=== PATIENT | female | born 1960 | race Caucasian/White ===

== ENCOUNTER → 2016-09-17 | Outpatient (CLI) | payer BC | END | disposition home or self-care (01) | LOC: LABWHC1 10:47 | PROVIDERS: ATTEND Internal Medicine Endocrinology, Diabetes & Metabolism | DX: E05.90 Thyrotoxicosis, unspecified without thyrotoxic crisis or storm (principal) | CPT/HCPCS: 36415; 84439; 84443; 84480 ==

== ENCOUNTER → 2016-11-12 | Outpatient (CLI) | payer BC ==
--- NOTE | 2016-11-18 09:24 | MM ---
Reason for exam: screening (asymptomatic). Last mammogram was performed 1 year and 6 months ago. History: Patient is postmenopausal. Benign stereotactic core biopsy of the left breast, January 11, 2003. Core biopsy of the left breast. Took hormonal contraceptives for 2 years. Took estrogen for 1 year. Physical Findings: A clinical breast exam by your physician is recommended on an annual basis and results should be correlated with mammographic findings. MG Screening Mammo w CAD Bilateral CC and MLO view(s) were taken. Prior study comparison: May 02, 2015, mammogram, performed at [facility]. November 14, 2013, mammogram, performed at [facility]. March 15, 2009, bilateral digital screening mammogram. August 01, 2007, bilateral diagnostic digital mammog. There are scattered fibroglandular densities. Finding: There are stable typically benign round, grouped/clustered calcifications in the posterior position of the left breast at biopsy clip. Previous mammotome biopsy in the left breast. There is a chronic nodularity bilaterally. There is no discrete abnormality. ASSESSMENT: Benign, BI-RAD 2 RECOMMENDATION: Routine screening mammogram of both breasts in 1 year.
== END | disposition home or self-care (01) ==
LOC: RADMAMWWP 08:08
PROVIDERS: ATTEND Family Medicine
DX: Z12.31 Encounter for screening mammogram for malignant neoplasm of breast (principal); I10 Essential (primary) hypertension

== ENCOUNTER → 2018-08-30 | Outpatient (CLI) | payer BC, MEDICARE ==
--- NOTE | 2018-08-30 10:28 | XR ---
EXAMINATION TYPE: XR Hip Bilateral Complete DATE OF EXAM: 08/30/2018 COMPARISON: NONE HISTORY: Pain TECHNIQUE: 2 views submitted of each hip FINDINGS: There is no evidence of erosive change or acute fracture. There is concentric narrowing of the hip joint bilaterally. Benign-appearing cystic changes are seen within both proximal femur. Postsurgical change overlying the lower lumbar spine. Findings suggest previous hernia repair surgery . IMPRESSION: 1. No evidence of acute fracture or dislocation. 2. Arthropathy bilaterally with no erosive changes. Benign-appearing cystic changes within both proxi mal femur.
== END | disposition home or self-care (01) ==
LOC: RADXRYALE 09:46
PROVIDERS: ATTEND Family Medicine
DX: M16.0 Bilateral primary osteoarthritis of hip (principal)
CPT/HCPCS: 73521

== ENCOUNTER → 2018-09-12 | Outpatient (CLI) | payer BC, MEDICARE ==
[2018-09-12 13:44] VITALS: BP 125/79; PULSE 90; RESP 16; TEMP 98
--- NOTE | 2018-09-12 16:23 | P.PAINCN ---
History of Present Illness - Reason for Consult Consult date: 09/12/18 - History of Present Illness This is a 58-year-old female patient referred by Dr. Orellana (PCP) for chronic pain in low lumbar region with radiation to bilateral hips, anterior lateral thigh and calves as well as bilateral groins. The pain in her low back has been present for about 4 years. She underwent posterior spinal fusion L3 to L5 levels by Dr. Guaman with no significant change in her pain. She notes numbness and tingling in bilateral feet. She states that her groin pain is relatively new, and has been present for about 2 months. She denies any associated weakness. Patient has been taking medications from primary care physician including gabapentin 300 mg 3 times a day, baclofen 20 mg twice a day with some relief. Patient denies adverse drug effects from medications. She has never had injections done before. She has been to physical therapy, last done 2 weeks ago. She continues to do her home exercises., However her dog ate her exercise sheet. Patient also denies new-onset weakness, bowel/bladder incontinence, or any other signs or symptoms of cauda equina syndrome. There are no signs of acute intoxication, and no indications of medication diversion or overuse. In addition to above, 13-point review of systems is also negative for chest pain, shortness of breath, changes in vision, changes in hearing, new onset weakness, abdominal pain, diarrhea, extreme fatigue, malaise, fever, skin changes, homicidal or suicidal ideation, or bowel or bladder incontinence. She does endorse night sweats and was recently diagnosed with A. fib following her lung resection surgery and is on Elequis for that reason. Physical Exam: Vital Signs: Reviewed in EMR GENERAL: Well appearing, in no acute distress PSYCH: Mood and affect is appropriate. Awake, alert, and oriented SKIN: Skin color, texture, turgor normal, no rashes or lesions HEENT: Normocephalic, atraumatic. EOM intact CV: No pedal edema RESP: Respirations are unlabored, no audible wheezing GI: Abdomen non-distended MUSCULOSKELETAL: Bilateral upper and lower extremity strength is normal and symmetric. No atrophy or tone abnormalities are noted. Lumbar spine: Straight leg raising in the sitting position is positive for radicular pain bilaterally. Tenderness to palpation over the lumbar spine and paraspinous muscles. Well healed surgical scars visible. Positive for pain with facet loading and back extension/rotation bilaterally. Buttocks: No pain to palpation over the PSIS, Rakesh test is negative Bilateral FADIR positive for reproduction of groin pain. Extremities: Peripheral joint ROM is full and pain free without obvious instability or laxity in all four extremities. No edema or skin discolorations noted. Gait: Gait is slow, antalgic NEUR: Bilateral lower extremity coordination and muscle stretch reflexes are physiologic and symmetric. Negative clonus. Loss of sensation to light touch noted in bilateral lower extremities circumferentially. Cranial nerves are grossly intact. Imaging: X-ray lumbar spine done on 04/16/2018 shows intact L3 to L5 hardware from posterior spinal fusion. Bilateral hip x-rays show bilateral mild hip arthropathy. Patient has not had lumbar spine MRI following lumbar spine fusion. Assessment: 1. Lumbar radiculopathy without myelopathy 2. Lumbar spondylosis 3. Bilateral hip arthropathy 4. Use of blood thinner: Elequis Plan: 1. Explanation: Opioid and psychological risk scores were reviewed. Diagnoses, prognoses, and multiple treatment options including but not limited to physical therapy, interventional therapies, adjuvant medical therapies, narcotic medication therapies, and surgery were discussed with the patient and all questions were answered to the patient's satisfaction. 2. Opioid agreement: None 3. Counseling: The patient was counseled extensively on BODY MASS INDEX, EXERCISE. Specifically, the patient was instructed regarding the importance of weight control, and exercise in the context of both chronic pain and overall health. Patient provided printout of exercise sheet for lumbar strengthening and core strengthening exercises. 4. Procedures: will schedule bilateral hip intra-articular steroid injections. Patient does not need to hold blood thinner for this procedure 5. Consultations: none 6. Investigations: Will order lumbar spine MRI 7. Medications: encourage patient to discuss with prescriber increasing dose of Neurontin to 600 mg 3 times a day 8. Disposition: for above-mentioned procedure PQRS measures: Past Medical History Past Medical History: Atrial Fibrillation, Asthma, Cancer, COPD, Fibromyalgia, Hyperlipidemia, Hypertension, Seizure Disorder, Sleep Apnea/CPAP/BIPAP Additional Past Medical History / Comment(s): diverticulitis, hernia, 11/2014 last seizure, lung ca June 2018, History of Any Multi-Drug Resistant Organisms: None Reported Past Surgical History: Appendectomy, Back Surgery, Section, Cholecystectomy, Hernia Repair, Hysterectomy, Orthopedic Surgery Additional Past Surgical History / Comment(s): lumbar fursion, neck fusion, left knee sx X3, bilat ganglion cyst removed, lymph node and gland removed from neck, left elbow sx, eye lid lift, sinus sx, left ovary removed, left upper lobectomy Past Anesthesia/Blood Transfusion Reactions: No Reported Reaction Smoking Status: Former smoker - Past Family History Daughter(s) Family Medical History: Cancer Additional Family Medical History / Comment(s): colon Father Family Medical History: Cancer Additional Family Medical History / Comment(s): COLON CA Sister(s) Family Medical History: Cancer Additional Family Medical History / Comment(s): BLADDER CA Medications and Allergies Home Medications Medication Instructions Recorded Confirmed Type ALPRAZolam [Xanax] 0.5 mg PO BID 08/20/14 09/12/18 History Albuterol Sulfate [Proair Hfa] 1 - 2 puff INHALATION RT-Q6H PRN 08/20/14 09/12/18 History Omeprazole [PriLOSEC] 20 mg PO AC-BID 08/20/14 09/12/18 History levETIRAcetam [Keppra] 500 mg PO Q12HR 08/20/14 09/12/18 History Apixaban [Eliquis] 5 mg PO BID 09/08/18 09/08/18 History Atorvastatin [Lipitor] 40 mg PO DAILY 09/08/18 09/12/18 History Budesonide-Formot 160-4.5 Mcg 2 puff INHALATION BID 09/08/18 09/12/18 History [Symbicort 160-4.5 Mcg Inhaler] Fexofenadine HCl [Anne Allergy] 60 mg PO DAILY 09/08/18 09/12/18 History Flecainide Acetate [Tambocor] 100 mg PO Q12HR 09/08/18 09/12/18 History Fluticasone Nasal [place] [Flonase 1 spray EA NOSTRIL DAILY 09/08/18 09/12/18 History Nasal [place]] Methimazole 2.5 mg PO QAM 09/08/18 09/12/18 History Metoprolol Tartrate [Lopressor] 50 mg PO QAM 09/08/18 09/12/18 History Pramipexole [Mirapex] 0.5 mg PO HS 09/08/18 09/12/18 History Vortioxetine Hydrobromide 10 mg PO QAM 09/08/18 09/12/18 History [Trintellix] cycloSPORINE [Restasis] 1 applicator BOTH EYES BID 09/08/18 09/12/18 History traZODone HCL [Desyrel] 100 mg PO HS 09/08/18 09/12/18 History Baclofen [Lioresal] 20 mg PO BID 09/12/18 09/12/18 History Gabapentin [Neurontin] 300 mg PO TID 09/12/18 09/12/18 History Allergies Allergy/AdvReac Type Severity Reaction Status Date / Time amoxicillin trihydrate Allergy Rash/Hives Verified 09/12/18 13:46 [From Augmentin] potassium clavulanate Allergy Rash/Hives Verified 09/12/18 13:46 [From Augmentin] sulfamethoxazole Allergy Rash/Hives Verified 09/12/18 13:46 [From Bactrim] trimethoprim [From Bactrim] Allergy Rash/Hives Verified 09/12/18 13:46 Physical Exam Vitals: Vital Signs Temp Pulse Resp BP Pulse Ox 09/12/18 13:51 16 09/12/18 13:34 98 F 90 16 125/79 95 PQRS Measure Charge Sheet Measure #130: Documentation of Current Meds in Medical Chart: Patient's medications documented in chart Measure #226: Tobacco Use: Screen & Cessation Intervention: Pt not a tobacco user Measure #111: Pneumonia Vaccination: Pneumococcal vaccine NOT administered or previously given Measure #47: Advance Care Plan: Advance care planning discussed & documented, pt chose/unable to give Measure #412: Opioid Treatment Agreement: No documentation of signed opioid treatment agreement Measure #317: Preventitive Care & Scrn High Bld Press & F/U: Normal blood pressure, f/u not required Measure #128: Body Mass Index (BMI) Screening & Follow-up: BMI documented ABOVE normal parameters - f/u documented Measure #131: Pain Assessment & Follow-up: Pain positive & plan documented, Follow-up scheduled Measure #431: Unhealthy Alcohol Use Preventative Care & Scrn: Patient not identified as an unhealthy alcohol user PQRS Narrative: Smoking Status Former smoker Blood Pressure 125/79 Pain Intensity [Bilateral Foot 7 ] Pain Intensity [Lower Back] 7 Pain Intensity [Bilateral Leg] 7 Pain Intensity [Bilateral 7 Groin] Pain Intensity [Bilateral Hip] 7 Scale Used Numeric (1 - 10) Hx Alcohol Use (MH) No Home Medications: Ambulatory Orders ALPRAZolam [Xanax] 0.5 mg PO BID 08/20/14 Albuterol Sulfate [Proair Hfa] 1 - 2 puff INHALATION RT-Q6H PRN 08/20/14 Omeprazole [PriLOSEC] 20 mg PO AC-BID 08/20/14 levETIRAcetam [Keppra] 500 mg PO Q12HR 08/20/14 Apixaban [Eliquis] 5 mg PO BID 09/08/18 Atorvastatin [Lipitor] 40 mg PO DAILY 09/08/18 Budesonide-Formot 160-4.5 Mcg [Symbicort 160-4.5 Mcg Inhaler] 2 puff INHALATION BID 09/08/18 Fexofenadine HCl [Anne Allergy] 60 mg PO DAILY 09/08/18 Flecainide Acetate [Tambocor] 100 mg PO Q12HR 09/08/18 Fluticasone Nasal [place] [Flonase Nasal [place]] 1 spray EA NOSTRIL DAILY 09/08/18 Methimazole 2.5 mg PO QAM 09/08/18 Metoprolol Tartrate [Lopressor] 50 mg PO QAM 09/08/18 Pramipexole [Mirapex] 0.5 mg PO HS 09/08/18 Vortioxetine Hydrobromide [Trintellix] 10 mg PO QAM 09/08/18 cycloSPORINE [Restasis] 1 applicator BOTH EYES BID 09/08/18 traZODone HCL [Desyrel] 100 mg PO HS 09/08/18 Baclofen [Lioresal] 20 mg PO BID 09/12/18 Gabapentin [Neurontin] 300 mg PO TID 09/12/18
== END | disposition home or self-care (01) ==
LOC: PNWHC3 13:03
PROVIDERS: ATTEND Anesthesiology
DX: G89.29 Other chronic pain (principal); M47.26 Other spondylosis with radiculopathy, lumbar region; M16.0 Bilateral primary osteoarthritis of hip; I48.91 Unspecified atrial fibrillation; J44.9 Chronic obstructive pulmonary disease, unspecified; I10 Essential (primary) hypertension; E78.5 Hyperlipidemia, unspecified; G40.909 Epilepsy, unspecified, not intractable, without status epilepticus; Z87.891 Personal history of nicotine dependence; Z98.1 Arthrodesis status; Z79.01 Long term (current) use of anticoagulants; Z79.51 Long term (current) use of inhaled steroids; Z79.899 Other long term (current) drug therapy
CPT/HCPCS: 99211

== ENCOUNTER 2018-09-20 08:09 | Day surgery (SDC) | payer BC, MEDICARE ==
[2018-09-15 15:08] VITALS: BMI 30.5
[~2018-09-20 08:09] MED LIST: LACTATED RINGERS 1,000 ML IV SCH
[2018-09-20 08:53] VITALS: TEMP 98.1
[2018-09-20] MEDS ORDERED: LIDOCAINE 1% INJ 10MG/ML (20 ML MDV) ONE (08:53)
[2018-09-20] MEDS ORDERED: PROPOFOL 10 MG/ML 20 ML VIAL IV ONE (08:53)
--- NOTE | 2018-09-20 10:12 | P.PCN ---
Date of Procedure: 09/20/18 Description of Procedure: BRIEF HISTORY: 58-year-old female who presents for outpatient colonoscopy. The patient reports polyps removed on his colonoscopies, she believes her last was less than 5 years ago and she was told she would need a repeat colonoscopy in 3 years. She does have a family history of colon cancer in both her father and her daughter who is status post colectomy at the age of 31. Denies any change in bowel habits, blood per rectum, abdominal pain, constipation or diarrhea. PROCEDURE PERFORMED: Colonoscopy with polypectomy. PREOPERATIVE DIAGNOSIS: Personal history of colon polyps, family history of colon cancer (daughter and father), high risk screening for malignant neoplasm of the colon. ESTIMATED BLOOD LOSS: Minimal. IV sedation per Anesthesia. PROCEDURE: After informed consent was obtained, the patient, was brought into the endoscopy unit. IV sedation was administered by Anesthesia under continuous monitoring. Digital rectal examination was normal. Initially the Olympus CF-190 flexible video colonoscope was then inserted in the rectum, gradually advanced into the sigmoid colon, however the patient's colon was very tortuous and fixed likely secondary to multiple intra-abdominal surgeries. At this point the Olympus CF190 colonoscope was removed and exchanged for a pediatric colonoscope which was then inserted into the rectum and gradually advanced to the cecum without any difficulty. Careful examination was performed as the scope was gradually being withdrawn. Ileocecal valve and the appendiceal orifice were visualized and appeared normal. Prep was excellent. Mucosa of the cecum, ascending colon, transverse colon, descending colon, sigmoid colon, and rectum appeared normal. 12 mm sessile ascending colon polyp removed with cold snare polypectomy. Diminutive 2 mm descending colon polyp removed with cold forcep. Mild internal hemorrhoids. Retroflexion was performed in the rectum and no lesions were seen. The patient tolerated the procedure well. IMPRESSION: Tortuous, fixed likely secondary to multiple intra-abdominal surgeries, pediatric scope used. 12 mm ascending colon polyp removed with cold snare. 2 mm descending colon polyp removed with cold forceps. Mild internal hemorrhoids. RECOMMENDATIONS: Findings of this examination were discussed with the patient and her daughter. Okay to resume diet. Would recommend repeat colonoscopy in 3 years for high risk colon cancer screening. With pathology from polypectomy.
[2018-09-20 10:13] VITALS: RESP 16
[2018-09-20 10:34] VITALS: BP 127/87; PULSE 65
== END 2018-09-20 11:02 | disposition home or self-care (01) ==
LOC: ORWHC2ENDO 08:09
PROVIDERS: ATTEND Internal Medicine
DX: Z12.11 Encounter for screening for malignant neoplasm of colon (principal); Z86.010 Personal history of colon polyps; D12.2 Benign neoplasm of ascending colon; K63.5 Polyp of colon; K64.8 Other hemorrhoids; Q43.9 Congenital malformation of intestine, unspecified; Z80.0 Family history of malignant neoplasm of digestive organs; I10 Essential (primary) hypertension; E78.5 Hyperlipidemia, unspecified; I48.91 Unspecified atrial fibrillation; K21.9 Gastro-esophageal reflux disease without esophagitis; J44.9 Chronic obstructive pulmonary disease, unspecified; R56.9 Unspecified convulsions; M79.7 Fibromyalgia; F32.9 Major depressive disorder, single episode, unspecified; G47.33 Obstructive sleep apnea (adult) (pediatric); Z79.01 Long term (current) use of anticoagulants; Z79.899 Other long term (current) drug therapy; Z88.1 Allergy status to other antibiotic agents; Z88.2 Allergy status to sulfonamides; Z87.891 Personal history of nicotine dependence; Z85.118 Personal history of other malignant neoplasm of bronchus and lung; Z90.49 Acquired absence of other specified parts of digestive tract; Z90.710 Acquired absence of both cervix and uterus; Z90.2 Acquired absence of lung [part of]; Z98.1 Arthrodesis status
CPT/HCPCS: 45385; 45380; 88305; J2001; J2704

== ENCOUNTER 2018-09-21 09:51 | Day surgery (SDC) | payer BC, MEDICARE ==
[2018-09-15 14:54] VITALS: BMI 30.5
[2018-09-21 10:44] VITALS: TEMP 97.8
[2018-09-21] MEDS ORDERED: LACTATED RINGERS 1,000 ML IV ONE ×2 (10:44→12:00)
[2018-09-21] MEDS ORDERED: LIDOCAINE 1% 20 ML VIAL (10MG/ML) FOR IV START INTRADERMA ONE (10:44)
--- NOTE | 2018-09-21 11:43 | P.PCN ---
Date of Procedure: 09/21/18 Procedure(s) Performed: Preoperative diagnoses = bilateral hip joint osteoarthritis. Postoperative diagnoses= same Procedure= intra-articular bilateral hip injection with fluoroscopy Anesthesia= local anesthetic with lidocaine 1%, moderate sedation with fentanyl and Versed Fluoroscopy was used for the procedure and fluoroscopic images saved to chart Procedure indication= patient with a history of severe hip pain secondary to osteoarthritis which is not responsive to the conservative treatment. Description of the procedure= patient was seen and identified in the preoperative holding area, risk and benefits , complications ,and alternatives of the procedure were discussed with the patient and patient agreed with the preceding, patient signed the consent and IV was started and vital signs were monitored throughout the procedure and it was stable. The patient was taken to the operating room and placed in supine position the groin area was prepped with chlorhexidine 3 and draped with the standard fashion, AP fluoroscopy was used to identify the junction of the head and neck of the femur. Skin and subcutaneous tissue was infiltrated with 2 mL of 1% lidocaine. a 22-gauge 3.5" Quincke spinal needle was advanced through the skin and subcutaneous tissue into the hip joint. After negative aspiration,.2 MLS of Isovue 200 was injected, revealing intra-articular spread. Then the treatment solution of 4 cc 1% lidocaine with 40 mg of Kenalog injected. The procedure was repeated on the other side. A total of 80 mg of Kenalog was used. The patient tolerated the procedure well without any complications. Complications= there was no acute complication identified. Disposition= patient was placed advanced supine position and transferred to recovery room in stable condition for observation and was discharged home after meeting discharge criteria, and discharge instruction was given and patient will follow up in the pain clinic in a few weeks
[2018-09-21 12:01] VITALS: RESP 16
[2018-09-21 12:19] VITALS: BP 120/77; PULSE 60
--- NOTE | 2018-09-21 13:32 | FL ---
Fluoroscopy HISTORY: Pain 6 seconds fluoroscopy time supplied to the referring clinician. 4 intraoperative C-arm images docume nt the procedure. See dictated report from anesthesia.
== END 2018-09-21 12:31 | disposition home or self-care (01) ==
LOC: ORPAIN 09:51
PROVIDERS: ATTEND Anesthesiology
DX: M16.0 Bilateral primary osteoarthritis of hip (principal); M47.26 Other spondylosis with radiculopathy, lumbar region; Z98.1 Arthrodesis status; G89.29 Other chronic pain; I48.91 Unspecified atrial fibrillation; I10 Essential (primary) hypertension; E78.5 Hyperlipidemia, unspecified; J44.9 Chronic obstructive pulmonary disease, unspecified; M79.7 Fibromyalgia; G40.909 Epilepsy, unspecified, not intractable, without status epilepticus; G47.30 Sleep apnea, unspecified; Z99.89 Dependence on other enabling machines and devices; Z79.01 Long term (current) use of anticoagulants; Z79.899 Other long term (current) drug therapy; Z79.51 Long term (current) use of inhaled steroids; Z85.118 Personal history of other malignant neoplasm of bronchus and lung; Z90.2 Acquired absence of lung [part of]; Z90.49 Acquired absence of other specified parts of digestive tract; Z90.710 Acquired absence of both cervix and uterus; Z90.721 Acquired absence of ovaries, unilateral; Z87.891 Personal history of nicotine dependence; Z88.0 Allergy status to penicillin; Z88.2 Allergy status to sulfonamides; Z80.0 Family history of malignant neoplasm of digestive organs; Z80.52 Family history of malignant neoplasm of bladder
CPT/HCPCS: 20610; J2250; J3301; J3010; Q9966; 99152

== ENCOUNTER → 2018-10-04 | Outpatient (CLI) | payer BC, MEDICARE ==
[2018-10-04 12:07] VITALS: BP 117/79; PULSE 62; RESP 16
--- NOTE | 2018-10-05 10:03 | P.PAINPG ---
Subjective Progress Note Date: 10/04/18 This is a follow-up visit for this 58 years old female, with a chronic history of severe low back pain with radiation to the lateral buttocks and hips and lower extremity, patient diagnosed with artharalgia of both hips , and lumbar radiculopathy and lumbar spondylosis with lumbar facet arthropathy, patient had lumbar spinal fusion surgery that was done in March 2018, and she reported that she had 0 benefit from the surgery, and he weeks ago she had bilateral hip steroid injection and she reported that she has 0 benefit from it , she continues to use Neurontin and baclofen, he denies any side effects from it, previously she had the spinal cord stimulator implanted but she had 0 benefit from it , and she had the generator of the spinal cord stimulator removed but she still have that leads in the thoracic area ,, Objective - Vital Signs Vital signs: Vital Signs Temp Pulse 62 10/04/18 12:01 Resp 16 10/04/18 12:01 BP 117/79 10/04/18 12:01 Pulse Ox 94 L 10/04/18 12:01 Intake & Output 10/04/18 10/05/18 10/05/18 18:59 06:59 18:59 Weight 78.925 kg - Exam Physical Examinations : -Constitutiona : Cooperative , not in acute distress . -HEENT : nech : supple , no Lymphadenopathy , normal thyroid size . eyes : no ptosis , no icterus, no photophobia . - Gastrointestina : abdomen soft no tenderness , bowel sounds , no organomegally . - Genitourinary : Defferred . - neurologic : Cranial nerve II to XII intact , no focal neurological deffecit . -psychatric : alert , oriented X 3 , appropriate affect , intact judgment and insight . -Lymphatic : no Lymphadenopathy . - musculoskeltal : Lumber spine moter stegnth lower extremities ,thigh and legs 3-4/5 Right side , 3- 4/5 Left side deep tendon reflexes : normal Knee Jerk , normal ankle Jerk positive lumber facet Loading Test Range of motion of the lumbar spine Flexion 30 degrees, extension 10 degrees strait leg raising test , positive at 60 degree Fabere test positive RT and positive LT . tenderness over the Sacroiliac joint on the R and L sides Flexion, station and left rotation of the both hips associated with pain . Assessment and Plan Plan: Assessment and plan=1-failed back surgery syndrome lumbar area. 2-lumbar spondylosis with lumbar facet arthropathy. 3-bilateral hip arthralgia. Status post bilateral hip steroid injections patient had 0 benefit from the hip injection , patient could benefit from caudal epidural steroid injection with lysis of epidural adhesions, which will be done under fluoroscopy guidance but before we proceed with the procedure patient has the hold the blood thinner ( ELIQUIS ) before we can proceed with the procedure Time with Patient: Less than 30 PQRS Measure Charge Sheet Measure #130: Documentation of Current Meds in Medical Chart: Patient's medications documented in chart Measure #226: Tobacco Use: Screen & Cessation Intervention: Pt not a tobacco user Measure #111: Pneumonia Vaccination: Pneumococcal vaccine NOT administered or previously given Measure #47: Advance Care Plan: Advance care planning discussed & documented, pt chose/unable to give Measure #412: Opioid Treatment Agreement: No documentation of signed opioid treatment agreement Measure #408: Opioid Therapy Follow-up Evaluation: Patient had NO f/u eval minimum every 3 months during opioid therapy Measure #317: Preventitive Care & Scrn High Bld Press & F/U: Normal blood pressure, f/u not required Measure #128: Body Mass Index (BMI) Screening & Follow-up: BMI documented ABOVE normal parameters - f/u documented Measure #131: Pain Assessment & Follow-up: Pain positive & plan documented, Follow-up scheduled Measure #431: Unhealthy Alcohol Use Preventative Care & Scrn: Patient not identified as an unhealthy alcohol user PQRS Narrative: Smoking Status Former smoker Blood Pressure 117/79 Pain Intensity [Bilateral 8 Lower Back] Scale Used Numeric (1 - 10) Hx Alcohol Use (MH) No Home Medications: Ambulatory Orders ALPRAZolam [Xanax] 0.5 mg PO BID 08/20/14 Albuterol Sulfate [Proair Hfa] 1 - 2 puff INHALATION RT-Q6H PRN 08/20/14 Omeprazole [PriLOSEC] 20 mg PO AC-BID 08/20/14 levETIRAcetam [Keppra] 500 mg PO Q12HR 08/20/14 Apixaban [Eliquis] 5 mg PO BID 09/08/18 Atorvastatin [Lipitor] 40 mg PO DAILY 09/08/18 Budesonide-Formot 160-4.5 Mcg [Symbicort 160-4.5 Mcg Inhaler] 2 puff INHALATION BID 09/08/18 Fexofenadine HCl [Anne Allergy] 60 mg PO DAILY 09/08/18 Flecainide Acetate [Tambocor] 100 mg PO Q12HR 09/08/18 Fluticasone Nasal [place] [Flonase Nasal [place]] 1 spray EA NOSTRIL DAILY 09/08/18 Methimazole 2.5 mg PO QAM 09/08/18 Metoprolol Tartrate [Lopressor] 50 mg PO QAM 09/08/18 Pramipexole [Mirapex] 1 mg PO HS 09/08/18 Vortioxetine Hydrobromide [Trintellix] 10 mg PO QAM 09/08/18 cycloSPORINE [Restasis] 1 applicator BOTH EYES BID 09/08/18 traZODone HCL [Desyrel] 100 mg PO HS 09/08/18 Baclofen [Lioresal] 20 mg PO BID 09/12/18 Gabapentin [Neurontin] 600 mg PO HS 09/12/18 Magnesium 250 mg PO QAM 09/15/18 Multivit-Min/Iron/Folic/Lutein [Centrum Silver Women Tablet] 1 each PO QAM 09/15/18 Controlled Substance Measures - Controlled Substance Measures Is patient prescribed a controlled substance at discharge?: No
== END | disposition home or self-care (01) ==
LOC: PNWHC3 11:43
PROVIDERS: ATTEND Specialist
DX: G89.29 Other chronic pain (principal); M96.1 Postlaminectomy syndrome, not elsewhere classified; M47.816 Spondylosis without myelopathy or radiculopathy, lumbar region; M46.96 Unspecified inflammatory spondylopathy, lumbar region; M25.551 Pain in right hip; M25.552 Pain in left hip; Z87.891 Personal history of nicotine dependence; Z98.1 Arthrodesis status; Z79.51 Long term (current) use of inhaled steroids; Z79.01 Long term (current) use of anticoagulants; Z79.899 Other long term (current) drug therapy
CPT/HCPCS: 99211

== ENCOUNTER 2018-10-11 07:26 | Day surgery (SDC) | payer BC, MEDICARE ==
[2018-10-06 11:50] VITALS: BMI 29.5
[2018-10-11 07:47] VITALS: TEMP 97.2
[2018-10-11] MEDS ORDERED: LIDOCAINE 1% 20 ML VIAL (10MG/ML) FOR IV START INTRADERMA ONE (07:51)
--- NOTE | 2018-10-11 08:57 | P.PCN ---
Date of Procedure: 10/11/18 Procedure(s) Performed: PREOP DIAGNOSIS: 1- Lumbar postlaminectomy syndrome. POSTOP DIAGNOSIS:1- Lumbar postlaminectomy syndrome. PROCEDURE: 1-Caudal epidural steroid injection with epidurolysis and epidurogram under fluoroscopic guidance. (Fluoroscopy images available in the radiology Department ) 2-caudal epidurogram. ANESTHESIA: Local with 1% lidocaine 3 ml ,and moderate sedation, with Versed 2 mg and fentanyl 100 g. EBL: Minimal. PROCEDURE INDICATION: The patient with post-laminectomy syndrome with low back pain and radiculopathy radiating down in both legs, here for a caudal epidural steroid injection with epidurolysis. PROCEDURE DESCRIPTION: The patient was seen and identified in the preoperative area. Risks, benefits, complications, and alternatives were discussed with the patient. The patient agreed to proceed with the procedure and signed the consent. IV was started, and vital signs were stable. Patient was taken to the OR and time out was completed. The patient was placed in the prone position on procedure table and a pillow was placed under the abdomen to reduce lumbar lordosis. The lumbosacral area was prepped and draped in the usual sterile fashion. Vital signs were closely monitored during the procedure. lateral view and the anterior-posterior plates of the sacrum were identified with infiltration of the area overlying the sacral hiatus with 1% lidocaine .A 17 gauge RK epidural needle was used to advance through the sacral hiatus into the caudal epidural space. Omnipaque 180 dye. 2cc was injected and the position of the needle was verified to be in the midline. A Racz catheter was introduced into the epidural space and was advanced towards the L5-S1 interspace under direct fluoroscopic guidance. Multiple passes were made with the catheter for lysis of epidural adhesions. Depo-Medrol 80 mg mixed with 3ml of preservative free Lidocaine 1% and 5 ml of preservative free normal saline was injected slowly. Additional spread was seen to L4 under fluoroscopy. The needle and the catheter were withdrawn intact. EPIDUROGRAM: Omnipaque 180 mg dye 2 ml was injected with spread of the dye into the caudal epidural space and with spread cutoff at L5 prior to epidurolysis. Post epidurolysis dye 2 ml was injected and spread was seen to L3-4.There was further spread of the solution together with the dye above the L3 COMPLICATIONS: None. DISPOSITION / PLANS: The patient was placed in a supine position and transferred to the recovery area in a stable condition for observation and was discharged from the recovery room after meeting discharge criteria. Home discharge instructions given to the patient by the staff. The patient was reexamined prior to discharge. The patient will schedule a follow up in the clinic in 2-4 weeks.
[2018-10-11 09:06] VITALS: RESP 17
--- NOTE | 2018-10-11 09:06 | FL ---
Fluoroscopy HISTORY: Pain 9 seconds fluoroscopy time supplied to the referring clinician. 2 intraoperative C-arm images docume nt the procedure. See dictated report from anesthesia.
[2018-10-11 09:19] VITALS: BP 123/67; PULSE 73
== END 2018-10-11 09:32 | disposition home or self-care (01) ==
LOC: ORPAIN 07:26
PROVIDERS: ATTEND Specialist
DX: M96.1 Postlaminectomy syndrome, not elsewhere classified (principal); M54.10 Radiculopathy, site unspecified; I48.91 Unspecified atrial fibrillation; I10 Essential (primary) hypertension; Z88.2 Allergy status to sulfonamides; Z88.8 Allergy status to other drugs, medicaments and biological substances; Z79.84 Long term (current) use of oral hypoglycemic drugs
CPT/HCPCS: 62264; J2250; J1030; J3010; Q9966; 99152

== ENCOUNTER 2018-10-27 07:24 | Day surgery (SDC) | payer BC, MEDICARE ==
[2018-10-20 10:14] VITALS: BMI 29.5
[2018-10-27 08:05] VITALS: TEMP 98.5
[2018-10-27] MEDS ORDERED: LIDOCAINE 1% 20 ML VIAL (10MG/ML) FOR IV START INTRADERMA ONE (08:19)
--- NOTE | 2018-10-27 09:32 | P.PCN ---
Date of Procedure: 10/27/18 Procedure(s) Performed: Procedure= caudal epidural steroid injection with lysis of epidural adhesions under fluoroscopy guidance. Preoperative diagnosis=1-failed back surgery syndrome lumbar area. 2 lumbar degenerative disc disease 3-lumbar radiculopathy Postoperative diagnosis= same Fluoroscopy was used for the procedure and fluoroscopic images were saved to the patient's chart Anesthesia= IV sedation with Versed and fentanyl , and local infiltration with lidocaine 1% 3 mL for skin and subcutaneous tissue infiltrations. Description of the procedure= procedure risk and benefits discussed with the patient, including but not limited to risk of infection and bleeding and ALLERGIC reaction to the medication and no complete pain relief, paralysis discussed with the patient and the patient agreed with proceeding. The patient was taken to the operating room, placed in prone position, standard monitors applied, then after induction of anesthesia the lumbar and the caudal Area prepped with chlorhexidine , then under fluoroscopy guidance, local infiltration of the skin and subcutaneous tissue at the caudal hiatus area, then a 17-gauge Touhy needle advanced slowly under fluoroscopy and passed through the cauda hiatus and advanced to the epidural space upto the S3 level. Aspiration revealed no heme, no paresthesia, no cerebrospinal fluid, then Isovue 200 2mls was injected under live fluoroscopy that showed good spread in the epidural space, no intrathecal spread, then a 22 xochilt Racz catheter was advanced slowly through the needle up to the L2 level and I was able to break the scar tissue by advancing and withdrawing the catheter multiple times. Once lysis of adhesion was completed, a mixture of lidocaine 1% 1 mL +5 mL of preservative-free normal saline +80 mg of depomedrol was mixed together , and injected epidurally through the Racz catheter after negative aspiration. Patient tolerated the procedure well without any complication and will follow up with up in the pain clinic in 4 weeks.
[2018-10-27] MEDS ORDERED: IV FLUID CONTINUATION 550 ML IV ONE (09:35)
[2018-10-27 09:41] VITALS: RESP 16
[2018-10-27 09:56] VITALS: BP 113/70; PULSE 72
--- NOTE | 2018-10-27 11:21 | FL ---
EXAMINATION TYPE: FL guided pain mgmt statistic DATE OF EXAM: 10/27/2018 HISTORY: Flouroscopy time 10 seconds of fluoroscopy provided. IMPRESSION: 1. Fluoroscopy time.
== END 2018-10-27 10:15 | disposition home or self-care (01) ==
LOC: ORPAIN 07:24
PROVIDERS: ATTEND Anesthesiology
DX: G89.29 Other chronic pain (principal); M96.1 Postlaminectomy syndrome, not elsewhere classified; M47.896 Other spondylosis, lumbar region; M25.552 Pain in left hip; M25.551 Pain in right hip; Z79.01 Long term (current) use of anticoagulants; I48.91 Unspecified atrial fibrillation; Z87.891 Personal history of nicotine dependence; Z79.51 Long term (current) use of inhaled steroids; Z79.899 Other long term (current) drug therapy
CPT/HCPCS: 62264; J2250; J1030; J3010; Q9966; C1894; 99152

== ENCOUNTER 2018-10-29 19:25 | Emergency (ER) | payer BC, MEDICARE ==
[2018-10-29 19:43] VITALS: RESP 20; TEMP 98
[2018-10-29] MEDS ORDERED: KETOROLAC 30 MG/ML 1 ML VIAL IVP STA (20:58)
[2018-10-29] MEDS ORDERED: SODIUM CHLORIDE 0.9% 500 ML 500 ML IV STA (20:58)
[2018-10-29] MEDS ORDERED: HYDROmorphone 0.5 MG/0.5 ML SYRINGE IVP STA ×2 (20:58→23:34)
[2018-10-29] MEDS ORDERED: ONDANSETRON 4 MG/2 ML VIAL IVP STA (20:58)
[2018-10-29] MEDS ORDERED: DIAZEPAM 5 MG/ML 2 ML INJ IVP STA (20:59)
[2018-10-29 21:35] LABS: Basophils # (A) 0.1 k/uL (0-0.2); Basophils % (A) 1 %; Eosinophils # (A) 0.2 k/uL (0-0.7); Eosinophils % (A) 2 %; Lymphocytes # (A) 1.1 k/uL (1.0-4.8); Lymphocytes % (A) 12 %; MCH 33.2 pg (25.0-35.0); MCHC 35.9 g/dL (31.0-37.0); MCV 92.5 fL (80.0-100.0); Mean Platelet Volume 6.2; Monocytes # (A) 0.6 k/uL (0-1.0); Monocytes % (A) 7 %; Neutrophils # (A) 7.1 k/uL (1.3-7.7); Neutrophils % (A) 76 %; Platelet Count 263 k/uL (150-450); RBC 4.22 m/uL (3.80-5.40); RDW 12.6 % (11.5-15.5); WBC 9.3 k/uL (3.8-10.6)
[2018-10-29 21:43] LABS: ALT 110 U/L (9-52); AST 37 U/L (14-36); African American GFR (CKD) >90 (>60 ml/min/1.73 sqM); Alkaline Phosphatase 155 U/L (38-126); Amylase 51 U/L (30-110); Anion Gap 11 mmol/L; Blood Urea Nitrogen 24 mg/dL (7-17); Calcium 9.9 mg/dL (8.4-10.2); Carbon Dioxide 28 mmol/L (22-30); Chloride 96 mmol/L (98-107); Glucose 103 mg/dL (74-99); Potassium 4.2 mmol/L (3.5-5.1); Sodium 135 mmol/L (137-145); Total Bilirubin 0.4 mg/dL (0.2-1.3)
[2018-10-29 23:24] VITALS: BP 109/79; PULSE 58
[2018-10-29 23:29] LABS: Appearance,Urine Clear (Clear); Bilirubin,Urine Negative (Negative); Blood,Urine Negative (Negative); Color,Urine Light Yellow; Glucose,Urine (UA) Negative (Negative); Ketones,Urine Negative (Negative); Leukocyte Esterase,Urine Negative (Negative); Nitrite,Urine Negative (Negative); Protein,Urine Negative (Negative); Specific Gravity,Urine 1.009 (1.001-1.035); Urobilinogen,Urine <2.0 mg/dL (<2.0)
[2018-10-29] MEDS ORDERED: HYDROcodone/APAP 5-325MG 1 EACH TAB PO STA (23:30)
--- NOTE | 2018-10-29 23:47 | ED ---
General Adult HPI - General Chief complaint: Back Pain/Injury Stated complaint: 1999 reservation: low back pain Time Seen by Provider: 10/29/18 20:11 Source: patient Mode of arrival: wheelchair Limitations: no limitations - History of Present Illness Initial comments: 58-year-old female patient presents to the emergency department today for evaluation of diffuse low back pain with radiation down the left leg. Patient is reporting left leg cramping. States this started a couple days after receiving a spinal injection. Patient believes is an injection of steroids. Patient states she has had this in the past and has never had this reaction before. She denies any fever or chills. Denies any loss of bowel or bladder control. Denies any saddle anesthesia. States she is taking baclofen and gabapentin at home without relief. She is also reporting intermittent cramping abdominal pain. States this has been going on since before the injections. Denies nausea or vomiting. Denies diarrhea or constipation. Patient denies any recent rash, shortness breath, chest pain, back pain, numbness, tingling, dizziness, weakness, hematuria, dysuria, urinary urgency, urinary frequency, headache, visual changes, or any other complaints. - Related Data Home Medications Medication Instructions Recorded Confirmed ALPRAZolam [Xanax] 0.5 mg PO BID 08/20/14 10/27/18 Albuterol Sulfate [Proair Hfa] 1 - 2 puff INHALATION RT-Q6H PRN 08/20/14 10/27/18 Omeprazole [PriLOSEC] 20 mg PO AC-BID 08/20/14 10/27/18 levETIRAcetam [Keppra] 500 mg PO Q12HR 08/20/14 10/27/18 Apixaban [Eliquis] 5 mg PO BID 09/08/18 10/27/18 Atorvastatin [Lipitor] 40 mg PO DAILY 09/08/18 10/27/18 Budesonide-Formot 160-4.5 Mcg 2 puff INHALATION BID 09/08/18 10/27/18 [Symbicort 160-4.5 Mcg Inhaler] Fexofenadine HCl [Anne Allergy] 60 mg PO DAILY 09/08/18 10/27/18 Flecainide Acetate [Tambocor] 100 mg PO Q12HR 09/08/18 10/27/18 Fluticasone Nasal [place] [Flonase 1 spray EA NOSTRIL BID 09/08/18 10/27/18 Nasal [place]] Methimazole 2.5 mg PO QAM 09/08/18 10/27/18 Metoprolol Tartrate [Lopressor] 50 mg PO QAM 09/08/18 10/27/18 Pramipexole [Mirapex] 1 mg PO 09/08/18 10/27/18 Vortioxetine Hydrobromide 10 mg PO QAM 09/08/18 10/27/18 [Trintellix] cycloSPORINE [Restasis] 1 applicator BOTH EYES BID 09/08/18 10/27/18 traZODone HCL [Desyrel] 100 mg PO HS 09/08/18 10/27/18 Gabapentin [Neurontin] 600 mg PO 09/12/18 10/27/18 Magnesium 250 mg PO QAM 09/15/18 10/27/18 Multivit-Min/Iron/Folic/Lutein 1 each PO [facility] 09/15/18 10/27/18 [Centrum Silver Women Tablet] Previous Rx's Medication Instructions Recorded Diazepam [Valium] 5 mg PO TID PRN 3 Days #9 tab 10/29/18 Hydrocodone/Acetaminophen [[place] 1 tab PO Q6HR PRN #12 tab 10/29/18 5-325] Allergies Allergy/AdvReac Type Severity Reaction Status Date / Time amoxicillin trihydrate Allergy Rash/Hives Verified 10/27/18 08:22 [From Augmentin] potassium clavulanate Allergy Rash/Hives Verified 10/27/18 08:22 [From Augmentin] sulfamethoxazole Allergy Rash/Hives Verified 10/27/18 08:22 [From Bactrim] trimethoprim [From Bactrim] Allergy Rash/Hives Verified 10/27/18 08:22 Review of Systems ROS Statement: Those systems with pertinent positive or pertinent negative responses have been documented in the HPI. ROS Other: All systems not noted in ROS Statement are negative. Past Medical History Past Medical History: Atrial Fibrillation, Asthma, Cancer, COPD, Fibromyalgia, Hyperlipidemia, Hypertension, Seizure Disorder, Sleep Apnea/CPAP/BIPAP Additional Past Medical History / Comment(s): diverticulitis, hernia, 11/2014 last seizure, lung ca June 2018, History of Any Multi-Drug Resistant Organisms: None Reported Past Surgical History: Appendectomy, Back Surgery, Section, Cholecystectomy, Hernia Repair, Hysterectomy, Orthopedic Surgery Additional Past Surgical History / Comment(s): lumbar fusion, neck fusion, left knee sx X3, bilat ganglion cyst removed, lymph node and gland removed from neck, left elbow sx, eye lid lift, sinus sx, left ovary removed, left upper lobectomy, Pain Clinic Procedures. Past Anesthesia/Blood Transfusion Reactions: No Reported Reaction Past Psychological History: Anxiety, Depression Smoking Status: Former smoker Past Alcohol Use History: Rare Past Drug Use History: Marijuana - Past Family History Daughter(s) Family Medical History: Cancer Additional Family Medical History / Comment(s): colon Father Family Medical History: Cancer Additional Family Medical History / Comment(s): COLON CA Sister(s) Family Medical History: Cancer Additional Family Medical History / Comment(s): BLADDER CA General Exam Limitations: no limitations General appearance: alert, in no apparent distress, other (This is a well-developed, well-nourished adult female patient in no acute distress. Vital signs upon presentation are temperature 98.0F, pulse 73, respirations 20, blood pressure 117/81, pulse ox 98% on room air.) Eye exam: Present: normal appearance, PERRL, EOMI. Absent: scleral icterus, conjunctival injection, periorbital swelling ENT exam: Present: normal exam, normal oropharynx, mucous membranes moist Respiratory exam: Present: normal lung sounds bilaterally. Absent: respiratory distress, wheezes, rales, rhonchi, stridor Cardiovascular Exam: Present: regular rate, normal rhythm, normal heart sounds. Absent: systolic murmur, diastolic murmur, rubs, gallop, clicks GI/Abdominal exam: Present: soft, normal bowel sounds. Absent: distended, tenderness, guarding, rebound, rigid Neurological exam: Present: alert, oriented X3, CN II-XII intact, other (Strengt h in lower extremities is 5/5. Skin to the lower extremities is pink, warm, dry. Cap refill is less than 3 seconds. Pedal and posttibial pulses are 2+ and equal bilaterally.) Psychiatric exam: Present: normal affect, normal mood Skin exam: Present: warm, dry, intact, normal color. Absent: rash Course Vital Signs 09/07/19 09/07/19 19:39 23:22 Temperature 98.0 F Pulse Rate 73 58 L Respiratory 20 20 Rate Blood Pressure 117/81 109/79 O2 Sat by Pulse 98 93 L Oximetry Medical Decision Making - Medical Decision Making 58-year-old female patient presented to the emergency department today for evaluation of lower back pain with radiation down the left leg. Patient is also reporting some intermittent cramping abdominal pain for the last week or 2. Patient states is mostly on the left side. Physical examination did reveal some left lower quadrant tenderness. She is afebrile, vital signs. Labs reviewed and did reveal mildly elevated liver enzymes. She denies any concerning symptoms for cauda equina. She does have improvement of symptoms after receiving medications here. She'll be discharged home with pain medication and muscle relaxers. She is instructed to follow-up with her physician on Wednesday. Return parameters were discussed in detail. She verbalizes understanding and agrees with this plan. - Lab Data Result diagrams: 10/29/18 21:15 10/29/18 21:15 Lab Results 10/29/18 10/29/18 10/29/18 Range/Units 21:15 21:15 21:15 WBC 9.3 (3.8-10.6) k/uL RBC 4.22 (3.80-5.40) m/uL Hgb 14.0 (11.4-16.0) gm/dL Hct 39.0 (34.0-46.0) % MCV 92.5 (80.0-100.0) fL MCH 33.2 (25.0-35.0) pg MCHC 35.9 (31.0-37.0) g/dL RDW 12.6 (11.5-15.5) % Plt Count 263 (150-450) k/uL Neutrophils % 76 % Lymphocytes % 12 % Monocytes % 7 % Eosinophils % 2 % Basophils % 1 % Neutrophils # 7.1 (1.3-7.7) k/uL Lymphocytes # 1.1 (1.0-4.8) k/uL Monocytes # 0.6 (0-1.0) k/uL Eosinophils # 0.2 (0-0.7) k/uL Basophils # 0.1 (0-0.2) k/uL Sodium 135 L (137-145) mmol/L Potassium 4.2 (3.5-5.1) mmol/L Chloride 96 L (98-107) mmol/L Carbon Dioxide 28 (22-30) mmol/L Anion Gap 11 mmol/L BUN 24 H (7-17) mg/dL Creatinine 0.56 (0.52-1.04) mg/dL Est GFR (CKD-EPI)AfAm >90 (>60 ml/min/1.73 sqM) Est GFR (CKD-EPI)NonAf >90 (>60 ml/min/1.73 sqM) Glucose 103 H (74-99) mg/dL Plasma Lactic Acid Evan 1.3 (0.7-2.0) mmol/L Calcium 9.9 (8.4-10.2) mg/dL Total Bilirubin 0.4 (0.2-1.3) mg/dL AST 37 H (14-36) U/L ALT 110 H (9-52) U/L Alkaline Phosphatase 155 H (38-126) U/L Total Protein 7.0 (6.3-8.2) g/dL Albumin 4.0 (3.5-5.0) g/dL Amylase 51 (30-110) U/L Lipase 55 (23-300) U/L Urine Color Urine Appearance (Clear) Urine pH (5.0-8.0) Ur Specific [place] (1.001-1.035) Urine Protein (Negative) Urine Glucose (UA) (Negative) Urine Ketones (Negative) Urine Blood (Negative) Urine Nitrite (Negative) Urine Bilirubin (Negative) Urine Urobilinogen (<2.0) mg/dL Ur Leukocyte Esterase (Negative) 10/29/18 Range/Units 22:30 WBC (3.8-10.6) k/uL RBC (3.80-5.40) m/uL Hgb (11.4-16.0) gm/dL Hct (34.0-46.0) % MCV (80.0-100.0) fL MCH (25.0-35.0) pg MCHC (31.0-37.0) g/dL RDW (11.5-15.5) % Plt Count (150-450) k/uL Neutrophils % % Lymphocytes % % Monocytes % % Eosinophils % % Basophils % % Neutrophils # (1.3-7.7) k/uL Lymphocytes # (1.0-4.8) k/uL Monocytes # (0-1.0) k/uL Eosinophils # (0-0.7) k/uL Basophils # (0-0.2) k/uL Sodium (137-145) mmol/L Potassium (3.5-5.1) mmol/L Chloride (98-107) mmol/L Carbon Dioxide (22-30) mmol/L Anion Gap mmol/L BUN (7-17) mg/dL Creatinine (0.52-1.04) mg/dL Est GFR (CKD-EPI)AfAm (>60 ml/min/1.73 sqM) Est GFR (CKD-EPI)NonAf (>60 ml/min/1.73 sqM) Glucose (74-99) mg/dL Plasma Lactic Acid Evan (0.7-2.0) mmol/L Calcium (8.4-10.2) mg/dL Total Bilirubin (0.2-1.3) mg/dL AST (14-36) U/L ALT (9-52) U/L Alkaline Phosphatase (38-126) U/L Total Protein (6.3-8.2) g/dL Albumin (3.5-5.0) g/dL Amylase (30-110) U/L Lipase (23-300) U/L Urine Color Light Yellow Urine Appearance Clear (Clear) Urine pH 6.0 (5.0-8.0) Ur Specific [place] 1.009 (1.001-1.035) Urine Protein Negative (Negative) Urine Glucose (UA) Negative (Negative) Urine Ketones Negative (Negative) Urine Blood Negative (Negative) Urine Nitrite Negative (Negative) Urine Bilirubin Negative (Negative) Urine Urobilinogen <2.0 (<2.0) mg/dL Ur Leukocyte Esterase Negative (Negative) Disposition Clinical Impression: Back pain Disposition: HOME SELF-CARE Condition: Good Instructions (If sedation given, give patient instructions): Muscle Spasm (ED), Back Pain (ED) Additional Instructions: Follow up with your bottom painter Wednesday. Follow-up with the primary care physician for recheck in 1-2 days Return to the emergency department for any new, worsening, or concerning symptoms. Prescriptions: Hydrocodone/Acetaminophen [[place] 5-325] 1 tab PO Q6HR PRN #12 tab PRN Reason: Pain Diazepam [Valium] 5 mg PO TID PRN 3 Days #9 tab PRN Reason: Muscle Spasm Is patient prescribed a controlled substance at d/c from ED?: No Referrals: Skip Orellana DO [Primary Care Provider] - 1-2 days Time of Disposition: 23:46
== END 2018-10-30 00:04 | disposition home or self-care (01) ==
LOC: EC 19:25
DX: M54.5 Low back pain (principal); R10.9 Unspecified abdominal pain; R74.8 Abnormal levels of other serum enzymes; I48.91 Unspecified atrial fibrillation; J44.9 Chronic obstructive pulmonary disease, unspecified; I10 Essential (primary) hypertension; E78.5 Hyperlipidemia, unspecified; G40.909 Epilepsy, unspecified, not intractable, without status epilepticus; G47.30 Sleep apnea, unspecified; F41.9 Anxiety disorder, unspecified; F32.9 Major depressive disorder, single episode, unspecified; Z79.51 Long term (current) use of inhaled steroids; Z79.01 Long term (current) use of anticoagulants; Z79.899 Other long term (current) drug therapy; Z88.1 Allergy status to other antibiotic agents; Z88.2 Allergy status to sulfonamides; Z88.0 Allergy status to penicillin; Z87.891 Personal history of nicotine dependence; Z85.118 Personal history of other malignant neoplasm of bronchus and lung; Z98.1 Arthrodesis status
CPT/HCPCS: 36415; 80053; 82150; 83605; 83690; 85025; 81003; 99283; 96374; 96375 ×3; 96376; 96361; J3360; J2405; J1885; J1170

== ENCOUNTER → 2018-11-01 | Outpatient (CLI) | payer BC, MEDICARE ==
--- NOTE | 2018-11-01 14:52 | MM ---
Reason for exam: additional evaluation requested from prior study. Last mammogram was performed 2 years ago. History: Patient is postmenopausal and has history of other cancer at age 58. Benign stereotactic core biopsy of the left breast, January 11, 2003. Core biopsy of the left breast. Took hormonal contraceptives for 2 years. Took estrogen for 1 year. Physical Findings: Nurse did not find any significant physical abnormalities on exam. MG 3D Diag Mammo W/Cad MARGRET Bilateral CC and MLO view(s) were taken. ML, CC with magnification, and ML with magnification view(s) were taken of the left breast. Prior study comparison: November 12, 2016, bilateral MG screening mammo w CAD. May 02, 2015, mammogram, performed at [facility]. The breast tissue is heterogeneously dense. This may lower the sensitivity of mammography. Serpiginous density in the upper outer quadrant at posterior depth contains a biopsy marker and increasing 3.0cm group of calcifications on magnification views appear pleomorphic. Biopsy recommended as these are increased in number. These results were verbally communicated with the patient and result sheet given to the patient on 11/01/18. ASSESSMENT: Incomplete: need additional imaging evaluation, BI-RAD 0 RECOMMENDATION: Ultrasound of the left breast. (pain)
--- NOTE | 2018-11-01 14:55 | USB ---
Reason for exam: additional evaluation requested from abnormal screening. History: Patient is postmenopausal and has history of other cancer at age 58. Benign stereotactic core biopsy of the left breast, January 11, 2003. Core biopsy of the left breast. Took hormonal contraceptives for 2 years. Took estrogen for 1 year. US Breast LT Left complete breast ultrasound includes all four quadrants, the retroareolar region and axilla. Finding demonstrates a 0.5 x 0.5 x 0.3cm possible lymph node. Stereotactic biopsy recommended of increasing left calcifications in the upper outer quadrant. These results were verbally communicated with the patient and result sheet given to the patient on 11/01/18. ASSESSMENT: Suspicious, BI-RAD 4 RECOMMENDATION: Stereotactic core biopsy of the left breast. (left calcifications) Called Dr. Orellana with mammographic findings and has scheduled an appointment for the patient with Dr. Scott. Nurse spoke with Mae at office, she will set up [facility] and Dr. Scott appointment. PRELIMINARY REPORT CALLED AND FAXED TO DR. SCOTT ON 11/01/18.
== END | disposition home or self-care (01) ==
LOC: RADMAMWWP 11:20
PROVIDERS: ATTEND Family Medicine
DX: N64.4 Mastodynia (principal); R07.89 Other chest pain; R92.8 Other abnormal and inconclusive findings on diagnostic imaging of breast
CPT/HCPCS: 77062; 77066

== ENCOUNTER → 2018-11-02 | Outpatient (CLI) | payer BC, MEDICARE ==
[2018-11-02 14:14] VITALS: BP 94/61; PULSE 68; RESP 16
--- NOTE | 2018-11-02 14:57 | P.PAINPG ---
Subjective Progress Note Date: 11/02/18 Principal diagnosis: Post laminotomy syndrome, status post caudal epidural steroid injection with lysis and increased pain. This is a pleasant 58-year-old woman with a history of previous back surgery who recently underwent a caudal epidural steroid injection with lysis of adhesions to help with her intractable back pain and leg pain. She reports that initially after the procedure on Wednesday her pain was much better however when she woke up Wednesday morning it was substantially worse. She has been dealing with worse pain since then. Today is Wednesday and she presents today for follow-up in our clinic. She denies any bowel or bladder dysfunction. She reports soreness to palpation in her hips and legs. She denies any new onset muscle weakness. Objective - Vital Signs Vital signs: Vital Signs Temp Pulse 68 11/02/18 14:03 Resp 16 11/02/18 14:03 BP 94/61 11/02/18 14:03 Pulse Ox 88 L 11/02/18 14:03 Intake & Output 11/01/18 11/02/18 11/02/18 18:59 06:59 18:59 Weight 78.925 kg - Exam General: The patient is alert and oriented. Patient answers all question appropriately. She does seem mildly sedated Cardiac: Heart is regular in rate and rhythm Respiratory: Clear to auscultation. No audible wheezes. Abdomen: Soft nontender nondistended. Musculoskeletal: Strength is normal bilaterally. Sensation is normal bilateral ly. Straight leg raise is negative bilaterally. She is tender to palpation over her buttocks and hips bilaterally. She also has tenderness to palpation in her thighs. Neurological: Reflexes are preserved and symmetric bilaterally. Assessment and Plan (1) Postlaminectomy syndrome of lumbosacral region Current Visit: Yes Status: Acute Code(s): M96.1 - POSTLAMINECTOMY SYNDROME, NOT ELSEWHERE CLASSIFIED SNOMED Code(s): 920524816 (2) Lumbar radicular pain Current Visit: Yes Status: Acute Code(s): M54.16 - RADICULOPATHY, LUMBAR REGION SNOMED Code(s): 387316849 (3) Back pain Current Visit: No Status: Acute Code(s): M54.9 - DORSALGIA, UNSPECIFIED SNOMED Code(s): 448792144 Plan: Plan of Care 1. Medications: I will give the patient prescription for a Medrol Dosepak to help with presumed inflammation. I have reviewed the patient's MAPS report and it reveals expected results. Patient has signed an opiate agreement as well as opiate consent for treatment in our clinic. They understand the risks and benefits of opiate medications. They are aware of the potential for addiction. 2. Interventions: None indicated 3. Referrals: None 4. Testing: I have ordered a CAT scan with contrast to evaluate the patient's lumbar spine for a hematoma. She is not a candidate for an MRI due to her spinal cord stimulator leads. She will contact us as soon as she has had this done and we will pursue the results and instruct her on further management as needed 5. Follow-up: To be determined PQRS Measure Charge Sheet Measure #130: Documentation of Current Meds in Medical Chart: Patient not eligible for medications to be documented Measure #226: Tobacco Use: Screen & Cessation Intervention: Pt screened for tobacco use AND intervention given Measure #111: Pneumonia Vaccination: Pneumococcal vaccine NOT administered or previously given Measure #47: Advance Care Plan: Advance care planning discussed & documented, plan or surrogate given Measure #412: Opioid Treatment Agreement: No documentation of signed opioid treatment agreement Measure #408: Opioid Therapy Follow-up Evaluation: Patient had NO f/u eval minimum every 3 months during opioid therapy Measure #317: Preventitive Care & Scrn High Bld Press & F/U: Normal blood pressure, f/u not required Measure #128: Body Mass Index (BMI) Screening & Follow-up: BMI documented ABOVE normal parameters - f/u documented Measure #131: Pain Assessment & Follow-up: Pain positive & plan documented Measure #431: Unhealthy Alcohol Use Preventative Care & Scrn: Patient not identified as an unhealthy alcohol user PQRS Narrative: Smoking Status Former smoker Blood Pressure 94/61 Pain Intensity [Bilateral 9 Lower Back] Scale Used Numeric (1 - 10) Hx Alcohol Use (MH) No Home Medications: Ambulatory Orders ALPRAZolam [Xanax] 0.5 mg PO BID 08/20/14 Albuterol Sulfate [Proair Hfa] 1 - 2 puff INHALATION RT-Q6H PRN 08/20/14 Omeprazole [PriLOSEC] 20 mg PO AC-BID 08/20/14 levETIRAcetam [Keppra] 500 mg PO Q12HR 08/20/14 Apixaban [Eliquis] 5 mg PO BID 07/18/19 Atorvastatin [Lipitor] 40 mg PO DAILY 09/08/18 Budesonide-Formot 160-4.5 Mcg [Symbicort 160-4.5 Mcg Inhaler] 2 puff INHALATION BID 09/08/18 Fexofenadine HCl [Anne Allergy] 60 mg PO DAILY 09/08/18 Flecainide Acetate [Tambocor] 100 mg PO Q12HR 09/08/18 Fluticasone Nasal [place] [Flonase Nasal [place]] 1 spray EA NOSTRIL BID 09/08/18 Methimazole 2.5 mg PO QAM 09/08/18 Metoprolol Tartrate [Lopressor] 50 mg PO QAM 09/08/18 Pramipexole [Mirapex] 1 mg PO HS 09/08/18 Vortioxetine Hydrobromide [Trintellix] 10 mg PO QAM 09/08/18 cycloSPORINE [Restasis] 1 applicator BOTH EYES BID 09/08/18 traZODone HCL [Desyrel] 100 mg PO HS 09/08/18 Gabapentin [Neurontin] 600 mg PO HS 09/12/18 Magnesium 250 mg PO QAM 09/15/18 Multivit-Min/Iron/Folic/Lutein [Centrum Silver Women Tablet] 1 each PO QAM 09/15/18 Diazepam [Valium] 5 mg PO TID PRN 3 Days #9 tab 10/29/18 Hydrocodone/Acetaminophen [[place] 5-325] 1 tab PO Q6HR PRN #12 tab 10/29/18 Controlled Substance Measures - Controlled Substance Measures Is patient prescribed a controlled substance at discharge?: No
== END | disposition home or self-care (01) ==
LOC: PNWHC3 13:19
PROVIDERS: ATTEND Pain Medicine Pain Medicine
DX: M54.16 Radiculopathy, lumbar region (principal); M96.1 Postlaminectomy syndrome, not elsewhere classified; Z87.891 Personal history of nicotine dependence; Z79.01 Long term (current) use of anticoagulants; Z79.51 Long term (current) use of inhaled steroids; Z79.891 Long term (current) use of opiate analgesic; Z79.899 Other long term (current) drug therapy
CPT/HCPCS: 99211

== ENCOUNTER → 2018-11-07 | Outpatient (CLI) | payer BC, MEDICARE ==
--- NOTE | 2018-11-07 10:30 | CT ---
EXAMINATION TYPE: CT lumbar spine w con DATE OF EXAM: 11/07/2018 COMPARISON: None. HISTORY: Low back pain CT DLP: 1062.3 mGycm Automated exposure control for dose reduction was used. CONTRAST: CT scan of the lumbar is performed with IV Contrast, patient injected with 100 mL of Isovue 300. Enhanced CT of the lumbar spine was performed. Bone and soft tissue window settings are submitted as well as coronal and sagittal reconstructions. There are 5 lumbar-type vertebrae identified. Posterior interpedicular rods and screws transfix L3-L5 levels bilaterally. Metallic disc material L3-L4 and L4-L5 levels is seen. Slight grade 1 anterolist hesis L4 on L5. Vertebral body heights and disc space heights of multiple surgical levels are satisfa ctory. Review of axial images shows the T12-L1, L1-L2, and L2-L3 level to appear within normal limits. Axial images at the L3-L4 level from right-sided laminectomy defect, metallic disc material. Spinal c anal is grossly preserved. Bilateral neural foramina are patent. Axial images at L4-L5 level show persistent right-sided laminectomy defect. Spinal canal is grossly p reserved. Bilateral neural foramina are patent seen well on axial image 65. Axial images at L5-S1 level show mild to moderate facet degenerative changes bilaterally. Spinal velia l is preserved. Bilateral neural foramina are patent on axial image 76. There is mild calcified plaque of the aorta extending into branch vessels. Paraspinal muscle bulk is maintained. No suspicious enhancement is seen. IMPRESSION: Postsurgical changes L3-L5 level. Facet arthropathy lower lumbar spine. Spinal canal is p reserved.
== END | disposition home or self-care (01) ==
LOC: RADCTMAIN 08:22
PROVIDERS: ATTEND Pain Medicine Pain Medicine
DX: M46.96 Unspecified inflammatory spondylopathy, lumbar region (principal); Z98.890 Other specified postprocedural states
CPT/HCPCS: 72132; Q9967

== ENCOUNTER → 2019-01-06 | Outpatient (CLI) | payer BC, MEDICARE ==
--- NOTE | 2019-01-10 04:20 | BD ---
EXAMINATION TYPE: Axial Bone Density DATE OF EXAM: 01/06/2019 COMPARISON: NONE CLINICAL HISTORY: 58-year-old female postmenopausal screening Height: 63 Weight: 174.7 FRAX RISK QUESTIONS: Alcohol (3 or more units per day): no Family History (Parent hip fracture): no Glucocorticoids (More than 3mos): no (Ex: prednisone, prednisolone, methylprednisolone, dexamethasone, and hydrocortisone). History of Fracture in Adulthood: no Secondary Osteoporosis: 1. Type 1 Diabetes: no 2. Hyperthyroidism: no 3. Menopause before 45: yes 4. Malnutrition: no 5. Chronic liver disease: no Rheumatoid Arthritis: no Current Tobacco Use: no RISK FACTORS HISTORY OF: Surgery to Spine/Hip(right/left)/Wrist (right/left): lumbar spine/ 2019 Family History of Osteoporosis: no Active: no Diet low in dairy products/other sources of calcium: no Postmenopausal woman: age 31 Lost more than 2 inches in height since high school: no MEDICATIONS: thyroid-2 years many meds Additional History: EXAM MEASUREMENTS: Bone mineral densitometry was performed using the [employer] System. Bone mineral density about the R hip (g/cm2): 0.904 Bone mineral density about the L hip (g/cm2): 0.812 T Score values are as follows: -----R Neck: -1.0 -----L Neck: -1.6 -----R Total: -1.3 -----L Total: -1.8 Bone mineral density : baseline Bone mineral density about the L Wrist (g/cm2): 0.331 T Score values are as follows: -----Dist. R+U: -2.9 -----Prox. R+U: -1.6 -----Radius total: -2.8 Bone mineral density: baseline IMPRESSION: Osteopenia (T Score between -2.5 and -1). There is slightly increased risk of fracture and the patient may be considered for treatment. Re-Screen 2-5 years. NOTE: T-SCORE=SD OF THE YOUNG ADULT MEAN.
== END | disposition home or self-care (01) ==
LOC: RADBDWWP 16:05
PROVIDERS: ATTEND Family Medicine
DX: M85.80 Other specified disorders of bone density and structure, unspecified site (principal)
CPT/HCPCS: 77080

== ENCOUNTER 2019-01-09 09:04 | Day surgery (SDC) | payer BC, MEDICARE ==
[2019-01-05 09:49] VITALS: BMI 29.5
[~2019-01-09 09:04] MED LIST changes: +DEXAMETHASONE SOD PHOSPHATE 10 MG/ML 1 ML VIAL IV ONE; +HEPARIN SODIUM,PORCINE 5,000 UNIT/ML 1 ML VIAL SQ ONE; +HYDROmorphone 0.5 MG/0.5 ML SYRINGE IVP PRN; +LIDOCAINE 1% 20 ML VIAL (10MG/ML) FOR IV START INTRADERMA PRN; +MIDAZOLAM 2 MG/2 ML VIAL IV PRN; +ONDANSETRON 4 MG/2 ML VIAL IVP ONE; +Pre Op ABX Message 1 EACH MISC MISCELLANE ONE; +fentaNYL (PF) 50 MCG/ML 2 ML AMP IV PRN
[2019-01-09] MEDS ORDERED: LIDOCAINE 1% INJ 10MG/ML (20 ML MDV) SQ ONE (11:13)
[2019-01-09] MEDS ORDERED: PROPOFOL 10 MG/ML 20 ML VIAL IV ONE (12:14)
[2019-01-09] MEDS ORDERED: ePHEDrine SULFATE/0.9% NACL/PF 50 MG/5 ML SYRINGE IV ONE (12:14)
[2019-01-09] MEDS ORDERED: SUCCINYLCHOLINE CHLORIDE 100 MG/5 ML SYR IV ONE (12:14)
[2019-01-09] MEDS ORDERED: FLUMAZENIL 0.1 MG/ML 5 ML VIAL IVP ONE (12:14)
[2019-01-09] MEDS ORDERED: LIDOCAINE 1% INJ 10MG/ML (20 ML MDV) ONE (12:14)
[2019-01-09] MEDS ORDERED: MIDAZOLAM 2 MG/2 ML VIAL ONE (12:14)
[2019-01-09] MEDS ORDERED: fentaNYL (PF) 50 MCG/ML 2 ML AMP ONE (12:14)
[2019-01-09] MEDS ORDERED: NALOXONE 0.4 MG/ML 1 ML VIAL ONE (12:14)
[2019-01-09] MEDS ORDERED: CLINDAMYCIN 600 MG in DEXTROSE 5% IN WATER 50 ML IVPB STA ×2 (12:17)
[2019-01-09] MEDS ORDERED: BUPIVACAINE (PF) 0.25% 30 ML VIAL SQ ONE ×2 (12:51→13:14)
[2019-01-09] MEDS ORDERED: LACTATED RINGERS 1,000 ML IV ONE (13:13)
[2019-01-09] MEDS ORDERED: HYDROcodone/APAP 5-325MG 1 EACH TAB PO PRN (13:33)
[2019-01-09] MEDS ORDERED: NALOXONE 0.4 MG/ML 1 ML VIAL IV PRN (13:33)
--- NOTE | 2019-01-09 13:50 | P.OP ---
Date of Procedure: 01/09/19 Procedure(s) Performed: PREOPERATIVE DIAGNOSIS: Abnormal left mammogram POSTOPERATIVE DIAGNOSIS: Same PROCEDURE: Left Breast wire localization biopsy SURGEON: Tyler EBL: Minimal ANESTHESIA: Sedation plus local COMPLICATIONS: None OPERATIVE PROCEDURE: Patient was placed on the operating room table in the sup ine position. The patient's breast was prepped and draped in usual sterile fashion. A curvilinear incision was made adjacent to the wire entrance site. I followed the wire down into the breast tissue. The breast tissue around the tip of the wire was fully excised using electrocautery. The specimen was sent for specimen radiogram. The clip and calcifications were present within the specimen. The subcutaneous tissues were inspected. No bleeding was seen. The subcutaneous tissues were closed using 3-0 Vicryl sutures. The skin was closed using a running 4-0 Monocryl stitch. Skin glue was then applied. DISPOSITION: Stable to recovery room
[2019-01-09 13:52] VITALS: TEMP 97.3
[2019-01-09 14:22] VITALS: RESP 18
[2019-01-09] MEDS ORDERED: HYDROcodone/APAP 5-325MG 1 EACH TAB PO ONE (14:31)
[2019-01-09 15:01] VITALS: BP 122/77; PULSE 68
--- NOTE | 2019-01-10 04:35 | MM ---
EXAMINATION TYPE: MG pre op needle loc LT, MG surgical specimen LT DATE OF EXAM: 01/09/2019 COMPARISON: 11/17/2018, 11/01/2018, 11/12/2016 CLINICAL HISTORY: 58-year-old female with high risk lesion, papilloma, referred for excision of the l eft breast. TECHNIQUE: Needle localization with wire placement and surgical excision of area of concern in the ce ntral lateral left breast. FINDINGS: The procedure of needle localization with wire placement and than surgical excision was exp lained to the patient. Benefits, alternatives, and risks were discussed. An informed consent was th en obtained. We note superior clip migration during the patient's recent 3-D mammogram guided biopsy. The area of microcalcifications is targeted, initially with an attempt at bracketing technique with two 9 cm Kopa ns wires. However, there was excessive patient movement and 2 episodes of needle malpositioning as a result. A single 9 cm Kopans wire was successfully placed from a lateral approach along the midportio n of the elongated area of microcalcification. The shortest pathway for procedure was chosen. Shortest pathway was a lateral approach. The overlyin g skin was prepped and draped in usual sterile fashion. Lidocaine was used as anesthetic into the sk in and subcutaneous tissue up to the level of area of concern. A 9 cm needle was used. It was place d via a lateral approach under mammographic guidance. Subsequent 90 degrees mammogram show the needl e to be in satisfactory position relative to the targeted area. At this point, wire was placed and t he needle was withdrawn. The wire was fixed to patient's skin. Images were marked for surgeon. The patient tolerated the procedure well without any immediate complication. The patient was kept in the radiology department for short stay after the procedure and then taken to surgery for surgical e xcision. Targeted calcifications and wire are identified in specimen mammogram. Both the recently pl aced microclip which had migrated superiorly and the old microclip are present within the specimen. S ome additional calcifications distal to the wire and are noted. The location of these calcifications on the initial mammogram images is not clear. The calcifications are marked for pathology. The patient was kept in hospital for short stay after the procedure and then discharged home in stabl e condition. IMPRESSION: Successful, uncomplicated needle localization with wire placement and surgical excision of centrally located, elongated left breast microcalcifications at the site of biopsy-proven high risk lesion, pap illoma , in the left breast, full pathology results to follow.
== END 2019-01-09 15:15 | disposition home or self-care (01) ==
LOC: OR 09:04
PROVIDERS: ATTEND Surgery
DX: D24.2 Benign neoplasm of left breast (principal); N60.12 Diffuse cystic mastopathy of left breast; I48.91 Unspecified atrial fibrillation; I10 Essential (primary) hypertension; E78.5 Hyperlipidemia, unspecified; J44.9 Chronic obstructive pulmonary disease, unspecified; G47.33 Obstructive sleep apnea (adult) (pediatric); G40.909 Epilepsy, unspecified, not intractable, without status epilepticus; M79.7 Fibromyalgia; Z88.2 Allergy status to sulfonamides; Z88.0 Allergy status to penicillin; Z85.118 Personal history of other malignant neoplasm of bronchus and lung; Z87.891 Personal history of nicotine dependence; Z79.01 Long term (current) use of anticoagulants; Z79.51 Long term (current) use of inhaled steroids; Z79.899 Other long term (current) drug therapy; Z98.1 Arthrodesis status; Z90.2 Acquired absence of lung [part of]; Z87.19 Personal history of other diseases of the digestive system; Z90.710 Acquired absence of both cervix and uterus; Z90.49 Acquired absence of other specified parts of digestive tract; Z98.890 Other specified postprocedural states
CPT/HCPCS: 88307; 76098; 19281; 19125; J2250; J1644; J1100; J2310; J2405; J2001; J3010; J0330; J2704

== ENCOUNTER 2019-02-16 07:53 | Day surgery (SDC) | payer BC, MEDICARE ==
[~2019-02-16 07:53] MED LIST changes: -DEXAMETHASONE SOD PHOSPHATE 10 MG/ML 1 ML VIAL IV ONE; -HEPARIN SODIUM,PORCINE 5,000 UNIT/ML 1 ML VIAL SQ ONE; -HYDROmorphone 0.5 MG/0.5 ML SYRINGE IVP PRN; -LACTATED RINGERS 1,000 ML IV SCH; -LIDOCAINE 1% 20 ML VIAL (10MG/ML) FOR IV START INTRADERMA PRN; -MIDAZOLAM 2 MG/2 ML VIAL IV PRN; -ONDANSETRON 4 MG/2 ML VIAL IVP ONE; +PREMYELOGRAM MEDICATION REVIEW 1 EACH MISC PO NR; -Pre Op ABX Message 1 EACH MISC MISCELLANE ONE; -fentaNYL (PF) 50 MCG/ML 2 ML AMP IV PRN
[2019-02-16 08:27] VITALS: TEMP 97.9
[2019-02-16] MEDS ORDERED: DIAZEPAM 5 MG TAB PO STA (08:36)
[2019-02-16 11:04] VITALS: RESP 16
--- NOTE | 2019-02-16 11:36 | FL ---
PROCEDURE: Lumbar myelogram. DATE: 02/16/2019 CLINICAL HISTORY: 59-year-old female lumbar region spondylosis. COMPLICATIONS: None. SEDATION: 5 mg oral Valium. The patient and the patient's vital signs were monitored by qualified independent radiology personnel. Fluoroscopy time: 1 minute 15 seconds. Total images: 9. TECHNIQUE: The procedure and potential risks were explained to patient and an informed consent was obtained with teach back. Site and side was verified. A time out was performed. There are postsurgical changes of L3-L5 posterior and interbody fusion. Patient's CT from 11/07/2018 s uggests right-sided laminotomy change. The patient was placed prone on the fluoroscopy table and the L4-L5 level was localized and the skin was marked and was prepped and draped in the usual sterile fashion. Lidocaine was used for local anesthesia. Utilizing fluoroscopic guidance a 22-gauge spinal needle was placed through the skin and into the subarachnoid space. Once clear CSF was visualized, 10 mL of Isovue-M370 was injected into the subarachnoid space. The table was manipulated to get adequate contrast along the length of the lumbar spinal canal. The patient tolerated the procedure well. Instructions were given to scan the patient after a 30 magdi te wait. The estimated blood loss was minimal. The patient's condition was unchanged following the procedure. IMPRESSION: Successful lumbar myelogram for CT. Patient status post L3-L5 posterior and interbody fusion.
--- NOTE | 2019-02-16 11:46 | CT ---
EXAMINATION TYPE: CT lumbar myelogram DATE OF EXAM: 02/16/2019 COMPARISON: 11/07/2018 HISTORY: 59-year-old female lumbar region Spondylosis. Pain. TECHNIQUE: Contiguous axial scanning of the lumbar spine performed after intrathecal contrast adminis tration. Please refer to myelogram and injection report of the same day for further details coronal/s agittal reconstructions performed. CT DLP: 528.2 mGycm Automated exposure control for dose reduction was used. FINDINGS: Redemonstrated are postsurgical changes of L3-L5 posterior and interbody fusion with a fixed grade 1 anterolisthesis at the fused L4-L5 level. The spinal canal appears patent. Conus medullaris at the L1-L2 level, within normal limits. On the left, there may be some residual minimal disc at L4-L5 minimally narrowing the inferior neurof oramen. On the right, clearly, there seems to be mild narrowing of the L3-L4 and L4-L5 neuroforamen. No recurrent large focal disc herniation is identified. Vertebral body heights are preserved. IMPRESSION: 1. POSTSURGICAL CHANGES OF L3-L5 POSTERIOR AND INTERBODY FUSION WITH UNCHANGED FIXED GRADE 1 ANTEROLI STHESIS AT THE FUSED L4-L5 LEVEL. 2. NO EVIDENT CANAL COMPROMISE. 2. THERE MAY BE SOME RESIDUAL MILD NEUROFORAMINAL NARROWING ON THE RIGHT AT L3-L4 AND L4-L5 AND MINIM AL INFERIOR NARROWING ON THE LEFT AT L4-L5.
[2019-02-16 13:27] VITALS: PULSE 61
[2019-02-16 13:47] VITALS: BP 139/74
== END 2019-02-16 14:03 | disposition home or self-care (01) ==
LOC: RADPROMAIN 07:53
PROVIDERS: ATTEND Neurological Surgery
DX: M47.816 Spondylosis without myelopathy or radiculopathy, lumbar region (principal); M43.16 Spondylolisthesis, lumbar region; M48.061 Spinal stenosis, lumbar region without neurogenic claudication
CPT/HCPCS: 62304; 72132; Q9967

== ENCOUNTER 2019-03-13 07:55 | Outpatient (CLI) | payer BC, MEDICARE ==
[2019-03-13 08:25] VITALS: TEMP 97.7
[2019-03-13] MEDS ORDERED: DIAZEPAM 5 MG TAB PO STA (08:26)
--- NOTE | 2019-03-13 08:40 | CT ---
EXAMINATION TYPE: CT brain wo con DATE OF EXAM: 03/13/2019 HISTORY: Ataxia and dysarthria. CT DLP: 1012 mGycm. Automated Exposure Control for Dose Reduction was Utilized. TECHNIQUE: CT scan of the head is performed without contrast. COMPARISON: MRI brain June 08, 2014. FINDINGS: There is no acute intracranial hemorrhage or midline shift identified. There is diffuse v entricular and sulcal prominence consistent with diffuse age-related cerebral atrophy. Reyes-white mat ter differentiation is maintained. Few small mucous retention cysts or polyps in the bilateral spheno id sinuses and medial aspect left frontal sinus otherwise paranasal sinuses are clear. Globes are int act bilaterally. IMPRESSION: No acute intracranial hemorrhage or midline shift. There is mild diffuse age-related ce rebral atrophy and chronic paranasal sinus disease noted.
[2019-03-13 11:28] VITALS: RESP 16
--- NOTE | 2019-03-13 12:00 | CT ---
EXAMINATION TYPE: CT CervThoracic spine w con DATE OF EXAM: 03/13/2019 COMPARISON: None. HISTORY: myelopathy, urinary incontinence CT DLP: 1894.1 mGycm Automated exposure control for dose reduction was used. CONTRAST: CT performed following intrathecal injection of contrast. Patient injected with 15 cc of Isovue-200. FINDINGS: Note is made of satisfactory or successful spinal canal myelogram. Undesired extension into the posterior fossa and suprasellar region noted. Cervical spine shows anterior fusion plate and bone grafting material C5-C7 levels. Vertebral body he ights and disc space heights above and below this level are satisfactory. Alignment is satisfactory. No suspicious disc herniation seen on the myelogram images. Axial images inferior C5 level show posterior bony formation mildly efface the anterior thecal sac al yaneth with causing mild left-sided neural foraminal narrowing C5-C6 level. Axial images at C6 level jane ws effacement anterior thecal sac due to right paracentral bony formation image 70. Bilateral neural foramina are patent at C6-C7 level. Thyroid gland shows subcentimeter calcified nodule axial image 74 . Osseous structures are demineralized. Vertebral body heights and disc space heights are maintained. N o suspicious herniations in the thoracic spine. Retained stimulator leads run from inferior T6 level to superior T8 level in the posterior spinal canal. Mild multilevel anterior spurring. Spinal cord sh ows normal course and caliber as it courses the cervical thoracic spine. Axial images are unremarkable. Visualized lungs are clear. IMPRESSION: Postsurgical change C5-C7 level with satisfactory alignment. No suspicious large disc her niations in the cervical or thoracic spine are noted.
[2019-03-13 12:48] VITALS: BP 118/73; PULSE 59
--- NOTE | 2019-03-13 14:25 | FL ---
EXAMINATION TYPE: FL myelogram cervical DATE OF EXAM: 03/13/2019 CLINICAL HISTORY: Myelopathy and urinary incontinence. TECHNIQUE: Fluoroscopic assisted myelogram. A total of 3 minutes 12 seconds fluoroscopic time. 2 spot images saved. COMPARISON: CT lumbar spine February 16, 2019. FINDINGS: Procedure explained to patient. Benefits, alternatives, and risks were discussed. Informed consent was then obtained. Patient placed in prone positioning. Overlying skin is cleansed with Betadine. Lidocaine was used as anesthetic into the skin and subcutaneous tissue. L4 level is targeted with spinal needle. First atte mpt was unsuccessful. Patient placed in more oblique position and the second attempt was successful i n accessing spinal canal. Patient injected with 15 cc of Isovue-200 under fluoroscopic guidance. Imag es saved to document successful intrathecal insertion of contrast. At this point needle is withdrawn. Patient tolerated procedure well without any immediate complication. Postsurgical hardware L3-L5 leve l with artificial disc material is present. Patient taken to CT for subsequent CT which is dictated s eparately. Patient kept in the hospital for short stay after the procedure and then discharged home i n stable condition. Vital signs monitored before during and after procedure. IMPRESSION: As Above. Successful uncomplicated fluoroscopic assisted myelogram for subsequent CT.
== END 2019-03-13 13:10 | disposition home or self-care (01) ==
LOC: RADPROMAIN 07:55
PROVIDERS: ATTEND Neurological Surgery
DX: G31.1 Senile degeneration of brain, not elsewhere classified (principal); G95.9 Disease of spinal cord, unspecified; R32 Unspecified urinary incontinence; Z98.890 Other specified postprocedural states
CPT/HCPCS: 62302; 72129; 72126; 70450; Q9966

== ENCOUNTER → 2019-03-22 | Outpatient (CLI) | payer BC, MEDICARE ==
[2019-03-22 12:58] VITALS: PULSE 61; RESP 18
--- NOTE | 2019-03-23 06:18 | P.PAINPG ---
Subjective Progress Note Date: 03/22/19 This is a follow-up visit for this 58 years old female, with a chronic history of severe low back pain with radiation to the lateral buttocks and hips and lower extremity, patient diagnosed with artharalgia of both hips , and failed back surgery syndrome lumbar area ,and lumbar spondylosis with lumbar facet arthropathy, , we have done, and epidural steroid injection with lysis of epidural adhesions,and bilateral hip steroid injection and she reported that she has 0 benefit from interventional pain management , she continues to use Neurontin and baclofen, he denies any side effects from it, previously she had the spinal cord stimulator implanted but she had 0 benefit from it , and she had the generator of the spinal cord stimulator removed but she still have that leads in the thoracic area , She is currently complaining of severe low back pain with radiation to the upper back area and generalized in the whole back, the pain starts in the buttock area radiated superiorly to worsening, she feels some weakness in her lower extremity as she reports that she had some numbness in the lower extremity Objective - Vital Signs Vital signs: Vital Signs Temp Pulse 61 03/22/19 12:43 Resp 18 03/22/19 12:43 BP Pulse Ox 93 L 03/22/19 12:43 - Exam Physical Examinations : -Constitutiona : Cooperative , not in acute distress . -HEENT : nech : supple , no Lymphadenopathy , normal thyroid size . : eyes : no ptosis , no icterus, no photophobia . : ENT : normal of hearing , normal oropharynx , no Thrush . - Respiratory : Chest clear to auscultations Bilaterally , no wheezing , no Rhonchi . - Cardiovascula : regular rate and rhythem , S1 , S2 , no S3 , no S4. - Gastrointestina : abdomen soft no tenderness , bowel sounds , no organomegally . - Genitourinary : Defferred . - neurologic : Cranial nerve II to XII intact , no focal neurological deffecit . -psychatric : alert , oriented X 3 , appropriate affect , intact judgment and insight . -Lymphatic : no Lymphadenopathy . - musculoskeltal : Cervical Spine motor stregnth in the deltoid and biceps, normal right side , normal Left side motor stregnth biceps and the wrist extensors normal right side ,normal left side . motor stregnth in the triceps muscle . normal Right side , normal Left side deep tendon reflexes normal at the biceps , normal at Brachioradialis , normal at triceps Lumber spine moter stegnth lower extremities ,thigh and legs 4/5 Right side , 4/5 Left side deep tendon reflexes : normal Knee Jerk , normal ankle Jerk lumber facet Loading Test =positive Right , positive Left Range of motion of the lumbar spine Flexion 30 degrees, extension 10 degrees strait leg raising test = positive at 30 degree Fabere test= positive Right , and positive LT . Sever tenderness over the Sacroiliac joint on the Right , and Left sides Gaenslen test= positive right ,and positive left . Seated flexion test= positive right ,and positive Left . Assessment and Plan Plan: Assessment and plan=1-failed back surgery syndrome and lumbar area. 2-lumbar spondylosis with lumbar facet arthropathy. 3-sacroiliitis. 4-myofascial pain syndrome thoracic and lumbar area. 5-bilateral hip arthralgia. patient continue to have severe low back pain after interventional pain management, caudal epidural and bilateral hip injection. Patient could benefit from massage therapy, and she is currently on Neurontin 600 mg 3 times a day, and she feels no benefit from I will start patient on Lyrica 25 mg twice a day , and patient will follow up in the pain clinic in 1 month's will titrate Lyrica to a higher dose and if she hadn't good relief from Lyrica and then we will discontinue Neurontin Time with Patient: Less than 30 PQRS Measure Charge Sheet Measure #130: Documentation of Current Meds in Medical Chart: Patient's medications documented in chart Measure #226: Tobacco Use: Screen & Cessation Intervention: Pt not a tobacco user Measure #111: Pneumonia Vaccination: Pneumococcal vaccine NOT administered or previously given Measure #47: Advance Care Plan: Advance care planning discussed & documented, pt chose/unable to give Measure #412: Opioid Treatment Agreement: No documentation of signed opioid treatment agreement Measure #408: Opioid Therapy Follow-up Evaluation: Patient had NO f/u eval minimum every 3 months during opioid therapy Measure #317: Preventitive Care & Scrn High Bld Press & F/U: Normal blood pressure, f/u not required Measure #128: Body Mass Index (BMI) Screening & Follow-up: BMI documented ABOVE normal parameters - f/u documented Measure #131: Pain Assessment & Follow-up: Pain positive & plan documented, Follow-up scheduled Measure #431: Unhealthy Alcohol Use Preventative Care & Scrn: Patient not identified as an unhealthy alcohol user PQRS Narrative: Smoking Status Former smoker Pain Intensity [Lower Back] 7 Scale Used Numeric (1 - 10) Hx Alcohol Use (MH) No Home Medications: Ambulatory Orders ALPRAZolam [Xanax] 0.5 mg PO BID 08/20/14 Albuterol Sulfate [Proair Hfa] 1 - 2 puff INHALATION RT-Q6H PRN 08/20/14 Omeprazole [PriLOSEC] 20 mg PO AC-BID 08/20/14 levETIRAcetam [Keppra] 500 mg PO Q12HR 08/20/14 Apixaban [Eliquis] 5 mg PO BID 09/08/18 Atorvastatin [Lipitor] 40 mg PO DAILY 09/08/18 Fluticasone Nasal [place] [Flonase Nasal [place]] 1 spray EA NOSTRIL DAILY 09/08/18 Pramipexole [Mirapex] 1 mg PO HS 09/08/18 Vortioxetine Hydrobromide [Trintellix] 10 mg PO QAM 09/08/18 cycloSPORINE [Restasis] 1 applicator BOTH EYES BID 09/08/18 traZODone HCL [Desyrel] 100 mg PO HS 09/08/18 Gabapentin [Neurontin] 600 mg PO TID 09/12/18 Baclofen [Lioresal] 20 mg PO TID 01/05/19 Oxybutynin Chloride [Ditropan] 5 mg PO DAILY 01/05/19 Sotalol [Betapace] 120 mg PO BID 01/05/19 Calcium Carbonate/Vitamin D3 [Calcium 600-Vit D3 800 [place]] 1 tab PO DAILY 02/06/19 Magnesium 250 mg PO DAILY 02/06/19 Multivit-Min/Iron/Folic/Lutein [Centrum Silver Women Tablet] 1 each PO DAILY 02/06/19 Budesonide-Formot 160-4.5 Mcg [Symbicort 160-4.5 Mcg Inhaler] 2 puff INHALATION BID 03/08/19 Fexofenadine/Pseudoephedrine [Anne-D 12 Hour Tablet] 1 each PO DAILY 03/08/19 Controlled Substance Measures - Controlled Substance Measures Is patient prescribed a controlled substance at discharge?: No
== END | disposition home or self-care (01) ==
LOC: PNWHC3 12:42
PROVIDERS: ATTEND Specialist
DX: M96.1 Postlaminectomy syndrome, not elsewhere classified (principal); M47.816 Spondylosis without myelopathy or radiculopathy, lumbar region; M46.96 Unspecified inflammatory spondylopathy, lumbar region; M46.1 Sacroiliitis, not elsewhere classified; M79.18 Myalgia, other site; M25.552 Pain in left hip; M25.551 Pain in right hip; Z87.891 Personal history of nicotine dependence; Z79.891 Long term (current) use of opiate analgesic; Z79.01 Long term (current) use of anticoagulants; Z79.899 Other long term (current) drug therapy
CPT/HCPCS: 99211

== ENCOUNTER → 2019-04-19 | Outpatient (CLI) | payer BC, MEDICARE ==
--- NOTE | 2019-04-20 06:52 | P.PAINPG ---
Subjective Progress Note Date: 04/19/19 This is a follow-up visit for this 59 years old female, with a chronic history of severe low back pain with radiation to the lateral buttocks and hips and lower extremity, patient diagnosed with osteoarthritis of both hips , and failed back surgery syndrome lumbar area ,and lumbar spondylosis with lumbar facet arthropathy, , we have done, and epidural steroid injection with lysis of epidural adhesions,and bilateral hip steroid injection and she reported that she has 0 benefit from interventional pain management , she continues to use Lyrica 25 mg 3 times a day and baclofen, he denies any side effects from it, previously she had the spinal cord stimulator implanted but she had 0 benefit from it , and she had the generator of the spinal cord stimulator removed but she still have that leads in the thoracic area , She is currently complaining of severe low back pain with radiation to the upper back area and generalized in the whole back, the pain starts in the buttock area radiated superiorly to worsening, she feels some weakness in her lower extremity as she reports that she had some numbness in the lower extremity Objective - Exam Physical Examinations : -Constitutiona : Cooperative , not in acute distress . -HEENT : nech : supple , no Lymphadenopathy , normal thyroid size . : eyes : no ptosis , no icterus, no photophobia . : ENT : normal of hearing , normal oropharynx , no Thrush . - Respiratory : Chest clear to auscultations Bilaterally , no wheezing , no Rhonchi . - Cardiovascula : regular rate and rhythem , S1 , S2 , no S3 , no S4. - Gastrointestina : abdomen soft no tenderness , bowel sounds , no organomegally . - Genitourinary : Defferred . - neurologic : Cranial nerve II to XII intact , no focal neurological deffecit . -psychatric : alert , oriented X 3 , appropriate affect , intact judgment and insight . -Lymphatic : no Lymphadenopathy . - musculoskeltal : Cervical Spine motor stregnth in the deltoid and biceps, normal right side , normal Left side motor stregnth biceps and the wrist extensors normal right side ,normal left side . motor stregnth in the triceps muscle . normal Right side , normal Left side deep tendon reflexes normal at the biceps , normal at Brachioradialis , normal at triceps Lumber spine moter stegnth lower extremities ,thigh and legs 4/5 Right side , 4/5 Left side deep tendon reflexes : normal Knee Jerk , normal ankle Jerk lumber facet Loading Test =positive Right , positive Left Range of motion of the lumbar spine Flexion 30 degrees, extension 10 degrees strait leg raising test = positive at 30 degree Fabere test= positive Right , and positive LT . Sever tenderness over the Sacroiliac joint on the Right , and Left sides Gaenslen test= positive right ,and positive left . Seated flexion test= positive right ,and positive Left . Assessment and Plan Plan: Assessment and plan=1-failed back surgery syndrome and lumbar area. 2-lumbar spondylosis with lumbar facet arthropathy. 3-bilateral sacroiliitis. 4-myofascial pain syndrome thoracic and lumbar area. 5-bilateral hip arthralgia. patient continue to have severe low back pain after interventional pain management, caudal epidural and bilateral hip injection. Patient could benefit from massage therapy , I will increase Lyrica to 50 mg 3 times a day, patient could benefit from bilateral sacroiliac instability injection. Time with Patient: Less than 30 PQRS Measure Charge Sheet Measure #130: Documentation of Current Meds in Medical Chart: Patient's medications documented in chart Measure #226: Tobacco Use: Screen & Cessation Intervention: Pt not a tobacco user Measure #111: Pneumonia Vaccination: Pneumococcal vaccine NOT administered or previously given Measure #47: Advance Care Plan: Advance care planning discussed & documented, pt chose/unable to give Measure #412: Opioid Treatment Agreement: No documentation of signed opioid treatment agreement Measure #408: Opioid Therapy Follow-up Evaluation: Patient had NO f/u eval minimum every 3 months during opioid therapy Measure #317: Preventitive Care & Scrn High Bld Press & F/U: Normal blood pressure, f/u not required Measure #128: Body Mass Index (BMI) Screening & Follow-up: BMI documented ABOVE normal parameters - f/u documented Measure #131: Pain Assessment & Follow-up: Pain positive & plan documented, Follow-up scheduled Measure #431: Unhealthy Alcohol Use Preventative Care & Scrn: Patient not identified as an unhealthy alcohol user PQRS Narrative: Smoking Status Former smoker Pain Intensity [Lower Back] 8 Hx Alcohol Use (MH) No Home Medications: Ambulatory Orders ALPRAZolam [Xanax] 0.5 mg PO BID 08/20/14 Albuterol Sulfate [Proair Hfa] 1 - 2 puff INHALATION RT-Q6H PRN 08/20/14 Omeprazole [PriLOSEC] 20 mg PO AC-BID 08/20/14 levETIRAcetam [Keppra] 500 mg PO Q12HR 08/20/14 Apixaban [Eliquis] 5 mg PO BID 09/08/18 Atorvastatin [Lipitor] 40 mg PO DAILY 09/08/18 Fluticasone Nasal [place] [Flonase Nasal [place]] 1 spray EA NOSTRIL DAILY 09/08/18 Pramipexole [Mirapex] 1 mg PO HS 09/08/18 Vortioxetine Hydrobromide [Trintellix] 10 mg PO QAM 09/08/18 cycloSPORINE [Restasis] 1 applicator BOTH EYES BID 09/08/18 traZODone HCL [Desyrel] 100 mg PO HS 09/08/18 Baclofen [Lioresal] 20 mg PO TID 01/05/19 Oxybutynin Chloride [Ditropan] 5 mg PO DAILY 01/05/19 Sotalol [Betapace] 120 mg PO BID 01/05/19 Calcium Carbonate/Vitamin D3 [Calcium 600-Vit D3 800 Caplet] 1 tab PO DAILY 02/06/19 Magnesium 250 mg PO DAILY 02/06/19 Multivit-Min/Iron/Folic/Lutein [Centrum Silver Women Tablet] 1 each PO DAILY 02/06/19 Budesonide-Formot 160-4.5 Mcg [Symbicort 160-4.5 Mcg Inhaler] 2 puff INHALATION BID 03/08/19 Fexofenadine/Pseudoephedrine [Anne-D 12 Hour Tablet] 1 each PO DAILY 03/08/19 Albuterol Nebulized [Ventolin Nebulized] 2.5 mg INHALATION BID 04/17/19 Gummies Thc 10 mg PO TID 04/17/19 Pregabalin [Lyrica] 25 mg PO BID 04/17/19 busPIRone HCl [Buspar] 5 mg PO BID 04/17/19 diphenhydrAMINE [Benadryl] 25 - 50 mg PO BID PRN 04/17/19 Controlled Substance Measures - Controlled Substance Measures Is patient prescribed a controlled substance at discharge?: No
== END | disposition home or self-care (01) ==
LOC: PNWHC3 13:29
PROVIDERS: ATTEND Specialist
DX: G89.29 Other chronic pain (principal); M47.816 Spondylosis without myelopathy or radiculopathy, lumbar region; M46.1 Sacroiliitis, not elsewhere classified; M79.18 Myalgia, other site; M96.1 Postlaminectomy syndrome, not elsewhere classified; M25.552 Pain in left hip; M25.551 Pain in right hip; Z87.891 Personal history of nicotine dependence; Z79.899 Other long term (current) drug therapy
CPT/HCPCS: 99211

== ENCOUNTER → 2019-05-04 | Day surgery (SDC) | payer BC, MEDICARE ==
[2019-05-03 11:01] VITALS: BMI 30.5
[~2019-05-04] MED LIST changes: +IV FLUID CONTINUATION 1,000 ML IV ONE; +LACTATED RINGERS 1,000 ML IV SCH; +LIDOCAINE 1% (10MG/ML) FOR IV START INTRADERMA ONE; +MIDAZOLAM 2 MG/2 ML VIAL ONE; -PREMYELOGRAM MEDICATION REVIEW 1 EACH MISC PO NR; +ROPIVACAINE 5MG/ML 20ML VIAL ONE; +fentaNYL (PF) 50 MCG/ML 2 ML AMP ONE; +methylPREDNISolone ACETATE 40 MG/ML 1 ML VIAL ONE
[2019-05-04 07:01] VITALS: RESP 16; TEMP 97.8
--- NOTE | 2019-05-04 08:02 | P.PCN ---
Date of Procedure: 05/04/19 Procedure(s) Performed: Procedure= bilateral sacroiliac joints steroid injection under fluoroscopy guidance (fluoroscopy image stored on file in the radiology Department ) Preoperative diagnosis= 1-sacroiliitis 2-lumbar failed back surgery syndrome 3-lumbar spondylosis with facet arthropathy Postoperative diagnosis=Same as preop Diagnosis . Complication = none Condition= stable Anesthesia= moderate sedation with intravenous Versed 2 mg , and fentanyl 50 micrograms . Indication for the procedure= patient complaining of low back pain , examination was positive for severe tenderness over the sacroiliac joints bilaterally and patient diagnosed with sacroiliitis, for this reason ,she was good candidate for sacroiliac joint steroid injection. Description of the procedure= procedure risk and benefits discussed with the patient, including but not limited, risk of infection and bleeding, and ALLERGIC reaction to the medication and not complete pain relief and patient agreed with the preceding patient taken to the operating room, placed in prone position or standard monitors applied to the patient then after induction of anesthesia back prepped with chlorhexidine 3 times , Then under strict sterile technique, first I did the right sacroiliac joint the which was identified under fluoroscopy guidance been local infiltration of the skin and subcu interstitial with lidocaine 1% then 25-gauge Quincke Needle advanced slowly under fluoroscopy and placed in the right sacroiliac joint needle placement confirmed with AP and oblique and lateral view and after appropriate needle placement confirmed and after negative aspiration, or heme , then Ropivacaine 0.5% 3 mL, and 40 mg of Depo-Medrol mixed together and injected in the right sacroiliac joint after negative aspiration patient tolerated the procedure well without any complication. Then the left sacroiliac joint steroid injection done under strict sterile technique local infiltration of the skin and subcu interstitial at the location of the left sacroiliac joint then a 25-gauge Quincke Needle advanced slowly under fluoroscopy time placed in the left sacroiliac joint, needle placement confirmed with AP and oblique and lateral view then after appropriate needle placement confirmed and after negative aspiration 0.5% ropivacaine 3 mL ,and 40 mg of Depo-Medrol injected in the left sacroiliac joint after negative aspiration patient tolerated the procedure well that any complications and she will follow up in clinic 3 weeks
[2019-05-04 09:00] VITALS: BP 122/74; PULSE 44
--- NOTE | 2019-05-04 10:00 | FL ---
EXAMINATION TYPE: FL guided pain mgmt statistic DATE OF EXAM: 05/04/2019 HISTORY: Fluoroscopy time 7 seconds of fluoroscopy provided. IMPRESSION: 1. Fluoroscopy time.
== END ==
LOC: ORPAIN 06:24
PROVIDERS: ATTEND Specialist
DX: G89.29 Other chronic pain (principal); M46.1 Sacroiliitis, not elsewhere classified; M96.1 Postlaminectomy syndrome, not elsewhere classified; M47.26 Other spondylosis with radiculopathy, lumbar region; M79.18 Myalgia, other site; M25.552 Pain in left hip; M25.551 Pain in right hip; Z79.01 Long term (current) use of anticoagulants; Z79.51 Long term (current) use of inhaled steroids; Z79.899 Other long term (current) drug therapy; Z87.891 Personal history of nicotine dependence
CPT/HCPCS: 27096; J2250; J1030; J3010; J2795; 99152

== ENCOUNTER → 2019-06-30 | Outpatient (CLI) | payer BC, MEDICARE ==
--- NOTE | 2019-06-30 11:07 | P.PAINPG ---
Subjective Progress Note Date: 06/30/19 THIS ENCOUNTER WAS PERFORMED A TELEMEDICINE VISIT VIA SECURE TWO-WAY VIDEO AND AUDIO TO MINIMIZE RISK AND TRANSMISSION OF COVID-19. This is a follow-up visit for this 59 year old female, with a chronic history of severe low back pain with radiation to the lateral buttocks and hips and lower extremity, patient diagnosed with osteoarthritis of both hips , and failed back surgery syndrome lumbar area ,and lumbar spondylosis with lumbar facet arthropathy, as well as bilateral sacroiliitis, she has been managed with a combination of interventional pain management and medication management, she most recently underwent bilateral SI joint injections on 05/04/2019. she reports approximately 75% relief from this procedure, lasting more than 2 weeks, pain gradually returned to baseline over one month. she reports that she has discontinued Lyrica, she was experiencing side effects from it in the form of fatigue, skin rash and itching, migraines. This was also not providing her any relief. She has taken gabapentin in the past, 600 mg 3 times a day, with excellent benefit, and would like to restart this. previously she had the spinal cord stimulator implanted but she had 0 benefit from it , and she had the generator of the spinal cord stimulator removed but she still have that leads in the thoracic area , She is currently complaining of low back pain Review of systems is negative for chest pain, shortness of breath, new onset weakness, numbness/tingling, abdominal pain, malaise, fever, night sweats, chills, homicidal or suicidal ideation. she does endorse occasional diarrhea, and chronic latter incontinence. He does occasionally have bowel incontinence, but believes this is associated with the diarrhea. Objective Physical exam : Constitutional: Healthy appearing, well developed, alert, in no acute distress Psychiatric: Judgement and insight intact, alert and oriented Mood and Affect: mood normal, affect appropriate Head and Face: Inspection: normocephalic atraumatic, extraocular movement intact Respiratory: Breathing non-labored nondyspneic Cardiovascular: no cyanosis, clubbing, patient reports mild pitting pedal edema Skin: Head and Neck: skin with no lesions of rash Gait: slow gait, walks with a cane Assessment and Plan Plan: Assessment and plan=1-failed back surgery syndrome and lumbar area. 2-lumbar spondylosis with lumbar facet a rthropathy. 3-bilateral sacroiliitis. 4-myofascial pain syndrome thoracic and lumbar area. 5-bilateral hip arthralgia. Patient Underwent bilateral SI joint injection, with excellent relief , she will likely benefit from repeat procedure, we will s chedule this once the clinic is open Lyrica was discontinued as this was not working, prescription given for gabapentin tablets, 600 mg 3 times a day, with 2 refills. patient was provided with titration schedule. Maps reviewed and was congruent. patient was counseled on the importance of continued exercising. PQRS Measure Charge Sheet PQRS Narrative: Smoking Status Former smoker Hx Alcohol Use (MH) No Home Medications: Ambulatory Orders ALPRAZolam [Xanax] 0.5 mg PO BID 08/20/14 Albuterol Sulfate [Proair Hfa] 1 - 2 puff INHALATION RT-Q6H PRN 08/20/14 Omeprazole [PriLOSEC] 20 mg PO AC-BID 08/20/14 levETIRAcetam [Keppra] 500 mg PO Q12HR 08/20/14 Apixaban [Eliquis] 5 mg PO BID 09/08/18 Atorvastatin [Lipitor] 40 mg PO DAILY 09/08/18 Fluticasone Nasal [place] [Flonase Nasal [place]] 1 spray EA NOSTRIL DAILY 09/08/18 Pramipexole [Mirapex] 1 mg PO HS 09/08/18 Vortioxetine Hydrobromide [Trintellix] 10 mg PO QAM 09/08/18 cycloSPORINE [Restasis] 1 applicator BOTH EYES BID 09/08/18 traZODone HCL [Desyrel] 100 mg PO HS 09/08/18 Baclofen [Lioresal] 20 mg PO TID 01/05/19 Oxybutynin Chloride [Ditropan] 5 mg PO DAILY 01/05/19 Sotalol [Betapace] 120 mg PO BID 01/05/19 Calcium Carbonate/Vitamin D3 [Calcium 600-Vit D3 800 Caplet] 1 tab PO DAILY 02/06/19 Magnesium 250 mg PO DAILY 02/06/19 Multivit-Min/Iron/Folic/Lutein [Centrum Silver Women Tablet] 1 each PO DAILY 02/06/19 Budesonide-Formot 160-4.5 Mcg [Symbicort 160-4.5 Mcg Inhaler] 2 puff INHALATION BID 03/08/19 Fexofenadine/Pseudoephedrine [Anne-D 12 Hour Tablet] 1 each PO DAILY 03/08/19 Albuterol Nebulized [Ventolin Nebulized] 2.5 mg INHALATION BID 04/17/19 Gummies Thc 10 mg PO TID 04/17/19 busPIRone HCl [Buspar] 5 mg PO BID 04/17/19 diphenhydrAMINE [Benadryl] 25 - 50 mg PO BID PRN 04/17/19 Gabapentin 600 mg PO TID #90 tab 06/30/19 Controlled Substance Measures - Controlled Substance Measures Is patient prescribed a controlled substance at discharge?: Yes When asked, does pt state using other controlled substances?: No If prescribed controlled substance>3 days was MAPS reviewed?: Yes If Rx opioid, was Start Talking consent form obtained?: Yes If opioid is for acute pain is fill amount 7 days or less?: No Was information provided regarding opioid addiction?: Yes
== END | disposition home or self-care (01) ==
LOC: PNWHC3 07:21
PROVIDERS: ATTEND Anesthesiology
DX: Z53.9 Procedure and treatment not carried out, unspecified reason (principal)

== ENCOUNTER → 2019-07-14 | Outpatient (CLI) | payer BC, MEDICARE | END | disposition home or self-care (01) | LOC: LABWHC1 11:51 | PROVIDERS: ATTEND Family Medicine | DX: Z11.59 Encounter for screening for other viral diseases (principal) | CPT/HCPCS: 87635 ==

== ENCOUNTER → 2019-07-18 | Day surgery (SDC) | payer BC, MEDICARE ==
[2019-07-13 14:19] VITALS: BMI 32.5
[~2019-07-18] MED LIST changes: +BUPIVACAINE (PF) 0.5% 30 ML VIAL ONE; +IOPAMIDOL M200 10 ML VIAL ONE; -IV FLUID CONTINUATION 1,000 ML IV ONE; -ROPIVACAINE 5MG/ML 20ML VIAL ONE; +TRIAMCINOLONE ACETONIDE 40 MG/ML 1 ML VIAL ONE; -methylPREDNISolone ACETATE 40 MG/ML 1 ML VIAL ONE
[2019-07-18 11:33] VITALS: TEMP 98.9
--- NOTE | 2019-07-18 12:55 | P.PCN ---
Date of Procedure: 07/18/19 Procedure(s) Performed: Preoperative diagnoses: bilateral sacroilitis Postoperative diagnoses: bilateral sacroilitis. Procedure: bilateral sacroiliac joint steroid injection under fluoroscopic guidance. Surgeon: Jayden Fried MD Anesthesia: [2 mL of 1% lidocaine and moderate sedation with Versed and fentanyl, sedation time 12 mins Fluoroscopy was used for the procedure and fluoroscopic images were saved to the radiology portion of the patient's chart. EBL: None Procedure indication: The patient had a history of severe chronic low back pain, diagnosed with sacroiliitis unresponsive to conservative treatment. Procedure description: The patient was seen and identified in the preoperative holding area, risks and benefits and alternative of the procedure and possible complications discussed with the patient, and patient agreed with the preceding, patient signed the consent, an IV was started, and vital signs were monitored and were stable throughout the procedure, patient was placed in the prone position on table and the lumbosacral area was prepped and draped with a sterile fashion, vital signs were closely monitored during the procedure, the fluoroscopy camera was placed in the contralateral oblique view on the bilateral sacroiliac joint and the lower part of the joint was identified . Then the skin and subcutaneous tissue was anesthetized using 2 mL of 1% lidocaine then a 22- gauge Quincke-type spinal needle advanced slowly under fluoroscopy and placed in the posterior and inferior border of the right sacroiliac joint, placement confirmed with AP and lateral view, and after appropriate needle placement confirmed and after negative aspiration for heme, 1 mL of Isovue 200 was injected revealing intra-articular spread. Then a solution consisting of 2 ml of ropivacaine 0.5% and 20 mg of Kenalog injected after negative aspiration, no paresthesia during the injection, no resistance to injection, and the needle was removed. The procedure was then repeated on the left side. Total of 40 mg of Kenalog was used for the procedure. Patient tolerated the procedure well without any complication. The patient was returned to supine position after the back was cleaned and a Band-Aid applied, the patient was transported to recovery room in stable condition and monitored for 30 minutes before being discharged home. The patient will follow up with the pain clinic in a few weeks
[2019-07-18 13:01] VITALS: RESP 17
--- NOTE | 2019-07-18 13:15 | FL ---
EXAMINATION TYPE: FL guided pain mgmt statistic DATE OF EXAM: 07/18/2019 HISTORY: Fluoroscopy time 7 seconds of fluoroscopy provided. IMPRESSION: 1. Fluoroscopy time.
[2019-07-18 13:26] VITALS: BP 122/62; PULSE 72
== END ==
LOC: ORPAIN 10:19
PROVIDERS: ATTEND Anesthesiology
DX: G89.29 Other chronic pain (principal); M46.1 Sacroiliitis, not elsewhere classified; M54.16 Radiculopathy, lumbar region; M16.0 Bilateral primary osteoarthritis of hip; M96.1 Postlaminectomy syndrome, not elsewhere classified; M47.816 Spondylosis without myelopathy or radiculopathy, lumbar region; Z87.891 Personal history of nicotine dependence; Z90.710 Acquired absence of both cervix and uterus; Z79.01 Long term (current) use of anticoagulants; Z79.899 Other long term (current) drug therapy
CPT/HCPCS: 27096; J2250; J3301; J3010; Q9966; 99152

== ENCOUNTER → 2019-09-13 | Outpatient (CLI) | payer BC, MEDICARE ==
[2019-09-13 12:13] VITALS: BP 137/86; PULSE 78; RESP 18
--- NOTE | 2019-09-13 12:48 | P.PAINPG ---
Subjective Progress Note Date: 09/13/19 This is a follow-up visit for this 59 year old female, with a chronic history of severe low back pain with radiation to the lateral buttocks and hips and lower extremity, patient diagnosed with osteoarthritis of both hips , and failed back surgery syndrome lumbar area ,and lumbar spondylosis with lumbar facet arthropathy, as well as bilateral sacroiliitis, she has been managed with a combination of interventional pain management and medication management, she most recently underwent bilateral SI joint injections on 07/18/2019. she reports no significant benefit from this. Today, her pain is rated as 8/10 located in the low back radiating to bilateral lower extremities up to bilateral feet. She also has right lateral hip pain. Pain is described as shooting, numb sensation in her bilateral feet that she attributes to neuropathy. Pain is worse with position changes, bending, walking and better with medications, ice, heat. She ambulates with a cane. She continues to do some low back exercises and walk with her dog. At last visit, we started her on gabapentin as She had taken gabapentin in the past, 600 mg 3 times a day,she reports that this has been working somewhat, she may benefit from an increase in dosage. previously she had a spinal cord stimulator implanted but she had 0 benefit from it , and she had the generator of the spinal cord stimulator removed but she still have that leads in the thoracic area Review of systems is negative for chest pain, shortness of breath, new onset weakness, numbness/tingling, abdominal pain, malaise, fever, night sweats, chills, homicidal or suicidal ideation. she does endorse chronic bladder incontinence, she is scheduled to undergo Botox injections to her bladder next week Objective Physical exam: Vitals: Reviewed in EMR GENERAL: Well appearing, in no acute distress PSYCH: Mood and affect is appropriate. Awake, alert, and oriented SKIN: Skin color, texture, turgor normal, no rashes or lesions HEENT: Normocephalic, atraumatic. EOM intact CV: No pedal edema RESP: Respirations are unlabored, no audible wheezing GI: Abdomen non-distended MUSCULOSKELETAL: Bilateral lower extremity strength is 4/5 throughout and symmetric. No atrophy or tone abnormalities are noted. Lumbar spine: Straight leg raising in the sitting position is positive bilaterally for radicular pain. Tenderness to palpation over the lumbar spine and paraspinous muscles bilaterally. Positive for pain with facet loading and back extension/rotation. Lumbar scar visible, well-healed Extremities: Tenderness to palpation over right greater trochanter Gait: Gait is slow, antalgic, walks with a cane NEUR: Bilateral lower extremity coordination and muscle stretch reflexes are physiologic and symmetric. Reduced sensation to light touch noted in lateral aspect of right leg and bilateral feet Assessment and Plan Plan: Assessment and plan=1-failed back surgery syndrome and lumbar area. 2-lumbar spondylosis with lumbar facet arthropathy. 3-bilateral sacroiliitis. 4-myofascial pain syndrome thoracic and lumbar area. 5-bilateral hip arthralgia, right greater trochan ter bursitis Patient Underwent bilateral SI joint injection, with no significant benefit In the past, she has undergone caudal epidural steroid injections with lysis of adhesions, last done in October 2018, with good relief. She will likely benefit from repeat procedure, we will schedule this. In the future, she will likely benefit from right greater trochanter bursa injections. prescription given for gabapentin 800 mg 3 times a day, with 1 refill. This was increased from 600 mg 3 times a day. Titration schedule provided. Start talking form initiated, urine drug screen sent today Maps reviewed and was congruent. . Objective - Vital Signs Vital signs: Intake & Output 09/12/19 09/13/19 09/13/19 18:59 06:59 18:59 Weight 84.368 kg PQRS Measure Charge Sheet Measure #130: Documentation of Current Meds in Medical Chart: Patient's medications documented in chart Measure #226: Tobacco Use: Screen & Cessation Intervention: Pt screened for tobacco use AND intervention given Measure #111: Pneumonia Vaccination: Pneumococcal vaccine NOT administered or previously given Measure #47: Advance Care Plan: Advance care planning discussed & documented, pt chose/unable to give Measure #412: Opioid Treatment Agreement: Documented signed opioid trtmnt agreemnt min once during opioid trtmnt Measure #408: Opioid Therapy Follow-up Evaluation: Patient had f/u eval minimum every 3 months during opioid therapy Measure #317: Preventitive Care & Scrn High Bld Press & F/U: Normal blood pressure, f/u not required Measure #128: Body Mass Index (BMI) Screening & Follow-up: BMI documented ABOVE normal parameters - f/u documented Measure #131: Pain Assessment & Follow-up: Pain positive & plan documented, Follow-up scheduled Measure #431: Unhealthy Alcohol Use Preventative Care & Scrn: Patient not identified as an unhealthy alcohol user PQRS Narrative: Smoking Status Former smoker Scale Used Numeric (1 - 10) Hx Alcohol Use (MH) No Home Medications: Ambulatory Orders ALPRAZolam [Xanax] 0.5 mg PO BID 08/20/14 Albuterol Sulfate [Proair Hfa] 1 - 2 puff INHALATION RT-Q6H PRN 08/20/14 Omeprazole [PriLOSEC] 20 mg PO AC-BID 08/20/14 levETIRAcetam [Keppra] 500 mg PO Q12HR 08/20/14 Apixaban [Eliquis] 5 mg PO BID 09/08/18 Atorvastatin [Lipitor] 40 mg PO DAILY 09/08/18 Fluticasone Nasal [place] [Flonase Nasal [place]] 1 spray EA NOSTRIL DAILY 09/08/18 Pramipexole [Mirapex] 0.5 mg PO HS 09/08/18 Vortioxetine Hydrobromide [Trintellix] 10 mg PO QAM 09/08/18 cycloSPORINE [Restasis] 1 applicator BOTH EYES BID 09/08/18 traZODone HCL [Desyrel] 100 mg PO HS 09/08/18 Baclofen [Lioresal] 20 mg PO TID 01/05/19 Sotalol [Betapace] 120 mg PO BID 01/05/19 Calcium Carbonate/Vitamin D3 [Calcium 600-Vit D3 800 Caplet] 1 tab PO DAILY 02/06/19 Magnesium 250 mg PO DAILY 02/06/19 Multivit-Min/Iron/Folic/Lutein [Centrum Silver Women Tablet] 1 each PO DAILY 02/06/19 Budesonide-Formot 160-4.5 Mcg [Symbicort 160-4.5 Mcg Inhaler] 2 puff INHALATION QID PRN 03/08/19 Fexofenadine/Pseudoephedrine [Anne-D 12 Hour Tablet] 1 each PO DAILY 03/08/19 Albuterol Nebulized [Ventolin Nebulized] 2.5 mg INHALATION BID 04/17/19 Gummies Thc 10 mg PO TID 04/17/19 diphenhydrAMINE [Benadryl] 25 - 50 mg PO BID PRN 02/24/20 Trospium Chloride [Sanctura XR] 20 mg PO BID 07/13/19 busPIRone HCl [Buspar] 10 mg PO BID 07/13/19 Gabapentin 800 mg PO TID 30 Days #90 tab 09/13/19 Controlled Substance Measures - Controlled Substance Measures Is patient prescribed a controlled substance at discharge?: Yes When asked, does pt state using other controlled substances?: No If prescribed controlled substance>3 days was MAPS reviewed?: Yes If Rx opioid, was Start Talking consent form obtained?: Yes If opioid is for acute pain is fill amount 7 days or less?: No Was information provided regarding opioid addiction?: Yes
== END | disposition home or self-care (01) ==
LOC: PNWHC3 12:00
PROVIDERS: ATTEND Anesthesiology
DX: G89.29 Other chronic pain (principal); M47.816 Spondylosis without myelopathy or radiculopathy, lumbar region; M46.1 Sacroiliitis, not elsewhere classified; M16.0 Bilateral primary osteoarthritis of hip; M96.1 Postlaminectomy syndrome, not elsewhere classified; M79.18 Myalgia, other site; M70.61 Trochanteric bursitis, right hip; Z87.891 Personal history of nicotine dependence; Z79.01 Long term (current) use of anticoagulants; Z79.899 Other long term (current) drug therapy
CPT/HCPCS: 80307; 99211; G0482

== ENCOUNTER 2019-10-09 10:00 | Emergency (ER) | payer BC, MEDICARE ==
[2019-10-09 10:10] VITALS: TEMP 99.1
--- NOTE | 2019-10-09 10:39 | ED ---
Back Pain HPI - General Chief Complaint: Back Pain/Injury Stated Complaint: back/leg pain Time Seen by Provider: 10/09/19 10:12 Source: patient Limitations: no limitations - History of Present Illness Initial Comments: 59-year-old female past history of fibromyalgia and previous lumbar fusion with chronic back pain presents today for chief complaint of low back pain. Patient states that she did not have any recent trauma or falls but states that she occasionally has episodes where she is increased low back pain. Patient states this has been ongoing ever since she had her lumbar fusion in 2019. Patient denies fevers she denies loss of bowel bladder control urinary retention she denies loss of sensation of the lower extremities or inability to ambulate. Patient denies any IV drug use. Patient denies chest pain, SOB, abdominal pain, nausea, vomiting. Patient states that sometimes when the pain is uncontrolled she comes emergency R for pain management. Patient states that she has no additional complaints or concerns she appears nontoxic on arrival. Uncomfortable. - Related Data Home Medications Medication Instructions Recorded Confirmed ALPRAZolam [Xanax] 0.5 mg PO BID 08/20/14 09/13/19 Albuterol Sulfate [Proair Hfa] 1 - 2 puff INHALATION RT-Q6H PRN 08/20/14 09/13/19 Omeprazole [PriLOSEC] 20 mg PO AC-BID 08/20/14 09/13/19 levETIRAcetam [Keppra] 500 mg PO Q12HR 08/20/14 09/13/19 Apixaban [Eliquis] 5 mg PO BID 09/08/18 09/13/19 Atorvastatin [Lipitor] 40 mg PO DAILY 09/08/18 09/13/19 Fluticasone Nasal [place] [Flonase 1 spray EA NOSTRIL DAILY 09/08/18 09/13/19 Nasal [place]] Pramipexole [Mirapex] 0.5 mg PO HS 09/08/18 09/13/19 Vortioxetine Hydrobromide 10 mg PO QAM 09/08/18 09/13/19 [Trintellix] cycloSPORINE [Restasis] 1 applicator BOTH EYES BID 09/08/18 09/13/19 traZODone HCL [Desyrel] 100 mg PO HS 09/08/18 09/13/19 Baclofen [Lioresal] 20 mg PO TID 01/05/19 09/13/19 Sotalol [Betapace] 120 mg PO BID 01/05/19 09/13/19 Calcium Carbonate/Vitamin D3 1 tab PO DAILY 02/06/19 09/13/19 [Calcium 600-Vit D3 800 Caplet] Magnesium 250 mg PO DAILY 02/06/19 09/13/19 Multivit-Min/Iron/Folic/Lutein 1 each PO DAILY 02/06/19 09/13/19 [Centrum Silver Women Tablet] Budesonide-Formot 160-4.5 Mcg 2 puff INHALATION QID PRN 03/08/19 09/13/19 [Symbicort 160-4.5 Mcg Inhaler] Fexofenadine/Pseudoephedrine 1 each PO DAILY 03/08/19 09/13/19 [Anne-D 12 Hour Tablet] Albuterol Nebulized [Ventolin 2.5 mg INHALATION BID 04/17/19 09/13/19 Nebulized] Gummies Thc 10 mg PO TID 04/17/19 09/13/19 diphenhydrAMINE [Benadryl] 25 - 50 mg PO BID PRN 04/17/19 09/13/19 Trospium Chloride [Sanctura XR] 20 mg PO BID 07/13/19 09/13/19 busPIRone HCl [Buspar] 10 mg PO BID 07/13/19 09/13/19 Previous Rx's Medication Instructions Recorded Gabapentin 800 mg PO TID 30 Days #90 tab 09/13/19 Allergies Allergy/AdvReac Type Severity Reaction Status Date / Time amoxicillin trihydrate Allergy Rash/Hives Verified 10/09/19 10:08 [From Augmentin] potassium clavulanate Allergy Rash/Hives Verified 10/09/19 10:08 [From Augmentin] sulfamethoxazole Allergy Rash/Hives Verified 10/09/19 10:08 [From Bactrim] trimethoprim [From Bactrim] Allergy Rash/Hives Verified 10/09/19 10:08 Review of Systems ROS Statement: Those systems with pertinent positive or pertinent negative responses have been documented in the HPI. ROS Other: All systems not noted in ROS Statement are negative. Past Medical History Past Medical History: Atrial Fibrillation, Asthma, Cancer, COPD, Fibromyalgia, GERD/Reflux, Hyperlipidemia, Hypertension, Seizure Disorder, Sleep Apnea/CPAP/BIPAP, Thyroid Disorder Additional Past Medical History / Comment(s): diverticulitis, hernia, 11/2014 last seizure, lung ca June 2018, History of Any Multi-Drug Resistant Organisms: None Reported Past Surgical History: Appendectomy, Back Surgery, Breast Surgery, Section, Cholecystectomy, Hernia Repair, Hysterectomy, Orthopedic Surgery Additional Past Surgical History / Comment(s): lumbar fusion, neck fusion, left knee sx X3(ACLx 2 and arthroscopy x1), ganglion cyst removed bilateral wrist, lymph node and gland removed from neck, left elbow sx for ulnar nerve entrapment, eye lid lift, left ovary removed, left upper lobectomy, Pain Clinic Procedures. BREAST BX, sinus surgery, deviated septum repair, spinal stimulator inserted and removed - leads remain in Past Anesthesia/Blood Transfusion Reactions: Motion Sickness Past Psychological History: Anxiety, Depression, Panic Disorder Smoking Status: Current every day smoker Past Alcohol Use History: Rare Past Drug Use History: Marijuana - Past Family History Daughter(s) Family Medical History: Cancer Additional Family Medical History / Comment(s): colon Brother(s) Family Medical History: Cancer Additional Family Medical History / Comment(s): prostate Father Family Medical History: Cancer Additional Family Medical History / Comment(s): COLON CA Sister(s) Family Medical History: Cancer Additional Family Medical History / Comment(s): BLADDER CA General Exam - General Exam Comments Initial Comments: General: The patient is awake and alert, appears uncomfortable, frequently changing positions Eye: +3 mm pupils are equal, round and reactive to light, extra-ocular movements are intact. No nystagmus. There is normal conjunctiva bilaterally. No signs of icterus. Ears, nose, mouth and throat: There are moist mucous membranes and no oral lesions. Neck: The neck is supple, there is no tenderness or JVD. Cardiovascular: There is a regular rate and rhythm. No murmur, rub or gallop is appreciated. Respiratory: Lungs are clear to auscultation, respirations are non-labored, donis ath sounds are equal. No wheezes, stridor, rales, or rhonchi. Gastrointestinal: Soft, non-distended, non-tender abdomen without masses or organomegaly noted. There is no rebound or guarding present. Musculoskeletal: Upon inspection of the cervicothoracic and lumbar spine there is some scarring paravertebral spinal of the thoracic spine approximately 4 inches on each side as well as smaller 2 inch para spinal scarring on the lumbar. Mild midline but mostly paraspinal tendenress. nO redness/swelling. Normal ROM, no tenderness. Strength 5/5 of the LE b/l. + SLR b/l. Sensation intact of the LE including the saddle region. Radial and DP pulses equal bilaterally 2+. Neurological: A&O x 3. CN II-XII intact grossly, There are no obvious motor or sensory deficits. Coordination appears grossly intact. Speech is normal. Skin: Skin is warm and dry and no rashes or lesions are noted. No LE edema Psychiatric: Cooperative, appropriate mood & affect, normal judgment. Limitations: no limitations Course Vital Signs 10/09/19 10:08 Temperature 99.1 F Pulse Rate 86 Respiratory 16 Rate Blood Pressure 131/89 O2 Sat by Pulse 95 Oximetry Medical Decision Making - Medical Decision Making 59-year-old male presenting with acute on chronic back pain patient states she recently has flares. She is neurovascularly intact. Denies any loss of bowel bladder control or urinary retention. Denies loss of sensation of the lower extremities or weakness. Ambulatory. Patient is on no narcotics at home per patient. Patient takes gabapentin and baclofen. Patient pain decreased with dilaudid, patient states she is ready for discharge.Given tylenol #3 starter pack. Discussed return parameters and importance of outpatient f/u. Patient verbalized understanding as did and are agreeable/prefer discharge at this time. Disposition Clinical Impression: Acute exacerbation of chronic low back pain Disposition: HOME SELF-CARE Condition: Good Instructions (If sedation given, give patient instructions): Acute Low Back Pain (ED) Additional Instructions: Please use medication as discussed. Please follow-up with family doctor in the next 2 days of symptoms have not improved. Please return to emergency room if the symptoms increase or worsen or for any other concerns or develop fver . Is patient prescribed a controlled substance at d/c from ED?: No Referrals: Skip Orellana DO [Primary Care Provider] - 1-2 days Time of Disposition: 12:12
[2019-10-09] MEDS ORDERED: HYDROmorphone 0.5 MG/0.5 ML SYRINGE IVP STA (10:41)
--- NOTE | 2019-10-09 11:47 | XR ---
EXAMINATION TYPE: XR lumbar spine 2 or 3V DATE OF EXAM: 10/09/2019 Comparison: None Clinical History: 59-year-old female with back pain Findings: Coils from prior abdominal wall mesh repair. Post surgical changes of L3-L5 posterior and interbody f usion. Fixed grade 1 anterolisthesis at the fused L4-L5 level. Facet arthropathy above the fusion at L2-L3. Remaining alignment is maintained and vertebral body heights are preserved. Impression: Postsurgical changes of L3-L5 posterior and interbody fusion. Fixed grade 1 anterolisthesis of the fu sed L4-L5 level. No vertebral compression collapse.
[2019-10-09] MEDS ORDERED: ACET/COD 300 MG/30 MG STARTER PACK 6 TAB BTL PO STA (12:12)
[2019-10-09 12:30] VITALS: BP 135/95; PULSE 81; RESP 18
== END 2019-10-09 12:35 | disposition home or self-care (01) ==
LOC: EC 10:00
DX: M54.5 Low back pain (principal); G89.29 Other chronic pain; I48.91 Unspecified atrial fibrillation; J44.9 Chronic obstructive pulmonary disease, unspecified; I10 Essential (primary) hypertension; K21.9 Gastro-esophageal reflux disease without esophagitis; G40.909 Epilepsy, unspecified, not intractable, without status epilepticus; G47.30 Sleep apnea, unspecified; F41.0 Panic disorder [episodic paroxysmal anxiety]; F32.9 Major depressive disorder, single episode, unspecified; F17.200 Nicotine dependence, unspecified, uncomplicated; Z99.89 Dependence on other enabling machines and devices; Z98.1 Arthrodesis status; Z85.118 Personal history of other malignant neoplasm of bronchus and lung; Z79.01 Long term (current) use of anticoagulants; Z79.51 Long term (current) use of inhaled steroids; Z79.899 Other long term (current) drug therapy; Z88.0 Allergy status to penicillin; Z88.1 Allergy status to other antibiotic agents; Z88.2 Allergy status to sulfonamides
CPT/HCPCS: 72100; 99283; 96374; J1170

== ENCOUNTER 2019-10-17 11:06 | Day surgery (SDC) | payer BC, MEDICARE ==
[2019-10-10 15:50] VITALS: BMI 31.6
[~2019-10-17 11:06] MED LIST changes: -BUPIVACAINE (PF) 0.5% 30 ML VIAL ONE; -IOPAMIDOL M200 10 ML VIAL ONE; -LIDOCAINE 1% (10MG/ML) FOR IV START INTRADERMA ONE; -MIDAZOLAM 2 MG/2 ML VIAL ONE; -TRIAMCINOLONE ACETONIDE 40 MG/ML 1 ML VIAL ONE; -fentaNYL (PF) 50 MCG/ML 2 ML AMP ONE
[2019-10-17] MEDS ORDERED: LIDOCAINE 1% (10MG/ML) FOR IV START INTRADERMA ONE (11:40)
[2019-10-17 11:53] VITALS: TEMP 97
--- NOTE | 2019-10-17 12:03 | P.PCN ---
Date of Procedure: 10/17/19 Procedure(s) Performed: PREOP DIAGNOSIS: 1- Lumbar postlaminectomy syndrome. POSTOP DIAGNOSIS:1- Lumbar postlaminectomy syndrome. PROCEDURE: 1-Caudal epidural steroid injection with epidurolysis and epidurogram under fluoroscopic guidance. (Fluoroscopy images available in the radiology Department ) 2-caudal epidurogram. ANESTHESIA: Local with 1% lidocaine 3 ml ,and moderate sedation, with Versed 2 mg and fentanyl 100 g. EBL: Minimal. PROCEDURE INDICATION: The patient with post-laminectomy syndrome with low back pain and radiculopathy radiating down in both legs, here for a caudal epidural steroid injection with epidurolysis. PROCEDURE DESCRIPTION: The patient was seen and identified in the preoperative area. Risks, benefits, complications, and alternatives were discussed with the patient. The patient agreed to proceed with the procedure and signed the consent. IV was started, and vital signs were stable. Patient was taken to the OR and time out was completed. The patient was placed in the prone position on procedure table and a pillow was placed under the abdomen to reduce lumbar lordosis. The lumbosacral area was prepped and draped in the usual sterile fashion. Vital signs were closely monitored during the procedure. lateral view and the anterior-posterior plates of the sacrum were identified with infiltration of the area overlying the sacral hiatus with 1% lidocaine .A 17 gauge RK epidural needle was used to advance through the sacral hiatus into the caudal epidural space. Omnipaque 180 dye. 2cc was injected and the position of the needle was verified to be in the midline. A Racz catheter was introduced into the epidural space and was advanced towards the L5-S1 interspace under direct fluoroscopic guidance. Multiple passes were made with the catheter for lysis of epidural adhesions. Depo-Medrol 80 mg with 3ml of preservative free Lidocaine 1% and 5 ml of preservative free normal saline was injected slowly. Additional spread was seen to L4 under fluoroscopy. The needle and the catheter were withdrawn intact. EPIDUROGRAM: Omnipaque 180 mg dye 2 ml was injected with spread of the dye into the caudal epidural space and with spread cutoff at L5 prior to epidurolysis. Post epidurolysis dye 2 ml was injected and spread was seen to L3-4.There was further spread of the solution together with the dye above the L3 COMPLICATIONS: None. DISPOSITION / PLANS: The patient was placed in a supine position and transferred to the recovery area in a stable condition for observation and was discharged from the recovery room after meeting discharge criteria. Home discharge instructions given to the patient by the staff. The patient was reexamined prior to discharge. The patient will schedule a follow up in the clinic in 2-4 weeks.
[2019-10-17] MEDS ORDERED: IV FLUID CONTINUATION 1,000 ML IV ONE (12:08)
[2019-10-17] MEDS ORDERED: fentaNYL (PF) 50 MCG/ML 2 ML AMP ONE (12:10)
[2019-10-17] MEDS ORDERED: methylPREDNISolone ACETATE 40 MG/ML 1 ML VIAL ONE (12:10)
[2019-10-17] MEDS ORDERED: IOPAMIDOL M200 10 ML VIAL ONE (12:10)
[2019-10-17] MEDS ORDERED: MIDAZOLAM 2 MG/2 ML VIAL ONE (12:10)
[2019-10-17] MEDS ORDERED: SODIUM CHLORIDE 0.9% (PF) 10 ML VIAL ONE (12:10)
[2019-10-17 12:12] VITALS: RESP 16
[2019-10-17 12:30] VITALS: BP 105/66; PULSE 60
--- NOTE | 2019-10-17 12:31 | FL ---
EXAMINATION TYPE: FL guided pain mgmt statistic DATE OF EXAM: 10/17/2019 CLINICAL HISTORY: Low back and sacral pain. TECHNIQUE: Fluoroscopy. COMPARISON: None. FINDINGS: Fluoroscopic guidance was provided during pain relief procedure performed by Dr. Howe . A total of 3 seconds of fluoroscopic time was utilized during the procedure and 3 spot images are acquired. Images acquired shows needle localization at the level of low back and lumbar spine with s urgical change in the lumbar spine identified. IMPRESSION: As Above.
== END 2019-10-17 13:11 | disposition home or self-care (01) ==
LOC: ORPAIN 11:06
PROVIDERS: ATTEND Specialist
DX: M96.1 Postlaminectomy syndrome, not elsewhere classified (principal); M54.16 Radiculopathy, lumbar region; G96.12 Meningeal adhesions (cerebral) (spinal); Z88.0 Allergy status to penicillin; Z88.8 Allergy status to other drugs, medicaments and biological substances; Z88.2 Allergy status to sulfonamides; Z79.01 Long term (current) use of anticoagulants; Z88.1 Allergy status to other antibiotic agents
CPT/HCPCS: 62264; J2250; J1030; J3010; Q9966; C1894; 99152

== ENCOUNTER 2019-11-02 08:27 | Day surgery (SDC) | payer BC, MEDICARE ==
[2019-10-31 11:53] VITALS: BMI 30.9
[2019-11-02 09:01] VITALS: TEMP 97.8
[2019-11-02] MEDS ORDERED: IOPAMIDOL M200 10 ML VIAL ONE (09:17)
[2019-11-02] MEDS ORDERED: fentaNYL (PF) 50 MCG/ML 2 ML AMP ONE (09:17)
[2019-11-02] MEDS ORDERED: MIDAZOLAM 2 MG/2 ML VIAL ONE (09:17)
[2019-11-02] MEDS ORDERED: methylPREDNISolone ACETATE 80 MG/ML 1 ML VIAL ONE (09:17)
--- NOTE | 2019-11-02 09:41 | P.PCN ---
Date of Procedure: 11/02/19 Procedure(s) Performed: PREOP DIAGNOSIS: 1- Lumbar postlaminectomy syndrome. POSTOP DIAGNOSIS:1- Lumbar postlaminectomy syndrome. PROCEDURE: 1-Caudal epidural steroid injection with epidurolysis and epidurogram under fluoroscopic guidance. (Fluoroscopy images available in the radiology Department ) 2-caudal epidurogram. ANESTHESIA: Local with 1% lidocaine 3 ml ,and moderate sedation, with Versed 2 mg and fentanyl 100 g. EBL: Minimal. PROCEDURE INDICATION: The patient with post-laminectomy syndrome with low back pain and radiculopathy radiating down in both legs, here for a caudal epidural steroid injection with epidurolysis. PROCEDURE DESCRIPTION: The patient was seen and identified in the preoperative area. Risks, benefits, complications, and alternatives were discussed with the patient. The patient agreed to proceed with the procedure and signed the consent. IV was started, and vital signs were stable. Patient was taken to the OR and time out was completed. The patient was placed in the prone position on procedure table and a pillow was placed under the abdomen to reduce lumbar lordosis. The lumbosacral area was prepped and draped in the usual sterile fashion. Vital signs were closely monitored during the procedure. lateral view and the anterior-posterior plates of the sacrum were identified with infiltration of the area overlying the sacral hiatus with 1% lidocaine .A 17 gauge RK epidural needle was used to advance through the sacral hiatus into the caudal epidural space. Omnipaque 180 dye. 2cc was injected and the position of the needle was verified to be in the midline. A Racz catheter was introduced into the epidural space and was advanced towards the L5-S1 interspace under direct fluoroscopic guidance. Multiple passes were made with the catheter for lysis of epidural adhesions. Depo-Medrol 80 mg with 3ml of preservative free Lidocaine 1% and 5 ml of preservative free normal saline was injected slowly. Additional spread was seen to L4 under fluoroscopy. The needle and the catheter were withdrawn intact. EPIDUROGRAM: Isovue 200 dye , 2 ml was injected with spread of the dye into the caudal epidural space and with spread cutoff at L5 prior to epidurolysis. Post epidurolysis dye 2 ml was injected and spread was seen to L3-4.There was further spread of the solution together with the dye above the L3 COMPLICATIONS: None. DISPOSITION / PLANS: The patient was placed in a supine position and transferred to the recovery area in a stable condition for observation and was discharged from the recovery room after meeting discharge criteria. Home discharge instructions given to the patient by the staff. The patient was reexamined prior to discharge. The patient will schedule a follow up in the clinic in 2-4 weeks.
[2019-11-02 09:50] VITALS: RESP 18
[2019-11-02 10:28] VITALS: BP 104/79; PULSE 58
[2019-11-02] MEDS ORDERED: IV FLUID CONTINUATION 1,000 ML IV ONE (10:34)
--- NOTE | 2019-11-02 10:39 | FL ---
EXAMINATION TYPE: FL guided pain mgmt statistic DATE OF EXAM: 11/02/2019 HISTORY: Fluoroscopy time 5 seconds of fluoroscopy provided. IMPRESSION: 1. Fluoroscopy time.
== END 2019-11-02 10:48 | disposition home or self-care (01) ==
LOC: ORPAIN 08:27
PROVIDERS: ATTEND Specialist
DX: M96.1 Postlaminectomy syndrome, not elsewhere classified (principal); M54.16 Radiculopathy, lumbar region; I25.10 Atherosclerotic heart disease of native coronary artery without angina pectoris; Z88.2 Allergy status to sulfonamides; Z88.0 Allergy status to penicillin; Z79.01 Long term (current) use of anticoagulants; Z90.710 Acquired absence of both cervix and uterus
CPT/HCPCS: 62264; J2250; J1040; J3010; Q9966; C1894

== ENCOUNTER → 2019-11-08 | Outpatient (CLI) | payer BC, MEDICARE ==
[2019-11-08 12:35] VITALS: BP 146/85; PULSE 79; RESP 18; TEMP 98.6
--- NOTE | 2019-11-08 12:37 | P.PN ---
Subjective Progress Note Date: 11/08/19 This is a 59-year-old lady with history of failed back surgery syndrome and pain which extends from her lower back to her toes bilaterally. She also has weakness in both legs and she is wheelchair bound most of the time over she can walk for a few steps on her own as she states. She did have urinary inco ntinence for which she had Botox injection in the bladder neck which helped this problem. She also has stimulator leads in her back from previous spinal cord stimulator placement which did not help her with the pain. The spike worse with the generator was taken out however the leads were left in place. The patient takes [place] once a day and Neurontin 800 mg 3 times a day which has not helped her pain. She was started on Lyrica 50 mg twice a day by her primary care physician. The patient feels increasing sensation of cold in both legs. The patient's back pain is more intense than her lower extremities pain. She did have caudal epidural steroid injection which gave her limited pain relief. Patient denies new-onset weakness, bowel/bladder incontinence, or any other signs or symptoms of cauda equina syndrome. There are no signs of acute intoxication, and no indications of medication diversion or overuse. In addition to above, 13-point review of systems is also negative for chest pain, shortness of breath, changes in vision, changes in hearing, new onset weakness, abdominal pain, diarrhea, extreme fatigue, malaise, fever, skin changes, homicidal or suicidal ideation, or bowel or bladder incontinence. Vital Signs: Reviewed in EMR Gen: AAOx3, NAD HEENT: PERRLA,hearing grossly normal Pulm: resp unlabored Heart: Regular Neck: supple, trachea midline Neuro exam of the lower extremities: Decreased muscle strength to 3 out of 5 for knee flexion and extension but normal ankle flexion and extension and decreased hip flexion to 4 out of 5 bilaterally. Absent deep tenderness bilaterally in the lower extremities. Straight leg raising test: Cristiano's test: Range of motion of the lumbar spine: Facet loading test: Tenderness in the paravertebral musculature: Normal dorsalis pedis pulse in both feet Neuro: CN II-XII grossly intact, Imaging: Reviewed in EMR/chart Assessment: Failed back surgery syndrome Bilateral paresthesia and weakness in the lower extremities Lumbar spondylosis without myelopathy due to facet arthropathy Plan: 1. Explanation: Opioid and psychological risk scores were reviewed. Diagnoses, prognoses, and multiple treatment options including but not limited to physical therapy, interventional therapies, adjuvant medical therapies, narcotic medication therapies, and surgery were discussed with the patient and all questions were answered to the patient's satisfaction. 2. Opioid agreement: Signed with the patient and the patient is warned not to use opioids while driving or before driving and not to combine opioids with benzodiazepines or alcohol. 3. Counseling: The patient was counseled extensively on SMOKING CESSATION, BODY MASS INDEX, EXERCISE. Specifically, the patient was instructed regarding the importance of smoking cessation, obesity, and exercise in the context of both chronic pain and overall health. 4. Procedures: The patient may benefit from getting lumbar diagnostic medial branch block in the future 5. Consultations: None 6. Investigations: None 7. Medications: Wean Neurontin off by going down on the dose by 1 pill every week. The patient can follow-up with her primary care physician to increase the Lyrica dose gradually up to 300 mg and maximally to 600 mg a day. The patient gets her [place] from her primary care physician. 8. Disposition: Return to clinic as needed 9. Maps were reviewed and were appropriate.
== END | disposition home or self-care (01) ==
LOC: PNWHC3 12:01
PROVIDERS: ATTEND Anesthesiology
DX: M47.816 Spondylosis without myelopathy or radiculopathy, lumbar region (principal); M96.1 Postlaminectomy syndrome, not elsewhere classified; M62.81 Muscle weakness (generalized); R20.2 Paresthesia of skin; Z79.891 Long term (current) use of opiate analgesic; Z79.899 Other long term (current) drug therapy
CPT/HCPCS: 99211

== ENCOUNTER → 2019-12-13 | Day surgery (SDC) | payer BC, MEDICARE ==
[~2019-12-13] MED LIST changes: +HYDROcodone/APAP 5-325MG 1 EACH TAB PO STA; -LACTATED RINGERS 1,000 ML IV SCH; +PREMYELOGRAM MEDICATION REVIEW 1 EACH MISC PO ONE; +diazePAM 5 MG TAB PO STA
[2019-12-13 08:36] VITALS: RESP 18; TEMP 98.1
--- NOTE | 2019-12-13 10:31 | FL ---
PROCEDURE: Lumbar myelogram. DATE: December 13, 2019 CLINICAL HISTORY: Low back pain. Spinal stenosis. Spondylosis. Postlaminectomy syndrome. COMPLICATIONS: None. SEDATION: 5 mg oral Valium. The patient and the patient's vital signs were monitored by qualified independent radiology personnel. Fluoroscopy time: 3 minutes 17 seconds. Total images: 2. TECHNIQUE: The procedure and potential risks were explained to patient and an informed consent was obtained . A time out was performed. There are postsurgical changes of L3-L5 posterior and interbody fusion redemonstrated. Patient's CT f rom February 16, 2019 shows right-sided laminectomy defect L3 and L4 levels. The patient was placed prone on the fluoroscopy table and the right L4 level was localized after charlie ral attempts and the skin was marked and was prepped and draped in the usual sterile fashion. Lidocaine was used for local anesthesia. Utilizing fluoroscopic guidance a 22-gauge spinal needle was placed through the skin and into the subarachnoid space. Once clear CSF was visualized, 13 mL of Isovue-M 200 was injected into the subarachnoid space. 17 cc were discarded. The table was manipulated to get adequate contrast along the length of the lumbar spinal canal. The patient tolerated the procedure well. The estimated blood loss was minimal. The patient's condition was stable and unchanged following the procedure. Images saved documenting successful opacification of lumbar spinal canal. IMPRESSION: Successful lumbar myelogram for CT. This report will be dictated separately.
--- NOTE | 2019-12-13 11:31 | CT ---
EXAMINATION TYPE: CT lumbar spine w con DATE OF EXAM: 12/13/2019 COMPARISON: CT lumbar spine February 16, 2019. HISTORY: Spinal Stenosis, Post Laminectomy, Spondylolysis. Recurrent severe pain and weakness despite prior surgery per patient. CT DLP: 1093.5 mGycm Automated exposure control for dose reduction was used. CONTRAST: CT scan of the lumbar is performed after intrathecal injection of 12 cc of Isovue-[address] of the lumbar spine was performed. Bone and soft tissue window settings are submitted as well as coronal and sagittal reconstructions. There are 5 lumbar type vertebra are redemonstrated. Alignment stable and satisfactory with stable sl ight grade 1 anterolisthesis L4 on L5. Posterior interpedicular rods and screws with artificial disc material redemonstrated at L3-L5 levels. Successful spinal canal enhancement or injection noted. Conu s medullaris stable in position ending mid L1 level. Persistent right-sided laminectomy defects L3 an d L4 levels redemonstrated. Spinal canal remains grossly preserved. Neural foramina felt grossly patent at all lumbar levels with out significant interval change. Persistent moderate to severe left-sided facet arthropathy L4-L5 lev el and mild facet arthropathy bilaterally at L5-S1 level. Mild calcified plaque abdominal aorta exten ds into branch vessels. Some diverticula in the visualized portion sigmoid colon are noted. IMPRESSION: As above. No significant interval change from prior CT. Stable alignment. No new signific ant disc herniation or spinal canal effacement or neural foraminal narrowing noted.
[2019-12-13 12:54] VITALS: BP 122/74; PULSE 54
== END ==
LOC: RADPROMAIN 07:42
PROVIDERS: ATTEND Neurological Surgery
DX: M96.1 Postlaminectomy syndrome, not elsewhere classified (principal); M48.061 Spinal stenosis, lumbar region without neurogenic claudication; M47.819 Spondylosis without myelopathy or radiculopathy, site unspecified; G56.03 Carpal tunnel syndrome, bilateral upper limbs; M25.551 Pain in right hip; M76.31 Iliotibial band syndrome, right leg; Z79.891 Long term (current) use of opiate analgesic; Z79.51 Long term (current) use of inhaled steroids; Z79.899 Other long term (current) drug therapy; Z88.0 Allergy status to penicillin; Z88.2 Allergy status to sulfonamides
CPT/HCPCS: 62304; 72132; J2001; Q9966

== ENCOUNTER → 2020-01-11 | Outpatient (CLI) | payer BC, MEDICARE ==
--- NOTE | 2020-01-12 09:04 | MM ---
Reason for exam: follow-up at short interval from prior study. Last mammogram was performed 1 year and 2 months ago. History: Patient is postmenopausal and has history of other cancer at age 58. Benign MG pre op needle loc LT of the left breast, January 09, 2019. Benign stereotactic core biopsy of the left breast, January 11, 2003. Core biopsy of the left breast. Took hormonal contraceptives for 2 years. Took estrogen for 1 year. Physical Findings: Nurse did not find any significant physical abnormalities on exam. MG 3D Diag Mammo W/Cad MARGRET Bilateral CC and MLO view(s) were taken. Prior study comparison: November 01, 2018, bilateral MG 3d diag mammo w/cad MARGRET. November 12, 2016, bilateral MG screening mammo w CAD. There are scattered fibroglandular densities. No significant new findings when compared with previous films. These results were verbally communicated with the patient and result sheet given to the patient on 01/11/20. ASSESSMENT: Benign, BI-RAD 2 RECOMMENDATION: Routine screening mammogram of both breasts in 1 year.
== END | disposition home or self-care (01) ==
LOC: RADMAMWWP 14:15
PROVIDERS: ATTEND Physician Assistant Medical
DX: N63.20 Unspecified lump in the left breast, unspecified quadrant (principal); N64.4 Mastodynia
CPT/HCPCS: 77062; 77066

== ENCOUNTER → 2020-01-29 | Outpatient (CLI) | payer BC, MEDICARE ==
[2020-01-29 11:27] VITALS: BP 107/71; PULSE 73; RESP 18; TEMP 98.3
--- NOTE | 2020-01-29 21:15 | P.PAINPG ---
Subjective Progress Note Date: 01/29/20 This is a 59-year-old lady with history of failed back surgery syndrome and pain which extends from her lower back to her toes bilaterally. She also has weakness in both legs and she is wheelchair bound most of the time over she can walk for a few steps on her own as she states. She did have urinary inc ontinence for which she had Botox injection in the bladder neck which helped this problem. She also has stimulator leads in her back from previous spinal cord stimulator placement which did not help her with the pain, the generator was taken out however the leads were left in place. The patient takes [place] 7.5/325 every 6 hours when necessary and she is currently on ELEQUIS Objective - Vital Signs Vital signs: Vital Signs Temp 98.3 F 01/29/20 11:20 Pulse 73 01/29/20 11:20 Resp 18 01/29/20 11:20 BP 107/71 01/29/20 11:20 Pulse Ox 93 L 01/29/20 11:20 - Exam Physical Examinations : -Constitutiona : Cooperative , not in acute distress . -HEENT : nech : supple , no Lymphadenopathy , normal thyroid size . : eyes : no ptosis , no icterus, no photophobia . - neurologic : Cranial nerve II to XII intact , no focal neurological deffecit . -psychatric : alert , oriented X 3 , appropriate affect , intact judgment and insight . -Lymphatic : no Lymphadenopathy . - musculoskeltal : Lumber spine moter stegnth lower extremities ,thigh and legs 5/5 Right side , 5/5 Left side deep tendon reflexes : normal Knee Jerk , normal ankle Jerk lumber facet Loading Test =positive Right , positive Left Range of motion of the lumbar spine Flexion 30 degrees, extension 10 degrees strait leg raising test = positive at 30 degree Fabere test= positive Right , and positive LT . Sever tenderness over the Sacroiliac joint on the Right , and Left sides Antalgic gait, walk assisted with cane MRI of the MRI showed multilevel lumbar facet arthropathy from L2-3 and L3 4 L4 5 and L5-S1 Hip x-ray bilaterally showed moderate hip arthropathy Assessment and Plan Plan: Assessment and plan=1-postlaminectomy pain syndrome lumbar area. 2-lumbar spondylosis with lumbar facet arthropathy without myelopathy. Patient continued to have severe low back pain after caudal epidural steroid injection with lysis of epidural adhesions Patient would be great candidate to have diagnostic medial branch block lumbar area at L3 , L4, L 5 And if she has possibly resultant Reynolds proceed with the RFA Time with Patient: Less than 30 PQRS Measure Charge Sheet Measure #130: Documentation of Current Meds in Medical Chart: Patient's medications documented in chart Measure #226: Tobacco Use: Screen & Cessation Intervention: Pt screened for tobacco use AND intervention given Measure #111: Pneumonia Vaccination: Pneumococcal vaccine NOT administered or previously given Measure #47: Advance Care Plan: Advance care planning discussed & documented, pt chose/unable to give Measure #412: Opioid Treatment Agreement: No documentation of signed opioid treatment agreement Measure #408: Opioid Therapy Follow-up Evaluation: Patient had NO f/u eval minimum every 3 months during opioid therapy Measure #317: Preventitive Care & Scrn High Bld Press & F/U: Normal blood pressure, f/u not required Measure #128: Body Mass Index (BMI) Screening & Follow-up: BMI documented ABOVE normal parameters - f/u documented Measure #131: Pain Assessment & Follow-up: Pain positive & plan documented, Follow-up scheduled Measure #431: Unhealthy Alcohol Use Preventative Care & Scrn: Patient not identified as an unhealthy alcohol user PQRS Narrative: Smoking Status Former smoker Blood Pressure 107/71 Pain Intensity [Lower Back] 6 Scale Used Numeric (1 - 10) Hx Alcohol Use (MH) No Home Medications: Ambulatory Orders ALPRAZolam [Xanax] 0.5 mg PO BID 08/20/14 Albuterol Sulfate [Proair Hfa] 1 - 2 puff INHALATION RT-Q6H PRN 08/20/14 levETIRAcetam [Keppra] 500 mg PO Q12HR 08/20/14 Apixaban [Eliquis] 5 mg PO BID 09/08/18 Atorvastatin [Lipitor] 40 mg PO DAILY 09/08/18 Fluticasone Nasal [place] [Flonase Nasal [place]] 1 spray EA NOSTRIL DAILY 09/08/18 Pramipexole [Mirapex] 1 mg PO HS 09/08/18 Vortioxetine Hydrobromide [Trintellix] 5 mg PO HS 09/08/18 cycloSPORINE [Restasis] 1 applicator BOTH EYES BID 09/08/18 traZODone HCL [Desyrel] 100 mg PO HS 09/08/18 Sotalol [Betapace] 120 mg PO BID 01/05/19 Magnesium 250 mg PO DAILY 02/06/19 Multivit-Min/Iron/Folic/Lutein [Centrum Silver Women Tablet] 1 each PO DAILY 02/06/19 Budesonide-Formot 160-4.5 Mcg [Symbicort 160-4.5 Mcg Inhaler] 2 puff INHALATION QID PRN 03/08/19 Albuterol Nebulized [Ventolin Nebulized] 2.5 mg INHALATION BID 04/17/19 Trospium Chloride [Sanctura XR] 20 mg PO BID 07/13/19 busPIRone HCl [Buspar] 10 mg PO BID 07/13/19 HYDROcodone/APAP 7.5-325MG [[place] 7.5-325] 1 tab PO Q6HR PRN 10/17/19 methIMAzole [Tapazole] 5 mg PO DAILY 12/05/19 Omeprazole 20 mg PO DAILY 01/25/20 Vitamin C/Biotin [Hair, Skin and Nails] 1 tab PO DAILY 01/25/20 Controlled Substance Measures - Controlled Substance Measures Is patient prescribed a controlled substance at discharge?: No
== END | disposition home or self-care (01) ==
LOC: PNWHC3 11:03
PROVIDERS: ATTEND Specialist
DX: M96.1 Postlaminectomy syndrome, not elsewhere classified (principal); M47.816 Spondylosis without myelopathy or radiculopathy, lumbar region; Z79.891 Long term (current) use of opiate analgesic; Z79.899 Other long term (current) drug therapy; Z79.01 Long term (current) use of anticoagulants
CPT/HCPCS: 99211

== ENCOUNTER 2020-02-20 09:58 | Day surgery (SDC) | payer BC, MEDICARE ==
[2020-02-14 14:51] VITALS: BMI 27.9
[2020-02-20] MEDS ORDERED: LACTATED RINGERS 1,000 ML IV SCH (10:12)
[2020-02-20 10:26] VITALS: TEMP 97.7
[2020-02-20] MEDS ORDERED: MIDAZOLAM 2 MG/2 ML VIAL ONE (11:19)
[2020-02-20] MEDS ORDERED: fentaNYL (PF) 50 MCG/ML 2 ML AMP ONE (11:19)
[2020-02-20] MEDS ORDERED: ROPIVACAINE 5MG/ML 20ML VIAL ONE (11:19)
[2020-02-20] MEDS ORDERED: methylPREDNISolone ACETATE 40 MG/ML 1 ML VIAL ONE (11:19)
--- NOTE | 2020-02-20 11:44 | P.PCN ---
Date of Procedure: 02/20/20 Procedure(s) Performed: PREOPERATIVE DIAGNOSIS : 1- Lumbar spondylosis with Facet Arthropathy without myelopathy . 2- Lumber degenerative disc disease 3-failed back surgery syndrome lumbar area POSTOPERATIVE DIAGNOSIS: 1- Lumbar spondylosis with Facet Arthropathy without myelopathy . 2- Lumber degenerative disc disease. 3-failed back surgery syndrome lumbar area PROCEDURE: Diagnostic bilateral L1 , L2 , and L5 medial branch block under fluoroscopy guidance(fluoroscopy images available in the radiology Department ) ( Patient had fusion at L3- 4 ,L4- 5 the hardware was covering the facet joint at these leveles, and I did block the facet joint above ,and below the fusion) ANESTHESIA:, moderate sedation with intravenous Versed 2 mg and Fentanyl 50 mcg. EBL: Minimal COMPLICATION: None PROCEDURE INDICATION: Chronic low back pain secondary to Facet arthropathy unresponsive to conservative treatment. PROCEDURE DESCRIPTION: the patient was seen and identified in the preop holding area , risks and benefits and possible complications of the procedure and alternative were discussed with the patient, and the patient agreed to proceed with the procedure and signed the consent and vital signs monitored during the procedure and fluoroscopy was used to maximize the benefit and accuracy of the needle placement, and sedation was given to decrease patient anxiety, patient was taken to the procedure room and placed in prone position vital signs monitored in the back prepped with chlorhexidine X3 then under strict sterile technique using a right oblique fluoroscopy ,the junction of the transverse process and the superior articulating process of the right L1 , L2 , and L5 vertebra which corresponding to the fluoroscopy image of the eye of the Justen dog on the block side for the medial branches and subsequently , after local infiltration of skin and subcu tissuies with Ropivacaine 0.5 % , one mL at each level ,then 22-gauge Quincke-type needles , 3 needle was used , each one of them placed at the junction of the base of the transverse process and the superior articular process at the appropriate level, and the needle was advanced until the periosteum contacted, needle placement confirmed with AP oblique and lateral view and after appropriate needle placement confirmed, and after negative aspiration for heme and CSF and there was no paresthesia 1-1/2 mL of Ropivacaine 0.5% mixed with 20 mg Depo-Medrol , then half mL injected at each level after negative aspiration the needle subsequently removed and the same procedure repeated for the left side at left side at L1 , L2 ,and L5 levels. At the end of the procedure and the needles removed and a bandage applied after the skin was cleaned the cleaning solution patient taken to recovery room in stable condition and monitors in the recovery room for 20-30 minutes and discharged home in stable condition after discharge criteria met and patient will follow up with the pain clinic in 2-4 weeks
[2020-02-20] MEDS ORDERED: IV FLUID CONTINUATION 1,000 ML IV ONE (11:46)
[2020-02-20 12:03] VITALS: BP 113/60; PULSE 66; RESP 16
--- NOTE | 2020-02-20 14:01 | FL ---
Fluoroscopy HISTORY: Pain 14 seconds fluoroscopy time supplied to the referring clinician. 4 intraoperative C-arm images docum ent the procedure. See dictated report from anesthesia.
== END 2020-02-20 12:27 | disposition home or self-care (01) ==
LOC: ORPAIN 09:58
PROVIDERS: ATTEND Specialist
DX: M96.1 Postlaminectomy syndrome, not elsewhere classified (principal); M47.816 Spondylosis without myelopathy or radiculopathy, lumbar region; M51.16 Intervertebral disc disorders with radiculopathy, lumbar region; Z88.0 Allergy status to penicillin; Z88.2 Allergy status to sulfonamides; I48.91 Unspecified atrial fibrillation; J44.9 Chronic obstructive pulmonary disease, unspecified
CPT/HCPCS: 64493; 64494; J2250; J1030; J3010; J2795; 99152

== ENCOUNTER → 2020-03-04 | Outpatient (CLI) | payer BC, MEDICARE ==
[2020-03-04 11:40] VITALS: BP 131/79; PULSE 80; RESP 18; TEMP 98.2
--- NOTE | 2020-03-04 12:00 | P.PN ---
Subjective Progress Note Date: 03/04/20 This is 60 -year-old lady with history of failed back surgery syndrome , complaining of severe low back pain, which extends from her lower back to her toes bilaterally. She also has weakness in both legs and she is wheelchair bound most of the time over she can walk for a few steps on her own as she stat es. She did have urinary incontinence for which she had Botox injection in the bladder neck which helped this problem. She also has stimulator leads in her back from previous spinal cord stimulator placement which did not help her with the pain, the generator was taken out however the leads were left in place. The patient takes [place] 7.5/325 every 6 hours when necessary and she is currently on ELEQUIS, recently we did diagnostic medial branch block lumbar area at L1 , L2 ,L5 (He had fusion at L3-4 ,L4 -5 ) had significant improvement of her low back pain after the block, and the pain relief was for short-term only Objective - Vital Signs Vital signs: Vital Signs Temp 98.2 F 03/04/20 11:34 Pulse 80 03/04/20 11:34 Resp 18 03/04/20 11:34 BP 131/79 03/04/20 11:34 Pulse Ox 94 L 03/04/20 11:34 - Exam -Constitutiona : Cooperative , not in acute distress . -HEENT : nech : supple , no Lymphadenopathy , normal thyroid size . : eyes : no ptosis , no icterus, no photophobia . - neurologic : Cranial nerve II to XII intact , no focal neurological deffecit . -psychatric : alert , oriented X 3 , appropriate affect , intact judgment and insight . -Lymphatic : no Lymphadenopathy . - musculoskeltal : Lumber spine moter stegnth lower extremities ,thigh and legs 5/5 Right side , 5/5 Left side deep tendon reflexes : normal Knee Jerk , normal ankle Jerk lumber facet Loading Test =positive Right , positive Left Range of motion of the lumbar spine Flexion 30 degrees, extension 10 degrees strait leg raising test = positive at 30 degree Fabere test= positive Right , and positive LT . Sever tenderness over the Sacroiliac joint on the Right , and Left sides Antalgic gait, walk assisted with cane MRI of the MRI showed multilevel lumbar facet arthropathy from L2-3 and L3 4 L4 5 and L5-S1 Hip x-ray bilaterally showed moderate hip arthropathy Assessment and Plan Plan: Assessment and plan=1-postlaminectomy pain syndrome lumbar area. 2-lumbar spondylosis with lumbar facet arthropathy without myelopathy. Patient continued to have severe low back pain after caudal epidural steroid injection with lysis of epidural adhesions Patient would be candidate to have a repeat diagnostic medial branch block lumbar area at L1, L2 ,L5 Time with Patient: Less than 30 PQRS Measure Charge Sheet Measure #130: Documentation of Current Meds in Medical Chart: Patient's medications documented in chart Measure #226: Tobacco Use: Screen & Cessation Intervention: Pt screened for tobacco use AND intervention given Measure #111: Pneumonia Vaccination: Pneumococcal vaccine NOT administered or previously given Measure #47: Advance Care Plan: Advance care planning discussed & documented, pt chose/unable to give Measure #412: Opioid Treatment Agreement: No documentation of signed opioid treatment agreement Measure #408: Opioid Therapy Follow-up Evaluation: Patient had NO f/u eval minimum every 3 months during opioid therapy Measure #317: Preventitive Care & Scrn High Bld Press & F/U: Normal blood pressure, f/u not required Measure #128: Body Mass Index (BMI) Screening & Follow-up: BMI documented ABOVE normal parameters - f/u documented Measure #131: Pain Assessment & Follow-up: Pain positive & plan documented, Follow-up scheduled Measure #431: Unhealthy Alcohol Use Preventative Care & Scrn: Patient not identified as an unhealthy alcohol user PQRS Narrative: Time with Patient: Less than 30
== END | disposition home or self-care (01) ==
LOC: PNWHC3 11:26
PROVIDERS: ATTEND Specialist
DX: M47.816 Spondylosis without myelopathy or radiculopathy, lumbar region (principal); M96.1 Postlaminectomy syndrome, not elsewhere classified; Z98.890 Other specified postprocedural states
CPT/HCPCS: 99211

== ENCOUNTER 2020-03-21 12:04 | Day surgery (SDC) | payer BC, MEDICARE ==
[2020-03-19 14:52] VITALS: BMI 28.3
[2020-03-21 12:33] VITALS: TEMP 97.8
[2020-03-21] MEDS ORDERED: LACTATED RINGERS 1,000 ML IV ONE (12:41)
[2020-03-21] MEDS ORDERED: TRIAMCINOLONE ACETONIDE 40 MG/ML 1 ML VIAL ONE (12:46)
[2020-03-21] MEDS ORDERED: MIDAZOLAM 2 MG/2 ML VIAL ONE (12:46)
[2020-03-21] MEDS ORDERED: ROPIVACAINE 5MG/ML 20ML VIAL ONE (12:46)
[2020-03-21] MEDS ORDERED: fentaNYL (PF) 50 MCG/ML 2 ML AMP ONE (12:46)
--- NOTE | 2020-03-21 13:03 | P.PCN ---
Date of Procedure: 03/21/20 Surgeon: Mitchell Coon Pathology: none sent Condition: stable Disposition: PACU Description of Procedure: PREOPERATIVE DIAGNOSIS : 1- Lumbar spondylosis with Facet Arthropathy without myelopathy . 2- Lumber degenerative disc disease 3-failed back surgery syndrome lumbar area POSTOPERATIVE DIAGNOSIS: 1- Lumbar spondylosis with Facet Arthropathy without myelopathy . 2- Lumber degenerative disc disease. 3-failed back surgery syndrome lumbar area PROCEDURE: Diagnostic bilateral L1 , L2 , and L5 medial branch block under fluoroscopy guidance(fluoroscopy images available in the radiology Department ) ( Patient had fusion at L3- 4 ,L4- 5 the hardware was covering the facet joint at these leveles, and I did block the facet joint above ,and below the fusion) ANESTHESIA:, moderate sedation with intravenous Versed and Fentanyl . EBL: Minimal COMPLICATION: None PROCEDURE INDICATION: Chronic low back pain secondary to Facet arthropathy unresponsive to conservative treatment. PROCEDURE DESCRIPTION: the patient was seen and identified in the preop holding area , risks and benefits and possible complications of the procedure and alternative were discussed with the patient, and the patient agreed to proceed with the procedure and signed the consent and vital signs monitored during the procedure and fluoroscopy was used to maximize the benefit and accuracy of the needle placement, and sedation was given to decrease patient anxiety, patient was taken to the procedure room and placed in prone position vital signs monitored in the back prepped with chlorhexidine X3 then under strict sterile technique using a right oblique fluoroscopy ,the junction of the transverse process and the superior articulating process of the right L1 , L2 , and L5 vertebra which corresponding to the fluoroscopy image of the eye of the Justen dog on the block side for the medial branches and subsequently , after local infiltration of skin and subcu tissuies with lidocaine 1% ,a 22-gauge Quincke-type needles was used , and placed at the junction of the base of the transverse process and the superior articular process at the appropriate level, and the needle was advanced until the periosteum contacted, needle placement confirmed with AP oblique and lateral view and after appropriate needle placement confirmed, and after negative aspiration for heme or CSF ,a mixture of ropivacaine 0.5% plus Kenalog 40 mg was prepared to a total of 6 and mils , then 1 mL injected at each level after negative aspiration the needle subsequently removed and the same procedure repeated for the left side at left side at L1 , L2 ,and L5 levels. No paresthesia was observed during the procedure. At the end of the procedure and the needles removed and a bandage applied after the skin was cleaned the cleaning solution patient taken to recovery room in stable condition and monitors in the recovery room for 20-30 minutes and discharged home in stable condition after discharge criteria met and patient w ill follow up with the pain clinic in 2-4 weeks
[2020-03-21] MEDS ORDERED: IV FLUID CONTINUATION 1,000 ML IV ONE (13:09)
[2020-03-21 13:11] VITALS: RESP 16
[2020-03-21 13:27] VITALS: BP 108/67; PULSE 67
--- NOTE | 2020-03-21 13:27 | FL ---
Fluoroscopy HISTORY: Pain 8 seconds fluoroscopy time supplied to the referring clinician. 3 intraoperative C-arm images docume nt the procedure. See dictated report from anesthesia.
== END 2020-03-21 13:40 | disposition home or self-care (01) ==
LOC: ORPAIN 12:04
PROVIDERS: ATTEND Anesthesiology
DX: G89.29 Other chronic pain (principal); M47.816 Spondylosis without myelopathy or radiculopathy, lumbar region; M51.36 Other intervertebral disc degeneration, lumbar region; M96.1 Postlaminectomy syndrome, not elsewhere classified; I10 Essential (primary) hypertension; I48.91 Unspecified atrial fibrillation; Z98.1 Arthrodesis status; Z88.0 Allergy status to penicillin; Z88.2 Allergy status to sulfonamides; Z79.01 Long term (current) use of anticoagulants
CPT/HCPCS: 64493; 64494; J2250; J3301; J3010; J2795; 99152

== ENCOUNTER → 2020-04-15 | Outpatient (CLI) | payer BC, MEDICARE ==
[2020-04-15 12:25] VITALS: BP 142/78; PULSE 83; RESP 16; TEMP 98.9
--- NOTE | 2020-04-15 12:32 | P.PN ---
Subjective Progress Note Date: 04/15/20 This is a 60-year-old lady with history of failed back surgery syndrome and pain across her lower back with radiation to the lower extremities down to both feet with numbness and tingling in both legs. The patient also feels weakness in both legs. She failed to respond to multiple procedures previously including spinal cord stimulation. Recently we did a diagnostic lumbar medial branch block which did not help her pain at all. The patient takes [place] 7.5 mg twice a day by her family physician and she states that this is not controlling her pain well. She also takes baclofen. She had side effects to Neurontin previously. The patient became emotional during the interview because of her poorly controlled pain. Patient denies new-onset weakness, bowel/bladder incontinence, or any other signs or symptoms of cauda equina syndrome. There are no signs of acute intoxication, and no indications of medication diversion or overuse. In addition to above, 13-point review of systems is also negative for chest pain, shortness of breath, changes in vision, changes in hearing, new onset weakness, abdominal pain, diarrhea, extreme fatigue, malaise, fever, skin changes, homicidal or suicidal ideation, or bowel or bladder incontinence. Vital Signs: Reviewed in EMR Gen: AAOx3, NAD HEENT: PERRLA,hearing grossly normal Pulm: resp unlabored Neck: supple, trachea midline Neuro exam of the lower extremities: Decreased muscle strength to 4 out of 5 bilaterally and to 3 out of 5 in the left ankle flexion and extension. Straight leg raising test: Cristiano's test: Range of motion of the lumbar spine: Facet loading test: Tenderness in the paravertebral musculature: Positive on the lumbar paravertebral musculature bilaterally Neuro: CN II-XII grossly intact, Imaging: Reviewed in EMR/chart Assessment: Failed back surgery syndrome For your to respond to interventional pain procedures including caudal epidural steroid injection, diagnostic medial branch block around the fusion level, and even spinal cord stimulation. The patient still has spinal cord stim ablation leads in her back but the cad cam programmer was taken out. Plan: 1. Explanation: Opioid and psychological risk scores were reviewed. Diagnoses, prognoses, and multiple treatment options including but not limited to physical therapy, interventional therapies, adjuvant medical therapies, narcotic medication therapies, and surgery were discussed with the patient and all q uestions were answered to the patient's satisfaction. 2. Opioid agreement: Signed with the patient and the patient is warned not to use opioids while driving or before driving and not to combine opioids with benzodiazepines or alcohol. 3. Counseling: The patient was counseled extensively on SMOKING CESSATION, BODY MASS INDEX, EXERCISE. Specifically, the patient was instructed regarding the importance of smoking cessation, obesity, and exercise in the context of both chronic pain and overall health. 4. Procedures: None 5. Consultations: None 6. Investigations: None 7. Medications: The patient will discuss with her family physician the option of going down the [place] dose to 5 mg but instead of taking it twice a day she will then take it 3 times a day. I will add Lyrica 50 mg twice a day for her. 8. Disposition: Return to clinic in 4 weeks 9. Maps were reviewed and were appropriate. Objective - Vital Signs Vital signs: Vital Signs Temp 98.9 F 04/15/20 12:22 Pulse 83 04/15/20 12:22 Resp 16 04/15/20 12:22 BP 142/78 04/15/20 12:22 Pulse Ox 92 L 04/15/20 12:22
== END | disposition home or self-care (01) ==
LOC: PNWHC3 11:53
PROVIDERS: ATTEND Anesthesiology
DX: M96.1 Postlaminectomy syndrome, not elsewhere classified (principal); Z79.891 Long term (current) use of opiate analgesic; Z79.899 Other long term (current) drug therapy
CPT/HCPCS: 99211

== ENCOUNTER → 2020-05-15 | Outpatient (CLI) | payer BC, MEDICARE ==
[2020-05-15 11:48] VITALS: BP 123/88; PULSE 80; RESP 18; TEMP 98
--- NOTE | 2020-05-15 13:07 | P.PN ---
Subjective Progress Note Date: 05/15/20 This is a 60-year-old lady with history of failed back surgery syndrome ,and pain across her lower back with radiation to the lower extremities down to both feet with numbness and tingling in both legs. The patient also feels weakness in both legs. She failed to respond to multiple procedures previously including spinal cord stimulation. Recently we did a diagnostic lumbar medial branch block which did not help her pain at all. The patient takes [place] 5 mg twice a day by her family physician ,and she states that this is not controlling her pain well. She also takes baclofen. She had side effects to Neurontin previously. And she had side effects from Lyrica and she stopped using both of them Objective - Vital Signs Vital signs: Vital Signs Temp 98.0 F 05/15/20 11:37 Pulse 80 05/15/20 11:37 Resp 18 05/15/20 11:37 BP 123/88 05/15/20 11:37 Pulse Ox 90 L 05/15/20 11:37 - Exam -Constitutiona : Cooperative , not in acute distress . -HEENT : nech : supple , no Lymphadenopathy , normal thyroid size . : eyes : no ptosis , no icterus, no photophobia . - neurologic : Cranial nerve II to XII intact , no focal neurological deffecit . -psychatric : alert , oriented X 3 , appropriate affect , intact judgment and insight . -Lymphatic : no Lymphadenopathy . - musculoskeltal : Lumber spine moter stegnth lower extremities ,thigh and legs 5/5 Right side , 5/5 Left side deep tendon reflexes : normal Knee Jerk , normal ankle Jerk lumber facet Loading Test =positive Right , positive Left Range of motion of the lumbar spine Flexion 30 degrees, extension 10 degrees strait leg raising test = positive at 30 degree Fabere test= positive Right , and positive LT . Sever tenderness over the Sacroiliac joint on the Right , and Left sides Antalgic gait, walk assisted with cane MRI of the MRI showed multilevel lumbar facet arthropathy from L2-3 and L3 4 L4 5 and L5-S1 Hip x-ray bilaterally showed moderate hip arthropathy Assessment and Plan Plan: Assessment and plan=1-postlaminectomy pain syndrome lumbar area. 2-lumbar spondylosis with lumbar facet arthropathy without myelopathy. Patient continued to have severe low back pain after caudal epidural steroid injection with lysis of epidural adhesions Patient had negative results from the diagnostic medial branch block, for this reason she is not a candidate RFA Would be referred for evaluation by spine surgeon Time with Patient: Less than 30 PQRS Measure Charge Sheet Measure #130: Documentation of Current Meds in Medical Chart: Patient's medications documented in chart Measure #226: Tobacco Use: Screen & Cessation Intervention: Pt screened for tobacco use AND intervention given Measure #111: Pneumonia Vaccination: Pneumococcal vaccine NOT administered or previously given Measure #47: Advance Care Plan: Advance care planning discussed & documented, pt chose/unable to give Measure #412: Opioid Treatment Agreement: No documentation of signed opioid treatment agreement Measure #408: Opioid Therapy Follow-up Evaluation: Patient had NO f/u eval minimum every 3 months during opioid therapy Measure #317: Preventitive Care & Scrn High Bld Press & F/U: Normal blood pressure, f/u not required Measure #128: Body Mass Index (BMI) Screening & Follow-up: BMI documented ABOVE normal parameters - f/u documented Measure #131: Pain Assessment & Follow-up: Pain positive & plan documented, Follow-up scheduled Measure #431: Unhealthy Alcohol Use Preventative Care & Scrn: Patient not identified as an unhealthy alcohol user PQRS Narrative: Time with Patient: Less than 30 Time with Patient: Less than 30
== END ==
LOC: PNWHC3 11:11
PROVIDERS: ATTEND Specialist
DX: M47.816 Spondylosis without myelopathy or radiculopathy, lumbar region (principal); M96.1 Postlaminectomy syndrome, not elsewhere classified
CPT/HCPCS: 99211

== ENCOUNTER → 2020-06-18 | Outpatient (CLI) | payer BC, MEDICARE ==
[2020-06-18 20:46] LABS: Protein, Total 6.6 g/dL (6.2-8.2)
[2020-06-18 21:31] LABS: C Reactive Protein <0.4 mg/dL (0.0-0.8); Creatine Kinase 41 U/L (26-186); Rheumatoid Factor, Qnt 7 IU/mL (0-15)
[2020-06-18 22:20] LABS: Hemoglobin A1C 5.4 % (4.0-6.0)
[2020-06-19 14:08] LABS: Albumin 3.88 g/dL (3.80-4.90); Gamma Globulin 0.73 g/dL (0.70-1.50)
[2020-06-20 06:56] LABS: Strep DNASE B Antibody <86 U/mL (0-260)
== END | disposition home or self-care (01) ==
LOC: LABWHC1 10:49
PROVIDERS: ATTEND Psychiatry & Neurology Neurology
DX: M79.10 Myalgia, unspecified site (principal); M25.50 Pain in unspecified joint; E53.9 Vitamin B deficiency, unspecified; R53.1 Weakness; R73.9 Hyperglycemia, unspecified; R53.83 Other fatigue
CPT/HCPCS: 36415; 82306; 82550; 82607; 82747; 83036; 84165; 84439; 84443; 85652; 86038; 86140; 86215; 86235; 86431; 86618

== ENCOUNTER 2020-07-05 08:03 | Day surgery (SDC) | payer BC, MEDICARE ==
[~2020-07-05 08:03] MED LIST changes: -HYDROcodone/APAP 5-325MG 1 EACH TAB PO STA; +PREMYELOGRAM MEDICATION REVIEW 1 EACH MISC PO PRN; -diazePAM 5 MG TAB PO STA
[2020-07-05 08:25] VITALS: TEMP 97.8
[2020-07-05] MEDS ORDERED: diazePAM 5 MG TAB PO STA (08:47)
[2020-07-05 09:27] VITALS: RESP 16
--- NOTE | 2020-07-05 10:08 | FL ---
EXAMINATION TYPE: FL myelogram 2 or more regions DATE OF EXAM: 07/05/2020 HISTORY: Back pain Maximal barrier technique was utilized. The skin overlying the laminectomy site at L4-5 was localize d under fluoroscopy and the overlying skin prepped and draped. Lidocaine used for local anesthesia. 22-gauge needle was advanced into the thecal sac under fluoroscopic guidance and cerebrospinal fluid was noted to return in the hub of the needle. Approximately 10 cc of Isovue 300M was injected intra thecally under intermittent fluoroscopic observation. A spot image verified needle placement. 4 intraoperative images were obtained, fluoroscopy time 2 minutes 27 seconds. The patient remained in stable condition, the needle was removed. Hemostasis achieved. No immediate complication. FINDINGS: Postop changes are noted status post posterior fusion at L3-L5. Intervertebral spacing cages are note d. Focal collection of contrast material is noted overlying L3-4 disc space. There are surgical clips present. Thoracic cord stimulator leads and probe are noted incidentally over the midthoracic spine. IMPRESSION: Postop changes, postprocedural changes. See dictated report CT thoracic and lumbar spine same date
[2020-07-05] MEDS ORDERED: HYDROcodone/APAP 5-325MG 1 EACH TAB PO PRN (10:40)
--- NOTE | 2020-07-05 15:14 | CT ---
CT thoracic and lumbar spine with contrast HISTORY: Back pain Helical acquisition obtained through the thoracic and lumbar spine following intrathecal contrast adm inistration, patient received 10 cc Isovue-300M, automated exposure control for dose reduction. Sagit jasen and coronal reconstructions. DLP 2811 mGycentimeters Correlation to prior CT post myelogram of lumbar spine 12/13/2019, post myelographic CT cervical and thoracic spine 03/13/2019 Patient had difficulty cooperating with exam due to high pain level. Thoracic spine CT: There is no evident spinal stenosis. Thoracic cord stimulator is present with meta llic artifact present at T7. There are postop changes at T8, entry point of the leads, stimulator is present posterior to the thecal sac at T7 level. Thoracic vertebral bodies show preserved height and alignment. There is mild multilevel spondylosis. There is normal caliber to the thoracic cord. At the distal thoracic spinal cord level there is lack of contrast collection. Contrast is pooled distally within the thecal sac at the lumbosacral junction level. Postop change noted to the lower cervical sp ine status post anterior cervical fusion and discectomy at C5-C7. Lumbar spine: Posterior fusion is present at L3-L5, intervertebral spacing blocks are present at L3-4 , L4-5. Laminectomy changes are present at L4 to the right of midline as well as probably the inferio r margin of L3. Slight anterolisthesis grade 1 L4-5 is again noted. There is metallic artifact presen t. There is no evident disc herniation or significant spinal stenosis. Nerve sheaths at L3-4 though s omewhat with contrast as on prior. IMPRESSION: There are some limitations the exam. No significant interval change compared to prior pos t mammographic CT's dated March 13, 2019, 12/13/2019 is evident.
[2020-07-05 15:20] VITALS: BP 112/63; PULSE 56
== END 2020-07-05 13:36 | disposition home or self-care (01) ==
LOC: RADPROMAIN 08:03
PROVIDERS: ATTEND Orthopaedic Surgery
DX: M54.9 Dorsalgia, unspecified (principal); Z98.890 Other specified postprocedural states
CPT/HCPCS: 62305; 72129; 72132; Q9967

== ENCOUNTER 2020-09-25 16:57 | Emergency (ER) | payer BC, MEDICARE ==
--- NOTE | 2020-09-25 17:23 | ED ---
General Adult HPI - General Chief complaint: Shortness of Breath Stated complaint: TEODORO/Tightness in Chest Time Seen by Provider: 09/25/20 17:09 Source: patient Mode of arrival: wheelchair Limitations: no limitations - History of Present Illness Initial comments: Dictation was produced using [employer] dictation software. please excuse any grammatical, word or spelling errors. Chief Complaint: 60-year-old female presents emergency department for shortness breath and cough History of Present Illness: 60-year-old female past medical history of A. fib, COPD presents to the emergency department for shortness of breath and cough. Patient has been having symptoms for proximal Y 10 days patient went to her guest attendant a couple days ago was told to seek medical attention if she has persistent symptoms. Patient completed a course of antibiotics. She states that the antibiotics not approve her symptoms. She has history of lung res ection from lung cancer. She was told that she should come to the emergency department if her symptoms aren't getting any better and that should be candidate for CT of the chest. She states that she is coughing with production of green sputum. Denies any constitutional symptoms. The ROS documented in this emergency department record has been reviewed and confirmed by me. Those systems with pertinent positive or negative responses have been documented in the HPI. All other systems are other negative and/or noncontributory. PHYSICAL EXAM: General Impression: Alert and oriented x3, not in acute distress HEENT: Normocephalic atraumatic, extra-ocular movements intact, pupils equal and reactive to light bilaterally, mucous membranes moist. Cardiovascular: Heart regular rate and rhythm Chest: Able to complete full sentences, no retractions, no tachypnea, lungs clear to auscultation bilaterally Abdomen: abdomen soft, non-tender, non-distended, no organomegaly Musculoskeletal: Pulses present and equal in all extremities, no peripheral edema Motor: no focal deficits noted Neurological: CN II-XII grossly intact, no focal motor or sensory deficits noted Skin: Intact with no visualized rashes Psych: Normal affect and mood ED course: 60-year-old female presents to the emergency department for shortness of breath and cough. She completed a course of antibiotics with no improvement of her symptoms. She reports she hasn't been tested for Covid. Vital signs upon arrival are within acceptable limits. Laboratory evaluation obtained. Mild leukocytosis at 13.7, hemoglobin 16.9. C oag panel is negative. Metabolic panel is negative. 4 panel viral PCR is negative for cold, influenza and RSV. CT angios the chest shows pulmonary emphysema. No PE. No acute lung disease. Patient reevaluated bedside is not hypoxic. She is not dyspneic.She states she sprained her ankle earlier today. X-ray shows no fractures to the left ankle. Patient be discharged. Patient likely having residual symptoms from recent upper respiratory infection. Patient likely had a nonspecified viral URI. - Related Data Home Medications Medication Instructions Recorded Confirmed ALPRAZolam [Xanax] 0.5 mg PO TID PRN 08/20/14 07/05/20 Albuterol Sulfate [Proair Hfa] 1 - 2 puff INHALATION RT-Q6H PRN 08/20/14 07/05/20 levETIRAcetam [Keppra] 500 mg PO Q12HR 08/20/14 07/05/20 Apixaban [Eliquis] 5 mg PO BID 09/08/18 07/05/20 Atorvastatin [Lipitor] 40 mg PO DAILY 09/08/18 07/05/20 Pramipexole [Mirapex] 1 mg PO HS 09/08/18 07/05/20 Vortioxetine Hydrobromide 10 mg PO DAILY 09/08/18 07/05/20 [Trintellix] Sotalol [Betapace] 120 mg PO BID 01/05/19 07/05/20 Magnesium 250 mg PO DAILY 02/06/19 07/05/20 Multivit-Min/Iron/Folic/Lutein 1 each PO DAILY 02/06/19 07/05/20 [Centrum Silver Women Tablet] Budesonide-Formot 160-4.5 Mcg 2 puff INHALATION BID 03/08/19 07/05/20 [Symbicort 160-4.5 Mcg Inhaler] Albuterol Nebulized [Ventolin 2.5 mg INHALATION BID 04/17/19 07/05/20 Nebulized] Trospium Chloride [Sanctura XR] 20 mg PO BID 07/13/19 07/05/20 methIMAzole [Tapazole] 5 mg PO DAILY 12/05/19 07/05/20 Omeprazole 20 mg PO DAILY PRN 01/25/20 07/05/20 Vitamin C/Biotin [Hair, Skin and 1 tab PO DAILY 01/25/20 07/05/20 Nails] Cyanocobalamin (Vitamin B-12) 1,000 mcg PO WEEKLY 02/14/20 07/05/20 [Vitamin B-12] Baclofen [Lioresal] 20 mg PO TID 03/19/20 07/05/20 Cholecalciferol (Vitamin D3) 125 mcg PO DAILY 03/19/20 07/05/20 [Vitamin D3 (5000 Iu)] Mirtazapine [Remeron] 15 mg PO HS 03/19/20 07/05/20 busPIRone HCL 15 mg PO BID 03/19/20 07/05/20 Ascorbic Acid [Vitamin C] 1,000 mg PO DAILY 05/13/20 07/05/20 HYDROcodone/APAP 5-325MG [[place] 1 tab PO TID 05/13/20 07/05/20 5-325] Turmeric Root Extract [Turmeric] 2,000 mg PO DAILY 05/13/20 07/05/20 cycloSPORINE [Restasis] 1 applicator BOTH EYES BID 05/13/20 07/05/20 Cetirizine HCl [Zyrtec] 10 mg PO DAILY 06/27/20 07/05/20 Allergies Allergy/AdvReac Type Severity Reaction Status Date / Time amoxicillin trihydrate Allergy Rash/Hives Verified 09/25/20 19:09 [From Augmentin] potassium clavulanate Allergy Rash/Hives Verified 09/25/20 19:09 [From Augmentin] pregabalin [From Lyrica] Allergy Swelling Verified 09/25/20 19:09 tongue, disoriented sulfamethoxazole Allergy Rash/Hives Verified 09/25/20 19:09 [From Bactrim] trimethoprim [From Bactrim] Allergy Rash/Hives Verified 09/25/20 19:09 Review of Systems ROS Statement: Those systems with pertinent positive or pertinent negative responses have been documented in the HPI. ROS Other: All systems not noted in ROS Statement are negative. Past Medical History Past Medical History: Atrial Fibrillation, Asthma, Cancer, COPD, Fibromyalgia, GERD/Reflux, Hyperlipidemia, Hypertension, Musculoskeletal Disorder, Seizure Disorder, Sleep Apnea/CPAP/BIPAP, Thyroid Disorder Additional Past Medical History / Comment(s): diverticulitis, past hernia, 11/2014 last seizure, lung ca June 2018. Hyperthyroid. No tx for sleep apnea. Gets bladder injection for incontinance 05/14/20. On po AB Rx for sinus infection. Chronic back pain. Neuropathy hands, feet. History of Any Multi-Drug Resistant Organisms: None Reported Past Surgical History: Appendectomy, Back Surgery, Breast Surgery, Section, Cholecystectomy, Hernia Repair, Hysterectomy, Orthopedic Surgery Additional Past Surgical History / Comment(s): lumbar fusion, neck fusion, left knee sx X3(ACLx 2 and arthroscopy x1), ganglion cyst exc bilateral wrist, lymph node/gland removed from neck, left elbow sx - ulnar nerve entrapment, eye lid lift, left ovary removed, left upper lobectomy, Pain Clinic Procedures. Breast Bx, sinus surgery/deviated septum repair, spinal stimulator inserted and removed - leads remain in Past Anesthesia/Blood Transfusion Reactions: Motion Sickness Past Psychological History: Anxiety, Depression, Panic Disorder Smoking Status: Current every day smoker Past Alcohol Use History: None Reported Past Drug Use History: Marijuana - Past Family History Daughter(s) Family Medical History: Cancer Additional Family Medical History / Comment(s): colon Brother(s) Family Medical History: Cancer Additional Family Medical History / Comment(s): prostate Father Family Medical History: Cancer Additional Family Medical History / Comment(s): COLON CA Sister(s) Family Medical History: Cancer Additional Family Medical History / Comment(s): BLADDER CA General Exam Limitations: no limitations Course Vital Signs 09/25/20 09/25/20 17:02 19:00 Temperature 97.9 F 98.6 F Pulse Rate 71 96 Respiratory 20 18 Rate Blood Pressure 116/74 115/72 O2 Sat by Pulse 95 98 Oximetry Medical Decision Making - Lab Data Result diagrams: 09/25/20 17:30 09/25/20 17:30 Lab Results 09/25/20 09/25/20 09/25/20 Range/Units 17:30 17:30 17:30 WBC 13.7 H (3.8-10.6) k/uL RBC 4.73 (3.80-5.40) m/uL Hgb 16.9 H (11.4-16.0) gm/dL Hct 50.0 H (34.0-46.0) % MCV 105.7 H (80.0-100.0) fL MCH 35.8 H (25.0-35.0) pg MCHC 33.8 (31.0-37.0) g/dL RDW 13.7 (11.5-15.5) % Plt Count 199 (150-450) k/uL MPV 6.6 Neutrophils % 76 % Lymphocytes % 15 % Monocytes % 4 % Eosinophils % 1 % Basophils % 1 % Neutrophils # 10.4 H (1.3-7.7) k/uL Lymphocytes # 2.0 (1.0-4.8) k/uL Monocytes # 0.6 (0-1.0) k/uL Eosinophils # 0.2 (0-0.7) k/uL Basophils # 0.1 (0-0.2) k/uL Macrocytosis Moderate PT 9.6 (9.0-12.0) sec INR 0.9 (<1.2) APTT 22.9 (22.0-30.0) sec Sodium (137-145) mmol/L Potassium (3.5-5.1) mmol/L Chloride (98-107) mmol/L Carbon Dioxide (22-30) mmol/L Anion Gap mmol/L BUN (7-17) mg/dL Creatinine (0.52-1.04) mg/dL Est GFR (CKD-EPI)AfAm (>60 ml/min/1.73 sqM) Est GFR (CKD-EPI)NonAf (>60 ml/min/1.73 sqM) Glucose (74-99) mg/dL Calcium (8.4-10.2) mg/dL Influenza Type A (PCR) Not Detected (Not Detectd) Influenza Type B (PCR) Not Detected (Not Detectd) RSV (PCR) Not Detected (Not Detectd) SARS-CoV-2 (PCR) Not Detected (Not Detectd) 09/25/20 Range/Units 17:30 WBC (3.8-10.6) k/uL RBC (3.80-5.40) m/uL Hgb (11.4-16.0) gm/dL Hct (34.0-46.0) % MCV (80.0-100.0) fL MCH (25.0-35.0) pg MCHC (31.0-37.0) g/dL RDW (11.5-15.5) % Plt Count (150-450) k/uL MPV Neutrophils % % Lymphocytes % % Monocytes % % Eosinophils % % Basophils % % Neutrophils # (1.3-7.7) k/uL Lymphocytes # (1.0-4.8) k/uL Monocytes # (0-1.0) k/uL Eosinophils # (0-0.7) k/uL Basophils # (0-0.2) k/uL Macrocytosis PT (9.0-12.0) sec INR (<1.2) APTT (22.0-30.0) sec Sodium 137 (137-145) mmol/L Potassium 4.9 (3.5-5.1) mmol/L Chloride 102 (98-107) mmol/L Carbon Dioxide 30 (22-30) mmol/L Anion Gap 5 mmol/L BUN 24 H (7-17) mg/dL Creatinine 0.54 (0.52-1.04) mg/dL Est GFR (CKD-EPI)AfAm >90 (>60 ml/min/1.73 sqM) Est GFR (CKD-EPI)NonAf >90 (>60 ml/min/1.73 sqM) Glucose 98 (74-99) mg/dL Calcium 9.9 (8.4-10.2) mg/dL Influenza Type A (PCR) (Not Detectd) Influenza Type B (PCR) (Not Detectd) RSV (PCR) (Not Detectd) SARS-CoV-2 (PCR) (Not Detectd) Disposition Clinical Impression: URI (upper respiratory infection) Disposition: HOME SELF-CARE Condition: Fair Instructions (If sedation given, give patient instructions): Dyspnea (ED), Ankle Sprain (ED) Is patient prescribed a controlled substance at d/c from ED?: No When asked, does pt state using other controlled substances?: No Referrals: Skip Orellana DO [Primary Care Provider] - 1-2 days
[2020-09-25 17:39] LABS: Basophils # (A) 0.1 k/uL (0-0.2); Basophils % (A) 1 %; Eosinophils # (A) 0.2 k/uL (0-0.7); Eosinophils % (A) 1 %; HGB 16.9 gm/dL (11.4-16.0); Lymphocytes % (A) 15 %; MCH 35.8 pg (25.0-35.0); MCHC 33.8 g/dL (31.0-37.0); MCV 105.7 fL (80.0-100.0); Macrocytosis Moderate; Mean Platelet Volume 6.6; Monocytes # (A) 0.6 k/uL (0-1.0); Monocytes % (A) 4 %; Neutrophils # (A) 10.4 k/uL (1.3-7.7); Neutrophils % (A) 76 %; Platelet Count 199 k/uL (150-450); RBC 4.73 m/uL (3.80-5.40); RDW 13.7 % (11.5-15.5); WBC 13.7 k/uL (3.8-10.6)
[2020-09-25 17:48] LABS: INR 0.9 (<1.2); Partial Thromboplastin Time 22.9 sec (22.0-30.0); Prothrombin Time 9.6 sec (9.0-12.0)
[2020-09-25 17:53] LABS: African American GFR (CKD) >90 (>60 ml/min/1.73 sqM); Anion Gap 5 mmol/L; Blood Urea Nitrogen 24 mg/dL (7-17); Calcium 9.9 mg/dL (8.4-10.2); Carbon Dioxide 30 mmol/L (22-30); Chloride 102 mmol/L (98-107); Glucose 98 mg/dL (74-99); Non-African American GFR(CKD) >90 (>60 ml/min/1.73 sqM); Potassium 4.9 mmol/L (3.5-5.1); Sodium 137 mmol/L (137-145)
--- NOTE | 2020-09-25 18:36 | CT ---
EXAMINATION TYPE: CT angio chest DATE OF EXAM: 09/25/2020 COMPARISON: None HISTORY: Difficulty breathing. CT DLP: 333 mGycm Automated exposure control for dose reduction was used. CONTRAST: Performed with IV Contrast, patient injected with 66ml mL of Isovue 370. There are 3-D post processed images. There is some pulmonary emphysema. The lungs are clear of infiltrate. There is no pleural effusion. T here is no pericardial effusion. Heart size is normal. There are no hilar masses. There is no mediast inal adenopathy. There is normal contrast opacification of the pulmonary arteries. There are no filling defects. Thora cic aorta is intact. There is no aneurysm or dissection. The bony thorax is intact. Sternum is intact. There is neural stimulator in the mid thoracic spine. IMPRESSION: No evidence of pulmonary embolism. Pulmonary emphysema. No acute lung disease.
[2020-09-25 19:01] VITALS: BP 115/72; PULSE 96; RESP 18; TEMP 98.6
--- NOTE | 2020-09-25 19:08 | XR ---
EXAMINATION TYPE: XR ankle complete RT DATE OF EXAM: 09/25/2020 COMPARISON: NONE HISTORY: Pain TECHNIQUE: 3 views FINDINGS: There is soft tissue swelling over the lateral malleolus. Ankle mortise is anatomic. I see no fracture nor dislocation. There is small plantar calcaneal spur. IMPRESSION: Soft tissue swelling. No fracture seen. Calcaneal spurring.
== END 2020-09-25 19:35 | disposition home or self-care (01) ==
LOC: EC 16:57
DX: J06.9 Acute upper respiratory infection, unspecified (principal); E78.5 Hyperlipidemia, unspecified; F32.9 Major depressive disorder, single episode, unspecified; G40.909 Epilepsy, unspecified, not intractable, without status epilepticus; F41.9 Anxiety disorder, unspecified; I10 Essential (primary) hypertension; I48.91 Unspecified atrial fibrillation; J44.9 Chronic obstructive pulmonary disease, unspecified; K21.9 Gastro-esophageal reflux disease without esophagitis; M79.7 Fibromyalgia; F17.200 Nicotine dependence, unspecified, uncomplicated; F12.90 Cannabis use, unspecified, uncomplicated; Z85.118 Personal history of other malignant neoplasm of bronchus and lung; Z79.51 Long term (current) use of inhaled steroids; Z79.01 Long term (current) use of anticoagulants; Z20.822 Contact with and (suspected) exposure to COVID-19; Z88.0 Allergy status to penicillin; Z88.1 Allergy status to other antibiotic agents; Z88.2 Allergy status to sulfonamides; Z90.2 Acquired absence of lung [part of]; Z90.49 Acquired absence of other specified parts of digestive tract; Z90.721 Acquired absence of ovaries, unilateral
CPT/HCPCS: 36415; 71275; 80048; 85025; 85610; 85730; 87636; 99285

== ENCOUNTER → 2021-01-15 | Outpatient (CLI) | payer BC, MEDICARE ==
--- NOTE | 2021-01-15 11:41 | XR ---
Right leg and right hip HISTORY: Pain in right leg 2 views of the right hip, 2 views of the right leg Soft tissue swelling is noted along the right leg. Bone mineralization is reduced. Right hip shows co ncentric joint space loss. Alignment is maintained. No fracture or dislocation. Sclerotic focus prese nt in the right femoral neck is noted which is likely represent bone island. Postop changes are noted to the lumbar spine. Mild prominence along the femoral neck on the right could be indicative of femo ral acetabular impingement. Multiple metal coils seen over the pelvis. IMPRESSION: Osteopenia, osteoarthritis, postop changes as described, soft tissue swelling. Additional findings above.
== END | disposition home or self-care (01) ==
LOC: RADXRYALE 10:05
PROVIDERS: ATTEND Physician Assistant
DX: M16.11 Unilateral primary osteoarthritis, right hip (principal)
CPT/HCPCS: 73502

== ENCOUNTER → 2021-01-20 | Outpatient (CLI) | payer BC, MEDICARE ==
[2021-01-20 13:54] VITALS: BP 112/80; PULSE 75; RESP 18; TEMP 97.5
--- NOTE | 2021-01-20 14:08 | P.PN ---
Subjective Progress Note Date: 01/20/21 This is a 60-year-old lady with history of failed back surgery syndrome ,and pain across her lower back with radiation to the lower extremities down to both feet with numbness and tingling in both legs. The patient also feels weakness in both legs. She failed to respond to multiple procedures previously including spinal cord stimulation. Recently we did bilateral sacroiliac joint steroid injection she gets excellent pain relief. Clinical examination -Constitutiona : Cooperative , not in acute distress . -HEENT : nech : supple , no Lymphadenopathy , normal thyroid size . : eyes : no ptosis , no icterus, no photophobia . - neurologic : Cranial nerve II to XII intact , no focal neurological deffecit . -psychatric : alert , oriented X 3 , appropriate affect , intact judgment and insight . -Lymphatic : no Lymphadenopathy . - musculoskeltal : Lumber spine moter stegnth lower extremities ,thigh and legs 5/5 Right side , 5/5 Left side deep tendon reflexes : normal Knee Jerk , normal ankle Jerk lumber facet Loading Test =positive Right , positive Left Range of motion of the lumbar spine Flexion 30 degrees, extension 10 degrees strait leg raising test = positive at 30 degree Fabere test= positive Right , and positive LT . Antalgic gait, walk assisted with can . Sever tenderness over the Sacroiliac joint on the Right , and Left sides Gaenslen test= positive right ,and positive left . Seated flexion test= positive right ,and positive Left . Distraction test= positive bilaterally Sacroiliac compression test= positive bilaterally MRI of the MRI showed multilevel lumbar facet arthropathy from L2-3 and L3 4 L4 5 and L5-S1 Hip x-ray bilaterally showed moderate hip arthropathy Assessment and plan= 1-bilateral sacroiliitis,Bilateral sacroiliac joint dysfunction 2-lumbar spondylosis with lumbar facet arthropathy without myelopathy. 3-history of lumbar laminectomy and fusion. Patient gets excellent pain relief after bilateral sacroiliac joint steroid injection She could benefit from repeat bilateral sacroiliac joint steroid injection Time with Patient: Less than 30 PQRS Measure Charge Sheet Measure #130: Documentation of Current Meds in Medical Chart: Patient's medications documented in chart Measure #226: Tobacco Use: Screen & Cessation Intervention: Pt screened for tobacco use AND intervention given Measure #111: Pneumonia Vaccination: Pneumococcal vaccine NOT administered or p reviously given Measure #47: Advance Care Plan: Advance care planning discussed & documented, pt chose/unable to give Measure #412: Opioid Treatment Agreement: No documentation of signed opioid treatment agreement Measure #408: Opioid Therapy Follow-up Evaluation: Patient had NO f/u eval minimum every 3 months during opioid therapy Measure #317: Preventitive Care & Scrn High Bld Press & F/U: Normal blood pressure, f/u not required Measure #128: Body Mass Index (BMI) Screening & Follow-up: BMI documented ABOVE normal parameters - f/u documented Measure #131: Pain Assessment & Follow-up: Pain positive & plan documented, Follow-up scheduled Measure #431: Unhealthy Alcohol Use Preventative Care & Scrn: Patient not identified as an unhealthy alcohol user PQRS Narrative: Objective - Vital Signs Vital signs: Vital Signs Temp 97.5 F L 01/20/21 13:37 Pulse 75 01/20/21 13:37 Resp 18 01/20/21 13:37 BP 112/80 01/20/21 13:37 Pulse Ox 93 L 01/20/21 13:37 Intake & Output 01/19/21 01/20/21 01/20/21 18:59 06:59 18:59 Weight 77.111 kg
== END ==
LOC: PNWHC3 13:17
PROVIDERS: ATTEND Specialist
DX: M46.1 Sacroiliitis, not elsewhere classified (principal); M53.3 Sacrococcygeal disorders, not elsewhere classified; Z96.1 Presence of intraocular lens
CPT/HCPCS: 99211

== ENCOUNTER → 2021-02-26 | Outpatient (CLI) | payer BC, MEDICARE ==
--- NOTE | 2021-02-26 15:48 | CT ---
EXAMINATION TYPE: CT hip RT wo con DATE OF EXAM: 02/26/2021 COMPARISON: None HISTORY: pain CT DLP: 696.5 mGycm Automated exposure control for dose reduction was used. Contrast: None Technique: Axial images 3 mm thick sections. Reconstructed images in the coronal and sagittal plane. FINDINGS: No acute fractures are evident. The femoral head articulates with the acetabulum. Joint space is diff use narrowing. Acetabular spur is present. Small fragment along the anterior superior margin has smooth cortical mar gins. A proximal femoral neck osseous cyst appears to be present. IMPRESSION: 1. ACETABULAR SPURRING. ACUTE FRACTURE IS NOT IDENTIFIED. THERE MAY BE A OLD FRACTURE FRAGMENT OF AN OSSEOUS SPUR FROM THE SUPERIOR ANTERIOR ACETABULUM.
== END | disposition home or self-care (01) ==
LOC: RADCTMAIN 15:11
PROVIDERS: ATTEND Family Medicine
DX: M25.751 Osteophyte, right hip (principal)

== ENCOUNTER 2021-03-20 08:58 | Day surgery (SDC) | payer BC, MEDICARE ==
[2021-03-17 14:13] VITALS: BMI 29.2
[~2021-03-20 08:58] MED LIST changes: +LACTATED RINGERS 1,000 ML IV SCH; -PREMYELOGRAM MEDICATION REVIEW 1 EACH MISC PO ONE; -PREMYELOGRAM MEDICATION REVIEW 1 EACH MISC PO PRN
[2021-03-20 09:33] VITALS: TEMP 97.9
[2021-03-20] MEDS ORDERED: fentaNYL (PF) 50 MCG/ML 2 ML AMP ONE (09:55)
[2021-03-20] MEDS ORDERED: methylPREDNISolone ACETATE 40 MG/ML 1 ML VIAL ONE (09:55)
[2021-03-20] MEDS ORDERED: ROPIVACAINE 5MG/ML 20ML VIAL ONE (09:55)
[2021-03-20] MEDS ORDERED: MIDAZOLAM 2 MG/2 ML VIAL ONE (09:55)
--- NOTE | 2021-03-20 10:11 | P.PCN ---
Date of Procedure: 03/20/21 Procedure(s) Performed: Procedure= bilateral sacroiliac joints steroid injection under fluoroscopy guidance (fluoroscopy image stored on file in the radiology Department ) Preoperative diagnosis= 1-bilateral sacroiliitis 2- bilateral sacroiliac joint dysfunction 3-lumbar lumbar lordosis with facet arthropathy Postoperative diagnosis=Same as preop Diagnosis . Complication = none Condition= stable Anesthesia= moderate sedation with intravenous Versed 1 mg , and fentanyl 50 micrograms . Indication for the procedure= patient complaining of low back pain , examination was positive for severe tenderness over the sacroiliac joints bilaterally and patient diagnosed with sacroiliitis, for this reason she was good candidate for sacroiliac joint steroid injection. Description of the procedure= procedure risk and benefits discussed with the patient, including but not limited, risk of infection and bleeding, and ALLERGIC reaction to the medication and not complete pain relief and patient agreed with the preceding patient taken to the operating room, placed in prone position or standard monitors applied to the patient then after induction of anesthesia back prepped with chlorhexidine 3 times , Then under strict sterile technique, first I did the right sacroiliac joint the which was identified under fluoroscopy guidance been local infiltration of the skin and subcu interstitial with lidocaine 1% then 22-gauge Quincke Needle advanced slowly under fluoroscopy and placed in the right sacroiliac joint needle placement confirmed with AP and oblique and lateral view and after appropriate needle placement confirmed and after negative aspiration, or heme , then Ropivacaine 0.5% 5 mL, and 40 mg of Depo-Medrol mixed together and injected in the right sacroiliac joint after negative aspiration patient tolerated the procedure well without any complication. Then the left sacroiliac joint steroid injection done under strict sterile technique local infiltration of the skin and subcu interstitial at the location of the left sacroiliac joint then a 22-gauge Quincke Needle advanced slowly under fluoroscopy time placed in the left sacroiliac joint, needle placement confirmed with AP and oblique and lateral view then after appropriate needle placement confirmed and after negative aspiration 0.5% Ropivacaine 5 mL and 40 mg of Depo-Medrol injected in the left sacroiliac joint after negative aspiration patient tolerated the procedure well that any complications .
[2021-03-20] MEDS ORDERED: IV FLUID CONTINUATION 1,000 ML IV ONE (10:17)
[2021-03-20 10:19] VITALS: PULSE 66; RESP 16
[2021-03-20 10:43] VITALS: BP 106/67
--- NOTE | 2021-03-20 11:51 | FL ---
Fluoroscopy HISTORY: Pain 4 seconds fluoroscopy time supplied to the referring clinician. 2 intraoperative C-arm images docume nt the procedure. See dictated report from anesthesia.
== END 2021-03-20 10:47 | disposition home or self-care (01) ==
LOC: ORPAIN 08:58
PROVIDERS: ATTEND Specialist
DX: M46.1 Sacroiliitis, not elsewhere classified (principal); M53.3 Sacrococcygeal disorders, not elsewhere classified; M47.816 Spondylosis without myelopathy or radiculopathy, lumbar region; I25.10 Atherosclerotic heart disease of native coronary artery without angina pectoris; Z79.01 Long term (current) use of anticoagulants
CPT/HCPCS: 27096; J2250; J1030; J3010; J2795; 99152

== ENCOUNTER 2021-05-09 12:21 | Day surgery (SDC) | payer BC, MEDICARE ==
[~2021-05-09 12:21] MED LIST changes: +LIDOCAINE 1% (10MG/ML) FOR IV START INTRADERMA PRN
[2021-05-09 13:11] VITALS: TEMP 98.8
[2021-05-09] MEDS ORDERED: fentaNYL (PF) 50 MCG/ML 2 ML AMP ONE (13:21)
[2021-05-09] MEDS ORDERED: methylPREDNISolone ACETATE 40 MG/ML 1 ML VIAL ONE (13:21)
[2021-05-09] MEDS ORDERED: IOPAMIDOL M200 10 ML VIAL ONE (13:21)
[2021-05-09] MEDS ORDERED: MIDAZOLAM 2 MG/2 ML VIAL ONE (13:21)
[2021-05-09] MEDS ORDERED: ROPIVACAINE 5MG/ML 20ML VIAL ONE (13:21)
--- NOTE | 2021-05-09 13:38 | P.PCN ---
Date of Procedure: 05/09/21 Procedure(s) Performed: PREOPERATIVE DIAGNOSIS : 1- Lumbar spondylosis with Facet Arthropathy without myelopathy . POSTOPERATIVE DIAGNOSIS: 1- Lumbar spondylosis with Facet Arthropathy without myelopathy . PROCEDURE: Diagnostic bilateral L4 , and L5 medial branch block under fluoroscopy guidance(fluoroscopy images available in the radiology Department ) ( To target the facet joint betwen Bilateral L5-S1 ) ANESTHESIA:, Monitored anesthesia care as per anesthesia department EBL: Minimal COMPLICATION: None PROCEDURE INDICATION: Chronic low back pain secondary to Facet arthropathy unresponsive to conservative treatment. PROCEDURE DESCRIPTION: the patient was seen and identified in the preop holding area , risks and benefits and possible complications of the procedure and alternative were discussed with the patient, and the patient agreed to proceed with the procedure and signed the consent and vital signs monitored during the procedure and fluoroscopy was used to maximize the benefit and accuracy of the needle placement, and sedation was given to decrease patient anxiety, patient was taken to the procedure room and placed in prone position vital signs monitored in the back prepped with chlorhexidine X3 then under strict sterile technique using a right oblique fluoroscopy ,the junction of the transverse process and the superior articulating process of the right L4 , and L5 vertebra which corresponding to the fluoroscopy image of the eye of the Justen dog on the block side for the medial branches and subsequently , after local infiltration of skin and subcu tissuies with Ropivacaine 0.5 % , one mL at each level ,then 22-gauge Quincke-type needles , 2 needle was used , each one of them placed at the junction of the base of the transverse process and the superior articular process at the appropriate level, and the needle was advanced until the periosteum contacted, needle placement confirmed with AP oblique and lateral view and after appropriate needle placement confirmed, and after negative aspiration for heme and CSF and there was no paresthesia 1 mL of Ropivacaine 0.5% mixed with 20 mg Depo-Medrol , then half mL injected at each level after negative aspiration the needle subsequently removed and the same procedure repeated for the left side at left side at L4 and L5 levels. At the end of the procedure and the needles removed and a bandage applied after the skin was cleaned the cleaning solution patient taken to recovery room in stable condition and monitors in the recovery room for 20-30 minutes and discharged home in stable condition after discharge criteria met and patient will follow up with the pain clinic in 2-4 weeks note= patient was referred to have diagnostic medial branch block on the right side but that in the preop holding area patient reported that she had significant amount of pain on the left side, even though her pain more on the right side, for this reason I discussed with the patient the option of doing Mylaxen medial branch block lumbar area at L5-S1, Patient had lumbar fusion surgery before at L3 toL5
[2021-05-09] MEDS ORDERED: IV FLUID CONTINUATION 800 ML IV ONE (13:45)
[2021-05-09] MEDS ORDERED: LACTATED RINGERS 1,000 ML IV ONE (13:45)
[2021-05-09 13:48] VITALS: RESP 16
--- NOTE | 2021-05-09 14:00 | FL ---
EXAMINATION TYPE: FL guided pain mgmt statistic DATE OF EXAM: 05/09/2021 HISTORY: Fluoroscopy time 6 seconds of fluoroscopy provided. IMPRESSION: 1. Fluoroscopy time.
[2021-05-09 14:08] VITALS: BP 110/75; PULSE 59
== END 2021-05-09 14:23 | disposition home or self-care (01) ==
LOC: ORPAIN 12:21
PROVIDERS: ATTEND Specialist
DX: M47.816 Spondylosis without myelopathy or radiculopathy, lumbar region (principal); G89.29 Other chronic pain; Z79.01 Long term (current) use of anticoagulants; I10 Essential (primary) hypertension; I48.91 Unspecified atrial fibrillation; E78.5 Hyperlipidemia, unspecified; G47.33 Obstructive sleep apnea (adult) (pediatric); J44.9 Chronic obstructive pulmonary disease, unspecified; F17.210 Nicotine dependence, cigarettes, uncomplicated; F41.9 Anxiety disorder, unspecified; F32.A Depression, unspecified; G62.9 Polyneuropathy, unspecified; M79.7 Fibromyalgia; K21.9 Gastro-esophageal reflux disease without esophagitis; Z79.891 Long term (current) use of opiate analgesic; Z79.899 Other long term (current) drug therapy; Z88.0 Allergy status to penicillin; Z88.2 Allergy status to sulfonamides; Z88.8 Allergy status to other drugs, medicaments and biological substances; Z90.49 Acquired absence of other specified parts of digestive tract; Z98.891 History of uterine scar from previous surgery; Z90.710 Acquired absence of both cervix and uterus; Z90.2 Acquired absence of lung [part of]; Z98.890 Other specified postprocedural states
CPT/HCPCS: 64493; J2250; J1030; J3010; J2795; 64494

== ENCOUNTER → 2021-05-26 | Outpatient (CLI) | payer BC, MEDICARE ==
--- NOTE | 2021-05-26 11:46 | P.PN ---
Subjective Progress Note Date: 05/26/21 Principal diagnosis: A 61 yr old female with a history of severe and chronic low back pain secondary to lumbar degenerative disc diseases and lumbar spondylosis with facet arthropathy presents today for evaluation status post bilateral facet blocks of the medial branches L4-L5, L5-S1 #2. Patient states she expressed 50% pain relief for 3 days status post procedure. Pain in the lower back is constant, sharp in character 8 out of 10 in intensity, has been suffering from it for several years, and radiates to the right hip and right lower extremity when she is active or laying supine. Pain is provoked by bending, lifting or twisting. Pain is alleviated with medications, topicals, injections, alternating ice and heat, physical therapy, chiropractic treatments every 2 weeks, massage is on a monthly basis, home-based stretching regimen, sitting upright and rest. Interventional pain procedures completed include BL facet block of the medial branches L4-L5, L5-S1 #2 Patient is currently on [place], Neurontin, Baclofen. Patient denies any side effects of the medication(s), denies excessive drowsiness or sleepiness, denies suicidal ideation and reports that the current pain medication is helping to control the pain and improve activities of daily living. Patient denies any motor or sensory deficits. Patient denies any fever or night sweats, denies any change in the bowel movements or urination. Physical Examination: -Constitutional: Cooperative. Not in acute distress . -HEENT: Neck is supple. No lymphadenopathy. No thyromegaly. Normal thyroid size. Eyes: No ptosis , no icterus, no photophobia. ENT: No auditory deficits. Normal oropharynx. No Thrush. - Respiratory: Chest clear to auscultations bilaterally. No wheezing. No rhonchi. - Cardiovascular: Regular rate and rhythm. S1 / S2 , no S3 , no S4. - Gastrointestinal: Abdomen soft no tenderness. Bowel sounds positive in all four quadrants. No organomegaly. - Genitourinary: Deferred. - Neurologic: Cranial nerve II to XII intact. No focal neurological deficits. - Psychatric: Alert & oriented x 3. Matching mood & appropriate affect. Judgment and insight intact. - Lymphatic: No Lymphadenopathy. - Musculoskeletal: Cervical spine: Muscle bulk/ tone/ strength in the bilateral upper extremities normal. Facet loading test cervical area positive. Lumbar spine: Motor bulk/ tone/ strength lower extremities , thigh and legs : 5/5 Deep tendon reflexes : Normal Knee Jerk. Normal Ankle Jerk . Vertebral body tenderness to palpation over Lumbar Facet Loading Test positive over L4-L5 L5-S1 with jump reflex and paraspinal spasms Straight Leg Raise: positive at 30 degrees right side/ left side Gaenslen's Test positive Sacral spine : Severe tenderness over the Sacroiliac joint: right side / left side Range of motion: Flexion of the lumbar spine <60 degrees Range of motion: Extension of the lumbar spine <20 degrees Gaenslen's Test positive Rakesh test: positive right side / left side Assessment and plan: Chronic low back pain secondary to lumbar degenerative disc disease , lumbar spondylosis with facet arthropathy without myelopathy Recommendation of bilateral RFA of the L4-L5, L5-S1. Risks, benefits of procedure discussed and patient verbalized understanding. Patient admits to a Eliquis use and has a medical clearance on file. Protocol for discontinuation/continuation of medications selin procedure discussed. Denies medical history of diabetes. All patient questions answered MAPS reviewed and it was appropriate. I have spent 31 minutes on patient care today. Dr Howe was available by phone for the evaluation of this patient. The time was used to review the medical records including relevant urine studies and Prescription history (MAPs), review of the available imaging, evaluation and examination of the patient, coordination of care with the medical staff and if applicable referring physicians, as well as creation of the medical record PQRS Measure Charge Sheet PQRS Narrative: Smoking Status Former smoker Hx Alcohol Use (MH) No Home Medications: Ambulatory Orders ALPRAZolam [Xanax] 0.5 mg PO TID PRN 08/20/14 Albuterol Sulfate [Proair Hfa] 1 - 2 puff INHALATION RT-Q6H PRN 08/20/14 levETIRAcetam [Keppra] 500 mg PO Q12HR 08/20/14 Apixaban [Eliquis] 5 mg PO BID 09/08/18 Atorvastatin [Lipitor] 40 mg PO DAILY 09/08/18 Vortioxetine Hydrobromide [Trintellix] 10 mg PO DAILY 09/08/18 Sotalol [Betapace] 120 mg PO BID 01/05/19 Budesonide-Formot 160-4.5 Mcg [Symbicort 160-4.5 Mcg Inhaler] 2 puff INHALATION RT-BID 03/08/19 Albuterol Nebulized [Ventolin Nebulized] 2.5 mg INHALATION RT-Q4H PRN 04/17/19 methIMAzole [Tapazole] 5 mg PO DAILY 12/05/19 Omeprazole 20 mg PO DAILY PRN 01/25/20 busPIRone HCL 15 mg PO BID 03/19/20 HYDROcodone/APAP 5-325MG [[place] 5-325] 1 tab PO TID 05/13/20 cycloSPORINE [Restasis] 1 applicator BOTH EYES BID 05/13/20 Cetirizine HCl [Zyrtec] 10 mg PO DAILY 06/27/20 Baclofen [Lioresal] 20 mg PO TID 09/25/20 Gabapentin 300 mg PO TID 09/25/20 Lidocaine 5% Patch [Lidoderm] 1 patch TOPICAL DAILY PRN 09/25/20 Mirtazapine [Remeron] 45 mg PO HS 09/25/20 Pramipexole [Mirapex] 1 mg PO HS 09/25/20 Rimegepant Sulfate [Nurtec Odt] 75 mg PO BID PRN 09/25/20 Trospium Chloride 20 mg PO BID 09/25/20 Zolpidem Tartrate [Ambien Cr] 12.5 mg PO HS PRN 09/25/20 Furosemide [Lasix] 20 mg PO DAILY 11/25/20 Montelukast Sodium [Singulair] 10 mg PO HS 12/19/20 Fluticasone Nasal [place] [Flonase Nasal [place]] 2 spray EA NOSTRIL DAILY 03/17/21
[2021-05-26 11:59] VITALS: BP 127/88; PULSE 79; RESP 18; TEMP 98.6
== END ==
LOC: PNWHC3 11:08
PROVIDERS: ATTEND Specialist
DX: M51.36 Other intervertebral disc degeneration, lumbar region (principal); M47.816 Spondylosis without myelopathy or radiculopathy, lumbar region; G89.29 Other chronic pain; Z87.891 Personal history of nicotine dependence; Z88.1 Allergy status to other antibiotic agents; Z88.2 Allergy status to sulfonamides; Z88.6 Allergy status to analgesic agent
CPT/HCPCS: 99211

== ENCOUNTER → 2021-09-04 | Outpatient (CLI) | payer BC, MEDICARE ==
[2021-09-04 13:57] VITALS: BP 107/74; PULSE 69; RESP 18; TEMP 98.3
--- NOTE | 2021-09-04 14:23 | P.PAINPG ---
PQRS Measure Charge Sheet Comment: A 61 yr old female with a history of severe and chronic low back pain sec/ondary to lumbar degenerative disc diseases and lumbar spondylosis with facet in intensity arthropathy presents today for evaluation of LBP. Pain level is currently at 9/10 in intensity, constant, sharp/achy in the lower aspect of her lumbar spine/tailbone with radiation of pain towards the BLEs, R>L. Pain is provoked by weight bearing activity. Pain is alleviated with medications ([place], Neurontin, Baclofen), Lidoderm patches, ice, heat, PT years ago but was ineffective when her therapist changed, chiropractic treatments weekly, massage monthly, learning forward and rest. Interventional pain procedures completed include BL SI injections Patient is currently on [place], Neurontin, Baclofen Patient denies any side effects of the medication(s), denies excessive drowsiness or sleepiness, denies suicidal ideation and reports that the current pain medication is helping to control the pain and improve activities of daily living. Patient denies any motor or sensory deficits. Patient denies any fever or night sweats, denies any change in the bowel movements or urination. Physical Examination: -Constitutional: Cooperative. Not in acute distress . - Neurologic: Cranial nerve II to XII intact. No focal neurological deficits. - Psychatric: Alert & oriented x 3. Matching mood & appropriate affect. Judgment and insight intact. - Musculoskeletal: Cervical spine: Muscle bulk/ tone/ strength in the bilateral upper extremities normal Vertebral body tenderness to palpation over Spurling test positive Distraction test positive Facet loading test positive Thoracic spine Muscle bulk / tone/ strength in the bilateral paraspinal muscles normal Vertebral body tender to palpation over Facet loading test positive Lumbar spine: Motor bulk/ tone/ strength lower extremities , thigh and legs : 5/5 Deep tendon reflexes : Normal Knee Jerk. Normal Ankle Jerk . Vertebral body tenderness to palpation over Lumbar Facet Loading Test positive BL L5-S1 Straight Leg Raise: positive at 30 degrees right side/ left side Gaenslen's Test positive Sacral spine : Severe tenderness over the Sacroiliac joint: right side / left side Range of motion: Flexion of the lumbar spine <60 degrees Range of motion: Extension of the lumbar spine <20 degrees Gaenslen's Test positive Cristiano's Test positive Rakesh test: positive right side / left side Thigh Thrust Test Sacral Thrust Test Assessment and plan: Chronic low back pain secondary to lumbar degenerative disc disease , lumbar spondylosis with facet arthropathy without myelopathy Recommendation of BL MBB L5-S1. May need a series of injections, up until RFA, for optimal pain relief. Risks, benefits of procedure discussed and pt verbalized understanding. Denies anticoagulant use or medical history of diabetes. All patient questions answered MAPS reviewed and it was appropriate. I have spent less than 30 minutes on patient care today. Dr Howe was available by phone for the evaluation of this patient. The time was used to review the medical records including relevant urine studies and Prescription history (MAPs), review of the available imaging, evaluation and examination of the patient, coordination of care with the medical staff and if applicable referring physicians, as well as creation of the medical record PQRS Narrative: Smoking Status Former smoker Hx Alcohol Use (MH) No Home Medications: Ambulatory Orders ALPRAZolam [Xanax] 0.5 mg PO TID PRN 08/20/14 Albuterol Sulfate [Proair Hfa] 1 - 2 puff INHALATION RT-Q6H PRN 08/20/14 levETIRAcetam [Keppra] 500 mg PO Q12HR 08/20/14 Apixaban [Eliquis] 5 mg PO BID 09/08/18 Atorvastatin [Lipitor] 40 mg PO DAILY 09/08/18 Vortioxetine Hydrobromide [Trintellix] 10 mg PO DAILY 09/08/18 Sotalol [Betapace] 120 mg PO BID 01/05/19 Budesonide-Formot 160-4.5 Mcg [Symbicort 160-4.5 Mcg Inhaler] 2 puff INHALATION RT-BID 03/08/19 Albuterol Nebulized [Ventolin Nebulized] 2.5 mg INHALATION RT-Q4H PRN 04/17/19 methIMAzole [Tapazole] 5 mg PO DAILY 12/05/19 Omeprazole 20 mg PO DAILY PRN 01/25/20 busPIRone HCL 15 mg PO BID 03/19/20 HYDROcodone/APAP 5-325MG [[place] 5-325] 1 tab PO TID 05/13/20 cycloSPORINE [Restasis] 1 applicator BOTH EYES BID 05/13/20 Cetirizine HCl [Zyrtec] 10 mg PO DAILY 06/27/20 Baclofen [Lioresal] 20 mg PO TID 09/25/20 Gabapentin 300 mg PO TID 09/25/20 Lidocaine 5% Patch [Lidoderm] 1 patch TOPICAL DAILY PRN 09/25/20 Mirtazapine [Remeron] 45 mg PO HS 09/25/20 Pramipexole [Mirapex] 1 mg PO HS 09/25/20 Rimegepant Sulfate [Nurtec Odt] 75 mg PO BID PRN 09/25/20 Trospium Chloride 20 mg PO BID 09/25/20 Zolpidem Tartrate [Ambien Cr] 12.5 mg PO HS PRN 09/25/20 Furosemide [Lasix] 20 mg PO DAILY 11/25/20 Montelukast Sodium [Singulair] 10 mg PO HS 12/19/20 Fluticasone Nasal [place] [Flonase Nasal [place]] 2 spray EA NOSTRIL DAILY 03/17/21 Controlled Substance Measures - Controlled Substance Measures Is patient prescribed a controlled substance at discharge?: No
== END ==
LOC: PNWHC3 12:51
PROVIDERS: ATTEND Specialist
DX: M51.36 Other intervertebral disc degeneration, lumbar region (principal); M47.816 Spondylosis without myelopathy or radiculopathy, lumbar region; G89.29 Other chronic pain; Z87.891 Personal history of nicotine dependence; Z88.1 Allergy status to other antibiotic agents; Z88.2 Allergy status to sulfonamides; Z88.8 Allergy status to other drugs, medicaments and biological substances
CPT/HCPCS: 99211

== ENCOUNTER 2021-10-31 09:04 | Day surgery (SDC) | payer BC, MEDICARE ==
[2021-10-31 09:29] VITALS: RESP 16; TEMP 97.3
[2021-10-31] MEDS ORDERED: methylPREDNISolone ACETATE 40 MG/ML 1 ML VIAL ONE (09:41)
[2021-10-31] MEDS ORDERED: fentaNYL (PF) 50 MCG/ML 2 ML AMP ONE (09:41)
[2021-10-31] MEDS ORDERED: MIDAZOLAM 2 MG/2 ML VIAL ONE (09:41)
[2021-10-31] MEDS ORDERED: ROPIVACAINE 5MG/ML 20ML VIAL ONE (09:41)
--- NOTE | 2021-10-31 10:03 | P.PCN ---
Date of Procedure: 10/31/21 Procedure(s) Performed: PREOPERATIVE DIAGNOSIS : 1- Lumbar spondylosis with Facet Arthropathy without myelopathy . POSTOPERATIVE DIAGNOSIS: 1- Lumbar spondylosis with Facet Arthropathy without myelopathy . PROCEDURE: Diagnostic bilateral L4 , and L5 medial branch block under fluoroscopy guidance(fluoroscopy images available in the radiology Department ) ( To target the facet joint betwen Bilateral L5-S1 )# 2nd ANESTHESIA:, Monitored anesthesia care as per anesthesia department EBL: Minimal COMPLICATION: None PROCEDURE INDICATION: Chronic low back pain secondary to Facet arthropathy unresponsive to conservative treatment. PROCEDURE DESCRIPTION: the patient was seen and identified in the preop holding area , risks and benefits and possible complications of the procedure and alternative were discussed with the patient, and the patient agreed to proceed with the procedure and signed the consent and vital signs monitored during the procedure and fluoroscopy was used to maximize the benefit and accuracy of the needle placement, and sedation was given to decrease patient anxiety, patient was taken to the procedure room and placed in prone position vital signs monitored in the back prepped with chlorhexidine X3 then under strict sterile technique using a right oblique fluoroscopy ,the junction of the transverse process and the superior articulating process of the right L4 , and L5 vertebra which corresponding to the fluoroscopy image of the eye of the Justen dog on the block side for the medial branches and subsequently , after local infiltration of skin and subcu tissuies with Ropivacaine 0.5 % , one mL at each level ,then 22-gauge Quincke-type needles , 2 needle was used , each one of them placed at the junction of the base of the transverse process and the superior articular process at the appropriate level, and the needle was advanced until the periosteum contacted, needle placement confirmed with AP oblique and lateral view and after appropriate needle placement confirmed, and after negative aspiration for heme and CSF and there was no paresthesia 1 mL of Ropivacaine 0.5% mixed with 20 mg Depo-Medrol , then half mL injected at each level after negative aspiration the needle subsequently removed and the same procedure repeated for the left side at left side at L4 and L5 levels. At the end of the procedure and the needles removed and a bandage applied after the skin was cleaned the cleaning solution patient taken to recovery room in stable condition and monitors in the recovery room for 20-30 minutes and discharged home in stable condition after discharge criteria met and patient will follow up with the pain clinic in 2-4 weeks Patient had lumbar fusion surgery at L3 toL5
[2021-10-31] MEDS ORDERED: IV FLUID CONTINUATION 1,000 ML IV ONE (10:05)
--- NOTE | 2021-10-31 10:35 | FL ---
EXAMINATION TYPE: FL guided pain mgmt statistic DATE OF EXAM: 10/31/2021 HISTORY: Fluoroscopy time 16 seconds of fluoroscopy provided. IMPRESSION: 1. Fluoroscopy time.
[2021-10-31 10:53] VITALS: BP 99/64; PULSE 64
== END 2021-10-31 11:05 | disposition home or self-care (01) ==
LOC: ORPAIN 09:04
PROVIDERS: ATTEND Specialist
DX: M47.816 Spondylosis without myelopathy or radiculopathy, lumbar region (principal); G89.29 Other chronic pain; I48.91 Unspecified atrial fibrillation; I10 Essential (primary) hypertension; E78.5 Hyperlipidemia, unspecified; J44.9 Chronic obstructive pulmonary disease, unspecified; G47.33 Obstructive sleep apnea (adult) (pediatric); E07.9 Disorder of thyroid, unspecified; F41.9 Anxiety disorder, unspecified; F32.A Depression, unspecified; K21.9 Gastro-esophageal reflux disease without esophagitis; M79.7 Fibromyalgia; R56.9 Unspecified convulsions; Z85.118 Personal history of other malignant neoplasm of bronchus and lung; Z88.0 Allergy status to penicillin; Z88.8 Allergy status to other drugs, medicaments and biological substances; Z88.2 Allergy status to sulfonamides; Z88.3 Allergy status to other anti-infective agents; Z79.01 Long term (current) use of anticoagulants; Z79.51 Long term (current) use of inhaled steroids; Z79.899 Other long term (current) drug therapy; Z87.891 Personal history of nicotine dependence; Z80.0 Family history of malignant neoplasm of digestive organs; Z80.42 Family history of malignant neoplasm of prostate; Z80.52 Family history of malignant neoplasm of bladder
CPT/HCPCS: 64493; J2250; J1030; J3010; J2795

== ENCOUNTER → 2021-11-13 | Outpatient (CLI) | payer BC, MEDICARE ==
[2021-11-13 12:04] VITALS: BP 124/81; PULSE 79; RESP 16; TEMP 98.6
--- NOTE | 2021-11-13 14:52 | P.PAINPG ---
PQRS Measure Charge Sheet Comment: A 61 yr old female with a history of severe and chronic low back pain secondary to lumbar degenerative disc diseases and lumbar spondylosis with facet arthropathy without myelopathy presents today for evaluation s/p BL MBB L5-S1 #2. Pt states she experienced 85% pain relief x 3 days s/p procedure. Pain le kim is currently at 8 /10 in intensity, constant, localized in lower lumbar spine, dull/ achy/ sharp/ shooting towards BLEs. Pain is provoked by laying supine, walking/standing for periods of 15 min or more. Pain is alleviated with sitting upright, heat, ice, PT 5 visits in May 2021 but stopped due to minimal improvement, massage therapy in May 2021, chiropractic treatments monthly currently, use of a wheelchair and cane for ambulation, repositioning and rest. Interventional pain procedures completed include BL MBB L5-S1 #2. Patient is currently on [place], Baclofen, Neurontin, Voltaren gel Patient denies any side effects of the medication(s), denies excessive drowsiness or sleepiness, denies suicidal ideation and reports that the current pain medication is helping to control the pain and improve activities of daily living. Patient denies any motor or sensory deficits. Patient denies any fever or night sweats, denies any change in the bowel movements or urination. Physical Examination: -Constitutional: Cooperative. Not in acute distress . - Neurologic: Cranial nerve II to XII intact. No focal neurological deficits. - Psychatric: Alert & oriented x 3. Matching mood & appropriate affect. Judgment and insight intact. - Musculoskeletal: Cervical spine: Muscle bulk/ tone/ strength in the bilateral upper extremities normal Vertebral body tenderness to palpation over Spurling test positive Distraction test positive Facet loading test positive Thoracic spine Muscle bulk / tone/ strength in the bilateral paraspinal muscles normal Vertebral body tender to palpation over Facet loading test positive Lumbar spine: Motor bulk/ tone/ strength lower extremities , thigh and legs : 5/5 Deep tendon reflexes : Normal Knee Jerk. Normal Ankle Jerk . Vertebral body tenderness to palpation over Lumbar Facet Loading Test positive w TTP over BL L4-L5, L5-S1 facets Straight Leg Raise: positive at 30 degrees right side/ left side Gaenslen's Test positive Sacral spine : Severe tenderness over the Sacroiliac joint: right side / left side Range of motion: Flexion of the lumbar spine <60 degrees Range of motion: Extension of the lumbar spine <20 degrees Gaenslen's Test positive Cristiano's Test positive Rakesh test: positive right side / left side Thigh Thrust Test Sacral Thrust Test Assessment and plan: Chronic low back pain secondary to lumbar degenerative disc disease , lumbar spondylosis with facet arthropathy without myelopathy Recommendation of BL RFA L4-L5, L5-S1. Pt exhibited sufficient and substantial pain relief w prior MBB procedures. Risks, benefits of procedure discussed and pt verbalized understanding. Admits to Eliquis use or medical history of diabetes. Protocol for discontinuation/ continuation of meds selin procedure discussed. All patient questions answered MAPS reviewed and it was appropriate. I have spent less than 30 minutes on patient care today. Dr Howe was available by phone for the evaluation of this patient. The time was used to review the medical records including relevant urine studies and Prescription history (MAPs), review of the available imaging, evaluation and examination of the patient, coordination of care with the medical staff and if applicable referring physicians, as well as creation of the medical record PQRS Narrative: Smoking Status Former smoker Hx Alcohol Use (MH) No Home Medications: Ambulatory Orders ALPRAZolam [Xanax] 0.5 mg PO BID 08/20/14 Albuterol Sulfate [Proair Hfa] 1 - 2 puff INHALATION RT-Q6H PRN 08/20/14 levETIRAcetam [Keppra] 500 mg PO Q12HR 08/20/14 Apixaban [Eliquis] 5 mg PO BID 09/08/18 Atorvastatin [Lipitor] 40 mg PO DAILY 09/08/18 Vortioxetine Hydrobromide [Trintellix] 10 mg PO DAILY 09/08/18 Sotalol [Betapace] 120 mg PO BID 01/05/19 Budesonide-Formot 160-4.5 Mcg [Symbicort 160-4.5 Mcg Inhaler] 2 puff INHALATION RT-BID 03/08/19 Albuterol Nebulized [Ventolin Nebulized] 2.5 mg INHALATION RT-Q4H PRN 04/17/19 methIMAzole [Tapazole] 5 mg PO DAILY 12/05/19 Omeprazole 20 mg PO DAILY PRN 01/25/20 busPIRone HCL 20 mg PO BID 03/19/20 HYDROcodone/APAP 5-325MG [[place] 5-325] 1 tab PO TID 05/13/20 Cetirizine HCl [Zyrtec] 10 mg PO DAILY 06/27/20 Baclofen [Lioresal] 20 mg PO TID 09/25/20 Gabapentin 300 mg PO TID 09/25/20 Lidocaine 5% Patch [Lidoderm] 1 patch TOPICAL DAILY PRN 09/25/20 Mirtazapine [Remeron] 45 mg PO HS 09/25/20 Pramipexole [Mirapex] 1 mg PO HS 09/25/20 Rimegepant Sulfate [Nurtec Odt] 75 mg PO BID PRN 09/25/20 Trospium Chloride 20 mg PO BID 09/25/20 Furosemide [Lasix] 20 mg PO DAILY 11/25/20 Montelukast Sodium [Singulair] 10 mg PO HS 12/19/20 Fluticasone Nasal [place] [Flonase Nasal [place]] 2 spray EA NOSTRIL DAILY 03/17/21 Prednisolone/Moxiflox/Bromfen [Pred LT-Ddkg-Qavs 1-0.5-0.075%] 1 drop BOTH EYES Q2D 10/30/21 Ipratropium Nebulized [Atrovent Nebulized 0.2 MG/ML] 0.5 mg INHALATION Q6HR 11/11/21 L.acidoph,Paracasei, B.lactis [Probiotic] 1 each PO DAILY 11/11/21 Magnesium Oxide [Magnesium] 1 tab PO DAILY 11/11/21 Multivit-Min/Iron/Folic/Lutein [Centrum Silver Women Tablet] 1 each PO DAILY 11/11/21 Turmeric Root Extract [Turmeric] 500 mg PO DAILY 11/11/21 Vitamin C/Biotin [Hair, Skin and Nails Chew] 1 tab PO DAILY 11/11/21 Controlled Substance Measures - Controlled Substance Measures Is patient prescribed a controlled substance at discharge?: No
== END ==
LOC: PNWHC3 11:04
PROVIDERS: ATTEND Specialist
DX: M47.26 Other spondylosis with radiculopathy, lumbar region (principal); M51.16 Intervertebral disc disorders with radiculopathy, lumbar region; M53.3 Sacrococcygeal disorders, not elsewhere classified; G89.29 Other chronic pain; E11.9 Type 2 diabetes mellitus without complications; Z87.891 Personal history of nicotine dependence; Z88.1 Allergy status to other antibiotic agents
CPT/HCPCS: 99211

== ENCOUNTER → 2021-12-04 | Day surgery (SDC) | payer BC, MEDICARE ==
[~2021-12-04] MED LIST changes: -LACTATED RINGERS 1,000 ML IV SCH; -LIDOCAINE 1% (10MG/ML) FOR IV START INTRADERMA PRN; +diazePAM 5 MG TAB PO PRN
[2021-12-04 08:48] VITALS: TEMP 97.6
--- NOTE | 2021-12-04 11:24 | FL ---
EXAMINATION TYPE: FL myelogram lumbosacral DATE OF EXAM: 12/04/2021 10:06 AM COMPARISON: Fluoroscopic myelogram 07/05/2020. CLINICAL INDICATION:Female, 61 years old with history of M54.10 Radiculopathy M54.50 LOW BACK PAIN; FINDINGS: Informed consent was obtained including discussion of the risks and benefits. Timeout was taken per p isabellaocol. Real-time fluoroscopy was performed to localize the L4-L5 intervertebral space. The patient was prepped and draped. Under sterile technique with local anesthesia a 22-gauge spinal needle was in troduced into the arachnoid space with return of clear CSF. Approximately 12 cc of Isovue 200M was in jected intrathecally under intermittent fluoroscopic observation. Spot image verify needle placement. The patient tolerated the procedure. The patient remained in stable condition, the needle was removed . Hemostasis was achieved. No immediate complication. Postoperative changes are noted status post posterior fusion of L3-L5 with intervertebral disc space cages noted. Mesh anchors are noted. Total fluoroscopy time was 28 seconds Total fluoroscopic images 4. IMPRESSION: Successful lumbar myelogram for CT. This report will be dictated separately.
[2021-12-04 11:49] VITALS: PULSE 54
--- NOTE | 2021-12-04 12:38 | CT ---
EXAMINATION TYPE: CT lumbar spine w con CT DLP: 1160.80 mGycm, Automated exposure control for dose reduction was used. DATE OF EXAM: 12/04/2021 10:15 AM COMPARISON: Fluoroscopic myelogram 12/04/2021, CT thoracolumbar spine 07/05/2020. CLINICAL INDICATION:Female, 61 years old with history of M54.10 Radiculopathy M54.50 LOW BACK PAIN; P HH, Radiculopathy, Low back pain TECHNIQUE: Multiple axial images were obtained from the midportion of T11 through the sacroiliac yeny nts after fluoroscopic myelogram was performed. No intravenous contrast demonstrate. Soft tissue and bone windows in coronal and sagittal planes were obtained and reviewed. FINDINGS: Alignment/bones: There are 5 lumbar type vertebral bodies. Posterior fusion at L3-L5 with bilateral p edicular screws and rods. Hardware appears intact. There are interdisc fusion cages demonstrated. Gra de 1 anterolisthesis of L4 on L5, stable. Conus medullaris is in stable position ending at the mid L1 level. Laminectomy changes are present on the right at L3-L4 again. Metallic artifact from orthopedi c hardware, limiting evaluation. No evident disc herniation or significant spinal stenosis. Neural fo ramina. Grossly patent at all lumbar levels without significant interval change. Persistent moderate to severe left-sided facet arthropathy at L4-L5 level and mild facet arthropathy bilaterally at L5-S1 level. Other: Prominent right extrarenal pelvis. Atherosclerotic calcification of the aorta. No abdominal ao rtic aneurysm. Partial visualization of left paraspinal spinal stimulator lead. IMPRESSION: Redemonstration of postoperative changes with no significant interval change from prior CT. Stable al ignment. No new significant disc herniation or spinal canal effacement or neural foraminal narrowing noted.
[2021-12-04 12:57] VITALS: BP 121/68; RESP 16
== END ==
LOC: RADPROMAIN 07:59
PROVIDERS: ATTEND Orthopaedic Surgery
DX: M47.27 Other spondylosis with radiculopathy, lumbosacral region (principal)
CPT/HCPCS: 22612; 22853; 22614; 62304; 72132; J2001; Q9966

== ENCOUNTER 2021-12-12 12:00 | Day surgery (SDC) | payer BC, MEDICARE ==
[~2021-12-12 12:00] MED LIST changes: +LACTATED RINGERS 1,000 ML IV SCH; -diazePAM 5 MG TAB PO PRN
[2021-12-12 12:33] VITALS: TEMP 98
[2021-12-12] MEDS ORDERED: MIDAZOLAM 2 MG/2 ML VIAL IV ONE (13:03)
[2021-12-12] MEDS ORDERED: ROPIVACAINE 5 MG/ML 20 ML AMPULE ONE (13:30)
[2021-12-12] MEDS ORDERED: TRIAMCINOLONE ACETONIDE 40 MG/ML 1 ML VIAL ONE (13:30)
[2021-12-12] MEDS ORDERED: fentaNYL (PF) 50 MCG/ML 2 ML AMP ONE (13:31)
[2021-12-12] MEDS ORDERED: MIDAZOLAM 2 MG/2 ML VIAL ONE (13:31)
[2021-12-12] MEDS ORDERED: IV FLUID CONTINUATION 1,000 ML IV ONE (14:09)
--- NOTE | 2021-12-12 14:16 | FL ---
Intraoperative/procedural fluoroscopic services were provided. Total fluoroscopy time is 11.4 seconds with a total of 8 submitted images to PACS. Please see the operative/procedural note for further det ails.
[2021-12-12 14:33] VITALS: BP 97/62; PULSE 63; RESP 18
--- NOTE | 2021-12-12 15:00 | P.PCN ---
Date of Procedure: 12/12/21 Description of Procedure: Pre- and Post-operative Diagnosis: Lumbar facet arthropathy, and lumbar spon dylosis without myelopathy. Procedure: Bilateral L5-S1 dorsal ramus radiofrequency thermocoagulation under fluoroscopic guidance Surgeon: Su Veliz Anesthesia: Local: 1% Lidocaine, IV sedation : Midazolam 2 mg, and fentanyl 100 micrograms. Complications: None Estimated blood loss: None. Specimen removed: None Fluoroscopic image: Saved to patient electronic medical records. Indications for Procedure: The patient is well known to pain clinic for his chronic low back pain management. The lumbar facet loading test was positive with a clinical diagnosis of lumbar facet arthropathy. Patient had marked decrease in pain after the diagnostic medial branch procedure. Came here for radiofrequency ablation for longer pain relief. PROCEDURE DESCRIPTION: The patient was seen and identified in the preoperative area. Risks, benefits, complications, and alternatives were discussed with the patient. The patient agreed to proceed with the procedure and signed the consent. IV was started. Vital signs were stable. Patient was taken to the procedure room and timeout was completed. The patient was placed in the prone position on procedure table and a pillow was placed under the abdomen to reduce lumbar lordosis. The lumbosacral area was prepped and draped in the usual sterile fashion. Critical pause was taken. Vital signs were closely monitored during the procedure. The fluoroscopic camera was placed in the anteroposterior position to identify the junction of superior articular process and its corresponding injection with its transverse process of Right side L5, S1, which were anesthetized with 1% lidocaine. We used 18-gauge 100-mm curved, sharp radiofrequency cannula with 10- mm active tip for the procedure. The first cannula was guided by fluoroscopy to the S1 superior articular process and its corresponding junction with its ala. The second cannula was guided by fluoroscopy into the L5 superior articular process and its corresponding junction with its transverse process and pedicle. After confirmation of needle tip position on oblique view, each site underwent motor testing at 2 Hz and 0 to 2.5 volts, and there was good motor stimulation in the back and no radicular symptoms or paresthesias. After confirmation of motor testing, 0.5 mL of block solution injected at each site . Block solution contained 2 mL of 0.5% ropivacaine preservative free mixed with 40 MG of Kenalog. At this time, each site was ablated using continuous radiofrequency mode at 80 degrees Celsius for 90 seconds at each level. At the end of the procedure, each needle was retracted approximately 1 cm and the skin was infiltrated with 0.5% ropivacaine preservative free 1 ml at each site. Skin was cleansed and bandages were applied. Entire procedure repeated on the left side. Skin was cleansed and bandages were applied. Disposition : The patient tolerated the procedure very well. The patient was transferred to the recovery room and remained stable until discharged home. The patient was given detailed discharge instructions for infection, bleeding, and increased pain at the injection site, and was advised to seek immediate medical attention should significant side effects develop. The patient will be scheduled with Pain Clinic within 4 weeks.
== END 2021-12-12 14:46 | disposition home or self-care (01) ==
LOC: ORPAIN 12:00
DX: M47.816 Spondylosis without myelopathy or radiculopathy, lumbar region (principal); I10 Essential (primary) hypertension; E78.00 Pure hypercholesterolemia, unspecified; J44.9 Chronic obstructive pulmonary disease, unspecified; G40.909 Epilepsy, unspecified, not intractable, without status epilepticus; G47.33 Obstructive sleep apnea (adult) (pediatric); I48.91 Unspecified atrial fibrillation; M79.7 Fibromyalgia; K21.9 Gastro-esophageal reflux disease without esophagitis; F17.210 Nicotine dependence, cigarettes, uncomplicated; Z98.890 Other specified postprocedural states; Z90.49 Acquired absence of other specified parts of digestive tract; Z88.1 Allergy status to other antibiotic agents; Z88.2 Allergy status to sulfonamides
CPT/HCPCS: 64635; J2250; J3301; J3010; J2795

== ENCOUNTER → 2021-12-29 | Outpatient (CLI) | payer BC, MEDICARE ==
[2021-12-29 15:21] VITALS: BP 115/77; PULSE 74; RESP 18; TEMP 98.1
--- NOTE | 2021-12-29 15:30 | P.PAINPG ---
PQRS Measure Charge Sheet Comment: A 61 yr old female with a history of severe and chronic low back pain secondary to lumbar degenerative disc diseases and lumbar spondylosis with facet arthropathy without myelopathy presents today for evaluation s/p BL RFA L5-S1. Pt states she experienced 50% pain relief s/p procedure. Pain level is at 5/10 in intensity, constant, localized in the R lower lumbar spine, sharp/ throbbing/ burning shooting towards the RLE. Pain is alleviated with PT years ago, massage as needed (once or twice monthly but unaffordable), chiropractic treatments semi monthly, use of a wheelchair and cane for ambulation, heat, medications ([place], Baclofen, Neurontin), topicals, reclining, repositioning and rest. Interventional pain procedures completed include BL RFA L5-S1, BL SI injections, Caudal [place] w Lysis x 2. Patient is currently on [place], Baclofen, Neurontin Patient denies any side effects of the medication(s), denies excessive drowsiness or sleepiness, denies suicidal ideation and reports that the current pain medication is helping to control the pain and improve activities of daily living. Patient denies any motor or sensory deficits. Patient denies any fever or night sweats, denies any change in the bowel movements or urination. Physical Examination: -Constitutional: Cooperative. Not in acute distress . - Neurologic: Cranial nerve II to XII intact. No focal neurological deficits. - Psychatric: Alert & oriented x 3. Matching mood & appropriate affect. Judgment and insight intact. - Musculoskeletal: Cervical spine: Muscle bulk/ tone/ strength in the bilateral upper extremities normal Vertebral body tenderness to palpation over Spurling test positive Distraction test positive Facet loading test positive Thoracic spine Muscle bulk / tone/ strength in the bilateral paraspinal muscles normal Vertebral body tender to palpation over Facet loading test positive Lumbar spine: Motor bulk/ tone/ strength lower extremities , thigh and legs : 5/5 Deep tendon reflexes : Normal Knee Jerk. Normal Ankle Jerk . Vertebral body tenderness to palpation over Lumbar Facet Loading Test positive Straight Leg Raise: positive at 30 degrees right side/ left side Gaenslen's Test positive Sacral spine : Severe tenderness over the Sacroiliac joint: right side / left side Range of motion: Flexion of the lumbar spine <60 degrees Range of motion: Extension of the lumbar spine <20 degrees Gaenslen's Test positive R Rakesh test: positive right side / left side Thigh Thrust Test R Sacral Thrust Test Assessment and plan: Chronic low back pain secondary to lumbar DDD, spondylosis with facet arthropathy without myelopathy, R Sacroiliitis Pt exhibited sufficient and substantial pain relief w prior procedure. Recommendation of R SI injection. May need a series, up to 4 within a 12 mo period, for optimal pain relief. Risks, benefits of procedure discussed and pt verbalized understanding. Admits to anticoagulant use or medical history of diabetes. Protocol for discontinuation / continuation of medications selin procedure discussed. Medical Clearance for Eliquis on file. All patient questions answered I have spent less than 30 minutes on patient care today. Dr Howe was available by phone for the evaluation of this patient. The time was used to revi ew the medical records including relevant urine studies and Prescription history (MAPs), review of the available imaging, evaluation and examination of the patient, coordination of care with the medical staff and if applicable referring physicians, as well as creation of the medical record - Pain Location Right Lower Back Non-Pharmacological Interventions: Chiropractic Treatment, Heat, Ice, Massage, Position/Reposition Pharmacological Interventions: PRN Medication, Scheduled Medication PQRS Narrative: Smoking Status Former smoker Hx Alcohol Use (MH) No Home Medications: Ambulatory Orders ALPRAZolam [Xanax] 0.5 mg PO BID 08/20/14 Albuterol Sulfate [Proair Hfa] 1 - 2 puff INHALATION RT-Q6H PRN 08/20/14 levETIRAcetam [Keppra] 500 mg PO Q12HR 08/20/14 Apixaban [Eliquis] 5 mg PO BID 09/08/18 Atorvastatin [Lipitor] 40 mg PO DAILY 09/08/18 Vortioxetine Hydrobromide [Trintellix] 20 mg PO DAILY 09/08/18 Sotalol [Betapace] 120 mg PO BID 01/05/19 Budesonide-Formot 160-4.5 Mcg [Symbicort 160-4.5 Mcg Inhaler] 2 puff INHALATION RT-BID 03/08/19 Albuterol Nebulized [Ventolin Nebulized] 2.5 mg INHALATION RT-Q4H PRN 04/17/19 methIMAzole [Tapazole] 5 mg PO DAILY 12/05/19 busPIRone HCL 30 mg PO BID 03/19/20 HYDROcodone/APAP 5-325MG [[place] 5-325] 1 tab PO TID 05/13/20 Baclofen [Lioresal] 20 mg PO TID 09/25/20 Gabapentin 300 mg PO BID 09/25/20 Lidocaine 5% Patch [Lidoderm] 1 patch TOPICAL DAILY PRN 09/25/20 Mirtazapine [Remeron] 45 mg PO HS 09/25/20 Pramipexole [Mirapex] 1 mg PO HS 09/25/20 Rimegepant Sulfate [Nurtec Odt] 75 mg PO BID PRN 09/25/20 Trospium Chloride 20 mg PO BID 09/25/20 Furosemide [Lasix] 40 mg PO DAILY 11/25/20 Fluticasone Nasal [place] [Flonase Nasal [place]] 2 spray EA NOSTRIL DAILY 03/17/21 Prednisolone/Moxiflox/Bromfen [Pred VY-Gcmd-Bwmm 1-0.5-0.075%] 1 drop BOTH EYES Q2D 10/30/21 Ipratropium Nebulized [Atrovent Nebulized 0.2 MG/ML] 0.5 mg INHALATION Q6HR 11/11/21 L.acidoph,Paracasei, B.lactis [Probiotic] 1 each PO DAILY 11/11/21 Magnesium Oxide [Magnesium] 1 tab PO DAILY 11/11/21 Multivit-Min/Iron/Folic/Lutein [Centrum Silver Women Tablet] 1 each PO DAILY 11/11/21 Turmeric Root Extract [Turmeric] 500 mg PO DAILY 11/11/21 Vitamin C/Biotin [Hair, Skin and Nails Chew] 1 tab PO DAILY 11/11/21 Ascorbic Acid [Vitamin C] 1,000 mg PO DAILY 12/04/21 Diclofenac Sodium Gel [Voltaren Gel] 4 gm TOPICAL QID PRN 12/04/21 Montelukast [Singulair] 10 mg PO HS 12/04/21 Nystatin 100,000Unit/gm Cream [Mycostatin Cream] 1 applic TOPICAL BID PRN 12/04/21 Pantoprazole Sodium 40 mg PO DAILY 12/04/21 Sucralfate [Carafate] 1 gm PO ACHS 12/04/21 Vitamin A 2,400 mcg PO DAILY 12/04/21 predniSONE 10 mg PO DAILY 12/04/21 Gabapentin 600 mg PO HS 12/11/21 Controlled Substance Measures - Controlled Substance Measures Is patient prescribed a controlled substance at discharge?: No
== END ==
LOC: PNWHC3 13:57
PROVIDERS: ATTEND Specialist
DX: M47.816 Spondylosis without myelopathy or radiculopathy, lumbar region (principal); M51.36 Other intervertebral disc degeneration, lumbar region; M46.1 Sacroiliitis, not elsewhere classified; G89.29 Other chronic pain; Z87.891 Personal history of nicotine dependence
CPT/HCPCS: 99211

== ENCOUNTER 2022-02-26 09:57 | Day surgery (SDC) | payer BC, MEDICARE ==
[2022-02-24 08:29] VITALS: BMI 28.8
[2022-02-26 10:20] VITALS: TEMP 98.1
[2022-02-26] MEDS ORDERED: LACTATED RINGERS 1,000 ML IV ONE (10:20)
[2022-02-26] MEDS ORDERED: TRIAMCINOLONE ACETONIDE 40 MG/ML 1 ML VIAL ONE (10:24)
[2022-02-26] MEDS ORDERED: IOPAMIDOL M200 10 ML VIAL ONE (10:24)
[2022-02-26] MEDS ORDERED: fentaNYL (PF) 50 MCG/ML 2 ML AMP ONE (10:24)
[2022-02-26] MEDS ORDERED: MIDAZOLAM 2 MG/2 ML VIAL ONE (10:24)
--- NOTE | 2022-02-26 10:39 | P.PCN ---
Date of Procedure: 02/26/22 Description of Procedure: PREOPERATIVE DIAGNOSIS: Sacroiliac joint dysfunction POSTOPERATIVE DIAGNOSIS: Sacroiliac joint dysfunction. PROCEDURES: 1. Right-sided Sacroiliac joint steroid injection 2. Sacroiliac joint arthrogram. SURGEON: Su Go ANESTHESIA: Local and IV sedation : Versed 0.5 mg, and fentanyl 25 g. Sedation supervision start time : 12 22 sedation Supervision end time: EBL: None. Specimen removed: None Fluoroscopic image: saved to electronic medical records. PROCEDURE INDICATIONS: This patient with a history of chronic low back pain, and sacroiliac joint dysfunction. Patient tried conservative therapy. Came here for intervention management. PROCEDURE DESCRIPTION: The patient was seen and identified in the preoperative area. Risks, benefits, complications, and alternatives were discussed with the patient. The patient agreed to proceed with the procedure and signed the consent. IV was started, and vital signs were stable. Patient was taken to the OR and time out was completed. The patient was placed in the prone position on procedure table and a pillow was placed under the abdomen to reduce lumbar lordosis. The lumbosacral area was prepped and draped in the usual sterile fashion. Critical pause was taken. Vital signs were closely monitored during the procedure. For the right side, the fluoroscopic camera was placed in left oblique view and right SI joint lower pole was identified. Skin entry point was infiltrated with 1% lidocaine and 22-gauge 3.5 inch spinal needle was introduced into the inferior one-third of SI joint and after penetrating into the joint arthrogram was done. 0.5 ml of [id number] contrast was injected after negative aspiration for blood, and air and negative for paresthesia. Good spread of the contrast into the SI joint has been seen. Then again after negative aspiration of spinal fluid and blood and negative for neurological symptoms, 3 mL of a solution containing total 2 mL of 1% preservative-free lidocaine mixed with 40 mg of Kenalog was injected. Needle was withdrawn intact. Skin was cleansed, and bandag es were applied. COMPLICATIONS: None. DISPOSITION / PLANS: The patient was placed in a supine position and transferred to the recovery area in a stable condition for observation and was discharged from the recovery room after meeting discharge criteria. Home discharge instructions given to the patient by the staff. The patient was reexamined prior to discharge. The patient will schedule for follow-up visit with the pain clinic in 4 weeks duration.
[2022-02-26] MEDS ORDERED: IV FLUID CONTINUATION 1,000 ML IV ONE (10:42)
[2022-02-26 10:46] VITALS: RESP 16
--- NOTE | 2022-02-26 10:46 | FL ---
Intraoperative/procedural fluoroscopic services were provided for right SI joint injection. Total flu oroscopy time is 3.2 seconds with a total of 2 submitted images to PACS. Please see the operative not e for further details.
[2022-02-26 12:16] VITALS: BP 95/61
[2022-02-26 12:23] VITALS: PULSE 63
== END 2022-02-26 12:33 ==
LOC: ORPAIN 09:57
DX: M53.3 Sacrococcygeal disorders, not elsewhere classified (principal); G89.29 Other chronic pain; E78.00 Pure hypercholesterolemia, unspecified; K21.9 Gastro-esophageal reflux disease without esophagitis; Z88.0 Allergy status to penicillin; Z88.5 Allergy status to narcotic agent; Z79.51 Long term (current) use of inhaled steroids; Z79.899 Other long term (current) drug therapy; Z79.52 Long term (current) use of systemic steroids; Z79.1 Long term (current) use of non-steroidal anti-inflammatories (NSAID); Z79.891 Long term (current) use of opiate analgesic; Z79.01 Long term (current) use of anticoagulants; Z85.118 Personal history of other malignant neoplasm of bronchus and lung; Z86.69 Personal history of other diseases of the nervous system and sense organs; Z90.2 Acquired absence of lung [part of]; Z90.49 Acquired absence of other specified parts of digestive tract; Z98.890 Other specified postprocedural states
CPT/HCPCS: 27096; J2250; J3301; J3010; Q9966

== ENCOUNTER → 2022-03-16 | Outpatient (CLI) | payer BC, MEDICARE ==
[2022-03-16 12:57] VITALS: BP 108/73; PULSE 69; RESP 18; TEMP 98.1
--- NOTE | 2022-03-16 15:47 | P.PAINPG ---
PQRS Measure Charge Sheet Comment: A 62 yr old female with a history of severe and chronic low back pain secondary to lumbar DDD and spondylosis with facet arthropathy without myelopathy presents today for evaluation s/p R SI injection. Pt states she experienced 10 % pain relief x 2-3 wks s/p procedure. Pain level is provoked at 7 /10 in intensity, constant, localized in the R lumbar spine, achy/ sore in character w shooting towards the BL hip and R groin. Pain is provoked by bending, walking for periods of 15 min or more. Pain is alleviated with injections, massages but are too expensive, heat, chiropractor treatments weekly/ semi monthly, meds ([place], Baclofen, Neurontin, Lidoderm), repositioning and rest. Interventional pain procedures completed include R SI injection, Caudal [place] w lysis x2. Patient is currently on [place], Baclofen, Neurontin, Lidoderm patches from her PCP Patient denies any side effects of the medication(s), denies excessive drowsiness or sleepiness, denies suicidal ideation and reports that the current pain medication is helping to control the pain and improve activities of daily living. Patient denies any motor or sensory deficits. Patient denies any fever or night sweats, denies any change in the bowel movements or urination. Physical Examination: -Constitutional: Cooperative. Not in acute distress . - Neurologic: Cranial nerve II to XII intact. No focal neurological deficits. - Psychatric: Alert & oriented x 3. Matching mood & appropriate affect. Judgment and insight intact. - Musculoskeletal: Cervical spine: Muscle bulk/ tone/ strength in the bilateral upper extremities normal Vertebral body tenderness to palpation over Spurling test positive Distraction test positive Facet loading test positive Thoracic spine Muscle bulk / tone/ strength in the bilateral paraspinal muscles normal Vertebral body tender to palpation over Facet loading test positive Lumbar spine: Motor bulk/ tone/ strength lower extremities , thigh and legs : 5/5 Deep tendon reflexes : Normal Knee Jerk. Normal Ankle Jerk . Vertebral body tenderness to palpation over L5 Lumbar Facet Loading Test positive Straight Leg Raise: positive at 30 degrees right side/ left side Gaenslen's Test positive Sacral spine : Severe tenderness over the Sacroiliac joint: right side / left side Range of motion: Flexion of the lumbar spine <60 degrees Range of motion: Extension of the lumbar spine <20 degrees Gaenslen's Test positive Rakesh test: positive right side / left side Thigh Thrust Test Sacral Thrust Test Assessment and plan: Chronic low back pain secondary to lumbar degenerative disc disease, spondylosis with facet arthropathy without myelopathy Recommendation of Caudal [place] w Lysis. May need a series of injections for optimal pain relief. Risks, benefits of procedure discussed and pt verbalized understanding. Admits to anticoagulant use or medical history of diabetes. Protocol for discontinuation/ continuation of medications selin procedure discussed. All patient questions answered I have spent less than 30 minutes on patient care today. Dr Howe was available by phone for the evaluation of this patient. The time was used to review the medical records including relevant urine studies and Prescription history (MAPs), review of the available imaging, evaluation and examination of the patient, coordination of care with the medical staff and if applicable referring physicians, as well as creation of the medical record - Pain Location Right Lower Back Non-Pharmacological Interventions: Chiropractic Treatment, Heat, Inactivity, Position/Reposition, Sitting Pharmacological Interventions: PRN Medication, Scheduled Medication, Topical Medication PQRS Narrative: Smoking Status Former smoker Hx Alcohol Use (MH) No Home Medications: Ambulatory Orders ALPRAZolam [Xanax] 0.5 mg PO BID 08/20/14 Albuterol Sulfate [Proair Hfa] 1 - 2 puff INHALATION RT-Q6H PRN 08/20/14 levETIRAcetam [Keppra] 500 mg PO Q12HR 08/20/14 Apixaban [Eliquis] 5 mg PO BID 09/08/18 Atorvastatin [Lipitor] 40 mg PO DAILY 09/08/18 Vortioxetine Hydrobromide [Trintellix] 20 mg PO DAILY 09/08/18 Sotalol [Betapace] 120 mg PO BID 01/05/19 Budesonide-Formot 160-4.5 Mcg [Symbicort 160-4.5 Mcg Inhaler] 2 puff INHALATION RT-BID 03/08/19 Albuterol Nebulized [Ventolin Nebulized] 2.5 mg INHALATION RT-Q4H PRN 04/17/19 methIMAzole [Tapazole] 5 mg PO DAILY 12/05/19 busPIRone HCL 30 mg PO BID 03/19/20 HYDROcodone/APAP 5-325MG [[place] 5-325] 1 tab PO TID 05/13/20 Baclofen [Lioresal] 20 mg PO TID 09/25/20 Gabapentin 300 mg PO BID 09/25/20 Lidocaine 5% Patch [Lidoderm] 1 patch TOPICAL DAILY PRN 09/25/20 Mirtazapine [Remeron] 45 mg PO HS 09/25/20 Pramipexole [Mirapex] 1 mg PO HS 09/25/20 Rimegepant Sulfate [Nurtec Odt] 75 mg PO BID PRN 09/25/20 Trospium Chloride 20 mg PO BID 09/25/20 Furosemide [Lasix] 40 mg PO DAILY 11/25/20 Fluticasone Nasal [place] [Flonase Nasal [place]] 2 spray EA NOSTRIL DAILY 03/17/21 Prednisolone/Moxiflox/Bromfen [Pred CV-Kpsu-Tndq 1-0.5-0.075%] 1 drop BOTH EYES Q2D 10/30/21 Ipratropium Nebulized [Atrovent Nebulized 0.2 MG/ML] 0.5 mg INHALATION Q6HR 11/11/21 L.acidoph,Paracasei, B.lactis [Probiotic] 1 each PO DAILY 11/11/21 Magnesium Oxide [Magnesium] 1 tab PO DAILY 11/11/21 Multivit-Min/Iron/Folic/Lutein [Centrum Silver Women Tablet] 1 each PO DAILY 11/11/21 Turmeric Root Extract [Turmeric] 1,000 mg PO DAILY 11/11/21 Vitamin C/Biotin [Hair, Skin and Nails Chew] 1 tab PO DAILY 11/11/21 Ascorbic Acid [Vitamin C] 1,000 mg PO DAILY 12/04/21 Diclofenac Sodium Gel [Voltaren Gel] 4 gm TOPICAL QID PRN 12/04/21 Montelukast [Singulair] 10 mg PO HS 12/04/21 Nystatin 100,000Unit/gm Cream [Mycostatin Cream] 1 applic TOPICAL BID PRN 12/04/21 Pantoprazole Sodium 40 mg PO DAILY 12/04/21 Sucralfate [Carafate] 1 gm PO ACHS 12/04/21 Vitamin A 2,400 mcg PO DAILY 12/04/21 predniSONE 10 mg PO DAILY 12/04/21 Gabapentin 600 mg PO HS 12/11/21 Controlled Substance Measures - Controlled Substance Measures Is patient prescribed a controlled substance at discharge?: No
== END ==
LOC: PNWHC3 12:26
PROVIDERS: ATTEND Specialist
DX: M47.816 Spondylosis without myelopathy or radiculopathy, lumbar region (principal); M51.36 Other intervertebral disc degeneration, lumbar region; G89.29 Other chronic pain; Z88.0 Allergy status to penicillin; Z88.2 Allergy status to sulfonamides; Z87.891 Personal history of nicotine dependence; Z88.1 Allergy status to other antibiotic agents; Z88.8 Allergy status to other drugs, medicaments and biological substances
CPT/HCPCS: 99211

== ENCOUNTER → 2022-06-11 | Day surgery (SDC) | payer BC, MEDICARE ==
[2022-06-08 15:36] VITALS: BMI 30.5
[~2022-06-11] MED LIST changes: +LIDOCAINE 1% (10MG/ML) FOR IV START INTRADERMA PRN
[2022-06-11 10:38] VITALS: BP 100/64; PULSE 65; RESP 18; TEMP 97.6
--- NOTE | 2022-06-11 10:59 | P.PN ---
Progress Note - Text Progress Note Date: 06/11/22 This is 62 years old female with a history of severe and chronic low back pain she is diagnosed with postlaminectomy pain syndrome, lumbar spondylosis, and sacroiliitis, patient scheduled to have caudal epidural steroid injection with lysis of epidural adhesions, and the preop holding area we found under the patient had O2 saturation is 86% , patient had history of COPD and she is in the process to get O2 at home, and because of the procedure need sedation , it will not be safe to do the procedure, the patient had no oxygen at home because that is a risk of respiratory depression secondary to the sedation and post seizure apnea, procedure will be is canceled for today and patient will be rescheduled after she gets oxygen available at home
== END ==
LOC: ORPAIN 09:50
PROVIDERS: ATTEND Specialist
DX: M47.816 Spondylosis without myelopathy or radiculopathy, lumbar region (principal); M96.1 Postlaminectomy syndrome, not elsewhere classified; M46.1 Sacroiliitis, not elsewhere classified; Z53.9 Procedure and treatment not carried out, unspecified reason

== ENCOUNTER 2022-06-18 08:41 | Day surgery (SDC) | payer BC, MEDICARE ==
[2022-06-16 14:07] VITALS: BMI 30.5
[2022-06-18] MEDS ORDERED: LIDOCAINE 1% (10MG/ML) FOR IV START INTRADERMA PRN (08:54)
[2022-06-18] MEDS ORDERED: LACTATED RINGERS 1,000 ML IV SCH (08:54)
[2022-06-18 09:25] VITALS: TEMP 98
[2022-06-18] MEDS ORDERED: methylPREDNISolone ACETATE 80 MG/ML 1 ML VIAL ONE (09:25)
[2022-06-18] MEDS ORDERED: IOPAMIDOL M200 10 ML VIAL ONE (09:25)
[2022-06-18] MEDS ORDERED: MIDAZOLAM 2 MG/2 ML VIAL ONE (09:25)
[2022-06-18] MEDS ORDERED: fentaNYL (PF) 50 MCG/ML 2 ML AMP ONE (09:25)
--- NOTE | 2022-06-18 09:42 | P.PCN ---
Date of Procedure: 06/18/22 Procedure(s) Performed: PREOP DIAGNOSIS: 1- Lumbar postlaminectomy syndrome. POSTOP DIAGNOSIS:1- Lumbar postlaminectomy syndrome. PROCEDURE: 1-Caudal epidural steroid injection with epidurolysis and epidurogram under fluoroscopic guidance. (Fluoroscopy images available in the radiology Department ) 2-caudal epidurogram. ANESTHESIA: moderate sedation, with Versed 1 mg and fentanyl 50 g. Sedation start time :928 . Sedation stop time :938 EBL: Minimal. PROCEDURE INDICATION: The patient with post-laminectomy syndrome with low back pain and radiculopathy radiating down in both legs, here for a caudal epidural steroid injection with epidurolysis. PROCEDURE DESCRIPTION: The patient was seen and identified in the preoperative area. Risks, benefits, complications, and alternatives were discussed with the patient. The patient agreed to proceed with the procedure and signed the consent. IV was started, and vital signs were stable. Patient was taken to the OR and time out was completed. The patient was placed in the prone position on procedure table and a pillow was placed under the abdomen to reduce lumbar lordosis. The lumbosacral area was prepped and draped in the usual sterile fashion. Vital signs were closely monitored during the procedure. lateral view and the anterior-posterior plates of the sacrum were identified with infiltration of the area overlying the sacral hiatus with 1% lidocaine .A 17 gauge RK epidural needle was used to advance through the sacral hiatus into the caudal epidural space. Omnipaque 180 dye. 2cc was injected and the position of the needle was verified to be in the midline. A Racz catheter was introduced into the epidural space and was advanced towards the L5-S1 interspace under direct fluoroscopic guidance. Multiple passes were made with the catheter for lysis of epidural adhesions. Depo-Medrol 80 mg ( preservative-free ) with 3ml of preservative free Lidocaine 1% and 5 ml of preservative free normal saline was injected slowly. Additional spread was seen to L4 under fluoroscopy. The needle and the catheter were withdrawn intact. EPIDUROGRAM: Omnipaque 180 mg dye 2 ml was injected with spread of the dye into the caudal epidural space and with spread cutoff at L5 prior to epidurolysis. Post epidurolysis dye 2 ml was injected and spread was seen to L3-4.There was further spread of the solution together with the dye above the L3 COMPLICATIONS: None. DISPOSITION / PLANS: The patient was placed in a supine position and transferred to the recovery area in a stable condition for observation and was discharged from the recovery room after meeting discharge criteria. Home discharge instructions given to the patient by the staff. The patient was reexamined prior to discharge. The patient will schedule a follow up in the clinic in 2-4 weeks. note= last dose of and Eliquis was more than 72 hours ago
[2022-06-18] MEDS ORDERED: IV FLUID CONTINUATION 1,000 ML IV ONE (09:47)
[2022-06-18 10:05] VITALS: BP 101/64; PULSE 58; RESP 20
--- NOTE | 2022-06-18 11:04 | FL ---
EXAMINATION TYPE: FL guided pain mgmt statistic DATE OF EXAM: 06/18/2022 HISTORY: Fluoroscopy time Total dose area product (DAP) in mGy*cm? DAP .[id number] IMPRESSION: 1. Fluoroscopy time.
== END 2022-06-18 10:17 ==
LOC: ORPAIN 08:41
PROVIDERS: ATTEND Specialist
DX: M96.1 Postlaminectomy syndrome, not elsewhere classified (principal); M54.16 Radiculopathy, lumbar region; Z88.8 Allergy status to other drugs, medicaments and biological substances
CPT/HCPCS: 62264; 99152; J2250; J1040; J3010; Q9966; C1894

== ENCOUNTER → 2022-07-09 | Outpatient (CLI) | payer BC, MEDICARE ==
[2022-07-09 13:19] VITALS: BP 83/53; PULSE 66; RESP 18; TEMP 98
--- NOTE | 2022-07-09 15:21 | P.PAINPG ---
PQRS Measure Charge Sheet Comment: A 62 yr old wheelchair bound female with a history of severe and chronic LBP secondary to lumbar DDD and spondylosis with facet arthropathy without myelopathy presents today for evaluation s/p Caudal [place] w Lysis. Pt states she experienced 50 % pain relief x 3 wks s/p procedure. Pain level is provoked at 5 /10 in intensity, constant, localized in the R lumbar spine, sore in character w shooting towards the R hip and RLE. Pain is provoked by laying supine, walking/ standing for periods of 20 min or more. Pain is alleviated with PT in 2019 which was ineffective, chiropractic treatments semi monthly as needed, heat, reclining, repositioning and rest. Interventional pain procedures completed include Caudal [place] w Lysis, R SI, BL SI x2, BL RFA L5-S1 Patient is currently on [place], Neurontin, Baclofen Patient denies any side effects of the medication(s), denies excessive drowsiness or sleepiness, denies suicidal ideation and reports that the current pain medication is helping to control the pain and improve activities of daily living. Patient denies any motor or sensory deficits. Patient denies any fever or night sweats, denies any change in the bowel movements or urination. Physical Examination: -Constitutional: Cooperative. Not in acute distress . - Neurologic: Cranial nerve II to XII intact. No focal neurological deficits. - Psychatric: Alert & oriented x 3. Matching mood & appropriate affect. Judgment and insight intact. - Musculoskeletal: Cervical spine: Muscle bulk/ tone/ strength in the bilateral upper extremities normal Vertebral body tenderness to palpation over [place] test positive Distraction test positive Facet loading test positive TTP Thoracic spine Muscle bulk / tone/ strength in the bilateral paraspinal muscles normal Vertebral body tender to palpation over Facet loading test positive TTP Lumbar spine: Motor bulk/ tone/ strength lower extremities , thigh and legs : 5/5 Deep tendon reflexes : Normal Knee Jerk. Normal Ankle Jerk . Vertebral body tenderness to palpation over [place] Test positive Lumbar Facet Loading Test positive Straight Leg Raise: positive at 30 degrees right side/ left side Gaenslen's Test positive Sacral spine : Severe tenderness over the Sacroiliac joint: right side / left side Range of motion: Flexion of the lumbar spine <60 degrees Range of motion: Extension of the lumbar spine <20 degrees Gaenslen's Test positive right side / left side Rakesh test: positive right side / left side Thigh Thrust Test positive right side / left side Sacral Thrust Test positive right side / left side Assessment and plan: Chronic LBP secondary to lumbar DDD, spondylosis with facet arthropathy without myelopathy Pt found significant pain relief and will manage residual pain at home. She may return to this clinic on an as needed basis. All questions answered. I have spent less than 30 minutes on patient care today. Dr Howe was available by phone for the evaluation of this patient. The time was used to review the medical records including relevant urine studies and Prescription history (MAPs), review of the available imaging, evaluation and examination of the patient, coordination of care with the medical staff and if applicable referring physicians, as well as creation of the medical record PQRS Narrative: Smoking Status Former smoker Hx Alcohol Use (MH) No Home Medications: Ambulatory Orders ALPRAZolam [Xanax] 0.5 mg PO TID 08/20/14 levETIRAcetam [Keppra] 500 mg PO Q12HR 08/20/14 Apixaban [Eliquis] 5 mg PO BID 09/08/18 Atorvastatin [Lipitor] 40 mg PO DAILY 09/08/18 Vortioxetine Hydrobromide [Trintellix] 10 mg PO BID 09/08/18 Sotalol [Betapace] 120 mg PO BID 01/05/19 Budesonide-Formot 160-4.5 Mcg [Symbicort 160-4.5 Mcg Inhaler] 2 puff INHALATION RT-BID 03/08/19 methIMAzole [Tapazole] 5 mg PO DAILY 12/05/19 busPIRone HCL 30 mg PO BID 03/19/20 HYDROcodone/APAP 5-325MG [[place] 5-325] 1 tab PO TID PRN 05/13/20 Baclofen [Lioresal] 20 mg PO TID 09/25/20 Gabapentin 300 mg PO 0900,1500 09/25/20 Lidocaine 5% Patch [Lidoderm] 1 patch TOPICAL DAILY PRN 09/25/20 Mirtazapine [Remeron] 45 mg PO HS 09/25/20 Rimegepant Sulfate [Nurtec Odt] 75 mg PO BID PRN 09/25/20 Trospium Chloride 20 mg PO BID 09/25/20 Furosemide [Lasix] 40 mg PO DAILY 11/25/20 Fluticasone Nasal [place] [Flonase Nasal [place]] 2 spray EA NOSTRIL BID 03/17/21 Multivit-Min/Iron/Folic/Lutein [Centrum Silver Women Tablet] 1 each PO DAILY 11/11/21 Turmeric Root Extract [Turmeric] 1,000 mg PO DAILY 11/11/21 Ascorbic Acid [Vitamin C] 1,000 mg PO DAILY 12/04/21 Montelukast [Singulair] 10 mg PO HS 12/04/21 Pantoprazole Sodium 40 mg PO BID 12/04/21 Vitamin A 2,400 mcg PO DAILY 12/04/21 Gabapentin 600 mg PO HS 12/11/21 Aspirin [Adult Low Dose Aspirin EC] 81 mg PO DAILY 06/08/22 [id number] [Excedrin] 1 each PO DIRECTED PRN 06/08/22 Budesonide/Glycopyr/Formoterol [Breztri Aerosphere Inhaler] 1 puff INHALATION BID 06/08/22 Cholecalciferol (Vitamin D3) [Vitamin D3 (125 MCG = 5,000 IU)] 250 mcg PO DAILY 06/08/22 Collagen Supplement 1 dose PO DAILY 06/08/22 Fexofenadine HCl [Anne Allergy] 180 mg PO DAILY 06/08/22 Ipratropium [place] Updraft 1 dose INHALATION Q6HR 06/08/22 Magnesium Oxide [Magnesium] 500 mg PO DAILY 06/08/22 prednisoLONE ACETATE 1% OPHTH [Pred Forte 1%] 1 drops BOTH EYES Q2D 06/08/22 Controlled Substance Measures - Controlled Substance Measures Is patient prescribed a controlled substance at discharge?: No
== END ==
LOC: PNWHC3 12:44
PROVIDERS: ATTEND Specialist
DX: M51.36 Other intervertebral disc degeneration, lumbar region (principal); M47.816 Spondylosis without myelopathy or radiculopathy, lumbar region; G89.29 Other chronic pain; Z87.891 Personal history of nicotine dependence; Z79.82 Long term (current) use of aspirin; Z88.0 Allergy status to penicillin; Z88.2 Allergy status to sulfonamides; Z88.8 Allergy status to other drugs, medicaments and biological substances
CPT/HCPCS: 99211

== ENCOUNTER 2022-09-20 12:27 | Inpatient (IN) | payer BC, MEDICARE ==
[2022-09-20] MEDS ORDERED: methylPREDNISolone SOD SUCCI 125 MG/2 ML VIAL IV STA (13:08)
[2022-09-20] MEDS ORDERED: IPRATROPIUM-ALBUTEROL 3 ML NEB INHALATION STA (13:08)
[2022-09-20] MEDS ORDERED: SODIUM CHLORIDE 0.9% 1,000 ML IV STA (13:08)
--- NOTE | 2022-09-20 13:22 | ED ---
SOB HPI - General Chief Complaint: Shortness of Breath Stated Complaint: Low oxygen level; couple of falls today Time Seen by Provider: 09/20/22 12:39 Source: patient, RN notes reviewed Mode of arrival: wheelchair - History of Present Illness Initial Comments: 63-year-old female history of COPD and emphysema who presented by private vehicle today with complaints of shortness of breath hypoxemia generalized weakness she also fell and hit her head today she is not on blood thinners but she does complain some head neck pain. She states she struck the left occipital area on concrete. No focal weakness but generalized weakness but she's had this for some period of time. She has had chills and has had sweats cough. Yellow- green phlegm. No overt chest pain she has also apparently been noncompliant with using her home oxygen per her family. She still smokes. The pulse oximetry was noted to be in the high 70s at home 83 upon arrival here. Patient is supposed be on 2 L of oxygen but has been again noncompliant. MD Complaint: shortness of breath, cough - Related Data Home Medications Medication Instructions Recorded Confirmed ALPRAZolam [Xanax] 0.5 mg PO TID 08/20/14 06/18/22 levETIRAcetam [Keppra] 500 mg PO Q12HR 08/20/14 06/18/22 Apixaban [Eliquis] 5 mg PO BID 09/08/18 06/18/22 Atorvastatin [Lipitor] 40 mg PO DAILY 09/08/18 06/18/22 Vortioxetine Hydrobromide 10 mg PO BID 09/08/18 06/18/22 [Trintellix] Sotalol [Betapace] 120 mg PO BID 01/05/19 06/18/22 Budesonide-Formot 160-4.5 Mcg 2 puff INHALATION RT-BID 03/08/19 06/18/22 [Symbicort 160-4.5 Mcg Inhaler] methIMAzole [Tapazole] 5 mg PO DAILY 12/05/19 06/18/22 busPIRone HCL 30 mg PO BID 03/19/20 06/18/22 HYDROcodone/APAP 5-325MG [[place] 1 tab PO TID PRN 05/13/20 06/18/22 5-325] Baclofen [Lioresal] 20 mg PO TID 09/25/20 06/18/22 Gabapentin 300 mg PO 0900,1500 09/25/20 06/18/22 Lidocaine 5% Patch [Lidoderm] 1 patch TOPICAL DAILY PRN 09/25/20 06/18/22 Mirtazapine [Remeron] 45 mg PO HS 09/25/20 06/18/22 Rimegepant Sulfate [Nurtec Odt] 75 mg PO BID PRN 09/25/20 06/18/22 Trospium Chloride 20 mg PO BID 09/25/20 06/18/22 Furosemide [Lasix] 40 mg PO DAILY 11/25/20 06/18/22 Fluticasone Nasal [place] [Flonase 2 spray EA NOSTRIL BID 03/17/21 06/18/22 Nasal [place]] Multivit-Min/Iron/Folic/Lutein 1 each PO DAILY 11/11/21 06/18/22 [Centrum Silver Women Tablet] Turmeric Root Extract [Turmeric] 1,000 mg PO DAILY 11/11/21 06/18/22 Ascorbic Acid [Vitamin C] 1,000 mg PO DAILY 12/04/21 06/18/22 Montelukast [Singulair] 10 mg PO HS 12/04/21 06/18/22 Pantoprazole Sodium 40 mg PO BID 12/04/21 06/18/22 Vitamin A 2,400 mcg PO DAILY 12/04/21 06/18/22 Gabapentin 600 mg PO HS 12/11/21 06/18/22 Aspirin [Adult Low Dose Aspirin EC] 81 mg PO DAILY 06/08/22 06/18/22 [id number] 1 each PO DIRECTED PRN 06/08/22 06/18/22 [Excedrin] Budesonide/Glycopyr/Formoterol 1 puff INHALATION BID 06/08/22 06/18/22 [Breztri Aerosphere Inhaler] Cholecalciferol (Vitamin D3) 250 mcg PO DAILY 06/08/22 06/18/22 [Vitamin D3 (125 MCG = 5,000 IU)] Collagen Supplement 1 dose PO DAILY 06/08/22 06/18/22 Fexofenadine HCl [Anne Allergy] 180 mg PO DAILY 06/08/22 06/18/22 Ipratropium [place] Updraft 1 dose INHALATION Q6HR 06/08/22 06/18/22 Magnesium Oxide [Magnesium] 500 mg PO DAILY 06/08/22 06/18/22 prednisoLONE ACETATE 1% OPHTH 1 drops BOTH EYES Q2D 06/08/22 06/18/22 [Pred Forte 1%] Allergies Allergy/AdvReac Type Severity Reaction Status Date / Time amoxicillin trihydrate Allergy Rash/Hives Verified 09/20/22 12:37 [From Augmentin] potassium clavulanate Allergy Rash/Hives Verified 09/20/22 12:37 [From Augmentin] pregabalin [From Lyrica] Allergy Swelling Verified 09/20/22 12:37 tongue, disoriented sulfamethoxazole Allergy Rash/Hives Verified 09/20/22 12:37 [From Bactrim] trimethoprim [From Bactrim] Allergy Rash/Hives Verified 09/20/22 12:37 Review of Systems ROS Statement: Those systems with pertinent positive or pertinent negative responses have been documented in the HPI. ROS Other: All systems not noted in ROS Statement are negative. Past Medical History Past Medical History: Atrial Fibrillation, Asthma, Cancer, Heart Failure, COPD, Fibromyalgia, GERD/Reflux, Hearing Disorder / Deafness, Hyperlipidemia, Hypertension, Musculoskeletal Disorder, Respiratory Disorder, Seizure Disorder, Sleep Apnea/CPAP/BIPAP, Thyroid Disorder Additional Past Medical History / Comment(s): Diverticulitis., last seizure 2014., lung cancer June 2018 with left upper lobectomy., Hyperthyroid. No tx for Sleep Apnea. receives bladder injections for incontinence., Chronic back pain., Neuropathy in hands and feet. , states venous insufficiencey -varicose veins., rash left elbow, constipation, igiugig -does not wear her hearing aids., states CHF ., oxygen at 2 liters. History of Any Multi-Drug Resistant Organisms: None Reported Past Surgical History: Appendectomy, Back Surgery, Breast Surgery, Section, Cholecystectomy, Hernia Repair, Hysterectomy, Orthopedic Surgery Additional Past Surgical History / Comment(s): Lumbar fusion, neck fusion, left knee surgery X3(ACL X2 and arthroscopy X1), ganglion cyst excision bilateral wrists, lymph node/gland removed from neck, left elbow surgery - ulnar nerve entrapment, eye lid lift, left ovary removed, left upper lobectomy, Pain Clinic Procedures, breast biopsy, sinus surgery/deviated septum repair, spinal stimulator inserted and removed - leads remain in place., colonoscopy (06/04/22), ablation of varicose veins. Past Anesthesia/Blood Transfusion Reactions: No Reported Reaction, Motion Sickness Past Psychological History: Anxiety, Depression, Panic Disorder Smoking Status: Current every day smoker Past Alcohol Use History: None Reported Past Drug Use History: Marijuana - Past Family History Daughter(s) Family Medical History: Cancer Additional Family Medical History / Comment(s): Colon cancer. Brother(s) Family Medical History: Cancer Additional Family Medical History / Comment(s): Prostate cancer. Father Family Medical History: Cancer Additional Family Medical History / Comment(s): Colon cancer. Sister(s) Family Medical History: Cancer Additional Family Medical History / Comment(s): Bladder cancer. General Exam - General Exam Comments Initial Comments: This is a well-developed well-nourished awake alert oriented 4 female General appearance: alert, anxious Head exam: Present: atraumatic, normocephalic, normal inspection Eye exam: Present: normal appearance, PERRL, EOMI. Absent: scleral icterus, conjunctival injection, periorbital swelling ENT exam: Present: mucous membranes dry Neck exam: Present: normal inspection. Absent: tenderness, meningismus, lymphadenopathy Respiratory exam: Present: decreased breath sounds, other (Patient does demonstrate evidence of kyphosis). Absent: respiratory distress, wheezes, rales, rhonchi, stridor, chest wall tenderness Cardiovascular Exam: Present: regular rate, normal rhythm, normal heart sounds. Absent: systolic murmur, diastolic murmur, rubs, gallop, clicks GI/Abdominal exam: Present: soft, normal bowel sounds. Absent: distended, tenderness, guarding, rebound, rigid Extremities exam: Present: full ROM, normal capillary refill, pedal edema, other (Trace edema more so on the right the left). Absent: tenderness, joint swelling, calf tenderness Back exam: Present: full ROM, other (Kyphosis as stated above) Neurological exam: Present: alert, oriented X3, CN II-XII intact Psychiatric exam: Present: normal affect, normal mood Skin exam: Present: warm, dry, intact, normal color. Absent: rash Course Vital Signs 09/20/22 09/20/22 09/20/22 12:31 13:22 13:32 Temperature 98.1 F Pulse Rate 77 73 76 Respiratory 18 Rate Blood Pressure 108/72 O2 Sat by Pulse 83 L Oximetry 09/20/22 14:46 Temperature Pulse Rate 64 Respiratory 18 Rate Blood Pressure 93/63 O2 Sat by Pulse 96 Oximetry Medical Decision Making - Medical Decision Making I did discuss findings with patient family members patient does demonstrate evidence of COPD exacerbation and bronchitis she is also noncompliant with oxygen therapy. He will be admitted I did discuss the case with Dr. Scherer.Was pt. sent in by a medical professional or institution (, LISA, FOOD AND BEVERAGE SERVICE MANAGER, urgent care, hospital, or fpc...) When possible be specific @ -No Did you speak to anyone other than the patient for history (EMS, parent, family, police, friend...)? What history was obtained from this source @ -Family members Did you review nursing and triage notes (agree or disagree)? Why? @ -I reviewed and agree with nursing and triage notes Were old charts reviewed (outside hosp., previous admission, EMS record, old EKG, old radiological studies, urgent care reports/EKG's, fpc records)? Report findings @ - old charts were reviewed Differential Diagnosis (chest pain, altered mental status, abdominal pain women, abdominal pain men, vaginal bleeding, weakness, fever, dyspnea, syncope, headache, dizziness, GI bleed, back pain, seizure, CVA, palpatations, mental health, musculoskeletal)? @ -COPD exacerbation, pneumonia EKG interpreted by me (3pts min.). @ -EKG interpreted by me sinus rhythm with first-degree AV block rate 73. Interval 04/13/1969 QRS duration 82 QT/QTC 470/443 X-rays interpreted by me (1pt min.). @ -Interpreted by me no acute process seen evidence of COPD no definitive infiltrates CT interpreted by me (1pt min.). @ -None done U/S interpreted by me (1pt. min.). @ -None done What testing was considered but not performed or refused? (CT, X-rays, U/S, labs)? Why? @ -None What meds were considered but not given or refused? Why? @ -None Did you discuss the management of the patient with other professionals (professionals i.e. , LISA, FOOD AND BEVERAGE SERVICE MANAGER, lab, RT, psych nurse, pediatric social worker, superintendent menagerie, teacher, chief operating officer, foster care case manager)? Give summary @ -No Was smoking cessation discussed for >3mins.? @ -No Was critical care preformed (if so, how long)? @ -31 minutes Were there social determinants of health that impacted care today? How? (Homelessness, low income, unemployed, alcoholism, drug addiction, transportation, low edu. Level, literacy, decrease access to med. care, halfway, rehab)? @ -No Was there de-escalation of care discussed even if they declined (Discuss DNR or withdrawal of care, Hospice)? DNR status @ -No What co-morbidities impacted this encounter? (DM, HTN, Smoking, COPD, CAD, Cancer, CVA, ARF, Chemo, Hep., AIDS, mental health diagnosis, sleep apnea, morbid obesity)? @ -COPD, lung cancer, hypertension, oxygen dependence, history of A. fib] Was patient admitted / discharged? Hospital course, mention meds given and route, prescriptions, significant lab abnormalities, going to OR and other pertinent info. @ -hospital course patient was admitted to this facility for inpatient treatment Undiagnosed new problem with uncertain prognosis? @ -No Drug Therapy requiring intensive monitoring for toxicity (Heparin, Nitro, Insulin, Cardizem)? @ -No Were any procedures done? @ -No Diagnosis/symptom? @ -COPD exacerbation and acute bronchitis, hypoxemia Acute, or Chronic, or Acute on Chronic? @ -Acute on chronic] Uncomplicated (without systemic symptoms) or Complicated (systemic symptoms)? @ -default Side effects of treatment? @ -No Exacerbation, Progression, or Severe Exacerbation? @ -Exacerbation Poses a threat to life or bodily function? How? (Chest pain, [place], NM, pneumonia, PE, COPD, DKA, ARF, appy, cholecystitis, CVA, Diverticulitis, Homicidal, Suicidal, threat to staff... and all critical care pts) @ -COPD - Lab Data Result diagrams: 09/20/22 13:19 09/20/22 13:18 Lab Results 09/20/22 09/20/22 09/20/22 Range/Units 13:18 13:19 13:19 WBC 8.5 (3.8-10.6) k/uL RBC 4.45 (3.80-5.40) m/uL Hgb 16.4 H (11.4-16.0) gm/dL Hct 47.5 H (34.0-46.0) % MCV 106.8 H (80.0-100.0) fL MCH 36.8 H (25.0-35.0) pg MCHC 34.5 (31.0-37.0) g/dL RDW 14.5 (11.5-15.5) % Plt Count 133 L (150-450) k/uL MPV 7.7 Neutrophils % 73 % Lymphocytes % 18 % Monocytes % 7 % Eosinophils % 0 % Basophils % 1 % Neutrophils # 6.1 (1.3-7.7) k/uL Lymphocytes # 1.5 (1.0-4.8) k/uL Monocytes # 0.6 (0-1.0) k/uL Eosinophils # 0.0 (0-0.7) k/uL Basophils # 0.1 (0-0.2) k/uL Macrocytosis Moderate PT 10.1 (9.0-12.0) sec INR 1.0 (<1.2) APTT 25.6 (22.0-30.0) sec Sodium 141 (137-145) mmol/L Potassium 3.8 (3.5-5.1) mmol/L Chloride 103 (98-107) mmol/L Carbon Dioxide 34 H (22-30) mmol/L Anion Gap 4 mmol/L BUN 13 (7-17) mg/dL Creatinine 0.67 (0.52-1.04) mg/dL Est GFR (CKD-EPI)AfAm >90 (>60 ml/min/1.73 sqM) Est GFR (CKD-EPI)NonAf >90 (>60 ml/min/1.73 sqM) Glucose 102 H (74-99) mg/dL Plasma Lactic Acid Evan (0.7-2.0) mmol/L Calcium 9.8 (8.4-10.2) mg/dL Magnesium 2.1 (1.6-2.3) mg/dL Total Bilirubin 0.6 (0.2-1.3) mg/dL AST 55 H (14-36) U/L ALT 33 (4-34) U/L Alkaline Phosphatase 96 (38-126) U/L Troponin I (0.000-0.034) ng/mL NT-Pro-B Natriuret Pep 639 pg/mL Total Protein 6.9 (6.3-8.2) g/dL Albumin 4.1 (3.5-5.0) g/dL Influenza Type A (PCR) (Not Detectd) Influenza Type B (PCR) (Not Detectd) RSV (PCR) (Not Detectd) SARS-CoV-2 (PCR) (Not Detectd) 09/20/22 09/20/22 09/20/22 Range/Units 13:19 13:19 13:19 WBC (3.8-10.6) k/uL RBC (3.80-5.40) m/uL Hgb (11.4-16.0) gm/dL Hct (34.0-46.0) % MCV (80.0-100.0) fL MCH (25.0-35.0) pg MCHC (31.0-37.0) g/dL RDW (11.5-15.5) % Plt Count (150-450) k/uL MPV Neutrophils % % Lymphocytes % % Monocytes % % Eosinophils % % Basophils % % Neutrophils # (1.3-7.7) k/uL Lymphocytes # (1.0-4.8) k/uL Monocytes # (0-1.0) k/uL Eosinophils # (0-0.7) k/uL Basophils # (0-0.2) k/uL Macrocytosis PT (9.0-12.0) sec INR (<1.2) APTT (22.0-30.0) sec Sodium (137-145) mmol/L Potassium (3.5-5.1) mmol/L Chloride (98-107) mmol/L Carbon Dioxide (22-30) mmol/L Anion Gap mmol/L BUN (7-17) mg/dL Creatinine (0.52-1.04) mg/dL Est GFR (CKD-EPI)AfAm (>60 ml/min/1.73 sqM) Est GFR (CKD-EPI)NonAf (>60 ml/min/1.73 sqM) Glucose (74-99) mg/dL Plasma Lactic Acid Evan 1.2 (0.7-2.0) mmol/L Calcium (8.4-10.2) mg/dL Magnesium (1.6-2.3) mg/dL Total Bilirubin (0.2-1.3) mg/dL AST (14-36) U/L ALT (4-34) U/L Alkaline Phosphatase (38-126) U/L Troponin I <0.012 (0.000-0.034) ng/mL NT-Pro-B Natriuret Pep pg/mL Total Protein (6.3-8.2) g/dL Albumin (3.5-5.0) g/dL Influenza Type A (PCR) Not Detected (Not Detectd) Influenza Type B (PCR) Not Detected (Not Detectd) RSV (PCR) Not Detected (Not Detectd) SARS-CoV-2 (PCR) Not Detected (Not Detectd) - EKG Data -: EKG Interpreted by Me EKG shows normal: sinus rhythm EKG Comments: EKG interpreted by me sinus rhythm first-degree AV block rate 73. Interval 04/13/1969 QRS duration 82 daily since QTC 470/[address]-T wave changes - Radiology Data Interpreted by me: Imaging interpreted by me no evidence of acute processes evidence of COPD Critical Care Time Critical Care Time: Yes Total Critical Care Time: 31 Disposition Clinical Impression: Acute exacerbation of chronic obstructive pulmonary disease, Acute respiratory distress syndrome in adult, Acute bronchitis, Hypoxemia Disposition: ADMITTED IP TO THIS HOSP Condition: Fair Referrals: Skip Orellana DO [Primary Care Provider] - 1-2 days Decision Date: 09/20/22 Decision Time: 15:54
--- NOTE | 2022-09-20 13:47 | XR ---
EXAMINATION TYPE: XR chest 2V DATE OF EXAM: 09/20/2022 1:41 PM COMPARISON: Chest radiographs from 06/10/2022 TECHNIQUE: XR chest 2V 2. CLINICAL INDICATION:Female, 62 years old with history of difficulty breathing; FINDINGS: Lungs/Pleura: There is flattening of the diaphragm with increased lucency of the lungs. No evidence o f pneumothorax or pleural effusion. Bibasilar patchy airspace opacities. Pulmonary vascularity: Unremarkable. Heart/mediastinum: Cardiomediastinal silhouette is unremarkable. Musculoskeletal: No acute osseous pathology. Degenerative changes of the thoracic spine. Neurostimula tor lead identified. Cervical fusion hardware. IMPRESSION: Bibasilar patchy airspace opacities which may represent atelectasis versus infiltrates in the appropr iate clinical setting.
[2022-09-20 13:55] LABS: Potassium 3.8 mmol/L (3.5-5.1)
[2022-09-20 13:56] LABS: Basophils # (A) 0.1 k/uL (0-0.2); Basophils % (A) 1 %; Eosinophils % (A) 0 %; HCT 47.5 % (34.0-46.0); HGB 16.4 gm/dL (11.4-16.0); Lymphocytes # (A) 1.5 k/uL (1.0-4.8); Lymphocytes % (A) 18 %; MCH 36.8 pg (25.0-35.0); MCHC 34.5 g/dL (31.0-37.0); MCV 106.8 fL (80.0-100.0); Macrocytosis Moderate; Mean Platelet Volume 7.7; Monocytes # (A) 0.6 k/uL (0-1.0); Monocytes % (A) 7 %; Neutrophils # (A) 6.1 k/uL (1.3-7.7); Neutrophils % (A) 73 %; Platelet Count 133 k/uL (150-450); RBC 4.45 m/uL (3.80-5.40); RDW 14.5 % (11.5-15.5); WBC 8.5 k/uL (3.8-10.6)
[2022-09-20 13:56] LABS: ALT 33 U/L (4-34); AST 55 U/L (14-36); African American GFR (CKD) >90 (>60 ml/min/1.73 sqM); Albumin 4.1 g/dL (3.5-5.0); Alkaline Phosphatase 96 U/L (38-126); Anion Gap 4 mmol/L; Blood Urea Nitrogen 13 mg/dL (7-17); Calcium 9.8 mg/dL (8.4-10.2); Carbon Dioxide 34 mmol/L (22-30); Chloride 103 mmol/L (98-107); Glucose 102 mg/dL (74-99); Magnesium 2.1 mg/dL (1.6-2.3); Non-African American GFR(CKD) >90 (>60 ml/min/1.73 sqM); Sodium 141 mmol/L (137-145); Total Bilirubin 0.6 mg/dL (0.2-1.3); Total Protein 6.9 g/dL (6.3-8.2)
[2022-09-20 14:00] LABS: NT-Pro-B-Type Natriuretic Pept 639 pg/mL
[2022-09-20 14:05] LABS: Partial Thromboplastin Time 25.6 sec (22.0-30.0); Prothrombin Time 10.1 sec (9.0-12.0)
--- NOTE | 2022-09-20 14:09 | CT ---
EXAMINATION TYPE: CT brain cspine wo con CT DLP: 1427.9 mGycm, Automated exposure control for dose reduction was used. DATE OF EXAM: 09/20/2022 2:00 PM COMPARISON: CT brain 03/13/2019. CLINICAL INDICATION:Female, 62 years old with history of Trauma; recent falls TECHNIQUE: Brain: Multiple axial CT images of the brain were obtained without IV contrast. Cspine: Axial CT images from the skull base to the inferior aspect of T2 we obtained without intraven ous contrast. Coronal and sagittal reformatted images were also reviewed. FINDINGS: Brain: Extra-axial spaces: No abnormal extra-axial fluid collections. Ventricular system: Within normal limits Cerebral parenchyma: No acute intraparenchymal hemorrhage or mass effect. The jacobs-white junction is well differentiated. Cerebellum: Unremarkable. Mass effect: No evidence of midline shift. Intracranial vasculature: unremarkable Soft tissues: Normal. Calvarium/osseous structures: No depressed skull fracture. Benign hyperostosis frontalis noted. Paranasal sinuses and mastoid air cells: Mild scattered mucosal thickening and or secretions. Visualized orbits: Orbital contents are intact. Cervical spine: Fracture: None. Osseous structures: Anterior cervical fusion involving C5-C7. Hardware appears intact. Vertebral alignment: Within normal limits. Spinal canal/Neural Foramina: Disc osteophyte complexes at C4-C5 with at least mild spinal canal sten osis. No evidence for significant neural foraminal stenosis. Neck soft tissues: Prevertebral soft tissues are within normal limits. Macrocalcification within the right thyroid lobe. Other: The airway is patent. Centrilobular emphysematous changes. IMPRESSION: 1. No acute intracranial process. 2. No evidence of cervical spine fracture. 3. Postsurgical changes from ACDF C5-C7. Hardware appears intact. 4. Mild multilevel degenerative disc disease. 5. COPD changes.
[2022-09-20] MEDS ORDERED: ACETAMINOPHEN TAB 325 MG TAB PO PRN (15:54)
[2022-09-20] MEDS ORDERED: NALOXONE 0.4 MG/ML 1 ML VIAL IVP PRN (15:54)
[2022-09-20] MEDS ORDERED: HYDROcodone/APAP 5-325MG 1 EACH TAB PO PRN (15:56)
[2022-09-20] MEDS ORDERED: NON FORMULARY DRUG (Rimegepant Sulfate [Nurtec Odt] 75 MG Tab.Rapdis) PO PRN (15:56)
[2022-09-20] MEDS ORDERED: ASPIRIN-ACET-CAFF 250-250-65MG 1 EACH TAB PO PRN (15:56)
[2022-09-20] MEDS ORDERED: ALPRAZolam 0.5 MG TAB PO SCH (16:00)
[2022-09-20] MEDS: IPRATROPIUM-ALBUTEROL 3 ML NEB INHALATION SCH ×2 (16:35→21:16)
[2022-09-20] MEDS ORDERED: IPRATROPIUM-ALBUTEROL 3 ML NEB INHALATION PRN (17:05)
--- NOTE | 2022-09-20 17:05 | P.HPIM ---
History of Present Illness H&P Date: 09/20/22 History of Presenting Illness: Patient is a very particular 63-year-old female with a past medical history of atrial fibrillation on anticoagulation with Eliquis, hypertension, hyperlipidemia, fibromyalgia, lung cancer with left upper lobectomy, obstructive sleep apnea CPAP dependent nightly, and COPD with continued nicotine dependence and cannabinoid use. She presented to the emergency department with a chief complaint of shortness of breath, lethargy, and weakness. Patient and patient's at bedside reports these symptoms began yesterday. Patient has been reports she has been dozing off and falling over even hitting her head. Patient is on blood thinners with Eliquis. Patient's reports that she is supposed to be on home oxygen 2 L at all times along with CPAP nightly, however she has been noncompliant with this and has not used either in nearly a month and continues to smoke approximately one pack of cigarettes daily. Patient's reports that he first noticed that she was nodding off and having a difficult time staying awake yesterday. He reports he even asked her if she took more medication than she was supposed too but she denied. He states it wasn't long after this he noticed her having more labored breathing and complaining more about increasing shortness of breath and increasing frequency of her cough. Pt reports that her cough has been productive with yellowish colored phlegm. Her reports today she continued to worsen so he checked her oxygen levels and she was high 70s to low 80s so he brought her straight to the emergency department for evaluation. Patient denies any recent illnesses or being around any known ill contacts and denies having any fevers, chills, diaphoresis, headache, lightheadedness, dizziness, sore throat or dysphasia, chest pain or palpitations, nausea, vomiting, or experiencing any noted weakness/swelling/numbness in her extremities. patient denies having any known injuries from falls/falling over at home. Upon arrival to the emergency department she underwent full evaluation. Patient was found to be hypoxic at 83% on room air requiring immediate oxygen supplementation to maintain SpO2 of 90% or higher. CT head completed negative for acute intercranial process. CT cervical spine completed negative for evidence of fracture of cervical spine showing postsurgical changes C5 through C7 with hardware reporting to be intact and mild multilevel degenerative changes. Chest x-ray completed revealing bibasilar patchy airspace opacities with flattening of the diaphragm consistent with COPD and atelectasis. EKG completed showing normal sinus rhythm at 73 bpm with a first-degree AV block with IL interval of 227 ms T-wave inversion in septal leads V2 otherwise no noted T-wave or ST abnormalities upon personal review and interpretation. labs completed and reviewed. CBC showing polycythemia with elevated hemoglobin of 16.4 consistent with long-standing COPD and thrombocytopenia with platelet count of 133. BMP unremarkable with the exception of hypercarbia with carbon dioxide of 34. Liver profile showing slightly elevated AST of 55. Troponin negative at less than 0.012. ProBNP 639. Influenza A, influenza B, RSV, and Covid PCR were all negative. Discussed patient history along with presenting complaints and physical exam findings, la boratory analysis, and imaging results in detail with the ED physician. Patient to be admitted under our services for COPD exacerbation with consultation to burnisher and bumper. Review of systems: Pertinent positives and negatives as discussed in HPI, a complete review of systems was performed and all other systems are negative. Physical exam: Vital signs reviewed and stable. General: Nontoxic, no distress and appears stated age. Derm: Skin warm and dry, normal coloration for ethnicity. Head: Atraumatic, normocephalic and symmetric. Eyes: EOMs intact, no lid lag, and anicteric sclera Mouth: no lip lesions, mucus membranes moist Cardiovascular: regular rate and rhythm with normal S1S2, distant heart sounds, positive posterior tibial pulses bilaterally, and cap refill < 2 seconds. Lungs: Respirations regular rate with increased effort on 3 L O2 via nasal cannula. Lungs tight with little air movement and diffuse wheezing. No rales, crackles, or stridor noted. Patient had positive accessory muscle use usage. Abdominal: soft, nontender to palpation, no guarding, no appreciable organomegaly Ext: ROM intact. No gross muscle atrophy, no edema, no contractures Neuro: Speech clear, face symmetrical and CN II-XII grossly intact with no noted focal neuro deficits. Patient very somnolent/lethargic and nodding off repeatedly throughout assessment. Psych: Alert and oriented to person, place, time, and situation but very somnolent and repeatedly nodding off throughout assessment. Assessment and Plan of Care: Patient is a very pleasant 63-year-old female with a history of advanced COPD and previous lung cancer with left upper lobectomy along with obstructive sleep apnea on CPAP dependent nightly. Patient has been noncompliant with oxygen and CPAP usage and has not used either in nearly a month. She also reports continued nicotine dependence smoking approximately one pack of cigarettes daily. She presented to the emergency department today secondary to lethargy and shortness of breath. She was found to be hypoxic at 83% on room air requiring immediate oxygen supplementation to maintain SpO2 of 90% or higher. Acute on chronic respiratory failure with hypoxia and hypercarbia secondary to COPD exacerbation History of lung cancer with left upper lobectomy Obstructive sleep apnea CPAP dependent nightly Nicotine dependence Polycythemia secondary to COPD -Orders place for stat ABG along with continuous BiPAP with IPAP of 10, EPAP 5, FiO2 30% and to be titrated accordingly to keep SpO2 equal to or greater than 90%. -Order also placed for stat urine drug screen. -Consult placed to Pulmonology -Oxygenation to be administered and titrated as needed to maintain SPO2 equal to or greater than 92% -Chest x-ray completed revealing bibasilar patchy airspace opacities with flat tening of the diaphragm consistent with COPD and atelectasis. -EKG completed showing normal sinus rhythm at 73 bpm with a first-degree AV block with IL interval of 227 ms T-wave inversion in septal leads V2 otherwise no noted T-wave or ST abnormalities upon personal review and interpretation. -Labs completed and reviewed. CBC showing polycythemia with elevated hemoglobin of 16.4 consistent with long-standing COPD and thrombocytopenia with platelet count of 133. BMP unremarkable with the exception of hypercarbia with carbon dioxide of 34. Liver profile showing slightly elevated AST of 55. Troponin negative at less than 0.012. ProBNP 639. -Influenza A, influenza B, RSV, and Covid PCR were all negative. -Telemetry monitoring. -Monitor Pulse-oximetry -Duonebs scheduled for times daily and every 2 hours as needed for SOB and/or wheezing -Incentive Spirometry -Steroids: Patient received a Medrol 125 mg IVP 1 dose and placed on Solu- Medrol 60 mg IV every 6 hours. In addition patient to continue with daily Singulair 10 mg nightly and Symbicort 160/4.5 g 2 puffs twice daily. -Antibiotics: Empirically treat with doxycycline 100 mg twice daily 5 days. -Consult placed to COPD Navigator. Paroxysmal atrial fibrillation, currently maintaining sinus mechanism Hypertension Hyperlipidemia -Home medications reviewed and reordered. Patient to continue cardiac medication regimen with Eliquis 5 mg twice daily, aspirin 81 mg daily, atorv astatin 40 mg daily, Lasix 40 mg daily, and sotalol 120 mg twice daily Fall on blood thinners -CT head completed and radiology report reviewed Negative for acute intercranial process showing no signs of intracranial bleed. -CT cervical spine completed negative for evidence of fracture of cervical spine showing postsurgical changes C5 through C7 with hardware reporting to be intact and mild multilevel degenerative changes. Discussed patient history along with presenting complaints and physical exam findings, laboratory analysis, and imaging results in detail with the ED physician. Patient admitted under our services to general medical unit with t elemetry for COPD exacerbation. The patient is admitted with an anticipated greater than 2 midnight stay for evaluation of COPD exacerbation. CODE STATUS: Full code DVT prophylaxis: Eliquis Discussed with: Pt, patient's , ED physician and RN Anticipated discharge date: Clinical course to determine Anticipated discharge place: Home Patient was seen independently by Nurse Practitioner. This document was prepared using [employer] dictation software. Please allow for errors in dealer card room while rare they do occur. I reviewed the documentation as provided by the DONNA above, who is the original author of this note. I agree with the documented assessment and plan, with the following changes: none Past Medical History Past Medical History: Atrial Fibrillation, Asthma, Cancer, Heart Failure, COPD, Fibromyalgia, GERD/Reflux, Hearing Disorder / Deafness, Hyperlipidemia, Hypertension, Musculoskeletal Disorder, Respiratory Disorder, Seizure Disorder, Sleep Apnea/CPAP/BIPAP, Thyroid Disorder Additional Past Medical History / Comment(s): Diverticulitis., last seizure 2014., lung cancer June 2018 with left upper lobectomy., Hyperthyroid. No tx for Sleep Apnea. receives bladder injections for incontinence., Chronic back pain., Neuropathy in hands and feet. , states venous insufficiencey -varicose veins., rash left elbow, constipation, nulato -does not wear her hearing aids., states CHF ., oxygen at 2 liters. History of Any Multi-Drug Resistant Organisms: None Reported Past Surgical History: Appendectomy, Back Surgery, Breast Surgery, Se ction, Cholecystectomy, Hernia Repair, Hysterectomy, Orthopedic Surgery Additional Past Surgical History / Comment(s): Lumbar fusion, neck fusion, left knee surgery X3(ACL X2 and arthroscopy X1), ganglion cyst excision bilateral wrists, lymph node/gland removed from neck, left elbow surgery - ulnar nerve entrapment, eye lid lift, left ovary removed, left upper lobectomy, Pain Clinic Procedures, breast biopsy, sinus surgery/deviated septum repair, spinal stimulator inserted and removed - leads remain in place., colonoscopy (06/04/22), ablation of varicose veins. Past Anesthesia/Blood Transfusion Reactions: No Reported Reaction, Motion Sickness Past Psychological History: Anxiety, Depression, Panic Disorder Smoking Status: Current every day smoker Past Alcohol Use History: None Reported Past Drug Use History: Marijuana - Past Family History Daughter(s) Family Medical History: Cancer Additional Family Medical History / Comment(s): Colon cancer. Brother(s) Family Medical History: Cancer Additional Family Medical History / Comment(s): Prostate cancer. Father Family Medical History: Cancer Additional Family Medical History / Comment(s): Colon cancer. Sister(s) Family Medical History: Cancer Additional Family Medical History / Comment(s): Bladder cancer. Medications and Allergies Home Medications Medication Instructions Recorded Confirmed Type ALPRAZolam [Xanax] 0.5 mg PO TID 08/20/14 09/20/22 History levETIRAcetam [Keppra] 500 mg PO BID 08/20/14 09/20/22 History Apixaban [Eliquis] 5 mg PO BID 09/08/18 09/20/22 History Atorvastatin [Lipitor] 40 mg PO DAILY 09/08/18 09/20/22 History Vortioxetine Hydrobromide 10 mg PO BID 09/08/18 09/20/22 History [Trintellix] Sotalol [Betapace] 120 mg PO BID 01/05/19 09/20/22 History Budesonide-Formot 160-4.5 Mcg 2 puff INHALATION RT-BID 03/08/19 09/20/22 History [Symbicort 160-4.5 Mcg Inhaler] methIMAzole [Tapazole] 5 mg PO DAILY 12/05/19 09/20/22 History busPIRone HCL 30 mg PO BID 03/19/20 09/20/22 History Baclofen [Lioresal] 20 mg PO TID 09/25/20 09/20/22 History Gabapentin 300 mg PO BID@0900,1500 09/25/20 09/20/22 History Lidocaine 5% Patch [Lidoderm] 1 patch TRANSDERM DAILY PRN 09/25/20 09/20/22 History Rimegepant Sulfate [Nurtec Odt] 75 mg PO DAILY PRN 09/25/20 09/20/22 History Fluticasone Nasal [place] [Flonase 2 spr EA NOSTRIL BID 03/17/21 09/20/22 History Nasal [place]] Multivit-Min/Iron/Folic/Lutein 1 tab PO DAILY@1500 11/11/21 09/20/22 History [Centrum Silver Women Tablet] Turmeric Root Extract [Turmeric] 1,000 mg PO DAILY@1500 11/11/21 09/20/22 History Ascorbic Acid [Vitamin C] 1,000 mg PO DAILY@1500 12/04/21 09/20/22 History Montelukast [Singulair] 10 mg PO HS 12/04/21 09/20/22 History Vitamin A 2,400 mcg PO DAILY@1500 12/04/21 09/20/22 History Gabapentin 600 mg PO HS 12/11/21 09/20/22 History Aspirin [Adult Low Dose Aspirin EC] 81 mg PO DAILY 06/08/22 09/20/22 History Budesonide/Glycopyr/Formoterol 1 puff INHALATION RT-BID 06/08/22 09/20/22 History [Breztri Aerosphere Inhaler] Cholecalciferol (Vitamin D3) 250 mcg PO DAILY@1500 06/08/22 09/20/22 History [Vitamin D3 (125 MCG = 5,000 IU)] Fexofenadine HCl [Anne Allergy] 180 mg PO HS 06/08/22 09/20/22 History Magnesium Oxide [Magnesium] 500 mg PO DAILY@1500 06/08/22 09/20/22 History Albuterol Sulfate [Ventolin HFA] 1 - 2 puff INHALATION RT-Q4H PRN 09/20/22 09/20/22 History Collagen W/Vitamin C 1 tab PO DAILY@1500 09/20/22 09/20/22 History Diclofenac Sodium Gel [Voltaren 2 - 4 gm TOPICAL QID PRN 09/20/22 09/20/22 History Gel] Furosemide [Lasix] 40 mg PO DAILY 09/20/22 09/20/22 History HYDROcodone/APAP 7.5-325MG [[place] 1 tab PO TID 09/20/22 09/20/22 History 7.5-325] Ipratropium-Albuterol Nebulize 3 ml INHALATION RT-QID PRN 09/20/22 09/20/22 History [Duoneb 0.5 mg-3 mg/3 ml Soln] Metamucil Gummy 2 tab PO DAILY@1500 09/20/22 09/20/22 History Mirtazapine [Remeron] 45 mg PO HS 09/20/22 09/20/22 History Pantoprazole [Protonix] 40 mg PO BID 09/20/22 09/20/22 History Solifenacin Succinate [Vesicare] 10 mg PO DAILY 09/20/22 09/20/22 History Sucralfate [Carafate] 1 gm PO AC-TID 09/20/22 09/20/22 History Topiramate [Topamax] 50 mg PO BID 09/20/22 09/20/22 History Allergies Allergy/AdvReac Type Severity Reaction Status Date / Time amoxicillin trihydrate Allergy Rash/Hives Verified 09/20/22 18:33 [From Augmentin] potassium clavulanate Allergy Rash/Hives Verified 09/20/22 18:33 [From Augmentin] pregabalin [From Lyrica] Allergy Swelling Verified 09/20/22 18:33 tongue, disoriented sulfamethoxazole Allergy Rash/Hives Verified 09/20/22 18:33 [From Bactrim] trimethoprim [From Bactrim] Allergy Rash/Hives Verified 09/20/22 18:33 Physical Exam Osteopathic Statement: *. No significant issues noted on an osteopathic structural exam other than those noted in the History and Physical/Consult. Vitals: Vital Signs Temp Pulse Resp BP Pulse Ox 09/20/22 16:46 61 09/20/22 16:35 62 09/20/22 16:24 57 L 18 103/63 99 09/20/22 14:46 64 18 93/63 96 09/20/22 13:32 76 09/20/22 13:22 73 09/20/22 12:31 98.1 F 77 18 108/72 83 L Intake and Output 09/20/22 09/20/22 09/20/22 06:59 14:59 22:59 Other: Weight 74.843 kg Results CBC & Chem 7: 09/20/22 13:19 09/20/22 13:18 Labs: Abnormal Lab Results - Last 24 Hours (Table) 09/20/22 09/20/22 Range/Units 13:18 13:19 Hgb 16.4 H (11.4-16.0) gm/dL Hct 47.5 H (34.0-46.0) % MCV 106.8 H (80.0-100.0) fL MCH 36.8 H (25.0-35.0) pg Plt Count 133 L (150-450) k/uL Carbon Dioxide 34 H (22-30) mmol/L Glucose 102 H (74-99) mg/dL AST 55 H (14-36) U/L
[2022-09-20 18:10] LABS: ABG Base Excess 6.6 mmol/L; ABG HCO3 33 mmol/L (21-25); ABG Oxygen Saturation 96.4 % (94-97); ABG PCO2 66 mmHg (35-45); ABG PO2 86 mmHg (83-108); ABG TCO2 35 mmol/L (19-24); Allen Test Performed? Yes
[2022-09-20] MEDS ORDERED: methylPREDNISolone SOD SUCCI 125 MG/2 ML VIAL IV SCH (19:00)
[2022-09-20] MEDS: BACLOFEN 10 MG TAB PO SCH ×2 (19:33→22:19)
[2022-09-20] MEDS: PANTOPRAZOLE SODIUM 40 MG GRANULE PKT PO SCH (19:33)
[2022-09-20] MEDS ORDERED: NON FORMULARY DRUG (Budesonide/Glycopyr/Formoterol [Breztri Aerosphere Inhaler] 10.7 GM Gm INHALATION SCH (21:00)
[2022-09-20] MEDS ORDERED: GABAPENTIN 300 MG CAP PO SCH (21:00)
[2022-09-20] MEDS: SYMBICORT 160-4.5 MCG INHALER INHALATION SCH (21:17)
[2022-09-20] MEDS: SOTALOL 120 MG TAB PO SCH (22:19)
[2022-09-20] MEDS: DOXYCYCLINE 100 MG CAP PO SCH (22:19)
[2022-09-20] MEDS: MONTELUKAST 10 MG TAB PO SCH (22:19)
[2022-09-20] MEDS: TROSPIUM CHLORIDE 20 MG TABLET PO SCH (22:19)
[2022-09-20] MEDS: MIRTAZAPINE 45 MG TABLET PO SCH (22:19)
[2022-09-20] MEDS: levETIRAcetam 500 MG TAB PO SCH (22:20)
[2022-09-20] MEDS: APIXABAN 5 MG TAB PO SCH (22:20)
[2022-09-20] MEDS: busPIRone HCl 10 MG TAB PO SCH (22:20)
[2022-09-20] MEDS: NICOTINE 21MG/24HR PATCH TRANSDERM SCH (22:21)
[2022-09-20] MEDS: FLUTICASONE 50MCG/SPRAY NASAL 16GM EA NOSTRIL SCH (22:21)
[2022-09-20] MEDS: VORTIOXETINE HYDROBROMIDE 20 MG TABLET PO SCH (23:08)
[2022-09-21] MEDS: methylPREDNISolone SOD SUCCI 125 MG/2 ML VIAL IV SCH ×4 (04:55→20:59)
[2022-09-21] MEDS: PANTOPRAZOLE SODIUM 40 MG GRANULE PKT PO SCH ×2 (06:45→18:08)
[2022-09-21 06:47] LABS: Amphetamine Screen,Urine Not Detected (NotDetected); Barbiturate Screen,Urine Not Detected (NotDetected); Benzodiazepines Screen,Urine Detected (NotDetected); Cocaine Screen,Urine Not Detected (NotDetected); Methadone Screen, Urine Not Detected (NotDetected); Opiate Screen,Urine Detected (NotDetected); Oxycodone Screen, Urine Not Detected (NotDetected); Phencyclidine Screen,Urine Not Detected (NotDetected); Tricyclic Antidepressant,Urine Not Detected (NotDetected); Urn Cannabinoid Scrn Detected (NotDetected)
[2022-09-21] MEDS: ASPIRIN 81 MG PO SCH (08:57)
[2022-09-21] MEDS: CHOLECALCIFEROL 125 MCG (5000 IU) TABLET PO SCH (08:57)
[2022-09-21] MEDS: BACLOFEN 10 MG TAB PO SCH ×3 (08:57→20:58)
[2022-09-21] MEDS: ATORVASTATIN 40 MG TAB PO SCH (08:57)
[2022-09-21] MEDS: ASCORBIC ACID 500 MG TAB PO SCH (08:57)
[2022-09-21] MEDS: levETIRAcetam 500 MG TAB PO SCH ×2 (08:57→20:58)
[2022-09-21] MEDS: MAGNESIUM OXIDE 400 MG TAB PO SCH (08:57)
[2022-09-21] MEDS: MULTIVITAMINS, THERA 1 EACH TAB PO SCH (08:57)
[2022-09-21] MEDS: LORATADINE 10 MG TAB PO SCH (08:58)
[2022-09-21] MEDS: FUROSEMIDE 40 MG TAB PO SCH (08:58)
[2022-09-21] MEDS: VITAMIN A 10,000 UNIT (3000 MCG) CAPSULE PO SCH (08:58)
[2022-09-21] MEDS: SOTALOL 120 MG TAB PO SCH ×2 (08:58→20:59)
[2022-09-21] MEDS: APIXABAN 5 MG TAB PO SCH ×2 (08:58→20:59)
[2022-09-21] MEDS: busPIRone HCl 10 MG TAB PO SCH ×2 (08:58→20:58)
[2022-09-21] MEDS: DOXYCYCLINE 100 MG CAP PO SCH ×2 (08:58→20:58)
[2022-09-21] MEDS: methIMAzole 5 MG TAB PO SCH (08:59)
[2022-09-21] MEDS: NICOTINE 21MG/24HR PATCH TRANSDERM SCH (08:59)
[2022-09-21] MEDS ORDERED: prednisoLONE ACETATE 1% OPHTH DROPS 5 ML BTL BOTH EYES SCH (09:00)
[2022-09-21] MEDS: VORTIOXETINE HYDROBROMIDE 20 MG TABLET PO SCH ×2 (09:00→20:58)
[2022-09-21] MEDS: TROSPIUM CHLORIDE 20 MG TABLET PO SCH ×2 (09:00→20:59)
[2022-09-21] MEDS ORDERED: GABAPENTIN 300 MG CAP PO SCH (09:00)
[2022-09-21] MEDS: FLUTICASONE 50MCG/SPRAY NASAL 16GM EA NOSTRIL SCH ×2 (09:01→20:59)
[2022-09-21] MEDS: IPRATROPIUM-ALBUTEROL 3 ML NEB INHALATION SCH ×4 (10:00→20:54)
[2022-09-21] MEDS: SYMBICORT 160-4.5 MCG INHALER INHALATION SCH ×2 (10:00→20:54)
--- NOTE | 2022-09-21 15:50 | P.PN ---
Subjective Progress Note Date: 09/21/22 Hospital course: Patient is a very particular 63-year-old female with a past medical history of atrial fibrillation on anticoagulation with Eliquis, hypertension, hyperlipidemia, fibromyalgia, lung cancer with left upper lobectomy, obstructive sleep apnea CPAP dependent nightly, and COPD with continued nicotine dependence and cannabinoid use. She presented to the emergency department with a chief complaint of shortness of breath, lethargy, and weakness. Patient and patient's at bedside reports these symptoms began yesterday. Patient has been reports she has been dozing off and falling over even hitting her head. Patient is on blood thinners with Eliquis. Patient's reports that she is supposed to be on home oxygen 2 L at all times along with CPAP nightly, however she has been noncompliant with this and has not used either in nearly a month and continues to smoke approximately one pack of cigarettes daily. Patient's reports that he first noticed that she was nodding off and having a difficult time staying awake yesterday. He reports he even asked her if she took more medication than she was supposed too but she denied. He states it wasn't long after this he noticed her having more labored breathing and complaining more about increasing shortness of breath and increasing frequency of her cough and checked her oxygen levels and she was high 70s to low 80s so he brought her straight to the emergency department for evaluation. Upon arrival to the emergency department she underwent full evaluation. Patient was found to be hypoxic at 83% on room air requiring immediate oxygen supplementation to maintain SpO2 of 90% or higher. CT head completed negative for acute intercranial process. CT cervical spine completed negative for evidence of fracture of cervical spine showing postsurgical changes C5 through C7 with hardware reporting to be intact and mild multilevel degenerative changes. Chest x-ray completed revealing bibasilar patchy airspace opacities with flattening of the diaphragm consistent with COPD and atelectasis. EKG completed showing normal sinus rhythm at 73 bpm with a first-degree AV block with NV interval of 227 ms T-wave inversion in septal leads V2 otherwise no noted T-wave or ST abn ormalities upon personal review and interpretation. labs completed and reviewed. CBC showing polycythemia with elevated hemoglobin of 16.4 consistent with long-standing COPD and thrombocytopenia with platelet count of 133. BMP unremarkable with the exception of hypercarbia with carbon dioxide of 34. Liver profile showing slightly elevated AST of 55. Troponin negative at less than 0.012. ProBNP 639. Influenza A, influenza B, RSV, and Covid PCR were all negative. Discussed patient history along with presenting complaints and physical exam findings, laboratory analysis, and imaging results in detail with the ED physician. Patient was admitted under our services for COPD exacerbation with consultation to joint finisher. Patient repeatedly nodding off during initial assessment in appeared very somnolent/lethargic. Order placed for ABG and urine drug screen along with placement on BiPAP. Physical exam: Patient seen and fully evaluated at bedside. Patient more awake this morning and alert to person, place, time, and situation. Patient very agitated and angry. Discussed medical compliance and medication safety with patient and her . Patient's states it's possible the patient has been taking more medications than prescribed but patient did not give straight answer when asked. Breathing appears to be better this morning. Vital signs reviewed and stable. General: Nontoxic, no distress and appears stated age. Derm: Skin warm and dry, normal coloration for ethnicity. Head: Atraumatic, normocephalic and symmetric. Eyes: EOMs intact, no lid lag, and anicteric sclera Mouth: no lip lesions, mucus membranes moist Cardiovascular: regular rate and rhythm with normal S1S2, distant heart sounds, positive posterior tibial pulses bilaterally, and cap refill < 2 seconds. Lungs: Respirations regular rate with increased effort on 3 L O2 via nasal cannula. Lungs tight with soft expiratory wheezes. No rales, crackles, or stridor noted. No accessory muscle usage this morning. Abdominal: soft, nontender to palpation, no guarding, no appreciable organomegaly Ext: ROM intact. No gross muscle atrophy, no edema, no contractures Neuro: Speech clear, face symmetrical and CN II-XII grossly intact with no noted focal neuro deficits. Psych: Alert and oriented to person, place, time, and situation. Patient more a wake today but very anxious and agitated. Assessment and Plan of Care: Acute on chronic respiratory failure with hypoxia and hypercarbia secondary to COPD exacerbation History of lung cancer with left upper lobectomy Obstructive sleep apnea CPAP dependent nightly Nicotine dependence reports continued smoking one pack of cigarettes daily Polycythemia secondary to COPD Medical noncompliance Concerns of Polysubstance abuse/misuse -Continue BiPAP nightly and as needed -Urine drug screen positive for opiates, benzodiazepines, and marijuana -Concerns that the patient's repeated episodes of nodding off could possibly be secondary to polysubstance abuse/misuse vs hypercarbia. Continue to hold Neurontin, Xanax, and Fairchance at this time. -Chief Underwriter following, discussed plan of care with Dr. Wilks. -Oxygenation to be administered and titrated as needed to maintain SPO2 equal to or greater than 92% -Continue Telemetry monitoring. -Monitor Pulse-oximetry -Duonebs scheduled four times daily and every 2 hours as needed for SOB and/or wheezing -Incentive Spirometry -Steroids:ContinueSolu-Medrol 60 mg IV every 6 hours. In addition patient to continue with daily Singulair 10 mg nightly and Symbicort 160/4.5 g 2 puffs twice daily. -Antibiotics: Empirically treat with doxycycline 100 mg twice daily 5 days. -Consult placed to COPD Navigator. Fall on blood thinners -CT head completed and radiology report reviewed Negative for acute intercranial process showing no signs of intracranial bleed. -CT cervical spine completed negative for evidence of fracture of cervical spine showing postsurgical changes C5 through C7 with hardware reporting to be intact and mild multilevel degenerative changes. Paroxysmal atrial fibrillation, currently maintaining sinus mechanism Hypertension Hyperlipidemia -Patient to continue cardiac medication regimen with Eliquis 5 mg twice daily, aspirin 81 mg daily, atorvastatin 40 mg daily, Lasix 40 mg daily, and sotalol 120 mg twice daily The patient is admitted with an anticipated greater than 2 midnight stay for evaluation of COPD exacerbation. CODE STATUS: Full code DVT prophylaxis: Eliquis Discussed with: Pt, patient's , joint finisher and RN Anticipated discharge date: Clinical course to determine Anticipated discharge place: Home Patient was seen independently by Nurse Practitioner. This document was prepared using [employer] dictation software. Please allow for errors in quality control inspector while rare they do occur. Amilcar Ann NP rendered care for this patient independently, reviewed the findings and plan as documented in the note above. I did not physically speak with or examine the patient on this date. Objective - Vital Signs Vital signs: Vital Signs Temp 97.8 F 09/21/22 07:22 Pulse 65 09/21/22 07:22 Resp 17 09/21/22 07:22 BP 106/64 09/21/22 07:22 Pulse Ox 97 09/21/22 07:22 FiO2 30 07/31/23 03:33 Intake & Output 09/20/22 09/21/22 09/21/22 18:59 06:59 18:59 Weight 74.843 kg 74.843 kg Other: # Voids 2 - Labs CBC & Chem 7: 09/22/22 06:51 09/22/22 06:51 Labs: Abnormal Lab Results - Last 24 Hours (Table) 09/20/22 09/20/22 09/20/22 Range/Units 13:18 13:19 18:02 Hgb 16.4 H (11.4-16.0) gm/dL Hct 47.5 H (34.0-46.0) % MCV 106.8 H (80.0-100.0) fL MCH 36.8 H (25.0-35.0) pg Plt Count 133 L (150-450) k/uL ABG pH 7.30 L (7.35-7.45) ABG pCO2 66 H (35-45) mmHg ABG HCO3 33 H (21-25) mmol/L ABG Total CO2 35 H (19-24) mmol/L Carbon Dioxide 34 H (22-30) mmol/L Glucose 102 H (74-99) mg/dL AST 55 H (14-36) U/L Urine Opiates Screen (NotDetected) U Benzodiazepines Scrn (NotDetected) U Marijuana (THC) Screen (NotDetected) 09/21/22 Range/Units 04:52 Hgb (11.4-16.0) gm/dL Hct (34.0-46.0) % MCV (80.0-100.0) fL MCH (25.0-35.0) pg Plt Count (150-450) k/uL ABG pH (7.35-7.45) ABG pCO2 (35-45) mmHg ABG HCO3 (21-25) mmol/L ABG Total CO2 (19-24) mmol/L Carbon Dioxide (22-30) mmol/L Glucose (74-99) mg/dL AST (14-36) U/L Urine Opiates Screen Detected H (NotDetected) U Benzodiazepines Scrn Detected H (NotDetected) U Marijuana (THC) Screen Detected H (NotDetected)
--- NOTE | 2022-09-21 16:05 | P.CNPUL ---
History of Present Illness Consult date: 09/21/22 Reason for consult: dyspnea, COPD History of present illness: 62-year-old. Patient with known history of COPD with chronic hypoxic respiratory failure and she has not been compliant auction therapy on outpatient basis and the patient continues to smoke 1 pack of cigarettes a day. Is also known to have previous history of lung cancer. She has undergone a previous left upper lobe lobectomy. She is known to have obstructive sleep apnea ma intained on CPAP therapy. Patient to a combination of other medical problems including proximal A. fib, maintained on anticoagulants with Eliquis, hypertension, hyperlipidemia, fibromyalgia and chronic medical debility. The patient presented to the hospital because of increased lethargy, weakness, somnolence, and she was dozing off and she was falling over and hitting her head. As stated, she has not been much compliant with her CPAP therapy and oxygen therapy. For that reason, the patient was brought into the hospital and the patient was found to be hypoxic. She was having increased dyspnea, cough, chest tightness and wheezing. Initial pulse ox was 83% on room air oxygen. A blood gas was done and the patient was found to have an acute on top of chronic hypercapnic respiratory failure with a pH of 7.3 and a pCO2 of 66 and pO2 of 86. The patient was placed on BiPAP in addition to accommodation of bronchodilators and steroids and the patient is currently off the BiPAP. Today, she is on 2 L of Oxymizer nasal cannula and she is calm and comfortable and there is no signs of any CO2 narcosis. I reviewed the chest x-ray and there is no evidence of any acute pulmonary infiltrates or pneumonia. Noted the patient is also taking chronic narcotic medications for chronic pain and she smokes marijuana. Had a viral screen was negative for influenza, Covid 19 and RSV. ProBNP level is not elevated and the troponins are negative. The white cell count is at 8.5. No focal neurological deficit at this point in time. She has been using Breztri on outpatient basis 2 puffs twice a day. Review of Systems Constitutional: Reports chronic pain, Reports daytime sleepiness, Reports fatigue, Reports poor appetite Eyes: denies as per HPI, denies blurred vision, denies bulging eye, denies decreased vision, denies diplopia, denies discharge, denies dry eye, denies irritation, denies itching, denies pain, denies photophobia, denies loss of peripheral vision, denies loss of vision, denies tunnel vision/blind spots Ears: deny: decreased hearing, ear discharge, earache, tinnitus Ears, nose, mouth and throat: Reports as per HPI Breasts: absent: as per HPI, change in shape, gynecomastia, masses, nipple discharge, pain, skin changes, swelling Cardiovascular: Reports as per HPI, Reports decreased exercise tolerance, Rep orts dyspnea on exertion Respiratory: Reports congestion, Reports cough, Reports dyspnea, Reports home oxygen, Reports sleep apnea Gastrointestinal: Reports as per HPI Genitourinary: Reports as per HPI Menstruation: Reports as per HPI Musculoskeletal: Reports as per HPI Musculoskeletal: absent: ankle pain, ankle stiffness, ankle swelling Integumentary: Reports as per HPI Neurological: Reports as per HPI Psychiatric: Reports as per HPI Endocrine: Reports as per HPI Hematologic/Lymphatic: Reports as per HPI Allergic/Immunologic: Reports as per HPI Past Medical History Past Medical History: Atrial Fibrillation, Cancer, Heart Failure, COPD, Fibromyalgia, GERD/Reflux, Hearing Disorder / Deafness, Hyperlipidemia, Hypertension, Musculoskeletal Disorder, Respiratory Disorder, Seizure Disorder, Sleep Apnea/CPAP/BIPAP, Thyroid Disorder Additional Past Medical History / Comment(s): Diverticulitis., last seizure 2014., lung cancer June 2018 with left upper lobectomy., Hyperthyroid. No tx for Sleep Apnea. receives bladder injections for incontinence., Chronic back pain., Neuropathy in hands and feet. , states venous insufficiencey -varicose veins., rash left elbow, constipation, [place] -does not wear her hearing aids., states CHF ., oxygen at 2 liters. History of Any Multi-Drug Resistant Organisms: None Reported Past Surgical History: Appendectomy, Back Surgery, Breast Surgery, Section, Cholecystectomy, Hernia Repair, Hysterectomy, Orthopedic Surgery Additional Past Surgical History / Comment(s): Lumbar fusion, neck fusion, left knee surgery X3(ACL X2 and arthroscopy X1), ganglion cyst excision bilateral wrists, lymph node/gland removed from neck, left elbow surgery - ulnar nerve entrapment, eye lid lift, left ovary removed, left upper lobectomy, Pain Clinic Procedures, breast biopsy, sinus surgery/deviated septum repair, spinal stimulator inserted and removed - leads remain in place., colonoscopy (06/04/22), ablation of varicose veins. Past Anesthesia/Blood Transfusion Reactions: No Reported Reaction, Motion Sickness Past Psychological History: Anxiety, Depression, Panic Disorder Smoking Status: Current every day smoker Past Alcohol Use History: None Reported Past Drug Use History: Marijuana - Past Family History Daughter(s) Family Medical History: Cancer Additional Family Medical History / Comment(s): Colon cancer. Brother(s) Family Medical History: Cancer Additional Family Medical History / Comment(s): Prostate cancer. Father Family Medical History: Cancer Additional Family Medical History / Comment(s): Colon cancer. Sister(s) Family Medical History: Cancer Additional Family Medical History / Comment(s): Bladder cancer. Medications and Allergies Home Medications Medication Instructions Recorded Confirmed Type ALPRAZolam [Xanax] 0.5 mg PO TID 08/20/14 09/20/22 History levETIRAcetam [Keppra] 500 mg PO BID 08/20/14 09/20/22 History Apixaban [Eliquis] 5 mg PO BID 09/08/18 09/20/22 History Atorvastatin [Lipitor] 40 mg PO DAILY 09/08/18 09/20/22 History Vortioxetine Hydrobromide 10 mg PO BID 09/08/18 09/20/22 History [Trintellix] Sotalol [Betapace] 120 mg PO BID 01/05/19 09/20/22 History Budesonide-Formot 160-4.5 Mcg 2 puff INHALATION RT-BID 03/08/19 09/20/22 History [Symbicort 160-4.5 Mcg Inhaler] methIMAzole [Tapazole] 5 mg PO DAILY 12/05/19 09/20/22 History busPIRone HCL 30 mg PO BID 03/19/20 09/20/22 History Baclofen [Lioresal] 20 mg PO TID 09/25/20 09/20/22 History Gabapentin 300 mg PO BID@0900,1500 09/25/20 09/20/22 History Lidocaine 5% Patch [Lidoderm] 1 patch TRANSDERM DAILY PRN 09/25/20 09/20/22 History Rimegepant Sulfate [Nurtec Odt] 75 mg PO DAILY PRN 09/25/20 09/20/22 History Fluticasone Nasal [place] [Flonase 2 spr EA NOSTRIL BID 03/17/21 09/20/22 History Nasal [place]] Multivit-Min/Iron/Folic/Lutein 1 tab PO DAILY@1500 11/11/21 09/20/22 History [Centrum Silver Women Tablet] Turmeric Root Extract [Turmeric] 1,000 mg PO DAILY@1500 11/11/21 09/20/22 History Ascorbic Acid [Vitamin C] 1,000 mg PO DAILY@1500 12/04/21 09/20/22 History Montelukast [Singulair] 10 mg PO HS 12/04/21 09/20/22 History Vitamin A 2,400 mcg PO DAILY@1500 12/04/21 09/20/22 History Gabapentin 600 mg PO HS 12/11/21 09/20/22 History Aspirin [Adult Low Dose Aspirin EC] 81 mg PO DAILY 06/08/22 09/20/22 History Budesonide/Glycopyr/Formoterol 1 puff INHALATION RT-BID 06/08/22 09/20/22 History [Breztri Aerosphere Inhaler] Cholecalciferol (Vitamin D3) 250 mcg PO DAILY@1500 06/08/22 09/20/22 History [Vitamin D3 (125 MCG = 5,000 IU)] Fexofenadine HCl [Anne Allergy] 180 mg PO HS 06/08/22 09/20/22 History Magnesium Oxide [Magnesium] 500 mg PO DAILY@1500 06/08/22 09/20/22 History Albuterol Sulfate [Ventolin HFA] 1 - 2 puff INHALATION RT-Q4H PRN 09/20/22 09/20/22 History Collagen W/Vitamin C 1 tab PO DAILY@1500 09/20/22 09/20/22 History Diclofenac Sodium Gel [Voltaren 2 - 4 gm TOPICAL QID PRN 09/20/22 09/20/22 History Gel] Furosemide [Lasix] 40 mg PO DAILY 09/20/22 09/20/22 History HYDROcodone/APAP 7.5-325MG [[place] 1 tab PO TID 09/20/22 09/20/22 History 7.5-325] Ipratropium-Albuterol Nebulize 3 ml INHALATION RT-QID PRN 09/20/22 09/20/22 History [Duoneb 0.5 mg-3 mg/3 ml Soln] Metamucil Gummy 2 tab PO DAILY@1500 09/20/22 09/20/22 History Mirtazapine [Remeron] 45 mg PO HS 09/20/22 09/20/22 History Pantoprazole [Protonix] 40 mg PO BID 09/20/22 09/20/22 History Solifenacin Succinate [Vesicare] 10 mg PO DAILY 09/20/22 09/20/22 History Sucralfate [Carafate] 1 gm PO AC-TID 09/20/22 09/20/22 History Topiramate [Topamax] 50 mg PO BID 09/20/22 09/20/22 History Allergies Allergy/AdvReac Type Severity Reaction Status Date / Time amoxicillin trihydrate Allergy Rash/Hives Verified 09/20/22 18:33 [From Augmentin] potassium clavulanate Allergy Rash/Hives Verified 09/20/22 18:33 [From Augmentin] pregabalin [From Lyrica] Allergy Swelling Verified 09/20/22 18:33 tongue, disoriented sulfamethoxazole Allergy Rash/Hives Verified 09/20/22 18:33 [From Bactrim] trimethoprim [From Bactrim] Allergy Rash/Hives Verified 09/20/22 18:33 Physical Exam Vitals: Vital Signs Temp Pulse Pulse Resp BP BP Pulse Ox 09/21/22 13:10 67 09/21/22 13:00 66 09/21/22 10:13 70 09/21/22 10:00 69 93 L 09/21/22 07:22 97.8 F 65 17 106/64 97 09/21/22 03:33 09/21/22 01:54 98.0 F 66 18 96/69 98 09/20/22 23:27 09/20/22 21:17 09/20/22 21:00 97.4 F L 62 18 103/59 94 L 09/20/22 17:55 09/20/22 17:40 09/20/22 17:33 97.9 F 62 18 111/63 93 L 09/20/22 17:20 62 18 128/64 97 09/20/22 16:46 61 09/20/22 16:35 62 09/20/22 16:24 57 L 18 103/63 99 09/20/22 15:30 61 18 97/66 97 09/20/22 14:46 64 18 93/63 96 FiO2 09/21/22 13:10 09/21/22 13:00 09/21/22 10:13 09/21/22 10:00 09/21/22 07:22 09/21/22 03:33 30 09/21/22 01:54 09/20/22 23:27 30 09/20/22 21:17 30 09/20/22 21:00 09/20/22 17:55 32 09/20/22 17:40 30 09/20/22 17:33 09/20/22 17:20 09/20/22 16:46 09/20/22 16:35 09/20/22 16:24 09/20/22 15:30 09/20/22 14:46 Intake and Output 09/20/22 09/21/22 09/21/22 22:59 06:59 14:59 Other: # Voids 2 Weight 74.843 kg General: Nontoxic, no distress and appears stated age. The patient is currently on 2 L of oxygen by nasal cannula with a pulse ox of 93% Derm: Skin warm and dry, normal coloration for ethnicity. Head: Atraumatic, normocephalic and symmetric. Eyes: EOMs intact, no lid lag, and anicteric sclera Mouth: no lip lesions, mucus membranes moist Cardiovascular: regular rate and rhythm with normal S1S2, distant heart sounds, positive posterior tibial pulses bilaterally, and cap refill < 2 seconds. Lungs: Respirations regular rate with increased effort on 3 L O2 via nasal cannula. Lungs tight with soft expiratory wheezes. No rales, crackles, or stridor noted. No accessory muscle usage this morning. Abdominal: soft, nontender to palpation, no guarding, no appreciable organomegaly Ext: ROM intact. No gross muscle atrophy, no edema, no contractures Neuro: Speech clear, face symmetrical and CN II-XII grossly intact with no noted focal neuro deficits. Psych: Alert and oriented to person, place, time, and situation. Patient more awake today but very anxious and agitated. Results - Laboratory Findings CBC and BMP: 09/20/22 13:19 09/20/22 13:18 ABG WBC 8.5 k/uL (3.8-10.6) 09/20/22 13:19 RBC 4.45 m/uL (3.80-5.40) 09/20/22 13:19 Hgb 16.4 gm/dL (11.4-16.0) H 09/20/22 13:19 Hct 47.5 % (34.0-46.0) H 09/20/22 13:19 MCV 106.8 fL (80.0-100.0) H 09/20/22 13:19 MCH 36.8 pg (25.0-35.0) H 09/20/22 13:19 MCHC 34.5 g/dL (31.0-37.0) 09/20/22 13:19 RDW 14.5 % (11.5-15.5) 09/20/22 13:19 Plt Count 133 k/uL (150-450) L 09/20/22 13:19 MPV 7.7 09/20/22 13:19 Neutrophils % 73 % 09/20/22 13:19 Lymphocytes % 18 % 09/20/22 13:19 Monocytes % 7 % 09/20/22 13:19 Eosinophils % 0 % 09/20/22 13:19 Basophils % 1 % 09/20/22 13:19 Neutrophils # 6.1 k/uL (1.3-7.7) 09/20/22 13:19 Lymphocytes # 1.5 k/uL (1.0-4.8) 09/20/22 13:19 Monocytes # 0.6 k/uL (0-1.0) 09/20/22 13:19 Eosinophils # 0.0 k/uL (0-0.7) 09/20/22 13:19 Basophils # 0.1 k/uL (0-0.2) 09/20/22 13:19 Macrocytosis Moderate 09/20/22 13:19 PT 10.1 sec (9.0-12.0) 09/20/22 13:19 INR 1.0 (<1.2) 09/20/22 13:19 APTT 25.6 sec (22.0-30.0) 09/20/22 13:19 Sample Site RAD 09/20/22 18:02 ABG pH 7.30 (7.35-7.45) L 09/20/22 18:02 ABG pCO2 66 mmHg (35-45) H 09/20/22 18:02 ABG pO2 86 mmHg (83-108) 09/20/22 18:02 ABG HCO3 33 mmol/L (21-25) H 09/20/22 18:02 ABG Total CO2 35 mmol/L (19-24) H 09/20/22 18:02 ABG O2 Saturation 96.4 % (94-97) 09/20/22 18:02 ABG Base Excess 6.6 mmol/L 09/20/22 18:02 Paolo Test Yes 09/20/22 18:02 FiO2 32 % 09/20/22 18:02 Sodium 141 mmol/L (137-145) 09/20/22 13:18 Potassium 3.8 mmol/L (3.5-5.1) 09/20/22 13:18 Chloride 103 mmol/L (98-107) 09/20/22 13:18 Carbon Dioxide 34 mmol/L (22-30) H 09/20/22 13:18 Anion Gap 4 mmol/L 09/20/22 13:18 BUN 13 mg/dL (7-17) 09/20/22 13:18 Creatinine 0.67 mg/dL (0.52-1.04) 09/20/22 13:18 Est GFR (CKD-EPI)AfAm >90 (>60 ml/min/1.73 sqM) 09/20/22 13:18 Est GFR (CKD-EPI)NonAf >90 (>60 ml/min/1.73 sqM) 09/20/22 13:18 Glucose 102 mg/dL (74-99) H 09/20/22 13:18 Plasma Lactic Acid Evan 1.2 mmol/L (0.7-2.0) 09/20/22 13:19 Calcium 9.8 mg/dL (8.4-10.2) 09/20/22 13:18 Magnesium 2.1 mg/dL (1.6-2.3) 09/20/22 13:18 Total Bilirubin 0.6 mg/dL (0.2-1.3) 09/20/22 13:18 AST 55 U/L (14-36) H 09/20/22 13:18 ALT 33 U/L (4-34) 09/20/22 13:18 Alkaline Phosphatase 96 U/L (38-126) 09/20/22 13:18 Troponin I <0.012 ng/mL (0.000-0.034) 09/20/22 13:19 NT-Pro-B Natriuret Pep 639 pg/mL 09/20/22 13:18 Total Protein 6.9 g/dL (6.3-8.2) 09/20/22 13:18 Albumin 4.1 g/dL (3.5-5.0) 09/20/22 13:18 Urine Opiates Screen Detected (NotDetected) H 09/21/22 04:52 Ur Oxycodone Screen Not Detected (NotDetected) 09/21/22 04:52 Urine Methadone Screen Not Detected (NotDetected) 09/21/22 04:52 Ur Propoxyphene Screen Not Detected (NotDetected) 09/21/22 04:52 Ur Barbiturates Screen Not Detected (NotDetected) 09/21/22 04:52 U Tricyclic Antidepress Not Detected (NotDetected) 09/21/22 04:52 Ur Phencyclidine Scrn Not Detected (NotDetected) 09/21/22 04:52 Ur Amphetamines Screen Not Detected (NotDetected) 09/21/22 04:52 U Methamphetamines Scrn Not Detected (NotDetected) 09/21/22 04:52 U Benzodiazepines Scrn Detected (NotDetected) H 09/21/22 04:52 Urine Cocaine Screen Not Detected (NotDetected) 09/21/22 04:52 U Marijuana (THC) Screen Detected (NotDetected) H 09/21/22 04:52 Influenza Type A (PCR) Not Detected (Not Detectd) 09/20/22 13:19 Influenza Type B (PCR) Not Detected (Not Detectd) 09/20/22 13:19 RSV (PCR) Not Detected (Not Detectd) 09/20/22 13:19 SARS-CoV-2 (PCR) Not Detected (Not Detectd) 09/20/22 13:19 PT/INR, D-dimer PT 10.1 sec (9.0-12.0) 09/20/22 13:19 INR 1.0 (<1.2) 09/20/22 13:19 Abnormal lab findings: Abnormal Labs 09/20/22 09/20/22 09/20/22 13:18 13:19 18:02 Hgb 16.4 H Hct 47.5 H MCV 106.8 H MCH 36.8 H Plt Count 133 L ABG pH 7.30 L ABG pCO2 66 H ABG HCO3 33 H ABG Total CO2 35 H Carbon Dioxide 34 H Glucose 102 H AST 55 H Urine Opiates Screen U Benzodiazepines Scrn U Marijuana (THC) Screen 09/21/22 04:52 Hgb Hct MCV MCH Plt Count ABG pH ABG pCO2 ABG HCO3 ABG Total CO2 Carbon Dioxide Glucose AST Urine Opiates Screen Detected H U Benzodiazepines Scrn Detected H U Marijuana (THC) Screen Detected H - Diagnostic Findings Chest x-ray: image reviewed Assessment and Plan Plan: Acute exacerbation of COPD with secondary shortness of breath and acute on top of chronic hypercapnic respiratory failure with signs of CO2 narcosis the time of admission, clinically improved CO2 narcosis secondary to acute on top of chronic hypercapnic respiratory failure, improving on BiPAP therapy and treatment of COPD exacerbation Chronic hypoxic respiratory failure Severe COPD, maintain on Breztri on outpatient basis History of non-small cell lung cancer with a previous left upper infection Obstructive sleep apnea Chronic smoker Chronic marijuana user Chronic narcotic medication use in the form of [place] Fibromyalgia Chronic pain History of hypothyroidism History of paroxysmal atrial fibrillation maintain on a combination of sotalol, and anticoagulation with Eliquis Plan Utilize BiPAP overnight Wean down oxygen to maintain saturation above 90% currently on 3 L Continue Symbicort in the hospital and Breztri can be resumed on outpatient basis Limited use of narcotic medications Mentally much improved and there are no signs of CO2 narcosis Continue bronchodilators and steroids Prostate agree with the rest of the management Agree with a possibility of polypharmacy and possible medication abuse/misuse
[2022-09-21] MEDS: MONTELUKAST 10 MG TAB PO SCH (20:59)
[2022-09-21] MEDS: MIRTAZAPINE 45 MG TABLET PO SCH (20:59)
[2022-09-22] MEDS: methylPREDNISolone SOD SUCCI 125 MG/2 ML VIAL IV SCH ×2 (03:29→09:08)
[2022-09-22] MEDS: PANTOPRAZOLE SODIUM 40 MG GRANULE PKT PO SCH (06:58)
[2022-09-22 07:10] VITALS: BP 109/65; RESP 14; TEMP 98.6
[2022-09-22] MEDS: SYMBICORT 160-4.5 MCG INHALER INHALATION SCH (08:59)
[2022-09-22] MEDS: IPRATROPIUM-ALBUTEROL 3 ML NEB INHALATION SCH ×2 (08:59→12:12)
[2022-09-22] MEDS: APIXABAN 5 MG TAB PO SCH (10:28)
[2022-09-22] MEDS: ASCORBIC ACID 500 MG TAB PO SCH (10:28)
[2022-09-22] MEDS: BACLOFEN 10 MG TAB PO SCH (10:29)
[2022-09-22] MEDS: DOXYCYCLINE 100 MG CAP PO SCH (10:29)
[2022-09-22] MEDS: ATORVASTATIN 40 MG TAB PO SCH (10:29)
[2022-09-22] MEDS: ASPIRIN 81 MG PO SCH (10:29)
[2022-09-22] MEDS: CHOLECALCIFEROL 125 MCG (5000 IU) TABLET PO SCH (10:29)
[2022-09-22] MEDS: FLUTICASONE 50MCG/SPRAY NASAL 16GM EA NOSTRIL SCH (10:29)
[2022-09-22] MEDS: busPIRone HCl 10 MG TAB PO SCH (10:29)
[2022-09-22] MEDS: LORATADINE 10 MG TAB PO SCH (10:30)
[2022-09-22] MEDS: MAGNESIUM OXIDE 400 MG TAB PO SCH (10:30)
[2022-09-22] MEDS: FUROSEMIDE 40 MG TAB PO SCH (10:30)
[2022-09-22] MEDS: NICOTINE 21MG/24HR PATCH TRANSDERM SCH (10:30)
[2022-09-22] MEDS: levETIRAcetam 500 MG TAB PO SCH (10:30)
[2022-09-22] MEDS: methIMAzole 5 MG TAB PO SCH (10:31)
[2022-09-22] MEDS: SOTALOL 120 MG TAB PO SCH (10:31)
[2022-09-22] MEDS: VITAMIN A 10,000 UNIT (3000 MCG) CAPSULE PO SCH (10:31)
[2022-09-22] MEDS: TROSPIUM CHLORIDE 20 MG TABLET PO SCH (10:31)
[2022-09-22] MEDS: VORTIOXETINE HYDROBROMIDE 20 MG TABLET PO SCH (10:33)
[2022-09-22] MEDS: MULTIVITAMINS, THERA 1 EACH TAB PO SCH (10:37)
--- NOTE | 2022-09-22 12:07 | P.PN ---
Subjective Progress Note Date: 09/22/22 62-year-old. Patient with known history of COPD with chronic hypoxic respiratory failure and she has not been compliant auction therapy on outpatient basis and the patient continues to smoke 1 pack of cigarettes a day. Is also known to have previous history of lung cancer. She has undergone a previous left upper lobe lobectomy. She is known to have obstructive sleep apnea maintained on CPAP therapy. Patient to a combination of other medical problems including proximal A. fib, maintained on anticoagulants with Eliquis, hypertension, hyperlipidemia, fibromyalgia and chronic medical debility. The patient presented to the hospital because of increased lethargy, weakness, somnolence, and she was dozing off and she was falling over and hitting her head. As stated, she has not been much compliant with her CPAP therapy and oxygen therapy. For that reason, the patient was brought into the hospital and the patient was found to be hypoxic. She was having increased dyspnea, cough, chest tightness and wheezing. Initial pulse ox was 83% on room air oxygen. A blood gas was done and the patient was found to have an acute on top of chronic hypercapnic respiratory failure with a pH of 7.3 and a pCO2 of 66 and pO2 of 86. The patient was placed on BiPAP in addition to accommodation of bronchodilators and steroids and the patient is currently off the BiPAP. Today, she is on 2 L of Oxymizer nasal cannula and she is calm and comfortable and there is no signs of any CO2 narcosis. I reviewed the chest x-ray and there is no evidence of any acute pulmonary infiltrates or pneumonia. Noted the patient is also taking chronic narcotic medications for chronic pain and she smokes marijuana. Had a viral screen was negative for influenza, Covid 19 and RSV. ProBNP level is not elevated and the troponins are negative. The white cell count is at 8.5. No focal neurological deficit at this point in time. She has been using Breztri on outpatient basis 2 puffs twice a day. On today's evaluation of 09/22/2022, the patient is stable. No signs of any CO2 narcosis. No chest pain or shortness of breath at rest. She uses a walker at home and ongoing regular walker and try to get her ambulating here in the hospital. She remains on bronchodilators. She remains on anti-coagulation with Eliquis. She remains on IV Solu-Medrol 60 mg every 6 hours which could be transitioned to prednisone burst taper at the time of discharge. She also takes Breztri on outpatient basis. The patient wants to go home today. I think is reasonable as long as she is able to try to move around and ambulate. No chest pain. No the surgery. No confusion. She remains on bronchodilators. Objective - Vital Signs Vital signs: Vital Signs Temp 98.6 F 09/22/22 06:46 Pulse 72 09/22/22 09:11 Resp 14 09/22/22 06:46 BP 109/65 09/22/22 06:46 Pulse Ox 97 09/22/22 09:00 FiO2 30 09/21/22 03:33 Intake & Output 09/21/22 09/22/22 09/22/22 18:59 06:59 18:59 Intake Total 120 Balance 120 Intake: IV 120 0.9 sodium chloride 120 Other: Voiding Method Bedside Commode # Voids 3 - Exam General: Nontoxic, no distress and appears stated age. The patient is currently on 2 L of oxygen by nasal cannula with a pulse ox of 93% Derm: Skin warm and dry, normal coloration for ethnicity. Head: Atraumatic, normocephalic and symmetric. Eyes: EOMs intact, no lid lag, and anicteric sclera Mouth: no lip lesions, mucus membranes moist Cardiovascular: regular rate and rhythm with normal S1S2, distant heart sounds, positive posterior tibial pulses bilaterally, and cap refill < 2 seconds. Lungs: Respirations regular rate with increased effort on 3 L O2 via nasal cannula. Lungs tight with soft expiratory wheezes. No rales, crackles, or st ridor noted. No accessory muscle usage this morning. Abdominal: soft, nontender to palpation, no guarding, no appreciable organomegaly Ext: ROM intact. No gross muscle atrophy, no edema, no contractures Neuro: Speech clear, face symmetrical and CN II-XII grossly intact with no noted focal neuro deficits. Psych: Alert and oriented to person, place, time, and situation. Patient more awake today but very anxious and agitated. - Labs CBC & Chem 7: 09/20/22 13:19 09/20/22 13:18 Labs: Microbiology - Last 24 Hours (Table) 09/20/22 13:18 Blood Culture - Preliminary Blood 09/20/22 13:18 Blood Culture - Preliminary Blood Assessment and Plan Plan: Acute exacerbation of COPD with secondary shortness of breath and acute on top of chronic hypercapnic respiratory failure with signs of CO2 narcosis the time of admission, clinically improved CO2 narcosis secondary to acute on top of chronic hypercapnic respiratory failure, improving on BiPAP therapy and treatment of COPD exacerbation Chronic hypoxic respiratory failure Severe COPD, maintain on Breztri on outpatient basis History of non-small cell lung cancer with a previous left upper infection Obstructive sleep apnea Chronic smoker Chronic marijuana user Chronic narcotic medication use in the form of [place] Fibromyalgia Chronic pain History of hypothyroidism History of paroxysmal atrial fibrillation maintain on a combination of sotalol, and anticoagulation with Eliquis Plan No signs of any CO2 narcosis The patient declined using BiPAP overnight Wean down oxygen to maintain saturation above 90% currently on 3 L, I weaned her down to 2 L Continue Symbicort in the hospital and Breztri can be resumed on outpatient basis Limited use of narcotic medications Mentally much improved and there are no signs of CO2 narcosis Continue bronchodilators and steroids, and taper the patient to prednisone at time of discharge agree with the rest of the management Agree with a possibility of polypharmacy and possible medication abuse/misuse Provide a walker Family the patient Possible discharge home today or within next 24 hours
[2022-09-22 12:26] VITALS: PULSE 76
[2022-09-22 14:09] LABS: HCT 45.7 % (37.2-46.3); HGB 15.2 d/dL (12.0-15.0); MCH 35.3 pg (27.0-32.0); MCHC 33.3 d/dL (32.0-37.0); Mean Platelet Volume 10.2 FL (9.5-12.2); NRBC Per 100 WBC 0 X 10*3/uL (0.00-0.01); Platelet Count 161 X 10*3/uL (140-440); RBC 4.31 X 10*6/uL (4.10-5.20); RDW 14.2 % (11.5-14.5); WBC 9.27 X 10*3/uL (4.50-10.00)
[2022-09-22 14:38] LABS: BUN/Creat Ratio 26.71 Ratio (12.00-20.00); Blood Urea Nitrogen 18.7 mg/dL (9.0-27.0); Carbon Dioxide 28.7 mmol/L (21.6-31.8); Chloride 104 mmol/L (96-109); Glucose 124 mg/dL (70-110); Potassium 3.6 mmol/L (3.5-5.5); Sodium 143 mmol/L (135-145)
--- NOTE | 2022-09-22 17:10 | P.DS ---
Providers Date of admission: 09/20/22 15:54 Expected date of discharge: 09/22/22 Attending physician: Mele Scherer MD Consults: 09/21/22 12:23 Consult Physician Routine Consulting Provider: Mandeep Silveira Consult Reason/Comments: COPD exacerbation Do you want consulting provider notified?: Yes Primary care physician: Skip [facility] Course: Discharge Diagnosis: Acute on chronic respiratory failure with hypoxia and hypercarbia secondary to COPD exacerbation. Patient discharged home on an additional 4 days of doxycycline 100 mg twice daily and prednisone taper. Patient strongly encouraged to wear oxygen at all times as directed and encouraged to follow up outpatient with prototype engineer and PCP. Patient strongly encouraged to stop smoking. Metabolic encephalopathy likely multifactorial secondary to respiratory acidosis with CO2 narcosis along with concerns of polysubstance misuse/abuse History of lung cancer with left upper lobectomy Obstructive sleep apnea CPAP dependent nightly. Patient encouraged to wear CPAP nightly. Nicotine dependence reports continued smoking one pack of cigarettes daily. Recommend smoking cessation. Polycythemia secondary to COPD Medical noncompliance Concerns of Polysubstance abuse/misuse, recommended decreasing Neurontin to 300 mg twice daily and decreasing Xanax to 0.5 mg twice daily. Fall on blood thinners Paroxysmal atrial fibrillation, currently maintaining sinus mechanism. Patient to continue Eliquis 5 mg twice daily and sotalol 120 mg twice daily. Hypertension. Patient to continue sotalol 120 mg twice daily. Hyperlipidemia. Patient to continue atorvastatin 40 mg daily. Hospital Course: Patient is a very particular 63-year-old female with a past medical history of atrial fibrillation on anticoagulation with Eliquis, hypertension, hyperli pidemia, fibromyalgia, lung cancer with left upper lobectomy, obstructive sleep apnea CPAP dependent nightly, and COPD with continued nicotine dependence and cannabinoid use. She presented to the emergency department with a chief complaint of shortness of breath, lethargy, and weakness. Patient and patient's at bedside reports these symptoms began yesterday. Patient has been reports she has been dozing off and falling over even hitting her head. Patient is on blood thinners with Eliquis. Patient's reports that she is supposed to be on home oxygen 2 L at all times along with CPAP nightly, however she has been noncompliant with this and has not used either in nearly a month and continues to smoke approximately one pack of cigarettes daily. Patient's reports that he first noticed that she was nodding off and having a difficult time staying awake yesterday. He reports he even asked her if she took more medication than she was supposed too but she denied. He states it wasn't long after this he noticed her having more labored breathing and complaining more about increasing shortness of breath and increasing frequency of her cough and checked her oxygen levels and she was high 70s to low 80s so he brought her straight to the emergency department for evaluation. Upon arrival to the emergency department she underwent full evaluation. Patient was found to be hypoxic at 83% on room air requiring immediate oxygen supplementation to maintain SpO2 of 90% or higher. CT head completed negative for acute intercranial process. CT cervical spine completed negative for evidence of fracture of cervical spine showing postsurgical changes C5 through C7 with hardware reporting to be intact and mild multilevel degenerative changes. Chest x-ray completed revealing bibasilar patchy airspace opacities with flattening of the diaphragm consistent with COPD and atelectasis. EKG completed showing normal sinus rhythm at 73 bpm with a first-degree AV block with DC interval of 227 ms T-wave inversion in septal leads V2 otherwise no noted T-wave or ST abnormalities upon personal review and interpretation. labs completed and reviewed. CBC showing polycythemia with elevated hemoglobin of 16.4 consistent with long-standing COPD and thrombocytopenia with platelet count of 133. BMP unremarkable with the exception of hypercarbia with carbon dioxide of 34. Liver profile showing slightly elevated AST of 55. Troponin negative at less than 0.012. ProBNP 639. Influenza A, influenza B, RSV, and Covid PCR were all negative. Discussed patient history along with presenting complaints and physical exam findings, laboratory analysis, and imaging results in detail with the ED physician. Patient was admitted under our services for COPD exacerbation with consultation to prototype engineer. Patient repeatedly nodding off during initial assessment in appeared very somnolent/lethargic. Order placed for ABG and urine drug screen along with placement on BiPAP.Patient started on scheduled and as needed DuoNeb treatments and placed on IV steroids. Patient's mentation improving and she was no longer somnolent or nodding off. She is much more awake. Breathing much better. Denies any complaints. Patient cleared by prototype engineer for outpatient follow-up in office. Patient on baseline 2 L O2. Patient strongly encouraged to stop smoking and wear oxygen at all times and CPAP nightly. Patient discharged home on prednisone taper and an additional 4 days of doxycycline. Patient strongly encouraged to decrease Neurontin to 300 mg twice daily and decrease Xanax 2.5 mg twice daily. Patient followed by outpatient with PCP and prototype engineer. Physical exam: Vital signs reviewed and stable. General: Nontoxic, no distress and appears stated age. Derm: Skin warm and dry, normal coloration for ethnicity. Head: Atraumatic, normocephalic and symmetric. Eyes: EOMs intact, no lid lag, and anicteric sclera Mouth: no lip lesions, mucus membranes moist Cardiovascular: regular rate and rhythm with normal S1S2, distant heart sounds, positive posterior tibial pulses bilaterally, and cap refill < 2 seconds. Lungs: Respirations regular rate with increased effort on 2 L O2 via nasal cannula. Lungs with equal air entry and exit. No wheezes, rales, crackles, or stridor noted. No accessory muscle usage this morning. Abdominal: soft, nontender to palpation, no guarding, no appreciable organomegaly Ext: ROM intact. No gross muscle atrophy, no edema, no contractures Neuro: Speech clear, face symmetrical and CN II-XII grossly intact with no noted focal neuro deficits. Psych: Alert and oriented to person, place, time, and situation. Patient more awake today but very anxious and agitated. A total of 37 minutes of time were spent preparing this complex discharge summary. Pt was discharged on 09/22/22 at 9:58 AM. Patient was seen independently by Nurse Practitioner. This document was prepared using [employer] dictation software. Please allow for errors in lead technologist in cytogenetics while rare they do occur. I reviewed the documentation as provided by the DONNA above, who is the original author of this note. I agree with the documented assessment and plan, with the following changes: none Patient Condition at Discharge: Stable Plan - Discharge Summary Discharge Rx Participant: Yes New Discharge Prescriptions: New Doxycycline [Vibramycin] 100 mg PO BID 4 Days #8 cap predniSONE See Taper PO DIRECTED 12 Days #30 tab Continue levETIRAcetam [Keppra] 500 mg PO BID Apixaban [Eliquis] 5 mg PO BID Atorvastatin [Lipitor] 40 mg PO DAILY Vortioxetine Hydrobromide [Trintellix] 10 mg PO BID Sotalol [Betapace] 120 mg PO BID Budesonide-Formot 160-4.5 Mcg [Symbicort 160-4.5 Mcg Inhaler] 2 puff INHALATION RT-BID methIMAzole [Tapazole] 5 mg PO DAILY busPIRone HCL 30 mg PO BID Rimegepant Sulfate [Nurtec Odt] 75 mg PO DAILY PRN PRN Reason: Migraine Headache Lidocaine 5% Patch [Lidoderm 5% Patch] 1 patch TRANSDERM DAILY PRN PRN Reason: Pain Baclofen [Lioresal] 20 mg PO TID Multivit-Min/Iron/Folic/Lutein [Centrum Silver Women Tablet] 1 tab PO DAILY@1500 Turmeric Root Extract [Turmeric] 1,000 mg PO DAILY@1500 Vitamin A 2,400 mcg PO DAILY@1500 Budesonide/Glycopyr/Formoterol [Breztri Aerosphere Inhaler] 1 puff INHALATION RT-BID Aspirin [Adult Low Dose Aspirin EC] 81 mg PO DAILY Metamucil Gummy 2 tab PO DAILY@1500 Diclofenac Sodium Gel [Voltaren Gel] 2 - 4 gm TOPICAL QID PRN PRN Reason: Pain Furosemide [Lasix] 40 mg PO DAILY Mirtazapine [Remeron] 45 mg PO HS Pantoprazole [Protonix] 40 mg PO BID Solifenacin Succinate [Vesicare] 10 mg PO DAILY Sucralfate [Carafate] 1 gm PO AC-TID Topiramate [Topamax] 50 mg PO BID Fluticasone Nasal [place] [Flonase Nasal [place]] 2 spr EA NOSTRIL BID Ascorbic Acid [Vitamin C] 1,000 mg PO DAILY@1500 Montelukast [Singulair] 10 mg PO HS Magnesium Oxide [Magnesium] 500 mg PO DAILY@1500 Cholecalciferol (Vitamin D3) [Vitamin D3 (125 MCG = 5,000 IU)] 250 mcg PO DAILY@1500 Fexofenadine HCl [Anne Allergy] 180 mg PO HS Collagen W/Vitamin C 1 tab PO DAILY@1500 Albuterol Sulfate [Ventolin HFA] 1 - 2 puff INHALATION RT-Q4H PRN PRN Reason: Shortness Of Breath HYDROcodone/APAP 7.5-325MG [[place] 7.5-325] 1 tab PO TID Ipratropium-Albuterol Nebulize [Duoneb 0.5 mg-3 mg/3 ml Soln] 3 ml INHALATION RT-QID PRN PRN Reason: Shortness Of Breath Changed Gabapentin 300 mg PO DAILY #0 Gabapentin 300 mg PO HS #0 ALPRAZolam [Xanax] 0.5 mg PO BID #0 Discharge Medication List levETIRAcetam [Keppra] 500 mg PO BID 08/20/14 [History] Apixaban [Eliquis] 5 mg PO BID 09/08/18 [History] Atorvastatin [Lipitor] 40 mg PO DAILY 09/08/18 [History] Vortioxetine Hydrobromide [Trintellix] 10 mg PO BID 09/08/18 [History] Sotalol [Betapace] 120 mg PO BID 01/05/19 [History] Budesonide-Formot 160-4.5 Mcg [Symbicort 160-4.5 Mcg Inhaler] 2 puff INHALATION RT-BID 03/08/19 [History] methIMAzole [Tapazole] 5 mg PO DAILY 12/05/19 [History] busPIRone HCL 30 mg PO BID 03/19/20 [History] Baclofen [Lioresal] 20 mg PO TID 09/25/20 [History] Lidocaine 5% Patch [Lidoderm 5% Patch] 1 patch TRANSDERM DAILY PRN 09/25/20 [History] Rimegepant Sulfate [Nurtec Odt] 75 mg PO DAILY PRN 09/25/20 [History] Fluticasone Nasal [place] [Flonase Nasal [place]] 2 spr EA NOSTRIL BID 03/17/21 [History] Multivit-Min/Iron/Folic/Lutein [Centrum Silver Women Tablet] 1 tab PO DAILY@1500 11/11/21 [History] Turmeric Root Extract [Turmeric] 1,000 mg PO DAILY@1500 11/11/21 [History] Ascorbic Acid [Vitamin C] 1,000 mg PO DAILY@1500 12/04/21 [History] Montelukast [Singulair] 10 mg PO HS 12/04/21 [History] Vitamin A 2,400 mcg PO DAILY@1500 12/04/21 [History] Aspirin [Adult Low Dose Aspirin EC] 81 mg PO DAILY 06/08/22 [History] Budesonide/Glycopyr/Formoterol [Breztri Aerosphere Inhaler] 1 puff INHALATION RT-BID 06/08/22 [History] Cholecalciferol (Vitamin D3) [Vitamin D3 (125 MCG = 5,000 IU)] 250 mcg PO DAILY@1500 06/08/22 [History] Fexofenadine HCl [Anne Allergy] 180 mg PO HS 06/08/22 [History] Magnesium Oxide [Magnesium] 500 mg PO DAILY@1500 06/08/22 [History] Albuterol Sulfate [Ventolin HFA] 1 - 2 puff INHALATION RT-Q4H PRN 09/20/22 [History] Collagen W/Vitamin C 1 tab PO DAILY@1500 09/20/22 [History] Diclofenac Sodium Gel [Voltaren Gel] 2 - 4 gm TOPICAL QID PRN 09/20/22 [History] Furosemide [Lasix] 40 mg PO DAILY 09/20/22 [History] HYDROcodone/APAP 7.5-325MG [[place] 7.5-325] 1 tab PO TID 09/20/22 [History] Ipratropium-Albuterol Nebulize [Duoneb 0.5 mg-3 mg/3 ml Soln] 3 ml INHALATION RT-QID PRN 09/20/22 [History] Metamucil Gummy 2 tab PO DAILY@1500 09/20/22 [History] Mirtazapine [Remeron] 45 mg PO HS 09/20/22 [History] Pantoprazole [Protonix] 40 mg PO BID 09/20/22 [History] Solifenacin Succinate [Vesicare] 10 mg PO DAILY 09/20/22 [History] Sucralfate [Carafate] 1 gm PO AC-TID 09/20/22 [History] Topiramate [Topamax] 50 mg PO BID 09/20/22 [History] ALPRAZolam [Xanax] 0.5 mg PO BID #0 09/22/22 [Rx] Doxycycline [Vibramycin] 100 mg PO BID 4 Days #8 cap 09/22/22 [Rx] Gabapentin 300 mg PO DAILY #0 09/22/22 [Rx] Gabapentin 300 mg PO HS #0 09/22/22 [Rx] predniSONE See Taper PO DIRECTED 12 Days #30 tab 09/22/22 [Rx] Follow up Appointment(s)/Referral(s): Skip Orellana DO [Primary Care Provider] - 09/28/22 4:20 pm (with [facility] in [place], if appointment doesnt work please call office) Julieta Wilks MD [STAFF PHYSICIAN] - 10/27/22 3:15 pm Patient Instructions/Handouts: How to Stop Smoking (DC), Emphysema (DC), COPD (Chronic Obstructive Pulmonary Disease) (DC), Chronic Lung Disease and Infection Prevention (DC) Activity/Diet/Wound Care/Special Instructions: Activity: As tolerated. Take breaks as needed. Diet: Heart healthy and carb consistent diet. Avoid salts, or foods with hidden salts such as canned or boxed foods and frozen dinners. Extra salt makes your heart work harder and traps the fluid in your body for longer. Special Instructions: Take all of your medications as directed and remember to keep all of your doctor's appointments and follow-up as needed. It is very important to continue to wear oxygen at all times and use CPAP nightly as previously instructed. Failure to comply with medical recommendations may lead to recurrent episodes of worsening respiratory failure. Highly recommend smoking cessation as continued use will only need to further comorbidities, and worsening of your COPD up to and including . Also has discussed with both you and your at bedside it is highly recommended that you decrease sedative medications. Urine on Xanax, [place], and Neurontin. It is believed that these medications are contributing to your recurrent episodes of somnolent and repeatedly nodding off. Thank you for allowing us to participate in your care, it was truly a pleasure having you for our patient!!! Discharge Disposition: HOME SELF-CARE
== END 2022-09-22 12:29 | disposition home or self-care (01) | DRG 189 ==
LOC: EC 12:27 → 4SSUR 15:54
PROVIDERS: ADMIT Student in an Organized Health Care Education/Training Program; ATTEND Student in an Organized Health Care Education/Training Program
DX: J96.21 Acute and chronic respiratory failure with hypoxia (principal); G93.41 Metabolic encephalopathy; J98.11 Atelectasis; J96.22 Acute and chronic respiratory failure with hypercapnia; W19.XXXA Unspecified fall, initial encounter; J43.9 Emphysema, unspecified; J20.9 Acute bronchitis, unspecified; I48.0 Paroxysmal atrial fibrillation; I44.0 Atrioventricular block, first degree; I11.0 Hypertensive heart disease with heart failure; H91.90 Unspecified hearing loss, unspecified ear; G89.29 Other chronic pain; G47.33 Obstructive sleep apnea (adult) (pediatric); G40.909 Epilepsy, unspecified, not intractable, without status epilepticus; F41.0 Panic disorder [episodic paroxysmal anxiety]; F32.A Depression, unspecified; F17.210 Nicotine dependence, cigarettes, uncomplicated; E78.5 Hyperlipidemia, unspecified; D75.1 Secondary polycythemia; D69.6 Thrombocytopenia, unspecified; I50.9 Heart failure, unspecified; M79.7 Fibromyalgia; Z20.822 Contact with and (suspected) exposure to COVID-19; Z79.01 Long term (current) use of anticoagulants; Z79.51 Long term (current) use of inhaled steroids; Z79.82 Long term (current) use of aspirin; Z79.891 Long term (current) use of opiate analgesic; Z79.899 Other long term (current) drug therapy; Z80.0 Family history of malignant neoplasm of digestive organs; Z80.52 Family history of malignant neoplasm of bladder; Z85.118 Personal history of other malignant neoplasm of bronchus and lung; Z90.710 Acquired absence of both cervix and uterus; Z90.721 Acquired absence of ovaries, unilateral; Z91.199 Patient's noncompliance with other medical treatment and regimen due to unspecified reason; Z98.1 Arthrodesis status; Z99.81 Dependence on supplemental oxygen; Z71.6 Tobacco abuse counseling
CPT/HCPCS: 36415; 36600; 70450; 71046; 72125; 80048; 80053; 80306; 82805; 83605; 83735; 83880; 84484; 85025; 85027; 85610; 85730; 87040; 87636; 93005; 94640; 94660; 94760; 96361; 96374; 99291

== ENCOUNTER → 2022-10-01 | Outpatient (CLI) | payer BC, MEDICARE ==
[2022-10-01 11:03] VITALS: BP 103/59; PULSE 70; RESP 14; TEMP 98.4
--- NOTE | 2022-10-01 14:31 | P.PAINPG ---
PQRS Measure Charge Sheet Comment: A 62 yr old wheelchair bound female w at side with a history of severe and chronic LBP x 2-3 mo secondary to lumbar DDD and spondylosis with facet arthropathy without myelopathy, R Sacroiliitis presents today for evaluation. Pain level is provoked at 8 /10 in intensity, constant, localized in the R lumbar spine, sore in character w shooting towards the R hip and RLE. Pain is provoked by laying supine, sitting for periods of 20 min or more. Pain is alleviated with PT in 2019 which was ineffective, chiropractic treatments semi monthly as needed, heat, ice, reclining, repositioning and rest. Oswestry axial pain score of 34 . Interventional pain procedures completed include Caudal [place] w Lysis, R SI, BL SI x2, BL RFA L5-S1 Patient is currently on [place], Neurontin, Baclofen, Voltaren gel, Lidoderm Patient denies any side effects of the medication(s), denies excessive drowsiness or sleepiness, denies suicidal ideation and reports that the current pain medication is helping to control the pain and improve activities of daily living. Patient denies any motor or sensory deficits. Patient denies any fever or night sweats, denies any change in the bowel movements or urination. Physical Examination: -Constitutional: Cooperative. Not in acute distress . - Neurologic: Cranial nerve II to XII intact. No focal neurological deficits. - Psychatric: Alert & oriented x 3. Matching mood & appropriate affect. Judgment and insight intact. - Musculoskeletal: Cervical spine: Muscle bulk/ tone/ strength in the bilateral upper extremities normal Vertebral body tenderness to palpation over [place]ling test positive Distraction test positive Facet loading test positive TTP Thoracic spine Muscle bulk / tone/ strength in the bilateral paraspinal muscles normal Vertebral body tender to palpation over Facet loading test positive TTP Lumbar spine: Motor bulk/ tone/ strength lower extremities , thigh and legs : 5/5 Deep tendon reflexes : Normal Knee Jerk. Normal Ankle Jerk . Vertebral body tenderness to palpation over [place] Test positive Lumbar Facet Loading Test positive Straight Leg Raise: positive at 30 degrees right side/ left side Gaenslen's Test positive Sacral spine : Severe tenderness over the Sacroiliac joint: right side / left side Range of motion: Flexion of the lumbar spine <60 degrees Range of motion: Extension of the lumbar spine <20 degrees Gaenslen's Test positive right side / left side Rakesh test: positive right side / left side Thigh Thrust Test positive right side / left side Sacral Thrust Test positive right side / left side Assessment and plan: Chronic LBP secondary to lumbar DDD, spondylosis with facet arthropathy without myelopathy, R Sacroiliitis Recommendation of R SI injection. May need a series of injections for optimal pain relief. Risks, benefits of procedure discussed and pt verbalized understanding. Protocol for discontinuation/ continuation of medications surrounding procedure discussed. All questions answered. I have spent less than 30 minutes on patient care today. Dr Howe was available by phone for the evaluation of this patient. The time was used to review the medical records including relevant urine studies and Prescription history (MAPs), review of the available imaging, evaluation and examination of the patient, coordination of care with the medical staff and if applicable referring physicians, as well as creation of the medical record PQRS Narrative: Smoking Status Former smoker Hx Alcohol Use (MH) No Home Medications: Ambulatory Orders levETIRAcetam [Keppra] 500 mg PO BID 08/20/14 Apixaban [Eliquis] 5 mg PO BID 09/08/18 Atorvastatin [Lipitor] 40 mg PO DAILY 09/08/18 Vortioxetine Hydrobromide [Trintellix] 10 mg PO BID 09/08/18 Sotalol [Betapace] 120 mg PO BID 01/05/19 Budesonide-Formot 160-4.5 Mcg [Symbicort 160-4.5 Mcg Inhaler] 2 puff INHALATION RT-BID 03/08/19 methIMAzole [Tapazole] 5 mg PO DAILY 12/05/19 busPIRone HCL 30 mg PO BID 03/19/20 Baclofen [Lioresal] 20 mg PO TID 09/25/20 Lidocaine 5% Patch [Lidoderm 5% Patch] 1 patch TRANSDERM DAILY PRN 09/25/20 Rimegepant Sulfate [Nurtec Odt] 75 mg PO DAILY PRN 09/25/20 Fluticasone Nasal [place] [Flonase Nasal [place]] 2 spr EA NOSTRIL BID 03/17/21 Multivit-Min/Iron/Folic/Lutein [Centrum Silver Women Tablet] 1 tab PO DAILY@1500 11/11/21 Turmeric Root Extract [Turmeric] 1,000 mg PO DAILY@1500 11/11/21 Ascorbic Acid [Vitamin C] 1,000 mg PO DAILY@1500 12/04/21 Montelukast [Singulair] 10 mg PO HS 12/04/21 Vitamin A 2,400 mcg PO DAILY@1500 12/04/21 Aspirin [Adult Low Dose Aspirin EC] 81 mg PO DAILY 06/08/22 Budesonide/Glycopyr/Formoterol [Breztri Aerosphere Inhaler] 1 puff INHALATION RT-BID 06/08/22 Cholecalciferol (Vitamin D3) [Vitamin D3 (125 MCG = 5,000 IU)] 250 mcg PO DAILY@1500 06/08/22 Fexofenadine HCl [Anne Allergy] 180 mg PO HS 06/08/22 Magnesium Oxide [Magnesium] 500 mg PO DAILY@1500 06/08/22 Albuterol Sulfate [Ventolin HFA] 1 - 2 puff INHALATION RT-Q4H PRN 09/20/22 Collagen W/Vitamin C 1 tab PO DAILY@1500 09/20/22 Diclofenac Sodium Gel [Voltaren Gel] 2 - 4 gm TOPICAL QID PRN 09/20/22 Furosemide [Lasix] 40 mg PO DAILY 09/20/22 HYDROcodone/APAP 7.5-325MG [[place] 7.5-325] 1 tab PO TID 09/20/22 Ipratropium-Albuterol Nebulize [Duoneb 0.5 mg-3 mg/3 ml Soln] 3 ml INHALATION RT-QID PRN 09/20/22 Metamucil Gummy 2 tab PO DAILY@1500 09/20/22 Mirtazapine [Remeron] 45 mg PO HS 09/20/22 Pantoprazole [Protonix] 40 mg PO BID 09/20/22 Solifenacin Succinate [Vesicare] 10 mg PO DAILY 09/20/22 Sucralfate [Carafate] 1 gm PO AC-TID 09/20/22 Topiramate [Topamax] 50 mg PO BID 09/20/22 ALPRAZolam [Xanax] 0.5 mg PO BID #0 09/22/22 Doxycycline [Vibramycin] 100 mg PO BID 4 Days #8 cap 09/22/22 Gabapentin 300 mg PO DAILY #0 09/22/22 Gabapentin 300 mg PO HS #0 09/22/22 predniSONE See Taper PO DIRECTED 12 Days #30 tab 09/22/22 Controlled Substance Measures - Controlled Substance Measures Is patient prescribed a controlled substance at discharge?: No
== END ==
LOC: PNWHC3 09:40
PROVIDERS: ATTEND Specialist
DX: M51.36 Other intervertebral disc degeneration, lumbar region (principal); M47.816 Spondylosis without myelopathy or radiculopathy, lumbar region; G89.29 Other chronic pain; Z87.891 Personal history of nicotine dependence; Z88.5 Allergy status to narcotic agent; Z88.8 Allergy status to other drugs, medicaments and biological substances; Z79.82 Long term (current) use of aspirin
CPT/HCPCS: 99211

== ENCOUNTER → 2022-10-20 | Day surgery (SDC) | payer BC, MEDICARE ==
[2022-10-15 12:57] VITALS: BMI 26.6
[~2022-10-20] MED LIST changes: +IOPAMIDOL M200 10 ML VIAL ONE; -LIDOCAINE 1% (10MG/ML) FOR IV START INTRADERMA PRN; +ROPIVACAINE 5MG/ML 20ML VIAL ONE; +methylPREDNISolone ACETATE 40 MG/ML 1 ML VIAL ONE
[2022-10-20 10:07] VITALS: TEMP 97.2
--- NOTE | 2022-10-20 11:04 | P.PCN ---
Date of Procedure: 10/20/22 Procedure(s) Performed: Procedure= Right sacroiliac joints steroid injection under fluoroscopy guidance (fluoroscopy image stored on file in the radiology Department ) Preoperative diagnosis= 1- right sacroiliitis 2-lumbar degenerative disc disease 3-lumbar facet arthropathy Postoperative diagnosis=Same as preop Diagnosis . Complication = none Condition= stable Anesthesia= local anesthesia with ropivacaine 0.5% 4 ml only Indication for the procedure= patient complaining of low back pain , examination was positive for severe tenderness over the sacroiliac joints bilaterally and patient diagnosed with sacroiliitis, for this reason, she was good candidate for sacroiliac joint steroid injection. Description of the procedure= procedure risk and benefits discussed with the patient, including but not limited, risk of infection and bleeding, and ALLERGIC reaction to the medication and not complete pain relief and patient agreed with the preceding patient taken to the operating room, placed in prone position or standard monitors applied to the patient then after induction of anesthesia back prepped with chlorhexidine 3 times , Then under strict sterile technique, the right sacroiliac joint the was identified under fluoroscopy guidance been local infiltration of the skin and subcu interstitial with lidocaine 1% then 22-gauge Quincke Needle advanced slowly under fluoroscopy and placed in the right sacroiliac joint needle placement confirmed with AP and oblique and lateral view, then after that Isovue 200 one mL injected which confirmed the correct needle placement with the appropriate arthrogram of the sacroiliac joint, and after appropriate needle placement confirmed and after negative aspiration, or heme , then Ropivacaine 0.5% 2 mL, and 40 mg of Depo-Medrol mixed together and injected in the right sacroiliac joint after negative aspiration patient tolerated the procedure well without any complication.
[2022-10-20 11:15] VITALS: BP 96/58; PULSE 60; RESP 16
--- NOTE | 2022-10-20 14:37 | FL ---
Intraoperative/procedural fluoroscopic services were provided for right SI joint steroid injection. T otal fluoroscopy time is 2.4 seconds with a total of 1 submitted image to PACS. Total DAP [id number] mGy m2. Please see the operative note for further details.
== END ==
LOC: ORPAIN 09:43
PROVIDERS: ATTEND Specialist
DX: M46.1 Sacroiliitis, not elsewhere classified (principal); Z79.82 Long term (current) use of aspirin
CPT/HCPCS: 27096; J1030; Q9966; J2795

== ENCOUNTER → 2022-11-09 | Outpatient (CLI) | payer BC, MEDICARE ==
[2022-11-09 13:28] VITALS: BP 92/53; PULSE 69; RESP 16
--- NOTE | 2022-11-09 14:53 | P.PAINPG ---
PQRS Measure Charge Sheet Comment: A 62 yr old wheelchair bound female w at side with a history of severe and chronic LBP x 2-3 mo secondary to lumbar DDD and spondylosis with facet arthropathy without myelopathy, R Sacroiliitis presents today for evaluation s/p R SI injection #2. Pt states she experienced 0% pain relief s/p procedure. Pain level is provoked at 8 /10 in intensity, constant, localized in the R lumbar spine, stabbing in character w shooting towards the RLE. Pain is provoked by laying supine, sitting for periods of 20 min or more. Pain is alleviated with PT in 2019 which was ineffective, chiropractic treatments semi monthly for 4 yrs which she is currently in, heat, ice, reclining, repositioning and rest. Oswest ry axial pain score of 34 . Interventional pain procedures completed include Caudal [place] w Lysis, R SI x2, BL SI x2, BL RFA L5-S1 Patient is currently on [place], Neurontin, Baclofen, Voltaren gel, Lidoderm Patient denies any side effects of the medication(s), denies excessive drowsiness or sleepiness, denies suicidal ideation and reports that the current pain medication is helping to control the pain and improve activities of daily living. Patient denies any motor or sensory deficits. Patient denies any fever or night sweats, denies any change in the bowel movements or urination. Physical Examination: -Constitutional: Cooperative. Not in acute distress . - Neurologic: Cranial nerve II to XII intact. No focal neurological deficits. - Psychatric: Alert & oriented x 3. Matching mood & appropriate affect. Judgment and insight intact. - Musculoskeletal: Cervical spine: Muscle bulk/ tone/ strength in the bilateral upper extremities normal Vertebral body tenderness to palpation over Spurling test positive Distraction test positive Facet loading test positive TTP Thoracic spine Muscle bulk / tone/ strength in the bilateral paraspinal muscles normal Vertebral body tender to palpation over Facet loading test positive TTP Lumbar spine: Motor bulk/ tone/ strength lower extremities , thigh and legs : 5/5 Deep tendon reflexes : Normal Knee Jerk. Normal Ankle Jerk . Vertebral body tenderness to palpation over L5 Segovia Test positive Lumbar Facet Loading Test positive Straight Leg Raise: positive at 30 degrees right side/ left side Gaenslen's Test positive Sacral spine : Severe tenderness over the Sacroiliac joint: right side / left side Range of motion: Flexion of the lumbar spine <60 degrees Range of motion: Extension of the lumbar spine <20 degrees Gaenslen's Test positive right side / left side Rakesh test: positive right side / left side Thigh Thrust Test positive right side / left side Sacral Thrust Test positive right side / left side Assessment and plan: Chronic LBP secondary to lumbar DDD, spondylosis with facet arthropathy without myelopathy, R Sacroiliitis Recommendation of Caudal [place] w Lysis. May need a series of injections for optimal pain relief. Risks, benefits of procedure discussed and pt verbalized understanding. Protocol for discontinuation/ continuation of medications surrounding procedure discussed. All questions answered. I have spent less than 30 minutes on patient care today. Dr Howe was available by phone for the evaluation of this patient. The time was used to review the medical records including relevant urine studies and Prescription history (MAPs), review of the available imaging, evaluation and examination of the patient, coordination of care with the medical staff and if applicable referring physicians, as well as creation of the medical record PQRS Narrative: Smoking Status Former smoker Hx Alcohol Use (MH) No Home Medications: Ambulatory Orders levETIRAcetam [Keppra] 500 mg PO BID 08/20/14 Apixaban [Eliquis] 5 mg PO BID 09/08/18 Atorvastatin [Lipitor] 40 mg PO DAILY 09/08/18 Vortioxetine Hydrobromide [Trintellix] 10 mg PO BID 09/08/18 Sotalol [Betapace] 120 mg PO BID 01/05/19 methIMAzole [Tapazole] 5 mg PO DAILY 12/05/19 busPIRone HCL 30 mg PO BID 03/19/20 Baclofen [Lioresal] 20 mg PO TID 09/25/20 Rimegepant Sulfate [Nurtec Odt] 75 mg PO DAILY PRN 09/25/20 Fluticasone Nasal [place] [Flonase Nasal [place]] 2 spr EA NOSTRIL BID 03/17/21 Multivit-Min/Iron/Folic/Lutein [Centrum Silver Women Tablet] 1 tab PO DAILY@1500 11/11/21 Turmeric Root Extract [Turmeric] 1,000 mg PO DAILY@1500 11/11/21 Ascorbic Acid [Vitamin C] 1,000 mg PO DAILY@1500 12/04/21 Montelukast [Singulair] 10 mg PO HS 12/04/21 Vitamin A 2,400 mcg PO DAILY@1500 12/04/21 Aspirin [Adult Low Dose Aspirin EC] 81 mg PO DAILY 06/08/22 Budesonide/Glycopyr/Formoterol [Breztri Aerosphere Inhaler] 1 puff INHALATION RT-BID 06/08/22 Cholecalciferol (Vitamin D3) [Vitamin D3 (125 MCG = 5,000 IU)] 250 mcg PO DAILY@1500 06/08/22 Magnesium Oxide [Magnesium] 500 mg PO DAILY@1500 06/08/22 Furosemide [Lasix] 40 mg PO DAILY 09/20/22 HYDROcodone/APAP 7.5-325MG [[place] 7.5-325] 1 tab PO TID 09/20/22 Ipratropium-Albuterol Nebulize [Duoneb 0.5 mg-3 mg/3 ml Soln] 3 ml INHALATION RT-QID PRN 09/20/22 Metamucil Gummy 2 tab PO DAILY@1500 09/20/22 Mirtazapine [Remeron] 45 mg PO HS 09/20/22 Pantoprazole [Protonix] 40 mg PO BID 09/20/22 Solifenacin Succinate [Vesicare] 10 mg PO DAILY 09/20/22 Sucralfate [Carafate] 1 gm PO AC-TID 09/20/22 ALPRAZolam [Xanax] 0.25 mg PO TID 10/01/22 Gabapentin 300 mg PO TID 10/01/22 Topiramate [Topamax] 25 mg PO BID 10/20/22 Controlled Substance Measures - Controlled Substance Measures Is patient prescribed a controlled substance at discharge?: No
== END ==
LOC: PNWHC3 12:55
PROVIDERS: ATTEND Specialist
DX: M51.36 Other intervertebral disc degeneration, lumbar region (principal); M47.816 Spondylosis without myelopathy or radiculopathy, lumbar region; G89.29 Other chronic pain; Z87.891 Personal history of nicotine dependence; Z79.82 Long term (current) use of aspirin; Z88.0 Allergy status to penicillin; Z88.8 Allergy status to other drugs, medicaments and biological substances; Z88.2 Allergy status to sulfonamides; Z88.1 Allergy status to other antibiotic agents
CPT/HCPCS: 99211

== ENCOUNTER 2022-12-11 13:43 | Day surgery (SDC) | payer BC, MEDICARE ==
[~2022-12-11 13:43] MED LIST changes: +HYDROmorphone 0.5 MG/0.5 ML SYRINGE IVP PRN; -IOPAMIDOL M200 10 ML VIAL ONE; -LACTATED RINGERS 1,000 ML IV SCH; +LIDOCAINE 1% (10MG/ML) FOR IV START INTRADERMA PRN; +ONDANSETRON 4 MG/2 ML VIAL IVP ONE; -ROPIVACAINE 5MG/ML 20ML VIAL ONE; +droPERidol 5 MG/2 ML VIAL IVP ONE; -methylPREDNISolone ACETATE 40 MG/ML 1 ML VIAL ONE
[2022-12-11] MEDS ORDERED: IPRATROPIUM-ALBUTEROL 3 ML NEB INHALATION STA (14:12)
[2022-12-11] MEDS: LACTATED RINGERS 1,000 ML IV SCH ×2 (14:20→19:49)
[2022-12-11] MEDS ORDERED: DEXAMETHASONE SOD PHOSPHATE 4 MG/ML 1 ML VIAL IVP ONE (14:30)
[2022-12-11] MEDS ORDERED: MIDAZOLAM 2 MG/2 ML VIAL IVP ONE (14:44)
[2022-12-11] MEDS ORDERED: fentaNYL (PF) 50 MCG/ML 2 ML AMP IVP ONE (14:44)
[2022-12-11] MEDS ORDERED: fentaNYL (PF) 50 MCG/ML 2 ML AMP ONE (16:01)
[2022-12-11] MEDS ORDERED: MIDAZOLAM 2 MG/2 ML VIAL ONE (16:01)
[2022-12-11] MEDS ORDERED: PROPOFOL 10 MG/ML 20 ML VIAL IV ONE (16:01)
[2022-12-11] MEDS ORDERED: LIDOCAINE 1% INJ 10MG/ML (20 ML MDV) ONE (16:01)
[2022-12-11] MEDS ORDERED: ROPIVACAINE 5 MG/ML 30 ML VIAL ONE (16:01)
[2022-12-11] MEDS ORDERED: SODIUM CHLORIDE 0.9% (PF) 10 ML VIAL ONE (16:01)
[2022-12-11] MEDS ORDERED: LACTATED RINGERS 1,000 ML IV ONE (16:13)
[2022-12-11] MEDS ORDERED: hydrOXYzine pamoate 25 MG CAP PO PRN (17:06)
[2022-12-11] MEDS ORDERED: ONDANSETRON 4 MG/2 ML VIAL IVP PRN (17:06)
[2022-12-11] MEDS ORDERED: SENNOSIDES-DOCUSATE SODIUM 1 EACH TAB PO PRN (17:06)
[2022-12-11] MEDS ORDERED: HYDROmorphone 1 MG/ML 1 ML SYRINGE IVP PRN (17:06)
[2022-12-11] MEDS ORDERED: HYDROmorphone 0.5 MG/0.5 ML SYRINGE IVP PRN ×2 (17:06)
[2022-12-11] MEDS ORDERED: HYDROcodone/APAP 10-325MG 1 EACH TAB PO PRN (17:10)
--- NOTE | 2022-12-11 17:13 | P.OP ---
Date of Procedure: 12/11/22 Preoperative Diagnosis: 1. Closed right unstable trimalleolar ankle fracture 2. Current every day cigarette smoker 3. Lung cancer 4. Peripheral neuropathy Postoperative Diagnosis: Same Procedure(s) Performed: 1. Open reduction and internal fixation right trimalleolar ankle fracture (open reduction internal fixation medial and lateral malleolus, nonoperative management posterior malleolus) 2. Manual application of joint stress for radiography by physician, right ankle 3. Application of short leg splint by physician, right ankle Anesthesia: SUDHEER, regional Surgeon: Juan Lynn Broadcast Program Director #1: Leigh Guido Estimated Blood Loss (ml): 25 IV fluids (ml): 600 Pathology: none sent Condition: stable Disposition: PACU Indications for Procedure: The patient is a very pleasant 62-year-old female with multiple medical problems including being a current every day cigarette smoker, having a history of lung cancer, peripheral neuropathy and chronic swelling in both of her legs who presented to my office earlier this week with an unstable trimalleolar ankle fracture. She was placed in a splint and I discussed treatment with both her and her . My recommendation is to proceed with percutaneous fixation of her medial and lateral malleolus fracture to prevent displacement but avoid open surgical wounds given her medical history. The patient and her understand and agree to this. I had a long discussion with the patient prior to surgery on the potential risks and complications of ankle fracture surgery. These risks include but are not limited to risk of anesthesia, superficial infection, deep infection, delayed wound healing, superficial wound necrosis, deep wound necrosis, damage to local blood vessels or nerves, fracture nonunion, fracture malunion, postoperative displacement of the ankle mortise, postoperative displacement of the syndesmosis, malreduction of the ankle mortise, posttraumatic arthritis, chronic pain, chronic swelling, an inability to regain preinjury level of function, generalized dissatisfaction with surgical outcome, DVT, PE, other medical complications, and possibly loss of life or limb. The patient understands that while these are the most common complication s there are other less common complications possible. They provided their verbal and written consent to go forward with surgery. Operative Findings: A manual stress was performed preoperatively and there was lateral translation of the talus out of the ankle mortise. I interpreted this as an unstable ankle fracture requiring surgical stabilization Description of Procedure: The patient suffered prepped with holding and the correct right leg was marked with my initials. I reviewed the consent form with the patient and her . All their questions were answered. A block was given by anesthesia. The patient was then brought back to the operating room. She was positioned on the or table where a general anesthetic and preoperative antibiotics were given. Once the patient was under anesthesia her splint was taken down. There is moderate swelling and ecchymosis. A tourniquet was applied proximal aspect of the right leg but was not used during the procedure. A bone foam ramp was placed under the right buttock internally rotating the leg to neutral. A ramp was placed under the right leg to facilitate imaging. The right arm was draped across the chest with a pillow and secured with tape. A foam pad was placed under the contralateral leg. Initial fluoroscopic images were taken showing a grossly displaced trimalleolar ankle fracture. A nonsterile drape was applied and a presurgical scrub with the Exiting scrub brush was performed. The right leg was then prepped and draped in the standard sterile fashion. Prior to starting surgery timeout was performed identifying the correct patient, operative extremity, and procedure. I began by coming in with fluoroscopy and marking out the trajectory of the fibula and biplanar views. A stab incision was made just distal to the tip of the fibula. A drill bit for a solid 4.5 mm screw was placed: With the canal of the fibula on biplanar views and advanced up to the level of the fracture. A solid fully threaded or 0.5 mm screw measuring 120 mm was then placed across the fracture and up into the distal shaft of the fibula. Position of the screw was verified on biplanar fluoroscopic images. Attention was then turned to the medial malleolus. Guide pins for cannulated 4.0 mm screws were placed and advanced across the fracture into the distal tibial metaphysis. The screw lengths were measured, the near cortex was punched with a drill bit and partially threaded cannulated 4.0 mm screws in drink 65 mm were placed over the guidewires generating excellent compression across the fracture site. Final fluoroscopic images were then taken including a mortise view which showed reduction of both fractures and a stable ankle mortise. A manual external rotation stress x-ray was also performed showing no widening of the medial clear space or incisura. I interpreted this as a stable ankle mortise and syndesmosis. A 2 lateral of the ankle was taken which showed reduction of the talus under the tibial plafond and a small minimally displaced posterior malleolus fracture which I elected to treat nonoperatively. All 3 stab wounds were thoroughly irrigated and closed with 3-0 nylon sutures. Sterile dressings were applied followed by a well-padded bulky Allen splint with the ankle at neutral. The patient was awoken from her anesthetic transferred from the OR table to a gurney and brought to recovery having tolerated the procedure well. Arin Guido PA-C was required as a skilled preschool assistant teacher due to the complexity of the surgery for patient positioning, reduction of fracture, placement of hardware, closure of wounds, application of splint. Plan: The patient is going to be admitted overnight for observation given her medical history, particularly her respiratory issues. Internal medicine will be consulted. She should remain strictly nonweightbearing on her right leg. She'll be given aspirin for DVT prophylaxis. She has a pain contract we will s end her home with oral pain medications for 1 week and will then turned over her pain management back to her pain specialist. She'll need follow-up in the office in 2 weeks for splint removal and nonweightbearing x-rays of the ankle.
--- NOTE | 2022-12-11 17:23 | FL ---
Intraoperative/procedural fluoroscopic services were provided. Total fluoroscopy time is 56 seconds w ith a total of 7 submitted images to PACS. Please see the operative/procedural note for further detai ls. DAP: 0.5233 Gycm2
[2022-12-11] MEDS ORDERED: ALBUTEROL NEBULIZED 2.5 MG/3 ML INHALATION ONE (18:25)
[2022-12-11] MEDS ORDERED: IPRATROPIUM-ALBUTEROL 3 ML NEB INHALATION PRN (19:35)
--- NOTE | 2022-12-11 19:38 | P.ANPRN ---
Procedure Note - Anesthesia - Nerve Block Performed Right Popliteal Single Time Out Performed: Yes (1443) Date of Procedure: 12/11/22 Procedure Start Time: 14:44 Procedure Stop Time: 14:48 Location of Patient: PreOp Indication: Acute Post-Operative Pain, Requested by Surgeon Specifically requested for management of pain by DrZenon: Juan Lynn Sedation Type: Sedate with meaningful contact maintained Preparation: Sterile Prep Position: Left Lateral Catheter: None Needle Types: Pajunk Needle Gauge: 21 Ultrasound used to visualize needle placement: Yes Ultrasound used to observe medication spread: Yes Injectate: 0.5% Ropivacaine (see comment for volume) (15CC + 5CC NACL PF) Blood Aspirated: No Pain Paresthesia on Injection Noted: No Resistance on Injection: Normal Image Stored and Saved: Yes Events: Uneventful and Well Tolerated
--- NOTE | 2022-12-11 19:39 | P.ANPRN ---
Procedure Note - Anesthesia - Nerve Block Performed Right Adductor Canal Single Time Out Performed: Yes (1443) Date of Procedure: 12/11/22 Procedure Start Time: 14:49 Procedure Stop Time: 14:53 Location of Patient: PreOp Indication: Acute Post-Operative Pain, Requested by Surgeon Specifically requested for management of pain by DrZenon: Juan Lynn Sedation Type: Sedate with meaningful contact maintained Preparation: Sterile Prep Position: Supine Catheter: None Needle Types: Pajunk Needle Gauge: 21 Ultrasound used to visualize needle placement: Yes Ultrasound used to observe medication spread: Yes Injectate: 0.5% Ropivacaine (see comment for volume) (15CC + 5CC NACL PF) Blood Aspirated: No Pain Paresthesia on Injection Noted: No Resistance on Injection: Normal Image Stored and Saved: Yes Events: Uneventful and Well Tolerated
[2022-12-11] MEDS ORDERED: NON FORMULARY DRUG (Budesonide/Glycopyr/Formoterol [Breztri Aerosphere Inhaler] 10.7 GM Gm INHALATION SCH (20:00)
[2022-12-11] MEDS: IPRATROPIUM 0.5 MG/2.5 ML NEBU INHALATION SCH (20:51)
[2022-12-11] MEDS: SYMBICORT 160-4.5 MCG INHALER INHALATION SCH (20:51)
[2022-12-11] MEDS ORDERED: MIRTAZAPINE 45 MG TABLET PO SCH (21:00)
[2022-12-11] MEDS ORDERED: MONTELUKAST 10 MG TAB PO SCH (21:00)
[2022-12-11] MEDS: ASPIRIN 81 MG PO SCH (23:03)
[2022-12-11] MEDS: GABAPENTIN 300 MG CAP PO SCH (23:04)
[2022-12-11] MEDS: TOPIRAMATE 25 MG TAB PO SCH (23:04)
[2022-12-11] MEDS: PANTOPRAZOLE 40 MG TABLET PO SCH (23:04)
[2022-12-11] MEDS: levETIRAcetam 500 MG TAB PO SCH (23:04)
[2022-12-11] MEDS: VORTIOXETINE HYDROBROMIDE 20 MG TABLET PO SCH (23:05)
[2022-12-11] MEDS: SOTALOL 120 MG TAB PO SCH (23:05)
[2022-12-11] MEDS: busPIRone HCl 10 MG TAB PO SCH (23:05)
[2022-12-11] MEDS: ALPRAZolam 0.25 MG TAB PO SCH (23:05)
[2022-12-11] MEDS: FLUTICASONE 50MCG/SPRAY NASAL 16GM EA NOSTRIL SCH (23:24)
[2022-12-11] MEDS: oxyCODONE-APAP 5-325MG 1 EACH TAB PO PRN (23:24)
[2022-12-12 02:18] VITALS: RESP 18
[2022-12-12] MEDS: LACTATED RINGERS 1,000 ML IV SCH ×2 (04:50→06:52)
[2022-12-12] MEDS: oxyCODONE-APAP 5-325MG 1 EACH TAB PO PRN ×2 (05:25→12:28)
--- NOTE | 2022-12-12 05:48 | P.CONS ---
History of Present Illness - Reason for Consult Consult date: 12/11/22 Postoperative medical care - Chief Complaint Surgical repair of right ankle fracture - History of Present Illness 62-year-old female with complex past medical history include lung cancer status post lobectomy, COPD, history of seizures Patient came in for scheduled right ankle fracture repair she tolerated procedure well no reported immediate postoperative complications denies any chest pain or trouble breathing she tolerated by mouth intake. She denies any nausea vomiting denies any fevers or chills denies any chest pain or trouble breathing. She was currently sleeping denies any medical concerns at time of my evaluation. Patient has history of lung cancer however continues to smoke cigarettes. Patient denies any recent illness denies any upper respiratory infection symptoms denies any abdominal pain nausea vomiting changes in bowel or urinary habits denies any GI bleeding. review of systems Pertinent positives as noted in HPI. All other systems were reviewed and are negative on exam Constitutional: No acute distress, conversant Eyes: Anicteric sclerae, moist conjunctiva, Pupils equal round reactive to light ENMT: NC/AT Oropharynx clear, no erythema, or exudates Neck: Supple, no masses, or JVD No carotid bruits No thyromegaly Lungs: Good breath sounds bilaterally no wheezing Clear to percussion Normal respiratory effort, no accessory muscle use Cardiovascular: Heart regular in rate and rhythm, No murmurs, gallops, or rubs No peripheral edema Abdominal: Soft Nontender, no guarding, rebound or rigidity Abdomen moving with respiration Normoactive bowel sounds No hepatomegaly, No splenomegaly No palpable mass No abdominal wall hernia noted Extremities: No digital cyanosis No clubbing Pedal pulses intact on the left, limited exam on the right due to surgical boot Radial pulses intact and symmetrical No calf tenderness Psychiatric: Alert and oriented to person, place and time Neuro Muscles Strength 4/5 in all 4 extremities with limitations over right lower extremity due to postoperative status Sensation to light touch grossly present throughout Cranial nerves II-XII grossly intact Lymphatics: no palpable cervical or supraclavicular lymph nodes Assessment and plan Right ankle fracture status post open reduction internal fixation Management per primary orthopedic team Paroxysmal A. fib Resume a liquids when cleared by orthopedic team Continue with sotalol 120 mg twice a day COPD, compensated Counseled to quit smoking Nicotine replacement therapy offered Supplemental oxygen as needed Breathing treatments scheduled and [id number] Obstructive sleep apnea noncompliant with treatment History of seizures Continue with Keppra 500 mg twice a day Overall stable from internal medicine standpoint Encouraged to use CPAP at night and incentive spirometry during the day Check CBC BMP in the morning Thank you for this consultation Past Medical History Past Medical History: Atrial Fibrillation, Cancer, Heart Failure, COPD, Fibromyalgia, GERD/Reflux, Hearing Disorder / Deafness, Hyperlipidemia, Hy pertension, Musculoskeletal Disorder, Respiratory Disorder, Seizure Disorder, Sleep Apnea/CPAP/BIPAP, Thyroid Disorder Additional Past Medical History / Comment(s): Diverticulitis., last seizure 2014., lung cancer June 2018 with left upper lobectomy., Hyperthyroid. No tx for Sleep Apnea. receives bladder injections for incontinence., Chronic back pain., Neuropathy in hands and feet. , states venous insufficiencey -varicose veins., rash left elbow, constipation, port lions -does not wear her hearing aids., states CHF ., oxygen at 2 liters. History of Any Multi-Drug Resistant Organisms: None Reported Past Surgical History: Appendectomy, Back Surgery, Breast Surgery, Section, Cholecystectomy, Hernia Repair, Hysterectomy, Orthopedic Surgery Additional Past Surgical History / Comment(s): Lumbar fusion, neck fusion, left knee surgery X3(ACL X2 and arthroscopy X1), ganglion cyst excision bilateral wrists, lymph node/gland removed from neck, left elbow surgery - ulnar nerve entrapment, eye lid lift, left ovary removed, left upper lobectomy, Pain Clinic Procedures, breast biopsy, sinus surgery/deviated septum repair, spinal stimulator inserted and removed - leads remain in place., colonoscopy (06/04/22), ablation of varicose veins. Past Anesthesia/Blood Transfusion Reactions: No Reported Reaction, Motion Sickness Past Psychological History: Anxiety, Depression, Panic Disorder Smoking Status: Current every day smoker Past Alcohol Use History: None Reported Additional Past Alcohol Use History / Comment(s): smokes <1/4ppd, hx of 1 1/2 ppd., started smoking as teenager. Past Drug Use History: Marijuana Additional Drug Use History / Comment(s): daily Marijuanna gummies, aware to refrain from use 24 hours prior to procedure. - Past Family History Daughter(s) Family Medical History: Cancer Additional Family Medical History / Comment(s): Colon cancer. Brother(s) Family Medical History: Cancer Additional Family Medical History / Comment(s): Prostate cancer. Father Family Medical History: Cancer Additional Family Medical History / Comment(s): Colon cancer. Sister(s) Family Medical History: Cancer Additional Family Medical History / Comment(s): Bladder cancer. Medications and Allergies Home Medications Medication Instructions Recorded Confirmed Type levETIRAcetam [Keppra] 500 mg PO BID 08/20/14 12/10/22 History Apixaban [Eliquis] 5 mg PO BID 09/08/18 12/10/22 History Atorvastatin [Lipitor] 40 mg PO DAILY 09/08/18 12/10/22 History Vortioxetine Hydrobromide 10 mg PO BID 09/08/18 12/10/22 History [Trintellix] Sotalol [Betapace] 120 mg PO BID 01/05/19 12/10/22 History methIMAzole [Tapazole] 5 mg PO DAILY 12/05/19 12/10/22 History busPIRone HCL 30 mg PO BID 03/19/20 12/10/22 History Baclofen [Lioresal] 20 mg PO TID 09/25/20 12/10/22 History Rimegepant Sulfate [Nurtec Odt] 75 mg PO DAILY PRN 09/25/20 12/10/22 History Fluticasone Nasal [place] [Flonase 2 spr EA NOSTRIL BID 03/17/21 12/10/22 History Nasal [place]] Multivit-Min/Iron/Folic/Lutein 1 tab PO DAILY@1500 11/11/21 12/10/22 History [Centrum Silver Women Tablet] Turmeric Root Extract [Turmeric] 1,000 mg PO DAILY@1500 11/11/21 12/10/22 History Ascorbic Acid [Vitamin C] 1,000 mg PO DAILY@1500 12/04/21 12/10/22 History Montelukast [Singulair] 10 mg PO HS 12/04/21 12/10/22 History Vitamin A 2,400 mcg PO DAILY@1500 12/04/21 12/10/22 History Aspirin [Adult Low Dose Aspirin EC] 81 mg PO DAILY 06/08/22 12/10/22 History Budesonide/Glycopyr/Formoterol 1 puff INHALATION RT-BID 06/08/22 12/10/22 History [Breztri Aerosphere Inhaler] Cholecalciferol (Vitamin D3) 250 mcg PO DAILY@1500 06/08/22 12/10/22 History [Vitamin D3 (125 MCG = 5,000 IU)] Magnesium Oxide [Magnesium] 500 mg PO DAILY@1500 06/08/22 12/10/22 History Furosemide [Lasix] 40 mg PO DAILY 09/20/22 12/10/22 History HYDROcodone/APAP 7.5-325MG [[place] 1 tab PO TID 09/20/22 12/10/22 History 7.5-325] Ipratropium-Albuterol Nebulize 3 ml INHALATION RT-QID PRN 09/20/22 12/10/22 History [Duoneb 0.5 mg-3 mg/3 ml Soln] Metamucil Gummy 2 tab PO DAILY@1500 09/20/22 12/10/22 History Mirtazapine [Remeron] 45 mg PO HS 09/20/22 12/10/22 History Pantoprazole [Protonix] 40 mg PO BID 09/20/22 12/10/22 History Solifenacin Succinate [Vesicare] 10 mg PO DAILY 09/20/22 12/10/22 History Sucralfate [Carafate] 1 gm PO AC-TID 09/20/22 12/10/22 History ALPRAZolam [Xanax] 0.25 mg PO TID 10/01/22 12/10/22 History Gabapentin 300 mg PO TID 10/01/22 12/10/22 History Topiramate [Topamax] 25 mg PO BID 10/20/22 12/10/22 History Aspirin 81 mg PO BID 30 Days #60 tab 12/11/22 Rx Docusate [Colace] 100 mg PO BID #60 capsule 12/11/22 Rx oxyCODONE HCL/ACETAMINOPHEN 1 tab PO Q6HR PRN 7 Days #30 tab 12/11/22 Rx [Percocet 5-325 mg] Allergies Allergy/AdvReac Type Severity Reaction Status Date / Time amoxicillin trihydrate Allergy Rash/Hives Verified 12/11/22 14:13 [From Augmentin] potassium clavulanate Allergy Rash/Hives Verified 12/11/22 14:13 [From Augmentin] pregabalin [From Lyrica] Allergy Swelling Verified 12/11/22 14:13 tongue, disoriented sulfamethoxazole Allergy Rash/Hives Verified 12/11/22 14:13 [From Bactrim] trimethoprim [From Bactrim] Allergy Rash/Hives Verified 12/11/22 14:13 Physical Exam Vitals: Vital Signs Temp Pulse Pulse Resp BP BP Pulse Ox 12/12/22 00:54 98.9 F 67 18 96/59 95 12/11/22 21:02 68 12/11/22 20:54 69 94/58 91 L 12/11/22 20:53 67 12/11/22 20:48 78 20 12/11/22 20:38 68 98/61 90 L 12/11/22 20:24 70 105/54 12/11/22 20:09 70 97/60 92 L 12/11/22 19:46 70 19 99/61 90 L 12/11/22 19:38 70 99/61 90 L 12/11/22 19:23 69 90/60 93 L 12/11/22 19:08 69 96/58 88 L 12/11/22 18:54 97.5 F L 73 18 104/56 90 L 12/11/22 18:39 16 96 12/11/22 18:20 75 16 96/50 93 L 12/11/22 18:05 71 16 122/80 93 L 12/11/22 17:50 73 16 130/75 90 L 12/11/22 17:35 66 16 96/55 94 L 12/11/22 17:20 67 16 94/51 95 12/11/22 17:05 97.5 F L 65 16 106/58 93 L 12/11/22 14:53 63 16 91/51 94 L 12/11/22 14:39 63 18 12/11/22 14:32 64 16 12/11/22 14:10 92 L 12/11/22 14:08 88 L 12/11/22 14:07 98.4 F 70 24 151/72 73 L Intake and Output 12/11/22 12/11/22 12/12/22 14:59 22:59 06:59 Intake Total 1150 Output Total 220 Balance 930 Intake: IV 1150 Output: Urine 200 Estimated Blood Loss 20 Other: Voiding Method Bedside Commode # Voids 1 Weight 65.77 kg 65.77 kg
--- NOTE | 2022-12-12 08:47 | P.PN ---
Subjective Progress Note Date: 12/12/22 The patient is resting comfortably in her bed. She has minimal pain and states that she is much less painful than anticipated, likely due to the block. She has no complaints. She denies shortness of breath. Objective - Vital Signs Vital signs: Vital Signs Temp 98.9 F 12/12/22 00:54 Pulse 67 12/12/22 00:54 Resp 18 12/12/22 00:54 BP 96/59 12/12/22 00:54 Pulse Ox 95 12/12/22 00:54 FiO2 Intake & Output 12/11/22 12/12/22 12/12/22 18:59 06:59 18:59 Intake Total 1150 Output Total 220 Balance 930 Weight 65.77 kg 65.77 kg Intake: IV 1150 Output: Urine 200 Estimated Blood Loss 20 Other: Voiding Method Bedside Commode # Voids 5 - Exam The patient is sitting up comfortably in bed. She is alert and able to answer questions. She has a nasal cannula in place. I focused exam of the right lower extremity was conducted. On inspection there is a clean-appearing bulky Allen splint. Her toes are warm and well perfused with brisk capillary refill. Sensation is intact to light touch in the tips of her toes. She is able to actively plantarflex and dorsiflex her toes Assessment and Plan Assessment: Postoperative day #1 status post percutaneous open reduction internal fixation of a displaced trimalleolar ankle fracture Current every day cigarette smoker History of lung cancer Plan: 1. Strict nonweightbearing right lower extremity, up with assistance and a walker or crutches 2. DVT prophylaxis with aspirin 3. Appreciate internal medicine's preoperative medical management 4. Physical therapy for gait training 5. 2 doses postoperative antibiotics 6. Dispo: We'll plan for discharge home later today pending physical therapy and pain control, the patient states she would like to go home
--- NOTE | 2022-12-12 08:49 | P.DS ---
Providers Date of admission: 12/11/2022 Attending physician: Juan Lynn Consults: 12/11/22 17:06 Consult Physician Routine Consulting Provider: Neris Horvath Consult Reason/Comments: medical management Do you want consulting provider notified?: Yes [facility] Course: The patient is very pleasant 62-year-old female with multiple medical problems including be occurring every day cigarette smoker and having lung cancer who sustained a closed right trimalleolar ankle fracture. She was admitted under my care yesterday and underwent operative fixation. Following an uncomplicated surgery she was transferred to the orthopedic floor. She was transitioned from IV to oral pain medications. She was seen by internal medicine. She was stable and ultimately cleared for discharge home. Plan - Discharge Summary Discharge Rx Participant: Yes New Discharge Prescriptions: New Docusate [Colace] 100 mg PO BID #60 capsule Aspirin 81 mg PO BID 30 Days #60 tab oxyCODONE HCL/ACETAMINOPHEN [Percocet 5-325 mg] 1 tab PO Q6HR PRN 7 Days #30 tab PRN Reason: Pain No Action levETIRAcetam [Keppra] 500 mg PO BID Apixaban [Eliquis] 5 mg PO BID Atorvastatin [Lipitor] 40 mg PO DAILY Vortioxetine Hydrobromide [Trintellix] 10 mg PO BID Sotalol [Betapace] 120 mg PO BID methIMAzole [Tapazole] 5 mg PO DAILY busPIRone HCL 30 mg PO BID Rimegepant Sulfate [Nurtec Odt] 75 mg PO DAILY PRN PRN Reason: Migraine Headache Baclofen [Lioresal] 20 mg PO TID Multivit-Min/Iron/Folic/Lutein [Centrum Silver Women Tablet] 1 tab PO DAILY@1500 Turmeric Root Extract [Turmeric] 1,000 mg PO DAILY@1500 Vitamin A 2,400 mcg PO DAILY@1500 Budesonide/Glycopyr/Formoterol [Breztri Aerosphere Inhaler] 1 puff INHALATION RT-BID Aspirin [Adult Low Dose Aspirin EC] 81 mg PO DAILY Metamucil Gummy 2 tab PO DAILY@1500 Furosemide [Lasix] 40 mg PO DAILY Mirtazapine [Remeron] 45 mg PO HS Pantoprazole [Protonix] 40 mg PO BID Solifenacin Succinate [Vesicare] 10 mg PO DAILY Sucralfate [Carafate] 1 gm PO AC-TID Gabapentin 300 mg PO TID Topiramate [Topamax] 25 mg PO BID Fluticasone Nasal [place] [Flonase Nasal [place]] 2 spr EA NOSTRIL BID Ascorbic Acid [Vitamin C] 1,000 mg PO DAILY@1500 Montelukast [Singulair] 10 mg PO HS Magnesium Oxide [Magnesium] 500 mg PO DAILY@1500 Cholecalciferol (Vitamin D3) [Vitamin D3 (125 MCG = 5,000 IU)] 250 mcg PO DAILY@1500 HYDROcodone/APAP 7.5-325MG [[place] 7.5-325] 1 tab PO TID Ipratropium-Albuterol Nebulize [Duoneb 0.5 mg-3 mg/3 ml Soln] 3 ml INHALATION RT-QID PRN PRN Reason: Shortness Of Breath ALPRAZolam [Xanax] 0.25 mg PO TID Discharge Medication List levETIRAcetam [Keppra] 500 mg PO BID 08/20/14 [History] Apixaban [Eliquis] 5 mg PO BID 09/08/18 [History] Atorvastatin [Lipitor] 40 mg PO DAILY 09/08/18 [History] Vortioxetine Hydrobromide [Trintellix] 10 mg PO BID 09/08/18 [History] Sotalol [Betapace] 120 mg PO BID 01/05/19 [History] methIMAzole [Tapazole] 5 mg PO DAILY 12/05/19 [History] busPIRone HCL 30 mg PO BID 03/19/20 [History] Baclofen [Lioresal] 20 mg PO TID 09/25/20 [History] Rimegepant Sulfate [Nurtec Odt] 75 mg PO DAILY PRN 09/25/20 [History] Fluticasone Nasal [place] [Flonase Nasal [place]] 2 spr EA NOSTRIL BID 03/17/21 [History] Multivit-Min/Iron/Folic/Lutein [Centrum Silver Women Tablet] 1 tab PO DAILY@1500 11/11/21 [History] Turmeric Root Extract [Turmeric] 1,000 mg PO DAILY@1500 11/11/21 [History] Ascorbic Acid [Vitamin C] 1,000 mg PO DAILY@1500 12/04/21 [History] Montelukast [Singulair] 10 mg PO HS 12/04/21 [History] Vitamin A 2,400 mcg PO DAILY@1500 12/04/21 [History] Aspirin [Adult Low Dose Aspirin EC] 81 mg PO DAILY 06/08/22 [History] Budesonide/Glycopyr/Formoterol [Breztri Aerosphere Inhaler] 1 puff INHALATION RT-BID 06/08/22 [History] Cholecalciferol (Vitamin D3) [Vitamin D3 (125 MCG = 5,000 IU)] 250 mcg PO DAILY@1500 06/08/22 [History] Magnesium Oxide [Magnesium] 500 mg PO DAILY@1500 06/08/22 [History] Furosemide [Lasix] 40 mg PO DAILY 09/20/22 [History] HYDROcodone/APAP 7.5-325MG [[place] 7.5-325] 1 tab PO TID 09/20/22 [History] Ipratropium-Albuterol Nebulize [Duoneb 0.5 mg-3 mg/3 ml Soln] 3 ml INHALATION RT-QID PRN 09/20/22 [History] Metamucil Gummy 2 tab PO DAILY@1500 09/20/22 [History] Mirtazapine [Remeron] 45 mg PO HS 09/20/22 [History] Pantoprazole [Protonix] 40 mg PO BID 09/20/22 [History] Solifenacin Succinate [Vesicare] 10 mg PO DAILY 09/20/22 [History] Sucralfate [Carafate] 1 gm PO AC-TID 09/20/22 [History] ALPRAZolam [Xanax] 0.25 mg PO TID 10/01/22 [History] Gabapentin 300 mg PO TID 10/01/22 [History] Topiramate [Topamax] 25 mg PO BID 10/20/22 [History] Aspirin 81 mg PO BID 30 Days #60 tab 12/11/22 [Rx] Docusate [Colace] 100 mg PO BID #60 capsule 12/11/22 [Rx] oxyCODONE HCL/ACETAMINOPHEN [Percocet 5-325 mg] 1 tab PO Q6HR PRN 7 Days #30 tab 12/11/22 [Rx] Follow up Appointment(s)/Referral(s): Juan Lynn MD [Medical Doctor] - 2 Weeks Activity/Diet/Wound Care/Special Instructions: -Strict non-weight bearing on your operative leg. Do not remove your splint; Keep splint clean, dry, and intact -Use crutches, knee scooter, or a walker to ambulate after surgery. -Elevate and ice operative leg to help reduce swelling and control pain. -Take pain medications as prescribed for one week. Further pain medication per your PCP. Take Colace as a stool softener. Take aspirin as prescribed for blood clot prevention. -Follow-up appointment with Dr. Lynn in the office in 2 weeks. -Call the office with any questions or concerns, Discharge Disposition: HOME WITH HOME HEALTH SERVICES
[2022-12-12] MEDS: ALPRAZolam 0.25 MG TAB PO SCH (08:59)
[2022-12-12] MEDS: ASPIRIN 81 MG PO SCH (08:59)
[2022-12-12] MEDS: busPIRone HCl 10 MG TAB PO SCH (08:59)
[2022-12-12] MEDS: PANTOPRAZOLE 40 MG TABLET PO SCH (08:59)
[2022-12-12] MEDS: GABAPENTIN 300 MG CAP PO SCH (08:59)
[2022-12-12] MEDS: levETIRAcetam 500 MG TAB PO SCH (08:59)
[2022-12-12] MEDS ORDERED: methIMAzole 5 MG TAB PO SCH (09:00)
[2022-12-12] MEDS ORDERED: ATORVASTATIN 40 MG TAB PO SCH (09:00)
[2022-12-12] MEDS: SOTALOL 120 MG TAB PO SCH (09:01)
[2022-12-12] MEDS: VORTIOXETINE HYDROBROMIDE 20 MG TABLET PO SCH (09:01)
[2022-12-12] MEDS: TOPIRAMATE 25 MG TAB PO SCH (09:01)
[2022-12-12] MEDS: FLUTICASONE 50MCG/SPRAY NASAL 16GM EA NOSTRIL SCH (09:02)
[2022-12-12 09:16] VITALS: BP 97/63; TEMP 98.1
[2022-12-12 09:40] LABS: Basophils # (A) 0.02 X 10*3/uL (0.00-0.10); Basophils % (A) 0.2 %; Eosinophils # (A) 0.01 X 10*3/uL (0.04-0.35); Eosinophils % (A) 0.1 %; HGB 12.6 d/dL (12.0-15.0); Lymphocytes % (A) 14.4 %; MCH 37.3 pg (27.0-32.0); MCV 106.5 FL (80.0-97.0); Mean Platelet Volume 10.2 FL (9.5-12.2); Monocytes # (A) 1.04 X 10*3/uL (0.20-1.00); Monocytes % (A) 12.5 %; NRBC Per 100 WBC 0 X 10*3/uL (0.00-0.01); Neutrophils # (A) 6.01 X 10*3/uL (1.80-7.70); Neutrophils % (A) 72.4 %; Platelet Count 212 X 10*3/uL (140-440); RBC 3.38 X 10*6/uL (4.10-5.20); RDW 12.9 % (11.5-14.5); WBC 8.31 X 10*3/uL (4.50-10.00)
[2022-12-12 09:48] LABS: BUN/Creat Ratio 24.67 Ratio (12.00-20.00); Blood Urea Nitrogen 14.8 mg/dL (9.0-27.0); Calcium 9.3 mg/dL (8.7-10.3); Carbon Dioxide 28.8 mmol/L (21.6-31.8); Chloride 100 mmol/L (96-109); Glucose 87 mg/dL (70-110); Potassium 3.6 mmol/L (3.5-5.5); Sodium 140 mmol/L (135-145)
[2022-12-12] MEDS: SYMBICORT 160-4.5 MCG INHALER INHALATION SCH (10:28)
[2022-12-12] MEDS: IPRATROPIUM 0.5 MG/2.5 ML NEBU INHALATION SCH (10:28)
[2022-12-12 10:40] VITALS: PULSE 70
--- NOTE | 2022-12-12 10:50 | P.PN ---
Subjective Progress Note Date: 12/12/22 Hospital course: Patient is a very pleasant 62-year-old female with a past medical history of atrial fibrillation on anticoagulation with Eliquis, hypertension, hyperlipidemia, fibromyalgia, lung cancer with left upper lobectomy, obstructive sleep apnea CPAP dependent nightly, and COPD home oxygen dependent with continued nicotine dependence and cannabinoid use. She is currently admitted under orthopedic surgery team status post open reduction and internal fixation of right trimalleolar ankle fracture with application of short-leg splint. Surgical procedure was completed by Dr. Lynn on 12/11/22. We were consulted for medical management throughout patient's hospitalization. Physical exam: Patient seen and fully evaluated at bedside this morning. She was sitting up in bed talking with her at bedside. She reports currently having pain controlled and denies having any complaints. Plan is for discharge home today with home care including PT/OT. Vital signs reviewed and stable. General: Nontoxic, no distress and appears stated age. Derm: Skin warm and dry, normal coloration for ethnicity. Head: Atraumatic, normocephalic and symmetric. Eyes: EOMs intact, no lid lag, and anicteric sclera Mouth: no lip lesions, mucus membranes moist Cardiovascular: regular rate and rhythm with normal S1S2, no murmur, positive posterior tibial pulses bilaterally, and cap refill < 2 seconds. Lungs: Respirations even, regular, and unlabored on 3 L O2 via nasal cannula. Lungs diminished, with no significant rhonchi, no rales, no wheezing, and no accessory muscle usage. Abdominal: soft, nontender to palpation, no guarding, no appreciable organomegaly Ext: No gross muscle atrophy, no edema, no contractures. Movement and sensation intact to bilateral lower extremities. Patient was short leg splint right lower extremity. Neuro: Speech clear, face symmetrical and CN II-XII grossly intact with no noted focal neuro deficits Psych: Alert and oriented to person, place, time, and situation. Appropriate and pleasant affect. Assessment and Plan of Care: Acute postoperative blood loss anemia -This is an expected and stable finding with hemoglobin of 12.6 and preoperative hemoglobin of 15.2. No need for intervention or further testing at this time. Status post ORIF of right trimalleolar ankle fracture -Management per primary admitting orthopedic surgery team including DVT prophylaxis, pain management, weightbearing, and PT/OT. -Patient being discharged home and instructed she is to continue nonweightbearing of right foot. Short leg postsurgical splint in place. -Discussed with orthopedic surgery patient may resume anticoagulation with Eliqu is 5 mg twice daily Paroxysmal Atrial fibrillation, currently maintaining sinus mechanism -Discussed with orthopedic surgery, patient may resume anticoagulation with Eliquis 5 mg twice daily and sotalol 120 mg twice daily. Hypertension Hyperlipidemia Fibromyalgia -Patient to continue daily medication regimen with atorvastatin 40 mg daily, sotalol 120 mg twice daily, aspirin 81 mg daily, furosemide 40 mg daily, Chronic respiratory failure with hypoxia and continuous oxygen dependence History of Lung cancer with left upper lobectomy Obstructive sleep apnea CPAP dependent nightly COPD home oxygen dependent Nicotine dependence Cannabinoid use disorder -Continue Breztri inhaler 1 puff twice daily and DuoNeb's 4 times daily as needed for shortness of breath and/or wheezing. -Continue CPAP nightly and while napping. -Patient encouraged to wear oxygen at all times. -Encouraged to continue to use incentive spirometry after discharge. -Strongly advise cessation of nicotine and cannabinoid use. Data reviewed: Postoperative labs reviewed showing a stable postoperative hemoglobin of 12.6 with a preoperative hemoglobin of 15.2. BMP unremarkable.\ Vital signs reviewed and stable. Blood pressure 97/63, heart rate 62, respiratory rate 18, temp 98.1F, and SpO2 of 94% on 3 L O2 via nasal cannula. Patient is cleared from medical perspective for discharge once cleared by primary admitting orthopedic surgery team, medication reconciliation for discharge was completed. Thank you for allowing us to participate in the care of this pleasant patient. Do not hesitate to contact us with questions. Someone can be reached from the [facility] hospitalist group all hours of the day at [phone] or via [employer]. Patient was seen independently by Nurse Pracitioner. This document was prepared using [employer] dictation software. Please allow for errors in emery wheel molder, while rare they do occur. Amilcar Ann NP rendered care for this patient independently, reviewed the findings and plan as documented in the note above. I did not physically speak with or examine the patient on this date. Objective - Vital Signs Vital signs: Vital Signs Temp 98.9 F 12/12/22 00:54 Pulse 67 12/12/22 00:54 Resp 18 12/12/22 00:54 BP 96/59 12/12/22 00:54 Pulse Ox 95 12/12/22 00:54 FiO2 Intake & Output 12/11/22 12/12/22 12/12/22 18:59 06:59 18:59 Intake Total 1150 Output Total 220 Balance 930 Weight 65.77 kg 65.77 kg Intake: IV 1150 Output: Urine 200 Estimated Blood Loss 20 Other: Voiding Method Bedside Commode # Voids 5 - Labs CBC & Chem 7: 12/12/22 06:20 12/12/22 06:20
== END 2022-12-12 13:28 | disposition home health service (06) ==
LOC: OR 13:43 → 4SSUR 16:59 → OR 12-12 13:28
PROVIDERS: ATTEND Orthopaedic Surgery
DX: S82.851A Displaced trimalleolar fracture of right lower leg, initial encounter for closed fracture (principal); F17.210 Nicotine dependence, cigarettes, uncomplicated; G62.9 Polyneuropathy, unspecified; G89.18 Other acute postprocedural pain; J44.9 Chronic obstructive pulmonary disease, unspecified; I48.91 Unspecified atrial fibrillation; I11.0 Hypertensive heart disease with heart failure; K21.9 Gastro-esophageal reflux disease without esophagitis; I50.9 Heart failure, unspecified; Z79.899 Other long term (current) drug therapy; Z85.118 Personal history of other malignant neoplasm of bronchus and lung; Z90.49 Acquired absence of other specified parts of digestive tract; E78.5 Hyperlipidemia, unspecified; E05.90 Thyrotoxicosis, unspecified without thyrotoxic crisis or storm; G89.29 Other chronic pain; Z98.891 History of uterine scar from previous surgery; Z90.710 Acquired absence of both cervix and uterus; Z90.721 Acquired absence of ovaries, unilateral; Z80.0 Family history of malignant neoplasm of digestive organs; Z79.01 Long term (current) use of anticoagulants; X58.XXXA Exposure to other specified factors, initial encounter
CPT/HCPCS: 94640 ×4; 94760; 97163; 80048; 85025; 73610; 27822; 64450; 64447; J2250; J1100; J0690 ×2; J2405; J3010

== ENCOUNTER → 2023-09-16 | Outpatient (CLI) | payer BC, MEDICARE ==
--- NOTE | 2023-09-16 12:23 | CT ---
EXAMINATION TYPE: CT thoracic spine wo con DATE OF EXAM: 09/16/2023 COMPARISON: 07/05/2020 HISTORY: Chronic back pain. CT DLP: 1212 mGycm Automated exposure control for dose reduction was used. FINDINGS: The thoracic vertebral segments are normal in height and alignment there is no fracture or subluxatio n. There is no change in the position of the spinal stimulator at T7-T8 There is mild degenerative disc disease throughout the mid and lower thoracic spine as evidenced by m ild anterior spondylosis but no significant disc space narrowing. There is no large disc herniation. There is no spinal stenosis. The paraspinal soft tissues are unremarkable IMPRESSION: 1. THE THORACIC SPINE FRACTURE OR MALALIGNMENT. 2. NO CHANGE IN THE SPINAL STIMULATOR AT T7/T8. 3. MILD DEGENERATIVE DISC DISEASE IN THE MID-LOWER THORACIC SPINE. 4. NO SIGNIFICANT INTERVAL CHANGE. 5. NO THORACIC DISC HERNIATION OR SPINAL STENOSIS.
--- NOTE | 2023-09-16 12:31 | CT ---
EXAMINATION TYPE: CT lumbar spine wo con DATE OF EXAM: 09/16/2023 12:04 PM COMPARISON: 12/04/2021 HISTORY: Chronic back pain. CT DLP: 891 mGycm Automated exposure control for dose reduction was used. Unenhanced CT of the lumbar spine was performed. Bone and soft tissue window settings are submitted as well as coronal and sagittal reconstructions. Findings: There are postsurgical changes of laminectomy and posterior metallic and intradiscal fusion at the L3 , L4 and L5 levels The lumbar vertebral segments are normal in height and there is no fracture or malalignment. L1-2, L2 -3 and L5-S1 disc spaces are well-maintained in height. There is no large lumbar disc herniation. There is no spinal stenosis. There is no bony neural forami nal encroachment. There is no significant interval change.. IMPRESSION: 1. Postsurgical changes of laminectomy and fusion at the L3, L4 and L5 levels as described above. 2. No significant interval change compared to previous. 3. No large disc herniations or spinal stenosis. 4. no lumbar spine fracture or malalignment.
== END | disposition home or self-care (01) ==
LOC: RADCTMAIN 11:12
PROVIDERS: ATTEND Orthopaedic Surgery
DX: M51.34 Other intervertebral disc degeneration, thoracic region (principal); S22.009A Unspecified fracture of unspecified thoracic vertebra, initial encounter for closed fracture
CPT/HCPCS: 72128; 72131

== ENCOUNTER → 2023-11-23 | Outpatient (CLI) | payer BC, MEDICARE ==
[2023-11-23 20:32] LABS: INR 1.01 sec (0.93-1.11); Prothrombin Time 10.9 sec (9.9-11.9)
[2023-11-23 20:44] LABS: HCT 43.2 % (37.2-46.3); HGB 14.7 g/dL (12.0-15.0); MCV 102.9 FL (80.0-97.0); Mean Platelet Volume 10.2 FL (9.5-12.2); NRBC Per 100 WBC 0 X 10*3/uL (0.00-0.01); Platelet Count 161 X 10*3/uL (140-440); RDW 12.6 % (11.5-14.5); WBC 10.02 X 10*3/uL (4.50-10.00)
[2023-11-23 21:19] LABS: ALT 30 U/L (8-44); AST 26 U/L (13-35); Albumin 4.2 g/dL (3.8-4.9); Alkaline Phosphatase 107 U/L (41-126); BUN/Creat Ratio 25.83 Ratio (12.00-20.00); Blood Urea Nitrogen 15.5 mg/dL (9.0-27.0); Carbon Dioxide 29.8 mmol/L (21.6-31.8); Chloride 101 mmol/L (96-109); Glucose 86 mg/dL (70-110); Potassium 4.3 mmol/L (3.5-5.5); Sodium 141 mmol/L (135-145); Total Bilirubin 0.4 mg/dL (0.3-1.2); Total Protein 6.2 g/dL (6.2-8.2)
== END | disposition home or self-care (01) ==
LOC: LABWHC1 14:26
PROVIDERS: ATTEND Orthopaedic Surgery
DX: Z01.812 Encounter for preprocedural laboratory examination (principal); I10 Essential (primary) hypertension; M54.50 Low back pain, unspecified; Z79.01 Long term (current) use of anticoagulants; Z22.322 Carrier or suspected carrier of Methicillin resistant Staphylococcus aureus
CPT/HCPCS: 36415; 80053; 85027; 85610; 86850; 86900; 86901; 87070

== ENCOUNTER 2023-12-02 10:37 | Day surgery (SDC) | payer BC, MEDICARE ==
[~2023-12-02 10:37] MED LIST changes: +DEXAMETHASONE SOD PHOSPHATE 4 MG/ML 1 ML VIAL IV ONE; +GABAPENTIN 300 MG CAP PO PRN; -LIDOCAINE 1% (10MG/ML) FOR IV START INTRADERMA PRN; +SCOPOLAMINE 1 MG/72 HR PATCH TRANSDERM ONE; +TRANEXAMIC 1,000 MG/100ML-NACL 1,000 MG in SALINE 1 100ML.BAG IVPB PRN; -droPERidol 5 MG/2 ML VIAL IVP ONE; +fentaNYL (PF) 50 MCG/ML 2 ML AMP IV PRN
[2023-12-02] MEDS: IV FLUID CONTINUATION 1,000 ML IV ONE (11:08)
[2023-12-02] MEDS: LACTATED RINGERS 1,000 ML IV SCH (11:46)
[2023-12-02] MEDS: ONDANSETRON 4 MG/2 ML VIAL IVP PRN (11:46)
[2023-12-02] MEDS ORDERED: MIDAZOLAM 2 MG/2 ML VIAL ONE (12:55)
[2023-12-02] MEDS ORDERED: SUCCINYLCHOLINE CHLORIDE 200 MG/10 ML VIAL IV ONE (12:55)
[2023-12-02] MEDS ORDERED: ePHEDrine 50 MG/ML 1 ML VIAL ONE (12:55)
[2023-12-02] MEDS ORDERED: ROCURONIUM 10 MG/ML (5 ML VIAL) IV ONE (12:55)
[2023-12-02] MEDS ORDERED: fentaNYL (PF) 50 MCG/ML 2 ML AMP ONE (12:55)
[2023-12-02] MEDS ORDERED: PROPOFOL 10 MG/ML 20 ML VIAL IV ONE (12:55)
[2023-12-02] MEDS ORDERED: NEOSTIGMINE 1 MG/ML 10 ML VIAL ONE (12:55)
[2023-12-02] MEDS ORDERED: LIDOCAINE 1% INJ 10MG/ML (20 ML MDV) ONE (12:55)
[2023-12-02] MEDS ORDERED: GLYCOPYRROLATE 0.2 MG/ML 2 ML VIAL ONE (12:55)
[2023-12-02] MEDS: ACETAMINOPHEN TAB 500 MG TAB PO PRN (12:56)
[2023-12-02] MEDS: BUPIVACAINE (PF) 0.5% 30 ML VIAL SQ ONE ×2 (13:28)
[2023-12-02] MEDS: LIDOCAINE 2%-EPI 1:100,000 20 ML VIAL SQ ONE ×2 (13:28)
--- NOTE | 2023-12-02 14:07 | P.HPOR ---
History of Present Illness H&P Date: 12/02/23 Chief Complaint: Stimulator irritation, nonfunctioning. 63 yo female presents for her spinal cord stim removal. She has had irritation of this and also new onset neurologial sx requringin MRI. She needs leads removed in order to have her MRI. We discussed risks and benefits again in Pre op and she is ready and willing to proceed. Review of Systems 16 pt ROS completed and as stated in HPI. All others reviewed negative. Past Medical History Past Medical History: Atrial Fibrillation, Asthma, Cancer, Heart Failure, COPD, Fibromyalgia, GERD/Reflux, Hearing Disorder / Deafness, Hyperlipidemia, Muscu loskeletal Disorder, Seizure Disorder, Sleep Apnea/CPAP/BIPAP, Thyroid Disorder Additional Past Medical History / Comment(s): Diverticulitis., last seizure 2014., lung cancer June 2018 with left upper lobectomy., Hyperthyroid. No tx for Sleep Apnea. , Chronic back pain., Neuropathy in hands and feet. , states venous insufficiencey -varicose veins., rash left elbow, constipation, [place] -does not wear her hearing aids., states CHF ., oxygen at 2 liters. recent heart monitor- seen by cardiology. BP runs low. overactive bladder. current UTI with abx last dose due 11/26/23. History of Any Multi-Drug Resistant Organisms: None Reported Past Surgical History: Appendectomy, Back Surgery, Breast Surgery, Section, Cholecystectomy, Hernia Repair, Hysterectomy, Orthopedic Surgery Additional Past Surgical History / Comment(s): Lumbar fusion, neck fusion, left knee surgery X3(ACL X2 and arthroscopy X1), ganglion cyst excision bilateral wrists, lymph node/gland removed from neck, left elbow surgery - ulnar nerve entrapment, eye lid lift, left ovary removed, left upper lobectomy, Pain Clinic Procedures, breast biopsy, sinus surgery/deviated septum repair, spinal stimulator inserted and removed - leads remain in place., colonoscopy (06/04/22), ablation of varicose veins. rt ankle surgery.- 3 screws. Past Anesthesia/Blood Transfusion Reactions: No Reported Reaction, Motion Sickness Additional Past Anesthesia/Blood Transfusion Reaction / Comment(s): blood transfusion no issues. Smoking Status: Current every day smoker - Past Family History Daughter(s) Family Medical History: Cancer Additional Family Medical History / Comment(s): Colon cancer. Brother(s) Family Medical History: Cancer Additional Family Medical History / Comment(s): Prostate cancer. Father Family Medical History: Cancer Additional Family Medical History / Comment(s): Colon cancer. Sister(s) Family Medical History: Cancer Additional Family Medical History / Comment(s): Bladder cancer. Medications and Allergies Home Medications Medication Instructions Recorded Confirmed Type levETIRAcetam [Keppra] 500 mg PO BID 08/20/14 12/02/23 History Apixaban [Eliquis] 5 mg PO BID 09/08/18 12/02/23 History Atorvastatin [Lipitor] 40 mg PO DAILY 09/08/18 12/02/23 History Vortioxetine Hydrobromide 10 mg PO DAILY 09/08/18 12/02/23 History [Trintellix] Sotalol [Betapace] 120 mg PO BID 01/05/19 12/02/23 History methIMAzole [Tapazole] 5 mg PO DAILY 12/05/19 12/02/23 History busPIRone HCL 30 mg PO BID 03/19/20 12/02/23 History Baclofen [Lioresal] 20 mg PO TID 09/25/20 12/02/23 History Rimegepant Sulfate [Nurtec Odt] 75 mg PO DAILY PRN 09/25/20 12/02/23 History Fluticasone Nasal Cyl[place] [Flonase 2 spr EA NOSTRIL DAILY 03/17/21 12/02/23 History Nasal Cylinder] Multivit-Min/Iron/Folic/Lutein 1 tab PO DAILY@1500 11/11/21 12/02/23 History [Centrum Silver Women Tablet] Ascorbic Acid [Vitamin C] 1,000 mg PO DAILY@1500 12/04/21 12/02/23 History Montelukast [Singulair] 10 mg PO HS 12/04/21 12/02/23 History Vitamin A 2,400 mcg PO DAILY@1500 12/04/21 12/02/23 History Budesonide/Glycopyr/Formoterol 1 puff INHALATION RT-BID 06/08/22 12/02/23 History [Breztri Aerosphere Inhaler] Cholecalciferol (Vitamin D3) 250 mcg PO DAILY@1500 06/08/22 12/02/23 History [Vitamin D3 (125 MCG = 5,000 IU)] Magnesium Oxide [Magnesium] 500 mg PO DAILY@1500 06/08/22 12/02/23 History Furosemide [Lasix] 40 mg PO DAILY PRN 09/20/22 12/02/23 History Ipratropium-Albuterol Nebulize 3 ml INHALATION RT-QID PRN 09/20/22 12/02/23 History [Duoneb 0.5 mg-3 mg/3 ml Soln] Metamucil Gummy 3 tab PO DAILY@1500 09/20/22 12/02/23 History Mirtazapine [Remeron] 45 mg PO HS 09/20/22 12/02/23 History ALPRAZolam [Xanax] 0.25 mg PO TID 10/01/22 12/02/23 History Albuterol Inhaler [Ventolin Hfa 2 puff INHALATION BID PRN 11/26/23 12/02/23 History Inhaler] Cetirizine HCl [Zyrtec] 10 mg PO HS 11/26/23 12/02/23 History Docusate [Colace] 100 mg PO BID PRN 11/26/23 12/02/23 History Esomeprazole Magnesium [NexIUM] 40 mg PO BID 11/26/23 12/02/23 History oxyCODONE HCL/ACETAMINOPHEN 1 tab PO TID 11/26/23 12/02/23 History [Percocet 5-325 mg] Ibuprofen [Motrin] 800 mg PO Q8H PRN #90 tab 12/02/23 Rx Allergies Allergy/AdvReac Type Severity Reaction Status Date / Time amoxicillin trihydrate Allergy Rash/Hives Verified 12/02/23 11:12 [From Augmentin] potassium clavulanate Allergy Rash/Hives Verified 12/02/23 11:12 [From Augmentin] pregabalin [From Lyrica] Allergy Swelling Verified 12/02/23 11:12 tongue, disoriented sulfamethoxazole Allergy Rash/Hives Verified 12/02/23 11:12 [From Bactrim] trimethoprim [From Bactrim] Allergy Rash/Hives Verified 12/02/23 11:12 Physical Examination Osteopathic Statement: *. No significant issues noted on an osteopathic structural exam other than those noted in the History and Physical/Consult. AOX3 NAD. Well nourished, well hydrated, NAD. - Lumbar Spine Back pain: gradual onset, getting worse Pain modifiers: with flexion, with extension, with rotation right, with rotation left, with bilateral rotation, with lateral flexion right, at terminal ROM, throughout ROM Nerve symptoms: tingling of leg or foot: bilateral, burning pain in leg or foot: bilateral, buttock pain radiating to inside of leg: bilateral, buttock pain radiating to outside of leg: bilateral, buttock pain radiating to front of leg: bilateral, buttock pain radiating to back of leg: bilateral, leg or foot weakness: bilateral Other nerve symptoms: abnormal gait Previous treatment: traction: not effective, previous hospitalization: not effective, heat: not effective, ice: not effective, NSAIDs: somewhat effective, pain medication: not effective, muscle relaxant: not effective, nerve block: not effective, corticosteroid injection: not effective, surgery: not effective, brace: not effective, exercise: not effective, physical therapy: not effective, chiropractic: not effective, accupuncture: not effective, biofeedback: not effective, TENS unit: not effective, psychotherapy: not effective, other: not effective Tenderness with palpation: lumbar spine, L/S junction, buttock Appearance: step deformity, loss of lumbar lordosis Crepitus with motion: Yes - L Spine: dermatomal strength & reflexes bilateral Strength: hip flexion: 4/5 Strength: hip extension: 4/5 Strength: knee flexion: 4/5 Strength: knee extension: 4/5 Strength: ankle dorsiflexion: 4/5 Strength: ankle plantar flexion: 4/5 Strength: ankle inversion: 4/5 Strength: ankle eversion: 4/5 Strength: great toe flexion: 4/5 Strength: great toe extension: 4/5 Reflexes: knee reflex: grade 2, ankle reflex: grade 2 Other reflexes: Babinski's: negative, clonus: negative Nerve sensory abnormalities: buttocks/perianal (S3, S4, S5): yes, medial upper thigh: yes, inguinal (L1): yes, proximal thigh (L2): yes, distal thigh (L3): yes, knee (L4): yes, lateral leg and first dorsal webspace (L5): yes, posterior leg and plantar foot (S1): yes, posterior thigh (S2): yes Nerve tests: straight leg raising tests: negative, contralateral straight leg raising tests: negative Results XR and CT show stim leads entering around T12-L1 with paddle stim 8 leads two arms. Assessment and Plan (1) Failed spinal cord stimulator Current Visit: Yes Status: Acute Code(s): T85.192A - [facility] COMPL OF IMPLNT ELEC NSTIM OF SPINAL CORD LEAD, INIT SNOMED Code(s): 901451002 (2) Spinal cord stimulator dysfunction Current Visit: Yes Status: Acute Code(s): T85.192A - [facility] COMPL OF IMPLNT ELEC NSTIM OF SPINAL CORD LEAD, INIT SNOMED Code(s): 424400905 Plan: NPO confirmed Consent signed and confirmed Risks and benefits discussed again as in the risk review Site marked Pre meds given Pt ready and willing to proceed with surgery today
--- NOTE | 2023-12-02 14:10 | P.PN ---
Progress Note - Text Progress Note Date: 11/08/23 .D:Date: 11/08/23 : 04:47pm .T:Title: SUSIE LIMON [facility] Age: 63 year Height: 5'4" Weight: 132 lbs BP:138/82 BMI: 22.66 kg/m2 Occupation: Retired VAS: CC: Re-check on low back pain HISTORY: Ms. Massey presents to the office today, 11/08/23, for re-evaluation of low back pain and her spinal stimulator. She has had the pulse generator removed, but she continues to have mid thoracic pain just over the region of the insertion of the paddles and leads. The leads were cut and the wires are under the skin also causing irritaion for her. She states pain in the mid thoracic region and lower lumbar spine as well as pain over the insertion point of the stimulator leads. She states she is using a walker for ambulation now as her LE are getting weaker it seems. SHe continues to have neck and low back pain after surgeries done on these by a previous surgeon. She likely needs an MRI to evaluate better her isseus, but has the stim leads in which are irritable and not MRI compatible. SHe would like these removed so we can move forward with assessing her low back and leg issues. SHe denies any new trauma or changes to her bowel or bladder habits. She denies any f/c/sob/cp currently. 09/08/23: for re-evaluation of low back pain. She previously received a right SI joint injection in office on 05/10/2023 with 0% relief. She notes she experienced mild swelling around the injection site that ast for about 2 to 3 days. The patient reports experiencing a continued throbbing, shooting pain across the low back that radiates down into the bilateral lower extremities. She notes progressive numbness and tingling throughout the bilateral foot. She notes continued issues with imbalance. She states she constantly "feels unsteady on her feet". Overall, the patient feels that er right-sided back and leg pain are more severe than the left at this time. Se states she "feels as i her ib is sticking out on the right", which is causing her a lot of pain. She notes her current symptoms worsen after prolonged standing and walking. She reports severe sleep disturbances related to her ongoing pain and associated symptoms. Otherwise, the patient denies any f/c/sob/cp, perineal numbness or tingling, bowel, or bladder incontinence/retention. Patient is ambulatory with a walker. The patients past social, medical, family, surgical history, as well as review of systems, have been reviewed. Please refer to the History and Physical form that has been scanned into our electronic medical record system. 16 points review of systems completed and as stated in HPI, all other systems reviewed are negative. PAST TREATMENTS: - X-rays of the lumbar spine completed at [facility] on 07/16/2022 (reviewed today) - CT lumbar spine completed at [facility] on 07/05/2020 (reviewed today) TRAUMA RELATED: - No WORK RELATED: - No PT IN LAST 6 MONTHS: - No (patient completed PT for the lumbar spine 5 years ago - no relief) PHYSICIAN DIRECTED HOME EXERCISE PROGRAM: - Yes; no significant relief ACTIVITY MODIFICATION: - Yes MEDICATIONS: - Oxycodone ALTERNATIVE INTERVENTIONS (CHIROPRACTIC, ACUPUNCTURE, MASSAGE, RICE): - Home heat therapies, emergency care attendant, and rest with mild, temporary relief BRACING: - No INJECTIONS ([place], [place], RFA): - Lumbar ESIs x 1-2 with significant relief - Right SI joint injection x1 (in office on 05/10/2023) with no significant relief MEDICAL HISTORY: Past Medical History: REVIEWED STATED IN CHART Past Surgical History: REVIEWED STATED IN CHART Social History: REVIEWED STATED IN CHART SMOKING: Current smoker (3/4 PPD) ETOH: None SUBSTANCES: None Family History: REVIEWED STATED IN CHART Current Medications: P1Rx: ALPRAZolam 0.5 mg tablet Ref: 0 Rx: atorvastatin 40 mg tablet Ref: 0 Rx: baclofen 20 mg tablet Ref: 0 Rx: busPIRone 15 mg tablet Ref: 0 Rx: fluticasone propionate 50 mcg/actuation nasal spray,suspension Ref: 0 Rx: levETIRAcetam 500 mg tablet Ref: 0 Rx: magnesium 250 mg tablet Ref: 0 Rx: multivitamin tablet Ref: 0 Rx: sotol af , Ref: 0 Rx: Trintellix 10 mg tablet Ref: 0 Rx: turmeric Ref: 0 Rx: vitamin c , Ref: 0 Rx: apixaban 5 mg tablet Ref: 0 Rx: diclofenac sodium Ref: 0 Rx: furosemide 40 mg tablet Ref: 0 Rx: methIMAzole 5 mg tablet Ref: 0 Rx: montelukast 10 mg tablet Ref: 0 Rx: Nurtec ODT Ref: 0 Rx: nystatin 100,000 unit/gram topical cream Ref: 0 Rx: vitamin A 2,400 mcg capsule Ref: 0 Rx: gabapentin 600 mg tablet Ref: 0 Rx: Anne Allergy 180 mg tablet Ref: 0 Rx: aspirin 81 mg tablet,delayed release Ref: 0 Rx: Colace 100 mg capsule Ref: 0 Rx: Collagen Plus Vitamin C 125 mg-740 mg capsule Ref: 0 Rx: diclofenac 1 % topical gel Ref: 0 Rx: ipratropium bromide 0.02 % solution for inhalation Ref: 0 Rx: mirtazapine 45 mg tablet Ref: 0 Rx: Myrbetriq 50 mg tablet,extended release Ref: 0 Rx: oxyCODONE-acetaminophen 5 mg-325 mg tablet Ref: 0 Rx: pantoprazole 40 mg tablet,delayed release Ref: 0 Rx: sucralfate 1 gram tablet Ref: 0 Rx: Topamax 25 mg tablet Ref: 0 Rx: Ventolin HFA 90 mcg/actuation aerosol inhaler Ref: 0 Rx: Vesicare 10 mg tablet Ref: 0 Rx: Vitamin D3 Ref: 0 PHYSICAL EXAM: General: AOX3, NAD, Well hydrate, well nourished HEENT: No lumps or masses Extremities: No color changes, no pooling INTEGUMENT: Appearance:Normal color and turgor Surgical Incisions: Healed well Hairy Patches: ABSENT Dorsal Skin Dimples: Normal [employer] spots: ABSENT PALPATION: TTP Midline:YES Paracervical:NO Parathoracic: YES and midline over the insertion site of her thoracic stim leads Paralumbar:YES SIJ TESTING: TTP (NONE) * [place] Finger:- POSTURAL BALANCE: Coronal:BALANCED Sagittal:BALANCED Shoulder height: LEVEL Pelvic Girdle: LEVEL ROM AND APPEARANCE: Neck:UNRESTRICTED Lumbar:RESTRICTED Shoulders: Symmetrical Hips: Symmetrical Knees: Symmetrical Hands: Symmetrical Feet: Symmetrical VASCULAR STATUS: PALPABLE PULSES B/L UE AND LE 2/4 RAD/ULNAR/DP/PT Edema: NONE NEUROLOGICAL EXAMINATION: Mental Status: Awake, alert, fully oriented with normal attention, concentration, and memory. Fluent appropriate speech. CRANIAL NERVES: I: Olfactory not assessed. II: Visual acuity normal, no visual field deficit noted with confrontation. III, IV: Normal pupillary reflexes & intact extraocular movements without nystagmus. V, : Intact symmetrical facial sensation. VII: Intact symmetrical facial motor movement: Hearing intact. IX, X: Intact gag, swallow, & normal voice. XI: Sternocleidomastoid, trapezius function intact. XII: Tongue midline with normal movements. TENSIONING: L'HERMITTE'S SIGN NEG SPURLUNG'S SIGN NEG CUBITAL COMPRESSION NEG TINELS AT WRIST NEG SLR/CROSSED SLR POS MOTOR EXAM (0-5/5, NT) Muscle appearance:Symmetrical, without signs of atrophy or dystrophy UPPER EXTREMITY RIGHT LEFT Shoulder Abduction 5 5 Biceps 5 5 Triceps 5 5 Wrist Extension 5 5 Hand Intrinsics 5 5 Motor Transport Inspector 5 5 LOWER EXTREMITY RIGHT LEFT Hip Flexion 4 4 Knee Extension 4 4 Knee Flexion 4 4 Dorsiflexion 4 4 Plantarflexion 4 4 EHL 4 4 FHL 4 4 * ALL MOTOR TESTING CAUSES INCREAED PAIN IN THE LOW BACK AND AGGRAVATES CERVICAL RADICULAR SYMPTOMS She is showing changes in her LE strength since her last visit which is affecting b/l LE at this time. REFLEXES (0-4/2, NT): RIGHT LEFT Bicep 2 2 Brachioradialis 2 2 Triceps 2 2 Patellar 2 2 Achilles 2 2 PATHOLOGICAL REFLEXES: RIGHT LEFT ALEXIS'S ABSENT ABSENT CLONUS ABSENT ABSENT BABINSKI ABSENT ABSENT RECTAL TONE: INTACT SENSATION (0-4, NT): Sensation intact to LT and Pain * C5-T1 distribution BUE * L2-S2 distribution BLE *Exceptions below* DERMATOMAL DEFICIT/RADICULAR PATTERN: L5-S1 B/L GAIT AND FUNCTIONAL EVALUATION: AMBULATORY AID WALKER ROMBERG'S TEST INTACT HAND AND FINGER DEXTERITY INTACT YES DYSDIADOCHOKINESIA EXAM NEG B/L YES TOE/HEEL WALK INTACT WITH GOOD BALANCE YES SQUAT AND RISE W/O ASSISTANCE TO 60 DEG KNEE FLEXION NO, PAIN RELATED SINGLE LEG STANCE INTACT TRENDELENBURG NEG IMAGING: XRAY - No new x-rays taken in office today. Please see previous notes. IMPRESSION: It was my pleasure to have seen and examined Jaye. I reviewed the patient's clinical syndrome, physical findings, and imaging studies during the appointment today. It is my impression that the patient has a diagnosis of. 1. Spinal Stimulator Lead irritation and retention 2. Non functional spine stimulator 3. Thoracic spine pain 4. S/p Cervical fusion with myelopathy symtpoms. 5. s/p L3-5 lumbar fusion with radiculopathy and likely pseudoarthrosis 6. LE weakness, new PLAN: DISCUSSION: I have discussed with the patient her imaging and sx as well as clinical findings. At this time her LE are showing more weakness and progressive changes. Her CT myelogram was reviwed, but is inadequate to make diagnosis of the issues she has going on. She needs an MRI for better assessment and determination of cervical myelopathy vs Lumbar issues. In order to do this we need to remove what is left of her stimulator and paddles. On top of this, she is having a lot of irritation around this area of insertion in the T spine which is contributing to her T spine pain. She is also having irritaion where the lead wires were cut down by the battery pack and they are starting to poke through the skin. We will need to remove her stim leads. We discussed this at length as well as alternatives. We discussed risks and benefits of surgery as well as possible outcomes and she was willing to assume the risks of surgery. SHe is willing to proceed as follows. SURGICAL RECOMMENDATION: * REMOVAL/REVISION OF SPINAL STIMULATOR LEADS IN THORACIC SPINE WITH LAMINECTOMY Pre operative labs, EKG and CXR for surgery optimization and clearance Review of risk packet given to patient. -Cont with at home thearpy as able -Cont with current medical regiment -MRI once stim leads are removed. FOLLOW UP: * POST OP PLAN AT NEXT VISIT: * Recheck PATIENT EDUCATION: Medications Reviewed: YES In our visit today Ms. Massey and I have had a chance to go over my understanding of the patient's current condition, the natural course history without intervention and various interventional options. Questions were invited and answered, and the patient wishes to proceed as outlined above. I will be sure to keep you updated after Ms. Massey returns here for further follow-up. Thank you again for your referral. Please do not hesitate to contact me if you have any further questions. Signed and authenticated by: Elijah Valdes [facility] [address] [facility], [address] [address] . This message is confidential, intended only for the named recipient(s) and may contain information that is privileged or exempt from disclosure under applicable law. If you are not the intended recipient(s), you are notified that the dissemination, distribution or copying of this information is prohibited. If you received this message in error, please notify the sender then delete this message. # SIGNED BY Elijah Alcala (GOO)11/10/2023 06:16PM
[2023-12-02 14:27] VITALS: TEMP 97.2
[2023-12-02 14:46] VITALS: RESP 16
[2023-12-02 15:24] VITALS: BP 119/72; PULSE 54
--- NOTE | 2023-12-02 15:35 | FL ---
EXAMINATION TYPE: FL guidance operating room DATE OF EXAM: 12/02/2023 HISTORY: 63-year-old female REMOVAL OF SPINE STIMULATOR FLUOROSCOPY Spine stimulator removal 3sec fluoro time .[address] Alcala 3 images are submitted. [facility], , 12/02/2023 3:33 PM
--- NOTE | 2023-12-03 10:04 | P.OP ---
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 Removal of spinal cord stimulator leads 8 leads in one paddle with laminectomy Implants: none Anesthesia: ROCKYA Surgeon: Elijah Alcala Estimated Blood Loss (ml): 20 IV fluids (ml): 1,000 Urine output (ml): 0 Pathology: none sent Condition: stable Disposition: PACU Indications for Procedure: Pt presents for spinal cord stim removal due to non functioning and need of MRI due to progressive neurological changes. Description of Procedure: The patient was seen and examined in the preoperative area. All preoperative protocols were followed. Informed consent was obtained risks and benefits of the procedure were discussed at length. Risks including bleeding infection damage to the surrounding tissue and risk of reoperation were discussed with the patient. Risk of anesthesia up to and including was a discussed with the patient. These are outlined in the risk review. They were willing to accept these risks and all of the risks of surgery. The patient was given a weight- based dose of antibiotics in the form of 2 g Ancef. The patient was seen and evaluated by the anesthesia team who deemed them fit for surgery. The site was marked, the patient was willing to proceed with the procedure. The patient was transferred to the operative suite by the Department of anesthesia. They were then drifted off to sleep by the department anesthesia and [anesthesia type] was performed. The patient tolerated this well. [Murray catheter was placed by nursing staff, atraumatically]. Once confirmation of lines and ventilation the patient was transferred to a [prone Jeremy table very carefully]. All bony prominences including wrists, elbows, axilla, chest, hips, and thighs, and feet were padded very well. Special attention was paid to the genitalia and these were padded accordingly. SCDs were placed on bilateral lower extremities and were connected. Arms were well padded and placed [on arm boards up and out in the 90/90 position]. Once in position, again we confirmed good ventilation capabilities and that lines were running appropriately. The patient's Thoracolumbar spine was then exposed. 1010s were placed outlining the incision site. Standard alcohol was used to clean the incision site and allowed to dry. C-arm was used to biomark the patient and confirm level for incision which was marked with a skin marker. Operative briefing was performed with all teams and everyone in agreement to proceed. The patient was then prepped and draped in a normal sterile fashion. Timeout was then performed and all parties were in agreement with the procedure to be performed. Midline skin incision made over the previously bowel marked and incised and diss ection taken down until the leads were identified. The cut ends of the leads were then removed from the tunnel area. We did have to dissect down to the lamina as the leads were placed through the interlaminar bone. Laminectomy was performed using high-speed bur along with partial medial facetectomy. This allowed for loosening of the panels. Up-biting curette was then used to loosen the panels from the dural sac as well as from the underlying lamina. Kerrison rongeur was used to widen this. The panels were then easily removed. We inspected the area there is no injury. Further laminectomy was done for further decompression and scar removal. Copious irrigation was then performed Irricept irrigation performed. Meticulous hemostasis performed. We then proceeded with closure. Vicryl was placed in the deep fascia 2-0 Vicryl placed in the superficial fascia and subcu tissue. Skin fabio were placed in the skin. Wound edges approximated very well and there are no complications. Wound was then cleaned with alcohol and dressed sterilely with an operative foam dressing. The patient was transferred back to their hospital bed atraumatically. Patient was then awakened and extubated by the department of anesthesia having tolerated the procedure very well with no complications. They were transferred to the postoperative care unit in stable condition.
== END 2023-12-02 15:37 | disposition home or self-care (01) ==
LOC: OR 10:37
PROVIDERS: ATTEND Orthopaedic Surgery
DX: T85.192A Other mechanical complication of implanted electronic neurostimulator of spinal cord electrode (lead), initial encounter

== ENCOUNTER → 2024-01-16 | Outpatient (CLI) | payer BC, MEDICARE ==
--- NOTE | 2024-01-16 18:14 | MR ---
EXAMINATION TYPE: MR pancreas wo/w con DATE OF EXAM: 01/16/2024 11:57 AM COMPARISON: 09/16/2023 CLINICAL INDICATION: Female, 63 years old with history of R63.4 Abn weight loss; PHH, unexplained tank ght loss, right sided abdomen pain, hx of lung ca TECHNIQUE: Multiplanar multi-sequence imaging was performed without contrast. Post contrast imaging was performed. Post IV contrast subtraction images were also submitted for review. IV Contrast: 5ml mL Gadavist FINDINGS: LOWER CHEST: No gross irregularity. ABDOMEN Liver: No evidence for cirrhosis. Signal dropout on chemical shift out of phase imaging. Gallbladder and Bile ducts: No evidence for ductal dilation, or biliary stricture or evidence of chol edocholithiasis. The gallbladder is not visualized. Pancreas: No ductal dilation. No evidence for solid mass. Spleen: Normal for size. Adrenal glands: Unremarkable. Kidneys: No evidence for obstructive uropathy. No suspicious renal masses. 5 mm high intrinsic T1 sig nal right renal cyst. Stomach and Bowel: No evidence for bowel wall thickening or evidence for obstruction. Retroperitoneum/Peritoneum: No evidence of pneumoperitoneum or free fluid. High T2 signal 16 mm cyst in the mid mesentery series 701 image 11. Vasculature: No aortic aneurysm. Musculoskeletal: The osseous structures appear intact.Susceptibility artifact from fixation changes i n the lung bases. Lymph Nodes: No gross evidence for lymphadenopathy. Abdominal wall: Surgical anchors noted along the anterior abdominal wall with susceptibility artifact . IMPRESSION: 1. No evidence for solid pancreatic mass or lymphadenopathy. 2. Right renal cortex 5 mm hemorrhagic/proteinaceous cyst. 3. Postsurgical changes anterior abdominal wall and spine. 4. Mild hepatic steatosis. [facility], , 01/16/2024 6:11 PM
== END | disposition home or self-care (01) ==
LOC: RADMRIMAIN 11:02
PROVIDERS: ATTEND Internal Medicine Gastroenterology
DX: K76.0 Fatty (change of) liver, not elsewhere classified (principal); N28.1 Cyst of kidney, acquired; R63.4 Abnormal weight loss; Z85.118 Personal history of other malignant neoplasm of bronchus and lung
CPT/HCPCS: 74183; A9585

== ENCOUNTER → 2024-02-21 | Outpatient (CLI) | payer BC, MEDICARE ==
--- NOTE | 2024-02-23 22:02 | MR ---
EXAMINATION TYPE: MR isaine/portillo wo con DATE OF EXAM: 02/21/2024 12:54 PM COMPARISON: None. CLINICAL INDICATION: Female, 64 years old with history of M54.6,M48.04,M54.14,54.50, M62.81, Mid back /low back pain into extremities, hx of lung ca TECHNIQUE: Multiplanar, multiecho imaging on a 3.0 Lili magnet is performed through the thoracic spi ne. IV Contrast: mL (None, if empty) FINDINGS: Spinal cord maintains normal signal through its visualized course. Vertebral body alignment is normal. Vertebral body heights are preserved. Disc heights are preserved. Disc hydration levels are mildly diminished No spinal canal stenosis is evident. IMPRESSION: 1. Unremarkable MRI thoracic spine EXAMINATION TYPE: MR isaine/portillo wo con DATE OF EXAM: 02/21/2024 12:54 PM COMPARISON: None. CLINICAL INDICATION: Female, 64 years old with history of M54.6,M48.04,M54.14,54.50, M62.81, Mid back /low back pain into extremities, hx of lung ca TECHNIQUE: Multiplanar, multisequence images of the lumbar spine were acquired. IV Contrast: mL (None, if empty) FINDINGS: Cord terminates at the L1-2 level. Tarlov cysts may be within the upper sacral canal. Pedicle screws are present L3 and L4 disc spacers. Pedicle screws present L3-4 and L4-5. Vertebral body heights are preserved. Remaining visualized disc heights are preserved L5-S1: No significant disc bulge or disc herniation. No spinal canal stenosis. No foraminal stenosi s. L4-L5: No significant disc bulge or disc herniation. The level is nondiagnostic due to magnetic susce ptibility artifact. L3-L4: No significant disc bulge or disc herniation. The level is nondiagnostic due to magnetic susce ptibility artifact. L2-L3: No significant disc bulge or disc herniation. No spinal canal stenosis. No foraminal stenosi s. L1-L2: No significant disc bulge or disc herniation. No spinal canal stenosis. No foraminal stenosi s. T12-L1: No significant disc bulge or disc herniation. No spinal canal stenosis. No foraminal stenos is. IMPRESSION: 1. 1. Post fixation L3-L5 pedicle screws with susceptibility artifact making L3-4 and L4-5 spinal canal evaluation nondiagnostic. [facility], , 02/23/2024 10:00 PM
== END | disposition home or self-care (01) ==
LOC: RADMRIMAIN 11:23
PROVIDERS: ATTEND Orthopaedic Surgery
DX: M48.04 Spinal stenosis, thoracic region (principal); M54.14 Radiculopathy, thoracic region; M54.50 Low back pain, unspecified; Z85.118 Personal history of other malignant neoplasm of bronchus and lung
CPT/HCPCS: 72146; 72148

== ENCOUNTER → 2024-08-07 | Outpatient (CLI) | payer BC, MEDICARE ==
[2024-08-07 13:23] VITALS: BP 116/73; PULSE 68; RESP 16; TEMP 97.7
--- NOTE | 2024-08-07 15:45 | P.PAINPG ---
PQRS Measure Charge Sheet Comment: A 64 yr old wheelchair bound female w at side with a history of severe and chronic LBP > 2 yrs secondary to radiculopathy, spondylosis with facet arthropathy without myelopathy, R Sacroiliitis presents today for evaluation . Pain level is provoked at 8 /10 in intensity, constant, localized in the R lumbar spine, stabbing in character w shooting towards the RLE. Pain is provoked by laying supine, sitting for periods of 20 min or more. Pain is alleviated with PT in 2019 which was ineffective, chiropractic treatments semi monthly for 4 yrs which she is currently in, heat, ice, reclining, repositioning and rest. Oswestry axial pain score of 35 . Interventional pain procedures completed include Caudal [place] w Lysis, R SI x2 (2022), BL SI x2, BL RFA L5-S1 Patient is currently on [place], Neurontin, Baclofen, Voltaren gel, Lidoderm Patient denies any side effects of the medication(s), denies excessive drowsiness or sleepiness, denies suicidal ideation and reports that the current pain medication is helping to control the pain and improve activities of daily living. Patient denies any motor or sensory deficits. Patient denies any fever or night sweats, denies any change in the bowel movements or urination. Physical Examination: -Constitutional: Cooperative. Not in acute distress . - Neurologic: Cranial nerve II to XII intact. No focal neurological deficits. - Psychatric: Alert & oriented x 3. Matching mood & appropriate affect. Judgment and insight intact. - Musculoskeletal: Cervical spine: Muscle bulk/ tone/ strength in the bilateral upper extremities normal Vertebral body tenderness to palpation over [place] test positive Distraction test positive Facet loading test positive TTP Thoracic spine Muscle bulk / tone/ strength in the bilateral paraspinal muscles normal Vertebral body tender to palpation over Facet loading test positive TTP Lumbar spine: Motor bulk/ tone/ strength lower extremities , thigh and legs : 5/5 Deep tendon reflexes : Normal Knee Jerk. Normal Ankle Jerk . Vertebral body tenderness to palpation over L5 [place] Test positive Lumbar Facet Loading Test positive Straight Leg Raise: positive at 30 degrees right side/ left side Gaenslen's Test positive Sacral spine : Severe tenderness over the Sacroiliac joint: right side / left side Range of motion: Flexion of the lumbar spine <60 degrees Range of motion: Extension of the lumbar spine <20 degrees Gaenslen's Test positive right side / left side Rakesh test: positive right side / left side Thigh Thrust Test positive right side / left side Sacral Thrust Test positive right side / left side Assessment and plan: Chronic LBP secondary to L3-L5 Fixation w Decompression, R Sacroiliitis Recommendation of [place] L5-S1 #1. Risks, benefits of procedure discussed and pt verbalized understanding. Protocol for discontinuation/ continuation of medications surrounding procedure discussed. All questions answered. I have spent less than 30 minutes on patient care today. Dr Howe was available by phone for the evaluation of this patient. The time was used to review the medical records including relevant urine studies and Prescription history (MAPs), review of the available imaging, evaluation and examination of the patient, coordination of care with the medical staff and if applicable referring physicians, as well as creation of the medical record - Pain Location Bilateral Lower Back Non-Pharmacological Interventions: Exercise, Heat, Home Exercise, Inactivity, Massage, Physical Therapy, Position/Reposition, Sitting, Stretching Pharmacological Interventions: Epidural, PRN Medication, Scheduled Medication, Topical Medication PQRS Narrative: Smoking Status Former smoker Hx Alcohol Use (MH) No Home Medications: Ambulatory Orders levETIRAcetam [Keppra] 500 mg PO BID 08/20/14 Apixaban [Eliquis] 5 mg PO BID 09/08/18 Atorvastatin [Lipitor] 40 mg PO DAILY 09/08/18 Vortioxetine Hydrobromide [Trintellix] 10 mg PO DAILY 09/08/18 Sotalol [Betapace] 120 mg PO BID 01/05/19 busPIRone HCL 30 mg PO BID 03/19/20 Baclofen [Lioresal] 20 mg PO TID 09/25/20 Fluticasone Nasal [place] [Flonase Nasal [place]] 2 spr EA NOSTRIL DAILY 03/17/21 Multivit-Min/Iron/Folic/Lutein [Centrum Silver Women Tablet] 1 tab PO DAILY@1500 11/11/21 Ascorbic Acid [Vitamin C] 1,000 mg PO DAILY@1500 12/04/21 Montelukast [Singulair] 10 mg PO HS 12/04/21 Budesonide/Glycopyr/Formoterol [Breztri Aerosphere Inhaler] 1 puff INHALATION RT-BID 06/08/22 Ipratropium-Albuterol Nebulize [Duoneb 0.5 mg-3 mg/3 ml Soln] 3 ml INHALATION RT-QID PRN 09/20/22 Metamucil Gummy 3 tab PO DAILY@1500 09/20/22 Mirtazapine [Remeron] 45 mg PO HS 09/20/22 ALPRAZolam [Xanax] 0.25 mg PO TID 10/01/22 Albuterol Inhaler [Ventolin Hfa Inhaler] 2 puff INHALATION BID PRN 11/26/23 Cetirizine HCl [Zyrtec] 10 mg PO HS 11/26/23 Docusate [Colace] 100 mg PO BID PRN 11/26/23 Esomeprazole Magnesium [NexIUM] 40 mg PO BID 11/26/23 oxyCODONE HCL/ACETAMINOPHEN [Percocet 5-325 mg] 1 tab PO TID 11/26/23 Meloxicam [Mobic] 15 mg PO DAILY 08/07/24 Pantoprazole [Protonix] 40 mg PO BID 08/07/24 Sucralfate [Carafate] 1 gm PO QID 08/07/24 diazePAM [Valium] 10 mg PO DAILY 1 Days #1 tab 08/07/24 methocarbamoL [Robaxin-750] 750 mg PO BID 08/07/24 predniSONE 5 mg PO TID 08/07/24 Controlled Substance Measures - Controlled Substance Measures Is patient prescribed a controlled substance at discharge?: Yes When asked, does pt state using other controlled substances?: No If prescribed controlled substance>3 days was MAPS reviewed?: Prescribed <3 Days
== END ==
LOC: PNWHC3 12:56
PROVIDERS: ATTEND Anesthesiology
DX: M43.26 Fusion of spine, lumbar region (principal); M46.1 Sacroiliitis, not elsewhere classified; Z87.891 Personal history of nicotine dependence; Z88.0 Allergy status to penicillin; Z88.1 Allergy status to other antibiotic agents; Z88.2 Allergy status to sulfonamides; Z88.6 Allergy status to analgesic agent; Z98.890 Other specified postprocedural states
CPT/HCPCS: 99211

== ENCOUNTER → 2024-08-22 | Outpatient (CLI) | payer BC, MEDICARE ==
--- NOTE | 2024-08-23 08:24 | MM ---
Reason for Exam: Screening (asymptomatic). Last mammogram was performed 3 year(s) and 3 month(s) ago. Patient History: Menarche at age 15. First Full-Term at age 25. Right ovary removed at age 19. Hysterectomy at age 31. Postmenopausal. Patient has history of breast feeding. Other cancer, age 55. Patient used Estrogen for 1 year. Patient used Hormonal Contraceptives for 2 years. Core Biopsy on the Left side. 01/09/2019, Benign Core Biopsy on the left side. 01/11/2003, Benign Stereotactic Core Biopsy on the left side. Risk Values: Holli 5 year model risk: 2.5%. NCI Lifetime model risk: 9.7%. Prior Study Comparison: 11/01/2018 Bilateral Diagnostic Mammogram, [facility]. 01/11/2020 Bilateral Diagnostic Mammogram, [facility]. 05/23/2021 Bilateral Screening Mammogram, [facility]. Tissue Density: The breasts are heterogeneously dense, which may obscure small masses. Findings: Analyzed By CAD. Benign vascular calcifications posterior outer aspect left breast on the CC view. There is no suspicious group of microcalcifications or new suspicious mass in either breast. Overall Assessment: Benign, BI-RAD 2 Management: Screening Mammogram of both breasts in 1 year. Patient should continue monthly self-breast exams. A clinical breast exam by your physician is recommended on an annual basis. This exam should not preclude additional follow-up of suspicious palpable abnormalities. Note on Holli scores and lifetime risk: 1. A Holli score greater than 3% is considered moderate risk. If this is the case, consider specialist referral to assess eligibility for a risk reducing agent. 2. If overall lifetime risk for the development of breast cancer is 20% or higher, the patient may qualify for future screening with alternating mammogram and breast MRI. [facility], , 08/23/2024 8:22 AM. Electronically signed and approved by: Damaso Kasper M.D. Radiologist
== END | disposition home or self-care (01) ==
LOC: RADMAMWWP 16:16
PROVIDERS: ATTEND Family Medicine
DX: Z12.31 Encounter for screening mammogram for malignant neoplasm of breast (principal); R92.333 Mammographic heterogeneous density, bilateral breasts; Z78.0 Asymptomatic menopausal state; Z92.0 Personal history of contraception
CPT/HCPCS: 77063; 77067

== ENCOUNTER 2024-09-05 08:04 | Day surgery (SDC) | payer BC, MEDICARE ==
[2024-09-04 10:06] VITALS: BMI 23.1
[~2024-09-05 08:04] MED LIST changes: -DEXAMETHASONE SOD PHOSPHATE 4 MG/ML 1 ML VIAL IV ONE; -GABAPENTIN 300 MG CAP PO PRN; -HYDROmorphone 0.5 MG/0.5 ML SYRINGE IVP PRN; +LACTATED RINGERS 1,000 ML IV SCH; -ONDANSETRON 4 MG/2 ML VIAL IVP ONE; -SCOPOLAMINE 1 MG/72 HR PATCH TRANSDERM ONE; -TRANEXAMIC 1,000 MG/100ML-NACL 1,000 MG in SALINE 1 100ML.BAG IVPB PRN; -fentaNYL (PF) 50 MCG/ML 2 ML AMP IV PRN
[2024-09-05 09:16] VITALS: TEMP 97.2
[2024-09-05 09:35] LABS: Glucose,Whole Blood 114 mg/dL (70-110)
[2024-09-05] MEDS ORDERED: IOPAMIDOL M200 10 ML VIAL ONE (10:08)
[2024-09-05] MEDS ORDERED: methylPREDNISolone ACETATE 80 MG/ML 1 ML VIAL ONE (10:08)
--- NOTE | 2024-09-05 10:22 | P.PCN ---
Date of Procedure: 09/05/24 Procedure(s) Performed: PREOPERATIVE DIAGNOSIS: 1-Lumbar post laminectomy syndrome.2-lumbar radiculopathy POSTOPERATIVE DIAGNOSIS:1- Lumbar post laminectomy syndrome.2-lumbar radiculopathy PROCEDURE: 1. Caudal epidural steroid injection under fluoroscopic guidance. (Fluoroscopy images available in the radiology department ) 2. Caudal epidurogram ANESTHESIA: Local with 1% lidocaine; 5ml for subcutaneous infiltrations . EBL: None. PROCEDURE INDICATION: The patient with neuropathic pain radiating distally returns for caudal epidural steroid injection. PROCEDURE DESCRIPTION: The patient was seen and identified in the preoperative area. Risks, benefits, complications, and alternatives were discussed with the patient. The patient agreed to proceed with the procedure and signed the consent., and vital signs were stable. Patient was taken to the OR and time out was completed. The patient was placed in the prone position on procedure table and a pillow was placed under the abdomen to reduce lumbar lordosis. The lumbosacral area was prepped and draped in the usual sterile fashion. Critical pause was taken. Vital signs were closely monitored during the procedure. Using lateral fluoroscopy the anterior-posterior plates of the sacrum were identified and the skin and deeper tissues corresponding into sacrococcygeal ligament were anesthetized using approximately 3 mL of 1% lidocaine. Then under fluoroscopy, a 3-1/2-inch 20-gauge Tuohy epidural needle was guided through the sacrococcygeal ligament, and into the epidural space. After negative aspiration, a 2 mL of Isovue 200 contrast dye was injected with excellent epidurogram. Again after negative aspiration for CSF, blood, and with no paresthesias, then Depo-Medrol 60mg, 2ml of 1% preservative free Lidocaine with 6 ml of preservative free normal saline(total of 10ml)solution was injected with washout of epidurogram. Needle was withdrawn intact. Skin was cleansed, and bandage was applied. COMPLICATIONS: None DISPOSITION / PLANS: The patient was placed in a supine position and transferred to the recovery area in a stable condition for observation and was discharged from the recovery room after meeting discharge criteria. Home discharge instructions given to the patient by the staff. The patient was reexamined prior to discharge. The patient will schedule a follow up in the clinic in 2-4 weeks. note= patient was scheduled to have lumbar epidural steroid injection at L5-S1, I tried to do it at L5-S1 level and then I got positive cerebrospinal fluid, for this reason the procedure was switched to caudal epidural steroid injection, I notified the patient that the need to change the procedure and she approved it, in the future I recommend to do caudal epidural steroid injection with lysis of epidural adhesions. Eliqupayam last dose taken more than 3 days ago.
[2024-09-05 10:35] VITALS: RESP 14
--- NOTE | 2024-09-05 10:35 | FL ---
EXAMINATION TYPE: FL guided pain mgmt statistic DATE OF EXAM: 09/05/2024 10:26 AM COMPARISON: Pre Operative Images if available both CT/MRI or plain film CLINICAL INDICATION: Female, 64 years old with history of Caudal Inj; TECHNIQUE: FL guided pain mgmt statistic, multiple fluoroscopic images provided for procedure. DAP: 0.59142 mGym2 Gycm2 uGym2 cGycm2 or equivalent. FINDINGS: Fluoroscopic images during injection for pain management demonstrate multilevel degeneration changes throughout the spine. No evidence for fracture. No acute process identified. IMPRESSION: 1. No evidence for intraoperative complication. 2. Please see the operative/procedural note for further details. [facility], , 09/05/2024 10:33 AM
[2024-09-05 10:48] VITALS: BP 123/88; PULSE 63
== END 2024-09-05 11:13 | disposition home or self-care (01) ==
LOC: ORPAIN 08:04
PROVIDERS: ATTEND Specialist
DX: M54.16 Radiculopathy, lumbar region (principal); M96.1 Postlaminectomy syndrome, not elsewhere classified; Z88.0 Allergy status to penicillin; Z88.1 Allergy status to other antibiotic agents; Z88.2 Allergy status to sulfonamides; Z88.8 Allergy status to other drugs, medicaments and biological substances
CPT/HCPCS: 62323; Q9966; J1010; 62322